=== PATIENT | female | born 1960 | race Caucasian/White ===

== ENCOUNTER → 2017-07-14 | Outpatient (CLI) | payer OTHER ==
[~2017-07-14] MED LIST: CALCTAB5 PO; CHOL1CAP85 PO; CIPR-255 PO; CITA20TA9 PO; LORA-741 PO
[2017-07-14 16:54] LABS: HEMATOCRIT 39.8 % (37-47); MEAN CELL VOLUME 89.8 fL (80-100); MEAN CORPUSCULAR HEMOGLOBIN 27.8 pg (25-34); MEAN CORPUSCULAR HGB CONC 30.9 g/dl (32-36); MEAN PLATELET VOLUME 10.1 fL (7.4-10.4); PLATELET COUNT 368 K/uL (130-400); RED BLOOD COUNT 4.43 M/uL (4.2-5.4); WHITE BLOOD COUNT 7.72 K/uL (4.8-10.8)
== END | disposition home or self-care (01) ==
LOC: C.LABBC 14:32
PROVIDERS: ATTEND Orthopaedic Surgery Sports Medicine
DX: R22.40 Localized swelling, mass and lump, unspecified lower limb (principal)

== ENCOUNTER → 2017-07-21 | Outpatient (CLI) | payer OTHER ==
[~2017-07-21] MED LIST changes: +GADAVIST IV PRN
--- NOTE | 2017-07-21 10:01 | DIAGNOSTIC IMAGING REPORT ---
RIGHT THIGH MRI WITH AND WITHOUT INTRAVENOUS CONTRAST HISTORY: Right thigh mass. TECHNIQUE: Multiplanar multisequence MRI of the right thigh was performed both before and after the intravenous administration of contrast. COMPARISON STUDY: None. FINDINGS: The patient is status post a right total hip arthroplasty. No fracture or dislocation within the visualized right femur. There are similar appearing multiseptated fluid collections within the anterior thigh and the groin. These demonstrate thickened and enhancing burleson. The groin fluid collection measures approximately 7.9 x 5.9 x 2.3 cm and appears to be located within the intermuscular adductor compartments. There is mild surrounding enhancement at this location. The second larger fluid collection is primarily within the deep subcutaneous location of the anterior thigh and corresponds to the patient's palpable abnormality. However, this fluid collection extends through the deep fascial plane best seen on axial T2 image 16 and extends superiorly between the quadriceps muscles. Both of these fluid collections may extend to the joint space. However, the most superior component of the fluid collections is partially obscured by the metallic artifact of the right hip prosthesis and the superior edge of the study. The larger anterior fluid collection measures approximately 27 x 10 x 3 cm. There is also mild surrounding enhancement and edema within the subcutaneous fat anteriorly. IMPRESSION: Similar-appearing large fluid collections within the anterior thigh and groin as described above demonstrating thickened and enhancing burleson. These fluid collections likely extend to the right hip. 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 Additionally, postoperative seromas, abscesses, or a synovial cell sarcomas could also have a similar appearance but are considered less likely. Electronically signed by: Carter Meza M.D. 07/21/2017 10:00 AM Dictated Date/Time: 07/21/2017 9:35 AM
== END | disposition home or self-care (01) ==
LOC: C.MRI 07:29
PROVIDERS: ATTEND Orthopaedic Surgery Sports Medicine
DX: R22.41 Localized swelling, mass and lump, right lower limb (principal)

== ENCOUNTER → 2017-07-28 | Outpatient (CLI) | payer OTHER ==
[~2017-07-28] MED LIST changes: -GADAVIST IV PRN
[2017-07-28 20:36] LABS: SYNOVIAL FLUID APPEARANCE CLOUDY; SYNOVIAL FLUID COLOR YELLOW; SYNOVIAL FLUID MONONUC RELAT 2.9 %; SYNOVIAL FLUID POLYNUC RELAT 97.1 %
== END | disposition home or self-care (01) ==
LOC: C.LAB 16:42
PROVIDERS: ATTEND Orthopaedic Surgery Sports Medicine
DX: M25.551 Pain in right hip (principal); Z47.1 Aftercare following joint replacement surgery; M79.651 Pain in right thigh; R60.0 Localized edema

== ENCOUNTER → 2017-09-02 | Outpatient (CLI) | payer OTHER ==
[~2017-09-02] MED LIST changes: +ASCA500 PO; +ASPI81TA28 PO; +DOXY100C2 PO; +FERR1TAB23 PO; +FLUO20CA36 PO; +LEVO-366 PO; +MISCCAP80 PO; +OXYC-609 PO; +SENNTAB23 PO
[2017-09-02 18:06] LABS: BASO % 0.2 %; BASO ABS # 0.01 K/uL (0-0.2); EOS % 2.7 %; EOS ABS # 0.16 K/uL (0-0.5); HEMATOCRIT 25.3 % (37-47); HEMOGLOBIN 8.1 g/dL (12.0-16.0); IG# 0.01 K/uL (0.00-0.02); LYMPH % 32.8 %; LYMPH ABS # 1.95 K/uL (1.2-3.4); MEAN CELL VOLUME 91.3 fL (80-100); MEAN CORPUSCULAR HEMOGLOBIN 29.2 pg (25-34); MEAN PLATELET VOLUME 9.8 fL (7.4-10.4); MONO % 7.9 %; MONO ABS # 0.47 K/uL (0.11-0.59); NEUT % 56.2 %; NEUT ABS # 3.34 K/uL (1.4-6.5); PLATELET COUNT 349 K/uL (130-400); RED CELL DISTRIBUTION WIDTH CV 15.8 % (11.5-14.5); RED CELL DISTRIBUTION WIDTH SD 50.5 fL (36.4-46.3); WHITE BLOOD COUNT 5.94 K/uL (4.8-10.8)
[2017-09-02 18:31] LABS: BLOOD UREA NITROGEN 12 mg/dl (7-18); CALCIUM 8.8 mg/dl (8.5-10.1); CARBON DIOXIDE 28 mmol/L (21-32); CREATININE 0.49 mg/dl (0.60-1.20); GLUCOSE 113 mg/dl (70-99); POTASSIUM 3.8 mmol/L (3.5-5.1); SODIUM 144 mmol/L (136-145)
--- NOTE | 2017-10-11 11:58 | CODING QUERY NO DIAGNOSIS ---
: 1960 Valid Physician Order Needed A valid physician order must be submitted in order to properly bill for the service(s) provided, including date of service(s), valid diagnosis, and physician signature. If these tests are done on a recurring basis the original physician order must be submitted in order to code and bill for the service(s) provided. Please fax us the original, signed physician order so that we may expedite billing to [phone] DOS 09/02/2017 * CBC with Diff * Partial Renal Profile * Vancomycin Trough Thank you Bibiana Goodrich [facility] Information Management
== END | disposition home or self-care (01) ==
LOC: C.LABSPEC 17:20
PROVIDERS: ATTEND Internal Medicine Infectious Disease
DX: M00.9 Pyogenic arthritis, unspecified (principal)

== ENCOUNTER → 2017-09-08 | Outpatient (CLI) | payer OTHER ==
[2017-09-08 12:31] LABS: BASO % 0.3 %; BASO ABS # 0.01 K/uL (0-0.2); EOS % 4.5 %; EOS ABS # 0.14 K/uL (0-0.5); HEMATOCRIT 29.8 % (37-47); HEMOGLOBIN 9.1 g/dL (12.0-16.0); IG# 0.01 K/uL (0.00-0.02); LYMPH % 33.1 %; LYMPH ABS # 1.02 K/uL (1.2-3.4); MEAN CELL VOLUME 95.8 fL (80-100); MEAN CORPUSCULAR HEMOGLOBIN 29.3 pg (25-34); MEAN CORPUSCULAR HGB CONC 30.5 g/dl (32-36); MEAN PLATELET VOLUME 9.8 fL (7.4-10.4); MONO % 12.3 %; MONO ABS # 0.38 K/uL (0.11-0.59); NEUT % 49.5 %; NEUT ABS # 1.52 K/uL (1.4-6.5); PLATELET COUNT 380 K/uL (130-400); RED CELL DISTRIBUTION WIDTH CV 17.3 % (11.5-14.5); RED CELL DISTRIBUTION WIDTH SD 59.5 fL (36.4-46.3); WHITE BLOOD COUNT 3.08 K/uL (4.8-10.8)
[2017-09-08 13:21] LABS: BLOOD UREA NITROGEN 13 mg/dl (7-18); CALCIUM 8.5 mg/dl (8.5-10.1); CARBON DIOXIDE 25 mmol/L (21-32); CREATININE 0.54 mg/dl (0.60-1.20); GLUCOSE 81 mg/dl (70-99); POTASSIUM 3.8 mmol/L (3.5-5.1); SODIUM 138 mmol/L (136-145)
--- NOTE | 2017-10-15 07:28 | CODING QUERY NO DIAGNOSIS ---
TREATMENT RENDERED WITHOUT A DIAGNOSIS To promote full compliance with coding requirements relating to patient care, physician participation is requested in all cases of certified professional coder uncertainty. Please assist us with providing a diagnosis/symptom for the test(s) below: A diagnosis/symptom was not documented on your Order. A valid diagnosis/symptom is required to bill all insurances. Please remember that we are unable to code a diagnosis of rule out, probable, possible, questionable, or suspected. Tests that require a diagnosis: DOS: 09/08/17 * CBC WITH AUTO DIFF DIAGNOSIS: * PARTIAL RENAL PROFILE DIAGNOSIS: * VANCOMYCIN TROUGH DIAGNOSIS: Provider Signature: Date: Thank you Trinidad Harvey [facility] Information Management Once completed, please kindly fax back to [phone] For questions please call [phone]
== END | disposition home or self-care (01) ==
LOC: C.LABSPEC 11:45
PROVIDERS: ATTEND Internal Medicine Infectious Disease
DX: M00.9 Pyogenic arthritis, unspecified (principal)

== ENCOUNTER → 2017-09-13 | Outpatient (CLI) | payer OTHER ==
[2017-09-13 12:47] LABS: BLOOD UREA NITROGEN 18 mg/dl (7-18); CALCIUM 8.6 mg/dl (8.5-10.1); CARBON DIOXIDE 24 mmol/L (21-32); CREATININE 0.56 mg/dl (0.60-1.20); GLUCOSE 83 mg/dl (70-99); POTASSIUM 3.7 mmol/L (3.5-5.1); SODIUM 136 mmol/L (136-145)
[2017-09-13 13:00] LABS: HEMATOCRIT 31.2 % (37-47); HEMOGLOBIN 9.7 g/dL (12.0-16.0); MEAN CELL VOLUME 94.3 fL (80-100); MEAN CORPUSCULAR HEMOGLOBIN 29.3 pg (25-34); MEAN CORPUSCULAR HGB CONC 31.1 g/dl (32-36); MEAN PLATELET VOLUME 10.7 fL (7.4-10.4); PLATELET COUNT 256 K/uL (130-400); RED CELL DISTRIBUTION WIDTH CV 16.8 % (11.5-14.5); RED CELL DISTRIBUTION WIDTH SD 57.5 fL (36.4-46.3); WHITE BLOOD COUNT 1.48 K/uL (4.8-10.8)
[2017-09-13 13:57] LABS: EOS % 4.7 %; EOS ABS # 0.07 K/uL (0-0.5); IG# 0.01 K/uL (0.00-0.02); LYMPH % 29.7 %; LYMPH ABS # 0.44 K/uL (1.2-3.4); MONO % 16.2 %; MONO ABS # 0.24 K/uL (0.11-0.59); NEUT % 48.7 %; NEUT ABS # 0.72 K/uL (1.4-6.5)
--- NOTE | 2017-10-22 14:55 | CODING QUERY NO DIAGNOSIS ---
: 1960 TREATMENT RENDERED WITHOUT A DIAGNOSIS To promote full compliance with coding requirements relating to patient care, physician participation is requested in all cases of management internship uncertainty. Please assist us with providing a diagnosis/symptom for the test(s) below: A diagnosis/symptom was not documented on your Order. A valid diagnosis/symptom is required to bill all insurances. Please remember that we are unable to code a diagnosis of rule out, probable, possible, questionable, or suspected. Tests that require a diagnosis: DOS: 09/02/17 AND FORWARD FOR WEEKLY LABS BELOW: * CBC WITH AUTO DIFF DIAGNOSIS: * PRP DIAGNOSIS: * VANCOMYCIN DIAGNOSIS: Provider Signature: Date: Thank you [facility] Information Management Once completed, please kindly fax back to [phone] For questions please call [phone]
== END | disposition home or self-care (01) ==
LOC: C.LABSPEC 07:55
DX: Z01.89 Encounter for other specified special examinations (principal)

== ENCOUNTER → 2017-09-14 | Outpatient (CLI) | payer OTHER ==
[~2017-09-14] MED LIST changes: -ASCA500 PO; -ASPI81TA28 PO; -DOXY100C2 PO; -FERR1TAB23 PO; -FLUO20CA36 PO; -LEVO-366 PO; -MISCCAP80 PO; -OXYC-609 PO; -SENNTAB23 PO
[2017-09-14 12:31] LABS: HEMATOCRIT 30.9 % (37-47); HEMOGLOBIN 9.5 g/dL (12.0-16.0); MEAN CELL VOLUME 93.6 fL (80-100); MEAN CORPUSCULAR HEMOGLOBIN 28.8 pg (25-34); MEAN CORPUSCULAR HGB CONC 30.7 g/dl (32-36); MEAN PLATELET VOLUME 10.9 fL (7.4-10.4); PLATELET COUNT 238 K/uL (130-400); RED CELL DISTRIBUTION WIDTH CV 16.5 % (11.5-14.5); RED CELL DISTRIBUTION WIDTH SD 56.2 fL (36.4-46.3); WHITE BLOOD COUNT 1.75 K/uL (4.8-10.8)
== END | disposition home or self-care (01) ==
LOC: C.LABSPEC 12:38
PROVIDERS: ATTEND Internal Medicine Infectious Disease
DX: M00.9 Pyogenic arthritis, unspecified (principal); A41.9 Sepsis, unspecified organism

== ENCOUNTER → 2017-09-16 | Outpatient (CLI) | payer OTHER ==
[2017-09-16 13:12] LABS: BASO % 0.3 %; BASO ABS # 0.01 K/uL (0-0.2); EOS % 7.3 %; EOS ABS # 0.27 K/uL (0-0.5); HEMATOCRIT 31.1 % (37-47); HEMOGLOBIN 9.5 g/dL (12.0-16.0); IG# 0.01 K/uL (0.00-0.02); LYMPH % 31.4 %; LYMPH ABS # 1.16 K/uL (1.2-3.4); MEAN CELL VOLUME 92.6 fL (80-100); MEAN CORPUSCULAR HEMOGLOBIN 28.3 pg (25-34); MEAN CORPUSCULAR HGB CONC 30.5 g/dl (32-36); MEAN PLATELET VOLUME 11.4 fL (7.4-10.4); MONO % 7.3 %; MONO ABS # 0.27 K/uL (0.11-0.59); NEUT % 53.4 %; NEUT ABS # 1.97 K/uL (1.4-6.5); PLATELET COUNT 235 K/uL (130-400); RED CELL DISTRIBUTION WIDTH CV 16.2 % (11.5-14.5); RED CELL DISTRIBUTION WIDTH SD 55.1 fL (36.4-46.3); WHITE BLOOD COUNT 3.69 K/uL (4.8-10.8)
== END | disposition home or self-care (01) ==
LOC: C.LABSPEC 12:24
PROVIDERS: ATTEND Internal Medicine Infectious Disease
DX: M00.9 Pyogenic arthritis, unspecified (principal); A41.9 Sepsis, unspecified organism

== ENCOUNTER → 2017-09-20 | Outpatient (CLI) | payer OTHER ==
[~2017-09-20] MED LIST changes: +ASCA500 PO; +ASPI81TA28 PO; +DOXY100C2 PO; +FERR1TAB23 PO; +FLUO20CA36 PO; +LEVO-366 PO; +MISCCAP80 PO; +OXYC-609 PO; +SENNTAB23 PO
[2017-09-20 12:43] LABS: BASO % 0.7 %; BASO ABS # 0.04 K/uL (0-0.2); EOS % 6.5 %; EOS ABS # 0.37 K/uL (0-0.5); HEMATOCRIT 31.5 % (37-47); HEMOGLOBIN 9.7 g/dL (12.0-16.0); IG# 0.01 K/uL (0.00-0.02); LYMPH % 33.7 %; LYMPH ABS # 1.92 K/uL (1.2-3.4); MEAN CELL VOLUME 93.8 fL (80-100); MEAN CORPUSCULAR HEMOGLOBIN 28.9 pg (25-34); MEAN CORPUSCULAR HGB CONC 30.8 g/dl (32-36); MEAN PLATELET VOLUME 10.7 fL (7.4-10.4); MONO % 17.6 %; NEUT % 41.3 %; NEUT ABS # 2.35 K/uL (1.4-6.5); PLATELET COUNT 308 K/uL (130-400); RED CELL DISTRIBUTION WIDTH CV 16.3 % (11.5-14.5); RED CELL DISTRIBUTION WIDTH SD 56.1 fL (36.4-46.3); WHITE BLOOD COUNT 5.69 K/uL (4.8-10.8)
[2017-09-20 13:04] LABS: BLOOD UREA NITROGEN 20 mg/dl (7-18); CALCIUM 9.2 mg/dl (8.5-10.1); CARBON DIOXIDE 25 mmol/L (21-32); CREATININE 0.42 mg/dl (0.60-1.20); GLUCOSE 76 mg/dl (70-99); POTASSIUM 3.6 mmol/L (3.5-5.1); SODIUM 141 mmol/L (136-145)
== END | disposition home or self-care (01) ==
LOC: C.LABSPEC 10:05
PROVIDERS: ATTEND Internal Medicine Infectious Disease
DX: Z01.89 Encounter for other specified special examinations (principal)

== ENCOUNTER 2017-10-07 08:28 | Emergency (ER) | payer OTHER ==
[~2017-10-07] VITALS: Ht 160 cm; Wt 66.0 kg
[~2017-10-07 08:28] MED LIST changes: -ASCA500 PO; -ASPI81TA28 PO; -DOXY100C2 PO; -FERR1TAB23 PO; -FLUO20CA36 PO; -LEVO-366 PO; -MISCCAP80 PO; -OXYC-609 PO; -SENNTAB23 PO
[2017-10-07 08:32] VITALS: TEMP 37.1; Ht 160 cm; Wt 66.0 kg
[2017-10-07 08:58] LABS: BASO % 0.2 %; BASO ABS # 0.02 K/uL (0-0.2); EOS % 2.6 %; EOS ABS # 0.24 K/uL (0-0.5); HEMATOCRIT 37.1 % (37-47); IG# 0.03 K/uL (0.00-0.02); LYMPH % 27.5 %; LYMPH ABS # 2.59 K/uL (1.2-3.4); MEAN CELL VOLUME 93.5 fL (80-100); MEAN CORPUSCULAR HEMOGLOBIN 30.2 pg (25-34); MEAN CORPUSCULAR HGB CONC 32.3 g/dl (32-36); MEAN PLATELET VOLUME 10.8 fL (7.4-10.4); MONO % 11.2 %; MONO ABS # 1.05 K/uL (0.11-0.59); NEUT % 58.2 %; NEUT ABS # 5.48 K/uL (1.4-6.5); PLATELET COUNT 298 K/uL (130-400); RED CELL DISTRIBUTION WIDTH CV 15.5 % (11.5-14.5); RED CELL DISTRIBUTION WIDTH SD 53.6 fL (36.4-46.3); WHITE BLOOD COUNT 9.41 K/uL (4.8-10.8)
[2017-10-07] MEDS ORDERED: OPTIRAY 320 IV PRN (09:15)
[2017-10-07 09:16] LABS: ALBUMIN 3.8 gm/dl (3.4-5.0); ALT/SGPT 56 U/L (12-78); BLOOD UREA NITROGEN 20 mg/dl (7-18); CALCIUM 9.8 mg/dl (8.5-10.1); CARBON DIOXIDE 24 mmol/L (21-32); GLUCOSE 94 mg/dl (70-99); LIPASE 111 U/L (73-393); POTASSIUM 3.4 mmol/L (3.5-5.1); SODIUM 138 mmol/L (136-145)
[2017-10-07 09:24] LABS: ALKALINE PHOSPHATASE 103 U/L (45-117); AST/SGOT 26 U/L (15-37); CKMB < 0.5 ng/ml (0.5-3.6); TOTAL PROTEIN 7.7 gm/dl (6.4-8.2)
[2017-10-07] MEDS ORDERED: MISCCAP80 PO (09:24)
[2017-10-07] MEDS ORDERED: FERR1TAB23 PO (09:24)
[2017-10-07] MEDS ORDERED: FLUO20CA36 PO (09:24)
[2017-10-07] MEDS ORDERED: DOXY100C2 PO (09:24)
[2017-10-07] MEDS ORDERED: SENNTAB23 PO (09:24)
[2017-10-07] MEDS ORDERED: OXYC-609 PO (09:24)
[2017-10-07] MEDS ORDERED: ASPI81TA28 PO (09:24)
[2017-10-07] MEDS ORDERED: ASCA500 PO (09:24)
[2017-10-07 09:29] LABS: PTT PATIENT 26.4 SECONDS (21.0-31.0)
--- NOTE | 2017-10-07 10:32 | DIAGNOSTIC IMAGING REPORT ---
CT SCAN OF THE ABDOMEN AND PELVIS WITH IV CONTRAST CLINICAL HISTORY: Right flank pain. COMPARISON STUDY: Abdominal CT dated 02/02/2015. MRI of the right hip dated 07/21/2017. TECHNIQUE: Following the IV administration of 119 cc of Optiray 320, CT scan of the abdomen and pelvis is performed from the lung bases to the proximal femora. Images are reviewed in the axial, sagittal, and coronal planes. IV contrast was administered without complication. A dose lowering technique was utilized adhering to the principles of ALARA. FINDINGS: Lung bases: The heart is enlarged and there is a small pericardial effusion. There is a trace right pleural effusion. Consolidative changes seen at the right lung base. The left lung bases clear noting dependent atelectasis end a calcified granuloma. Liver: The contrast-enhanced liver is normal in size, contour, and attenuation. There is no intrahepatic biliary ductal dilatation. The hepatic veins and portal veins are patent. 1.2 cm hypodensity is present in the right lobe of liver on image #83. This likely represents a tiny hemangioma but copy definitively characterized. This is not significantly changed from 2015. Gallbladder: Numerous gallstones are identified. There is no CT evidence of acute cholecystitis. Spleen: Normal in size and attenuation. Pancreas: Unremarkable. Adrenal glands: Unremarkable. Kidneys: The contrast enhanced kidneys are normal in size and without hydronephrosis. The kidneys enhance symmetrically. Abdominal vasculature: The abdominal aorta is normal in course and caliber. Bowel: There is moderate constipation. No bowel obstruction is seen. The appendix is normal as visualized. Peritoneum: There is no intraperitoneal free air or abdominal ascites. There is a fat-containing umbilical hernia. Lymphadenopathy: None. Pelvic viscera: Evaluation of the pelvis is degraded by a right hip arthroplasty. The bladder, uterus, and adnexa are normal as visualized. Skeletal structures: The skeletal structures are osteopenic. No lytic or blastic lesions are seen. A right hip arthroplasty is in place. There is age indeterminant fracture identified surrounding the skeletal the arthroplasty. This is likely at least subacute. Soft tissue infiltration is present overlying the right hip. A small fluid collection is suggested within the right hip musculature on image #377. This measures at least 2.4 cm as seen on image #377. There is mild lumbosacral spondylosis and scoliosis. IMPRESSION: 1. Cardiomegaly and small pericardial effusion. 2. There is a trace right pleural effusion. Consolidative change is seen at the right lung base. This could represent atelectasis versus pneumonia. Clinical correlation will be required. 3. Cholelithiasis without CT evidence of acute cholecystitis. 4. Moderate constipation. 5. A right hip arthroplasty is in place. There is subacute to chronic appearing fracture identified in the femoral shaft around the arthroplasty stem. Consider radiographic correlation. 6. Mild inflammatory change is seen overlying the right hip. There is a small serpiginous fluid collection seen within the overlying musculature, which was also likely present on the 07/21/2017 MRI. Clinical correlation will be essential. Electronically signed by: Bernardino Layton M.D. 10/07/2017 10:30 AM Dictated Date/Time: 10/07/2017 10:21 AM
--- NOTE | 2017-10-07 10:34 | DIAGNOSTIC IMAGING REPORT ---
(CHEST FOR PE) ANGIO WITH CLINICAL HISTORY: 56 years-old Female presenting with right-sided chest pain, shortness of breath since yesterday afternoon, no cough, constant pain. TECHNIQUE: Multidetector CT angiography of the chest was performed after administration of intravenous contrast. 3-D volumetric and/or maximum intensity projection (MIP) images were subsequently reconstructed for review. IV contrast: 119 mL of Optiray 320. A dose lowering technique was used consistent with the principles of ALARA (as low as reasonably achievable). COMPARISON: None. CT DOSE (mGy.cm): The estimated cumulative dose is 736.48 mGy.cm. FINDINGS: Placement Manager topogram: Right hip prosthesis. Pulmonary vasculature: The study is adequate for assessment of the pulmonary vascular tree. No filling defect within the pulmonary arteries to suggest embolus. Main pulmonary artery is not enlarged. No flattening of the interventricular septum. No intracardiac filling defect. No reflux of contrast into the hepatic veins. Remaining chest: On soft tissue windows, normal thyroid and thoracic inlet. No axillary, supraclavicular, hilar, or mediastinal lymphadenopathy. Normal aorta. Multichamber enlargement of the heart. Pulmonary vascular prominence. Mitral annular calcification. No pericardial or pleural effusion. Cholelithiasis. On lung windows, patchy peribronchovascular and dependent consolidation in the right lower lobe with volume loss. Mosaic attenuation noted throughout the lungs. Minimal peribronchial vascular consolidation along the medial basal left lower lobe and medial right middle lobe. Airways patent. On bone windows, benign hemangioma noted in T4. IMPRESSION: 1. No evidence of pulmonary embolus. 2. Cardiomegaly with pulmonary vessels are prominent suggestive of volume overload. No mariam pulmonary edema. 3. Patchy consolidation/atelectasis most prominently involving the right lower lobe. A component of aspiration in the right lower lobe is difficult to exclude. 4. Mosaic attenuation could suggest small airways disease. 5. Cholelithiasis. Electronically signed by: Carl Rosenthal M.D. 10/07/2017 10:33 AM Dictated Date/Time: 10/07/2017 10:25 AM
[2017-10-07] MEDS ORDERED: LEVOFLOXACIN 250 MG TAB PO STA (11:26)
[2017-10-07] MEDS ORDERED: KETOROLAC TROMETHAMINE 30 MG/ML VIAL IV STA (11:26)
[2017-10-07] MEDS ORDERED: LEVO-366 PO (11:27)
--- NOTE | 2017-10-07 12:41 | EMERGENCY ROOM VISIT NOTE ---
History Report prepared by Kendrick: Theresa Carpenter Under the Supervision of: Matthew SummersO. First contact with patient: 08:36 Chief Complaint: CARDIAC ASSESSMENT Stated Complaint: R SIDE PAIN, FROM HIP TO NECK Nursing Triage Summary: right sided chest pain with SOB since yesterday afternoon no cough or cold took oxycodone for pain pain is constant History of Present Illness The patient is a 56 year old female who presents to the Emergency Room with complaints of worsening right sided chest pain beginning yesterday. The patient states her pain started in her back and slowly started to radiate to her neck, right flank, and chest. The patient states her her pain worsens with taking a deep breath and moving. The patient states she took and oxycodone this morning with minimal relief. The patient denies any nausea, fever, or recent illness. The patient has a history of a hip replacement. Source of History: patient Onset: yesterday Position: chest (right) Quality: other (radiating) Timing: worsening Modifying Factors (Worsening): breathing, movement Modifying Factors (Relieving): other (oxycodone) Associated Symptoms: No fevers, No nausea Review of Systems See HPI for pertinent positives & negatives. A total of 10 systems reviewed and were otherwise negative. Past Medical & Surgical Medical Problems: (1) Aortic Valve Disorder Family History FH: heart disease Hypertension Social History Smoking Status: Former Smoker Drug Use: none Marital Status: in relationship Occupation Status: employed Current/Historical Medications Scheduled Ascorbic Acid (Vitamin C), 1 TAB PO DAILY Aspirin (Aspirin Ec), 81 MG PO BID Cholecalciferol (Vitamin D3), 20,000 UNITS PO DAILY Doxycycline Hyclate (Vibramycin), 100 MG PO BID Ferrous Sulfate (Iron), 325 MG PO BID Fluoxetine HCl (Fluoxetine HCl), 20 MG PO DAILY Levofloxacin (Levaquin), 500 MG PO DAILY Probiotic Product (Probiotic), 1 CAP PO DAILY Sennosides-Docusate Sodium (Stool Softener), 1 TAB PO Q2D Scheduled PRN Lorazepam (Ativan), 0.5 MG PO Q8 PRN for Anxiety Oxycodone HCl (Oxycodone HCl), 5 MG PO Q4H PRN for Pain Allergies Coded Allergies: No Known Drug Allergy (Verified Allergy, Unknown, ., 10/07/17) Physical Exam Vital Signs Date Time Temp Pulse Resp B/P (MAP) Pulse Ox O2 Delivery O2 Flow Rate FiO2 10/07/17 12:34 74 10/07/17 11:56 82 18 94/56 96 Room Air 10/07/17 10:18 80 18 111/64 97 Room Air 10/07/17 08:51 70 10/07/17 08:32 37.1 81 18 110/71 96 Room Air Physical Exam CONSTITUTIONAL/VITAL SIGNS: Reviewed / noted above. GENERAL: Non-toxic in appearance. INTEGUMENTARY: Warm, dry, and [place]. HEAD: Normocephalic. EYES: without scleral icterus or trauma. ENT/OROPHARYNX: clear and moist. LYMPHADENOPATHY/NECK: Is supple without lymphadenopathy or meningismus. RESPIRATORY: Lungs clear and equal. CARDIOVASCULAR: Regular rate and rhythm. GI/ABDOMEN: Soft and nontender. No organomegaly or pulsatile mass. No rebound or guarding. Normal bowel sounds. EXTREMITIES: Warm and well perfused. BACK: No CVA tenderness. NEUROLOGICAL: Intact without focal deficits. PSYCHIATRIC: normal affect. MUSCULOSKELETAL: Normally developed with good muscle tone. Medical Decision & Procedures ER Provider Diagnostic Interpretation: Radiology results as stated below per my review and radiologist interpretation: CT SCAN OF THE ABDOMEN AND PELVIS WITH IV CONTRAST FINDINGS: Lung bases: The heart is enlarged and there is a small pericardial effusion. There is a trace right pleural effusion. Consolidative changes seen at the right lung base. The left lung bases clear noting dependent atelectasis end a calcified granuloma. Liver: The contrast-enhanced liver is normal in size, contour, and attenuation. There is no intrahepatic biliary ductal dilatation. The hepatic veins and portal veins are patent. 1.2 cm hypodensity is present in the right lobe of liver on image #83. This likely represents a tiny hemangioma but copy definitively characterized. This is not significantly changed from 2015. Gallbladder: Numerous gallstones are identified. There is no CT evidence of acute cholecystitis. Spleen: Normal in size and attenuation. Pancreas: Unremarkable. Adrenal glands: Unremarkable. Kidneys: The contrast enhanced kidneys are normal in size and without hydronephrosis. The kidneys enhance symmetrically. Abdominal vasculature: The abdominal aorta is normal in course and caliber. Bowel: There is moderate constipation. No bowel obstruction is seen. The appendix is normal as visualized. Peritoneum: There is no intraperitoneal free air or abdominal ascites. There is a fat-containing umbilical hernia. Lymphadenopathy: None. Pelvic viscera: Evaluation of the pelvis is degraded by a right hip arthroplasty. The bladder, uterus, and adnexa are normal as visualized. Skeletal structures: The skeletal structures are osteopenic. No lytic or blastic lesions are seen. A right hip arthroplasty is in place. There is age indeterminant fracture identified surrounding the skeletal the arthroplasty. This is likely at least subacute. Soft tissue infiltration is present overlying the right hip. A small fluid collection is suggested within the right hip musculature on image #377. This measures at least 2.4 cm as seen on image #377. There is mild lumbosacral spondylosis and scoliosis. IMPRESSION: 1. Cardiomegaly and small pericardial effusion. 2. There is a trace right pleural effusion. Consolidative change is seen at the right lung base. This could represent atelectasis versus pneumonia. Clinical correlation will be required. 3. Cholelithiasis without CT evidence of acute cholecystitis. 4. Moderate constipation. 5. A right hip arthroplasty is in place. There is subacute to chronic appearing fracture identified in the femoral shaft around the arthroplasty stem. Consider radiographic correlation. 6. Mild inflammatory change is seen overlying the right hip. There is a small serpiginous fluid collection seen within the overlying musculature, which was also likely present on the 07/21/2017 MRI. Clinical correlation will be essential. Electronically signed by: Bernardino Layton M.D. (CHEST FOR PE) ANGIO WITH FINDINGS: Tombstone Setter topogram: Right hip prosthesis. Pulmonary vasculature: The study is adequate for assessment of the pulmonary vascular tree. No filling defect within the pulmonary arteries to suggest embolus. Main pulmonary artery is not enlarged. No flattening of the interventricular septum. No intracardiac filling defect. No reflux of contrast into the hepatic veins. Remaining chest: On soft tissue windows, normal thyroid and thoracic inlet. No axillary, supraclavicular, hilar, or mediastinal lymphadenopathy. Normal aorta. Multichamber enlargement of the heart. Pulmonary vascular prominence. Mitral annular calcification. No pericardial or pleural effusion. Cholelithiasis. On lung windows, patchy peribronchovascular and dependent consolidation in the right lower lobe with volume loss. Mosaic attenuation noted throughout the lungs. Minimal peribronchial vascular consolidation along the medial basal left lower lobe and medial right middle lobe. Airways patent. On bone windows, benign hemangioma noted in T4. IMPRESSION: 1. No evidence of pulmonary embolus. 2. Cardiomegaly with pulmonary vessels are prominent suggestive of volume overload. No mariam pulmonary edema. 3. Patchy consolidation/atelectasis most prominently involving the right lower lobe. A component of aspiration in the right lower lobe is difficult to exclude. 4. Mosaic attenuation could suggest small airways disease. 5. Cholelithiasis. Electronically signed by: Carl Rosenthal M.D. Laboratory Results 10/07/17 08:45 Red Blood Count 3.97, Mean Corpuscular Volume 93.5, Mean Corpuscular Hemoglobin 30.2, Mean Corpuscular Hemoglobin Concent 32.3, Mean Platelet Volume 10.8, Neutrophils (%) (Auto) 58.2, Lymphocytes (%) (Auto) 27.5, Monocytes (%) (Auto) 11.2, Eosinophils (%) (Auto) 2.6, Basophils (%) (Auto) 0.2, Neutrophils # (Auto ) 5.48, Lymphocytes # (Auto) 2.59, Monocytes # (Auto) 1.05, Eosinophils # (Auto ) 0.24, Basophils # (Auto) 0.02 10/07/17 08:45 Test 10/07/17 08:45 10/07/17 10:50 White Blood Count 9.41 K/uL (4.8-10.8) Red Blood Count 3.97 M/uL (4.2-5.4) Hemoglobin 12.0 g/dL (12.0-16.0) Hematocrit 37.1 % (37-47) Mean Corpuscular Volume 93.5 fL (80-100) Mean Corpuscular Hemoglobin 30.2 pg (25-34) Mean Corpuscular Hemoglobin Concent 32.3 g/dl (32-36) Platelet Count 298 K/uL (130-400) Mean Platelet Volume 10.8 fL (7.4-10.4) Neutrophils (%) (Auto) 58.2 % Lymphocytes (%) (Auto) 27.5 % Monocytes (%) (Auto) 11.2 % Eosinophils (%) (Auto) 2.6 % Basophils (%) (Auto) 0.2 % Neutrophils # (Auto) 5.48 K/uL (1.4-6.5) Lymphocytes # (Auto) 2.59 K/uL (1.2-3.4) Monocytes # (Auto) 1.05 K/uL (0.11-0.59) Eosinophils # (Auto) 0.24 K/uL (0-0.5) Basophils # (Auto) 0.02 K/uL (0-0.2) RDW Standard Deviation 53.6 fL (36.4-46.3) RDW Coefficient of Variation 15.5 % (11.5-14.5) Immature Granulocyte % (Auto) 0.3 % Immature Granulocyte # (Auto) 0.03 K/uL (0.00-0.02) Prothrombin Time 10.7 SECONDS (9.0-12.0) Prothromb Time International Ratio 1.0 (0.9-1.1) Activated Partial Thromboplast Time 26.4 SECONDS (21.0-31.0) Partial Thromboplastin Ratio 1.0 D-Dimer 4150 ug/L FEU (0-500) Anion Gap 10.0 mmol/L (3-11) Est Creatinine Clear Calc Drug Dose 81.9 ml/min Estimated GFR () 112.3 Estimated GFR (Non- 96.9 BUN/Creatinine Ratio 28.0 (10-20) Calcium Level 9.8 mg/dl (8.5-10.1) Total Bilirubin 0.9 mg/dl (0.2-1) Direct Bilirubin 0.2 mg/dl (0-0.2) Aspartate Amino Transf (AST/SGOT) 26 U/L (15-37) Alanine Aminotransferase (ALT/SGPT) 56 U/L (12-78) Alkaline Phosphatase 103 U/L (45-117) Total Creatine Kinase 38 U/L (26-192) Creatine Kinase MB < 0.5 ng/ml (0.5-3.6) Creatine Kinase MB Ratio (0-3.0) Troponin I < 0.015 ng/ml (0-0.045) Total Protein 7.7 gm/dl (6.4-8.2) Albumin 3.8 gm/dl (3.4-5.0) Lipase 111 U/L (73-393) Urine Color YELLOW Urine Appearance CLEAR (CLEAR) Urine pH 5.5 (4.5-7.5) Urine Specific [place] > 1.045 (1.000-1.030) Urine Protein NEG (NEG) Urine Glucose (UA) NEG (NEG) Urine Ketones 1+ (NEG) Urine Occult Blood NEG (NEG) Urine Nitrite NEG (NEG) Urine Bilirubin NEG (NEG) Urine Urobilinogen NEG (NEG) Urine Leukocyte Esterase NEG (NEG) Laboratory results as stated above per my review. Medications Administered Medications (Trade) Dose Ordered Sig/Raymond Route Start Time Stop Time Status Last Admin Dose Admin Ketorolac Tromethamine (Toradol Inj) 30 mg NOW STAT IV 10/07/17 11:26 10/07/17 11:27 DC 10/07/17 11:54 30 MG Levofloxacin (Levaquin Tab) 500 mg NOW STAT PO 10/07/17 11:26 10/07/17 11:27 DC 10/07/17 11:53 500 MG ECG Indication: chest pain Rate (beats per minute): 75 Findings: no ectopy, other (no acute injury) Change: EKG interpreted by me. ED Course 0837: Previous medical records were reviewed. The patient was evaluated in room A11B. A complete history and physical examination was performed. 1126: Ordered Levaquin Tab 500 mg Po, Toradol Inj 30 mg IV. 113: On reevaluation, the patient is resting comfortably. I discussed the results and findings with the patient. She verbalized agreement of the treatment plan. The patient was discharged home. Medical Decision the differential was considered includes acute myocardial infarction, acute coronary syndrome, myocarditis, pericarditis, pericardial effusions /tamponad, esophageal perforation, thoracic aortic dissection, pulmonary embolism, pneumonia, pneumothorax, pancreatitis, shingles, acute cholecystitis, perforated abdominal viscus. This is a 56-year-old female who presents to the ED with a chief complaint of right sided chest pain that radiates up towards her neck and into her right flank. The patient states that it started yesterday. She states that deep breathing made it worse. Denies any upper respiratory complaints. Her vital signs are normal. 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 Further details are listed above. The patient has normal vital signs. Her physical exam was relatively unremarkable. D-dimer was elevated. CBC and chem a panel was unremarkable. Troponin was negative. CT scan of the chest and abdomen and pelvis was done with IV contrast. Both show consolidation in the right lower lobe. There is cholelithiasis. There are some chronic changes in the right femur which, clinically, do not correlate to anything acute. The patient has no symptoms there. Patient was told results. She was started on Levaquin. She is felt to be stable for discharge and outpatient follow-up. Medication Reconcilliation Current Medication List: was personally reviewed by me Blood Pressure Screening Patient's blood pressure: Normal blood pressure Impression Primary Impression: Pneumonia Scribe Attestation The scribe's documentation has been prepared under my direction and personally reviewed by me in its entirety. I confirm that the note above accurately reflects all work, treatment, procedures, and medical decision making performed by me. Departure Information Dispostion Home / Self-Care Prescriptions Levofloxacin (Levaquin) 500 Mg Tab 500 MG PO DAILY for 9 Days, #9 TAB Prov: Jaciel Latham D.O. 10/07/17 Referrals Anamaria Abad D.O. (PCP) Forms IMPORTANT VISIT INFORMATION Patient Instructions My [facility], Pneumonia (Bacterial) - [facility] Additional Instructions Follow-up with your doctor for further care and evaluation in 1-2 days. Return to the emergency department for worsening or new symptoms or any concerns. You have been examined and treated today on an emergency basis only. This is not a substitute for, or an effort to provide, complete comprehensive medical care. It is impossible to recognize and treat all injuries or illnesses in a single emergency department visit. It is therefore important that you follow up closely with your doctor. Call as soon as possible for an appointment. Levaquin as prescribed
[2017-10-07 12:49] VITALS: BP 101/58; PULSE 77; O2SAT 97
== END 2017-10-07 12:50 | disposition home or self-care (01) ==
LOC: C.EDB 08:29 → C.EDA 12:50
DX: J18.9 Pneumonia, unspecified organism (principal); R07.9 Chest pain, unspecified; I51.7 Cardiomegaly; K80.20 Calculus of gallbladder without cholecystitis without obstruction; R06.02 Shortness of breath; Z96.641 Presence of right artificial hip joint; R10.9 Unspecified abdominal pain; Z87.891 Personal history of nicotine dependence

== ENCOUNTER 2022-08-02 16:17 | Inpatient (IN) ==
[2022-08-02] MEDS ORDERED: Heparin IV Adult Wt-Based Low-Dose WITH Bolus Protocol STA (16:41)
[2022-08-02 16:43] LABS: iSTAT Creatinine 0.6 mg/dl (0.6-1.3); iSTAT Hemoglobin 13.9 g/dl (12.0-16.0); iSTAT Ionized Calcium 1.05 mmol/l (1.12-1.32); iSTAT Potassium 3.1 mmol/L (3.3-5.0)
[2022-08-02] MEDS ORDERED: HEPARIN (PORCINE) 1000 UNIT/ML 10 ML (CATH LAB USE ONLY) ONE (16:47)
[2022-08-02] MEDS ORDERED: HEPARIN SOD (PORCINE) 1000 UNIT/ML ONE (16:48)
[2022-08-02] MEDS ORDERED: niCARdipine HCL INJ 2.5 MG/ML 10 ML AMP ONE (16:48)
[2022-08-02] MEDS ORDERED: MIDAZOLAM HCL 1 MG/ML 2ML VIAL ONE (16:48)
[2022-08-02] MEDS ORDERED: HEPARIN 25000 UNIT/500 ML D5W IV ONE (16:48)
[2022-08-02] MEDS ORDERED: fentaNYL citrate 100 MCG/2 ML VIAL ONE ×2 (16:48→16:54)
[2022-08-02] MEDS ORDERED: NITROGLYCERIN/D5W 100MCG/ML 20ML SYR ONE (16:48)
--- NOTE | 2022-08-02 16:48 | XRay Report ---
XR chest 1V portable HISTORY: 61 years-old Female Chest pain acute chest pain COMPARISON: None TECHNIQUE: Supine AP view of the chest FINDINGS: Cardiac silhouette is moderately enlarged. No pneumothorax, pleural effusion, airspace consolidation or overt pulmonary edema. Bones appear grossly intact. IMPRESSION: Cardiomegaly without acute process. ACT 112: Negative or not required by law. The above report was generated using voice recognition software. It may contain grammatical, syntax o r spelling errors. Electronically signed by: Leopoldo Fang M.D. 08/02/2022 4:47 PM
[2022-08-02 16:52] LABS: Basophils # (auto) 0.04 K/uL (0-0.2); Basophils % (auto) 0.3 %; Eosinophils # (auto) 0.05 K/uL (0-0.50); Eosinophils % (auto) 0.4 %; Hematocrit (blood only) 38.1 % (34.1-44.9); Hemoglobin 12.9 g/dl (12.0-16.0); Immature Granulocytes # (auto) 0.05 K/uL (0.00-0.02); Immature Granulocytes % (auto) 0.4 %; Lymphocytes # (auto) 1.93 K/uL (1.2-3.4); Lymphocytes % (auto) 16.3 %; Mean Corpuscular Hemoglobin 31.8 pg (25.0-34.0); Mean Corpuscular Hgb Conc 33.9 g/dL (32.0-36.0); Mean Corpuscular Volume 93.8 fL (80.0-100.0); Mean Platelet Volume 11.1 fL (9.4-12.3); Monocytes # (auto) 0.58 K/uL (0.24-0.82); Monocytes % (auto) 4.9 %; Neutrophils # (auto) 9.21 K/uL (1.4-6.5); Neutrophils % (auto) 77.7 %; Platelet Count 253 K/uL (130-400); RDW Coefficient of Variation 12.2 % (11.5-14.5); RDW Standard Deviation 42.3 fL (36.4-46.3); Red Blood Count 4.06 M/uL (3.93-5.22); White Blood Count 11.86 K/ul (4.8-10.8)
[2022-08-02] MEDS ORDERED: HEPARIN SOD (PORCINE) 1000 UNIT/ML IV ONE (17:00)
--- NOTE | 2022-08-02 17:01 | Pre Anesthesia Assessment ---
Date of Service August 02, 2022 Pre Sedation Assessment Vital Signs Temp Pulse Pulse Resp BP BP Pulse Ox 08/02/22 16:58 08/02/22 16:45 71 18 96 08/02/22 16:45 129/70 08/02/22 16:13 98.6 F 74 24 102/64 96 08/02/22 16:40 08/02/22 16:38 08/02/22 16:37 100 08/02/22 16:37 72 30 H 120/60 100 O2 Del Method O2 Flow Rate 08/02/22 16:58 Nasal Cannula 08/02/22 16:45 Nasal Cannula 2 08/02/22 16:45 08/02/22 16:13 Room Air 08/02/22 16:40 Nasal Cannula 08/02/22 16:38 Nasal Cannula 08/02/22 16:37 Nasal Cannula 2 08/02/22 16:37 Nasal Cannula 2 Cardiovascular RRR, no murmur, no edema Respiratory normal respiratory effort, lungs clear to auscultation Pre-Sedation Airway Assessment Smoking Status: Never smoker Hx Sleep Apnea: No Hx Difficult Intubation: No Thyromental Distance: < 3.5 Finger Breadths Oral Cavity: + WNL Mallampati Class: III ASA: ASA4 Procedure Planning Contraindications for Sedation: none Current Medications Reviewed: Yes Notes The planned sedation has been discussed with the patient. Informed Consent was obtained. I have identified the patient, determined the appropriateness of sedation and have assessed the patient immediately prior to the procedure. All medicine(s) and interventions are by my order.
--- NOTE | 2022-08-02 17:01 | Emergency Department Note ---
Impression & Plan ST elevation (STEMI) myocardial infarction, Chest pain ED Provider Note HISTORY OF PRESENT ILLNESS: Patient is a 61-year-old female presenting with chest pain. Patient reportedly was feeling constipated this morning and took a Dulcolax when she developed substernal chest pain. Patient reports this started around 1230. Her called 911. On EMS arrival, the patient was given 4 mg of Zofran for nausea and was given 324 mg of oral aspirin in route. EKG prehospital showed ST depressions in V4, V5, V6. On arrival to the ER, patient still complaining of chest pain. Heart alert was activated given EKG showing persistent depressions. Patient denies any history of coronary artery disease or diabetes. Denies any history of stents in her heart. Denies any DVT or PE history. She is not on any anticoagulation. Denies any history of bleeding disorders ROS: Constitutional: No fever, chills, or weakness Skin: No rash or diaphoresis HENT: No headaches or congestion Eyes: No vision changes Cardio: No palpitations or leg swelling +chest pain Respiratory: No cough, wheezing or shortness of breath GI: No nausea, vomiting, diarrhea, constipation : No dysuria, polyuria MSK: No joint or back pain Neuro: No loss of sensation, confusion, focal deficits, numbness, tingling Psychiatric: No mood changes PHYSICAL EXAM: Constitutional: Patient appears in no acute distress. HENT: Head: Normocephalic and atraumatic. Eyes: EOMI, PERRL Mouth/Throat: Mucous membranes moist. Neck: Trachea midline. Neck supple. Cardiovascular: RRR, No murmurs, rubs or gallops. Intact distal pulses. Pulmonary/Chest: No respiratory distress. Breath sounds clear and equal bilaterally. No wheezes or rales. Abdominal: BS +. Abdomen soft, no tenderness, rebound or guarding. Back: No midline spinal tenderness, no paraspinal tenderness, no CVA tenderness. Musculoskeletal: No edema, tenderness or deformity noted. Skin: Warm and dry. No rash, erythema, pallor or cyanosis Psychiatric: Appropriate mood and affect for situation. Neurological: Alert and keenly responsive. CN II-XII grossly intact, moving all extremities equally and fully. MDM: - Vitals signs stable. - EKG shows ST depressions in V4, V5 and V6. Heart alert activated. Interventionalist, Dr. Baldwin, consulted. Requested heparin bolus (ordered). - Patient given 25 mcg IV fentanyl for pain control on arrival. - Laboratory workup ordered and sent to lab. - Patient taken to cleaning laborer and to be admitted to hospitalist service post procedure. ASSESSMENT AND PLAN: Diagnosis: STEMI; chest pain Plan: to cleaning laborer Past Med/Surg History Social History Smoking Status: Never smoker Feels Safe at Home: Yes Allergies Allergies Allergy/AdvReac Type Severity Reaction Status Date / Time vancomycin AdvReac Rash Verified 08/02/22 16:35 Home Meds Home Medications Medication Instructions Recorded Confirmed cholecalciferol (vitamin D3) 25 25 mcg PO DAILY 08/02/22 08/02/22 mcg (1,000 unit) tablet (Vitamin D3) lorazepam 0.5 mg tablet 0.5 mg PO DAILY PRN Anxiety 08/02/22 08/02/22 magnesium 250 mg tablet 0 mg PO 3XWK 08/02/22 08/02/22 Results & Data (ED) Vital Signs Vital Signs - 24 hr 08/02/22 16:37 08/02/22 16:37 08/02/22 16:38 Temperature Temperature Source Pulse Rate Pulse Rate [Apical] 72 Pulse Rate from SpO2 Sensor Respiratory Rate 30 H Respiratory Effort / Characteristics Respiratory Depth Respiratory Pattern Blood Pressure Blood Pressure [Left Arm] 120/60 Blood Pressure Mean Blood Pressure Mean [Left Arm] 80 Blood Pressure Position Pulse Oximetry 100 100 Oxygen Delivery Method Nasal Cannula Nasal Cannula Nasal Cannula Oxygen Flow Rate 2 2 Sepsis Recent Fever Within 48 Hours Sepsis New/Unexplained Change in Mental Status Sepsis Action Taken by Nursing 08/02/22 16:40 08/02/22 16:13 08/02/22 16:45 Temperature 37.0 C Temperature Source Oral Pulse Rate 74 Pulse Rate [Apical] Pulse Rate from SpO2 Sensor Respiratory Rate 24 Respiratory Effort / Characteristics Non-Labored Spontaneous Respiratory Depth Normal Respiratory Pattern Regular Blood Pressure 102/64 129/70 Blood Pressure [Left Arm] Blood Pressure Mean 76 89 Blood Pressure Mean [Left Arm] Blood Pressure Position Lying Pulse Oximetry 96 Oxygen Delivery Method Nasal Cannula Room Air Oxygen Flow Rate Sepsis Recent Fever Within 48 Hours No Sepsis New/Unexplained Change in Mental Status No Sepsis Action Taken by Nursing No Action Required 08/02/22 16:45 08/02/22 16:58 Temperature Temperature Source Pulse Rate 71 Pulse Rate [Apical] Pulse Rate from SpO2 Sensor 70 Respiratory Rate 18 Respiratory Effort / Characteristics Respiratory Depth Respiratory Pattern Blood Pressure Blood Pressure [Left Arm] Blood Pressure Mean Blood Pressure Mean [Left Arm] Blood Pressure Position Pulse Oximetry 96 Oxygen Delivery Method Nasal Cannula Nasal Cannula Oxygen Flow Rate 2 Sepsis Recent Fever Within 48 Hours Sepsis New/Unexplained Change in Mental Status Sepsis Action Taken by Nursing Laboratory Data Result diagrams: 08/02/22 16:25 08/02/22 16:25 Lab Results 08/02/22 08/02/22 Range/Units 16:25 16:31 WBC 11.86 H (4.8-10.8) K/ul RBC 4.06 (3.93-5.22) M/uL Hgb 12.9 (12.0-16.0) g/dl POC Hgb 13.9 (12.0-16.0) g/dl Hct 38.1 (34.1-44.9) % POC Hct 41 (37-47) % MCV 93.8 (80.0-100.0) fL MCH 31.8 (25.0-34.0) pg MCHC 33.9 (32.0-36.0) g/dL RDW Std Deviation 42.3 (36.4-46.3) fL RDW Coeff of Angela 12.2 (11.5-14.5) % Plt Count 253 (130-400) K/uL MPV 11.1 (9.4-12.3) fL Immature Gran % (Auto) 0.4 % Neut % (Auto) 77.7 % Lymph % (Auto) 16.3 % Lamb % (Auto) 4.9 % Eos % (Auto) 0.4 % Baso % (Auto) 0.3 % Neut # (Auto) 9.21 H (1.4-6.5) K/uL Lymph # (Auto) 1.93 (1.2-3.4) K/uL Lamb # (Auto) 0.58 (0.24-0.82) K/uL Eos # (Auto) 0.05 (0-0.50) K/uL Baso # (Auto) 0.04 (0-0.2) K/uL Immature Gran # (Auto) 0.05 H (0.00-0.02) K/uL POC Sodium 140 (135-144) mmol/L POC Potassium 3.1 L (3.3-5.0) mmol/L POC Chloride 109 (101-112) mmol/L POC Total CO2 17 L (24-31) mmol/L POC Anion Gap 18.0 (16-25) mmol/L POC BUN 18 (7-18) mg/dl POC Creatinine 0.6 (0.6-1.3) mg/dl POC Glucose (other) 191 H (70-99) mg/dl POC Ioniz Calcium Lakesha 1.05 L (1.12-1.32) mmol/l Administered Medications Discontinued Medications Fentanyl Citrate (Fentanyl Citrate 100 Mcg/2 Ml Vial) Confirm Administered Dose 100 mcg .ROUTE .STK-MED ONE Stop: 08/02/22 16:55 Last Increment: 08/02/22 16:55 Dose: 25 mcg Documented By: MARTINEZ Heparin Sodium (Porcine) (Heparin Sod (Porcine) 1000 Unit/Ml) 4,000 units IV NOW ONE Stop: 08/02/22 17:01 Last Admin: 08/02/22 16:53 Dose: 4,000 units Documented By: MARTINEZ Co-signed By: JONATHON Imaging Data Radiologist's Impression: Chest X-Ray 08/02/22 16:32 XR chest 1V portable HISTORY: 61 years-old Female Chest pain acute chest pain COMPARISON: None TECHNIQUE: Supine AP view of the chest FINDINGS: Cardiac silhouette is moderately enlarged. No pneumothorax, pleural effusion, airspace consolidation or overt pulmonary edema. Bones appear grossly intact. IMPRESSION: Cardiomegaly without acute process. ACT 112: Negative or not required by law. The above report was generated using voice recognition software. It may contain grammatical, syntax or spelling errors. Electronically signed by: Leopoldo Fang M.D. 08/02/2022 4:47 PM Discharge Plan Visit Data Chief Complaint: Cardiac Assessment Stated Complaint: SOB, CHEST PAIN ED Provider: Diann Carrion Discharge Instructions Interventions: ED Discharge Assessment Last Done: 08/02/22 16:58 Prescriptions Prescriptions: No Action lorazepam 0.5 mg Tablet 0.5 mg PO DAILY PRN (Reason: Anxiety) magnesium 250 mg Tablet 0 mg PO 3XWK Rx Instructions: unknown strength cholecalciferol (vitamin D3) [Vitamin D3] 25 mcg (1,000 unit) Tablet 25 mcg PO DAILY
[2022-08-02 17:20] LABS: Thyroid Stimulating Hormone 5.024 uIu/ml (0.300-4.500)
[2022-08-02 17:27] LABS: Albumin Globulin Ratio 1.8 (0.9-2); Albumin Level 4.4 gm/dl (3.4-5.0); BUN Creatinine Ratio 27.9 (10-20); Bilirubin,Total 1.4 mg/dl (0.2-1.0); Calcium 10.4 mg/dl (8.5-10.1); Est GFR (African American) 109.4 ml/min; Est GFR (Non-African American) 94.4 ml/min; Globulin 2.5 gm/dl (2.5-4.0); Magnesium 1.8 mg/dl (1.7-2.4); Potassium 3.3 mmol/L (3.5-5.1); Total Protein 6.9 gm/dl (6.0-8.3)
[2022-08-02 17:53] LABS: T4 Free Thyroxine 1.33 ng/dl (0.61-1.60)
--- NOTE | 2022-08-02 18:12 | Post Anesthesia Assessment ---
Date of Service August 02, 2022 Post Sedation Assessment Vital Signs Temp Pulse Pulse Resp BP BP Pulse Ox 08/02/22 16:58 08/02/22 16:45 71 18 96 08/02/22 16:45 129/70 08/02/22 16:13 98.6 F 74 24 102/64 96 08/02/22 16:40 08/02/22 16:38 08/02/22 16:37 100 08/02/22 16:37 72 30 H 120/60 100 O2 Del Method O2 Flow Rate 08/02/22 16:58 Nasal Cannula 08/02/22 16:45 Nasal Cannula 2 08/02/22 16:45 08/02/22 16:13 Room Air 08/02/22 16:40 Nasal Cannula 08/02/22 16:38 Nasal Cannula 08/02/22 16:37 Nasal Cannula 2 08/02/22 16:37 Nasal Cannula 2 Recovery Score Activity: Moves 4 extremities Respiration: Deep Breath/Cough Circulation: +/-20% PreAnes Value Consciousness: Fully Awake Oxygen Saturation: O2 needed for >90% Discharge Sedation Level of Care: Fast Track Phase II Post Sedation Plan On clinical assessment, the patient appears to have tolerated the sedation without complications. Patient is recovering as anticipated. Patient will continue to be monitored by nursing and may be discharged when sedation discharge criteria are met per below protocol. Upon Completions of procedure up to 15 minutes continue every 5 minute vital signs and the P.A.R. score; then discharge to a Phase I or Fast Track to Phase II per the following guidelines: * Discharge Patient to appropriate Phase II area if PAR is 8 or greater or return to pre- procedure baseline. The post - procedure orders will be as directed. * If PAR score is less than 8 or not return to pre-procedure baseline then patient will follow Phase I monitoring till PAR is reached for Phase II. The Phase I may be done in procedure room or may call to secure a Phase I area. * If naloxone or flumazenil are used for reversal, hold in Phase I for continued monitoring from when last reversal dose was given for a minimum of 60 minutes or longer pending the nurse and/or physician discretion of patient condition before discharge to Phase II. Please call the Sedation Physician to re-evaluate and complete post-note for discharge to Phase II area. Do NOT discharge from procedure sedation or Phase 1 until post- sedation evaluation note is complete by procedure /sedation MD Sedation Discharge Instructions to be given to the patient at discharge to home.
--- NOTE | 2022-08-02 18:14 | Cardiac Catheterization ---
[facility] Data: Process Development Technician Cardiac Status Clinical evaluation leading to the procedure CAD Presenation: Unstable angina Anginal Classification: CCS IV Diagnostic Physicians Name: Primitivo Baldwin MD Closure Device Recommendations: Medical Therapy and/or Counseling Cardiac Cath Procedure Full Procedure Date August 02, 2022 Pre-Procedure Diagnosis Pre-Procedure Diagnosis: Acute Coronary Syndrome AUC Score AUC Score: 8 Post-Procedure Diagnosis Post-Procedure Diagnosis: Normal Coronary Arteries and Elevated Intracardiac Pressures Procedure(s) Performed Procedure(s) Performed: Coronary Angiography, Left Heart Cath and Ultrasound Guided Vascular Access Foreign Exchange Student Coordinator Primitivo Baldwin MD Dimpling Machine Operator(s) Joe Estimated Blood Loss Estimated Blood Loss: 5 Medication(s) Medication(s): Fentanyl, Heparin, Lidocaine 1%, Nicardipine, Nitroglycerin and Versed Summary of Findings Indication: Suspected ACS. Chest pain with abnormal ECG, lateral ST depressions Access: 6 Fr right radial artery under ultrasound guidance Catheters: [place], JR4, pigtail Findings: LM -normal caliber, angiographically normal LAD -medium caliber, tapers to apex, angiographically normal. Medium D1, D2 without significant disease. Circumflex -small caliber, no significant disease RCA -dominant, large caliber, angiographically normal. RPDA and large RPLB without significant disease. LVEDP -21 LV 50 to 55%, no clear motion abnormalities, 1+ MR, normal caliber aortic root/ascending aorta Arterial Closure: TR band Summary: 1. Angiographically normal coronary arteries 2. Elevated intracardiac filling pressure (LVEDP 21) 3. Preserved LV function Recommendations: Further evaluation for noncardiac causes of patient's chest and diffuse pain. Trend troponin until peak, repeat echocardiogram in a.m. Hemodynamics Rest Ao:: 113/58/83 Final Ao: 120/61/81 LV: 111/21 Recommendations Recommendations: Medical Therapy and/or Counseling Specimens Specimens: None Radiation Exposure (mGy) 221 Contrast (mls) 50 Anesthesia Moderate 1712- 1742 Procedural Complication(s) None Disposition PCU I attest to the content of the Intraoperative Record and any orders documented therein. Any exceptions are noted below. [facility] Card Cath Procedure Codes Cardiac Catheterization Procedure 1: Cardiovascular Cath Procedures: 05525 Coronaries and LHC (+/-LV) Therapeutic Services & Ancillary Procedure 1: Cardiovascular Tx and Anc Procedures: 69759 Ultrasonic Guidance Vascular Access Moderate Sedation Procedure 1: Sedation/Anesthesia: 96908 Mod Sedation by the same physician;Init15 Min Child Age 5 & Up Procedure 2: Sedation/Anesthesia: 98241 Mod Sedation by the same physician; Ea [id number] Minutes PG Care Time/CCT Total # of Minutes Spent Total Time Spent with Patient: Total time spent is greater than 50% in coordination of care (as documented) at patient's floor/unit and/or counseling patient:
[2022-08-02] MEDS ORDERED: LACTATED RINGER'S 1,000 ML IV ONE (18:38)
[2022-08-02] MEDS ORDERED: DAPTOmycin 325 MG in SYRINGE 0 ML IV ONE (19:30)
[2022-08-02 19:33] LABS: Appearance Urine Clear (Clear); Bacteria Urine Automated Negative (Negative); Bilirubin Urine Negative (Negative); Blood Urine 1+ (Negative); Color Urine Yellow; Epithelial Cell Urine Auto >30 /lpf (0-5); Glucose Urine UA Trace (Negative); Ketones Urine 4+ (Negative); Leukocyte Esterase Urine 1+ (Negative); Nitrite Urine Negative (Negative); Protein Urine Negative (Negative); Specific Gravity Urine > 1.045 (1.000-1.030); Urobilinogen Urine Negative (Negative)
[2022-08-02 19:36] LABS: INR 1.1 (0.9-1.1); Partial Thromboplastin Ratio 1.5; Partial Thromboplastin Time 41.8 Seconds (21.0-31.0); Prothrombin Time 12.1 Seconds (9.0-12.0)
[2022-08-02] MEDS: PANTOprazole 40 MG in SYRINGE 0 ML IV SCH (19:44)
[2022-08-02] MEDS ORDERED: FAMOTIDINE 20 MG in SYRINGE 3 ML IV ONE (19:45)
[2022-08-02] MEDS ORDERED: HYDROmorphone INJ 0.5 MG/0.5 ML SYR IV STA (19:45)
[2022-08-02] MEDS ORDERED: ONDANSETRON INJ 2 MG/ML 2 ML VIAL IV PRN (19:51)
[2022-08-02] MEDS ORDERED: NITROGLYCERIN SL 0.4 MG/TAB TAB SL PRN (19:51)
[2022-08-02] MEDS ORDERED: PIPERACILLIN/TAZOBACTAM 3.375 GM in DEXTROSE 5% 100 ML IV ONE (20:00)
[2022-08-02] MEDS: SODIUM CHLORIDE 0.9% 1000ML 1,000 ML IV SCH ×2 (20:00→23:08)
[2022-08-02 20:21] LABS: Calcium 9.7 mg/dl (8.5-10.1); Creatinine Clr Calc Pharmacy 78.8 ml/min; Est GFR (African American) 112.8 ml/min; Est GFR (Non-African American) 97.3 ml/min; Potassium 3.1 mmol/L (3.5-5.1)
[2022-08-02 20:25] LABS: Magnesium 1.7 mg/dl (1.7-2.4)
--- NOTE | 2022-08-02 20:25 | Cardiology Consultation ---
Date of Consultation August 02, 2022 Assessment & Plan (1) Chest pain: Patient has endorsed ongoing chest pain for at least the last 4 hours and has new dynamic ST changes on ECG. Concern symptoms may be secondary to high risk ACS and will plan to proceed with cardiac catheterization to rule out high risk obstructive CAD. Discussed risks, benefits, alternatives of procedure with patient and and they are willing to proceed. Given IV heparin in ED. Further recommendations pending findings of coronary angiography. History of Present Illness Attending Physician: Armond Javed MD History of Present Illness 61-year-old woman here with reports of chest pain and ECG with dynamic ST changes concerning for possible high risk ACS. Patient is followed by Dr. Suarez for her cardiac care. Prior documentation under her maiden name Janet Bravo. 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 Also with a history of paroxysmal SVT. No other active medical issues. Previously hospitalized in March 2021 for intractable nausea/vomiting/diarrhea. Patient was seen in the emergency department after heart alert activated follow ing initial ECG. Patient unable to give much history other than stating that she had diffuse pain everywhere and felt awful. She is communicated to the ED on admission that she was having chest pain since 1230 today, approximately 4 hours prior to arrival. She denies similar symptoms in the past. Hemodynamically stable on arrival. ECG showed sinus rhythm with LVH, septal infarct and deep ST depressions in V4 through V6. ST changes new from prior ECG in 2018. Allergies Allergy/AdvReac Type Severity Reaction Status Date / Time vancomycin AdvReac Rash Verified 08/02/22 16:35 Home Medications Medication Instructions Recorded Confirmed Type cholecalciferol (vitamin D3) 25 25 mcg PO DAILY 08/02/22 08/02/22 History mcg (1,000 unit) tablet (Vitamin D3) lorazepam 0.5 mg tablet 0.5 mg PO DAILY PRN Anxiety 08/02/22 08/02/22 History magnesium 250 mg tablet 0 mg PO 3XWK 08/02/22 08/02/22 History Patient History Social History Smoking Status: Former smoker Second Hand Exposure: No; Do You Dip or Chew Tobacco: No; Tobacco Cessation Education Requested by Patient: No Hx Alcohol Use: Yes Alcohol type: wine Hx Substance Use: No Preferred Language: Serbian Communication Ability: Effective Assistant Toddler Teacher Required: No Beliefs That Will Affect Care: None Current Living Situation: Spouse Other Information That Helps Us Care for You: No Feels Safe at Home: Yes Safety Concerns: Feels Safe At This Time Assistive Devices: Cane and Glasses Review of Systems Review of Systems: Unable to obtain due to emergent situation Physical Exam Physical Exam: General: Uncomfortable, unable to answer most questions HEENT: Sclerae anicteric Lungs: Clear anteriorly Cardiac: Regular rate and rhythm, 3 out of 6 holosystolic murmur at the apex Vascular: Diminished radial pulses bilaterally. Abdomen: Soft, tender diffusely most notably left lower quadrant Extremities: Well perfused, no peripheral edema Neuro: Nonfocal Psych: Alert, limited by pain Results & Data ([facility]) Vital Signs (Past 12 Hours) Vital Signs Temp Pulse Pulse Resp BP BP Pulse Ox 08/02/22 19:58 97.7 F 73 20 102/74 99 08/02/22 19:24 97.5 F L 73 20 132/69 99 08/02/22 19:16 97.9 F 70 20 133/84 97 08/02/22 18:26 97.5 F L 79 22 135/59 L 100 08/02/22 18:31 97.7 F 73 20 135/59 L 99 08/02/22 18:16 98.6 F 78 20 135/59 L 98 08/02/22 16:58 08/02/22 16:45 71 18 96 08/02/22 16:45 129/70 08/02/22 16:13 98.6 F 74 24 102/64 96 08/02/22 16:40 08/02/22 16:38 08/02/22 16:37 100 08/02/22 16:37 72 30 H 120/60 100 O2 Del Method O2 Flow Rate 08/02/22 19:58 Room Air 08/02/22 19:24 Room Air 08/02/22 19:16 Room Air 08/02/22 18:26 Room Air 08/02/22 18:31 Room Air 08/02/22 18:16 Room Air 08/02/22 16:58 Nasal Cannula 08/02/22 16:45 Nasal Cannula 2 08/02/22 16:45 08/02/22 16:13 Room Air 08/02/22 16:40 Nasal Cannula 08/02/22 16:38 Nasal Cannula 08/02/22 16:37 Nasal Cannula 2 08/02/22 16:37 Nasal Cannula 2 PG Care Time/CCT Total # of Minutes Spent Total Time Spent with Patient: Total time spent is greater than 50% in coordination of care (as documented) at patient's floor/unit and/or counseling patient: Coding Level of Care Code 17412 Inpt Consult Level 4 Diagnoses Chest pain R07.9
[2022-08-02] MEDS ORDERED: POTASSIUM PHOS 3 MMOL/1 ML INFUSION IV STA (20:29)
[2022-08-02] MEDS ORDERED: MAGNESIUM SULFATE / D5W 1 GM/100 ML BAG IV ONE (20:30)
[2022-08-02 20:44] LABS: Troponin I High Sensitivity 4.3 pg/ml (0-14)
[2022-08-02] MEDS ORDERED: OPTIRAY 320 500ml IV ONE (20:52)
[2022-08-02] MEDS ORDERED: POTASSIUM PHOSPHATE 30 MMOL in SODIUM CHLORIDE 0.9% 500 ML IV ONE (21:00)
--- NOTE | 2022-08-02 22:32 | History and Physical Report ---
DATE OF ADMISSION: 08/02/2022. CHIEF COMPLAINT: Severe abdominal pain and some chest discomfort. 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 She was in the [employer] when the symptoms started. She was having constipation. She took Dulcolax and had diarrhea today and as per , she was not feeling well for the last 2 days, but no fever but having chills. On arrival to the ER, she was given Zofran for nausea and given aspirin and EKG showed ST depressions in V4, V5, V6 and she was heart alert and status post cardiac catheterization, which showed clean coronaries and she was transferred to the tele floor. Her labs come back with white count of 11. Initial lactic acid came as 4.5, repeat is 4.1, phosphorus 1, total bilirubin 1.4, CO2 of 18, potassium 3.1. She is afebrile, but she has a lot of chills. Complains of significant abdominal pain in the epigastric and left upper quadrant region, sometimes going to back, associated with nausea. She vomited a few times and she also had diarrhea a few times today. She states she feels some chest discomfort, has some headache, neck pain, chronic back pain. Denies any pain in the legs. She ambulates with a cane. Denies any blurred visions, no runny nose, no sore throat. No cough. Denies any hematuria, no burning micturition, blood pressure is okay. Saturating okay on room air. ALLERGIES: VANCOMYCIN. PAST MEDICAL HISTORY: As mentioned above. PAST SURGICAL HISTORY: Wound debridement in 2018, colonoscopy, incision and drainage of right thigh, injection of lumbosacral spine, ligation of oviducts, removal of right hip prosthesis, cataract surgeries, revision of right total hip joint. MEDICATIONS: The patient is on vitamin D, lorazepam as needed, Prozac 20 mg daily. FAMILY HISTORY: Significant for aunt has breast cancer; mother has heart disorder, hypertension; maternal grandmother has breast cancer. SOCIAL HISTORY: . Quit smoking in 1984, smoked quarter pack a day for 10 years. Alcohol, rarely. No drug use. REVIEW OF SYSTEMS: As per HPI. Rest of the review of systems is negative. PHYSICAL EXAMINATION: GENERAL: The patient is of moderate build, seems to be in pain and shaking. VITAL SIGNS: Temperature 36.5, pulse 73, respiratory rate 20, blood pressure 102/74, oxygen 99% on room air. HEENT: Head is atraumatic. Extraocular muscles intact. Oral mucosa moist. NECK: No neck masses seen. CARDIOVASCULAR: S1 and S2 heard. Regular rate and rhythm. No murmur, no gallop. RESPIRATORY SYSTEM: Normal AP diameter. No accessory muscle use. No wheezing, no crackles. ABDOMEN: Epigastric tenderness and right upper quadrant tenderness present. No rebound tenderness, mild guarding, no distention. CENTRAL NERVOUS SYSTEM: Cranial nerves II through XII grossly intact, nonfocal. EXTREMITIES: No obvious edema or erythema seen. LABORATORY DATA: WBC 11.8, hemoglobin 12.9, hematocrit 38.1, platelets 253. PT 12.1, INR 1.1, APTT 41.8. Sodium 142, potassium 3.1, chloride 107, bicarbonate 18, BUN 18, creatinine 0.6, serum glucose 190. Lactate 4.1, calcium 9.7, phosphorus 1, magnesium 1.7, total bilirubin 1.4, AST 19, ALT 12, alkaline phosphatase 60. Total creatine kinase 94. Troponin I high sensitivity 4.3. BNP 286. Lipase 12. TSH 5.024, free T4 of 1.33. Urinalysis; +4 ketones, +1 blood, +1 leukocyte esterase, urine bacteria negative. Chest x-ray: Cardiomegaly without acute process. CT of the chest and CT of abdomen and pelvis pending. Cardiac cath: Normal coronaries. EKG: Sinus tachycardia with first-degree AV block at a rate of 126, some ST depression in V4, V5, V6. ASSESSMENT AND PLAN: This 61-year-old female presents with chest pain and abdominal pain. 1. Chest pain, ST depression in V4, V5, V6 leads. Troponin was 3 on presentation, repeat is 4.3, heart alert and status post cardiac catheterization and normal coronaries. 2. Abdominal pain in the epigastrium and left upper quadrant region. Also, the patient is having chills and elevated lactic acid. Preliminary results CTA of the chest and CTA abdomen and pelvis unremarkable except for mild colitis. Will follow final reports.. Empirically started on daptomycin and Zosyn as THE PATIENT IS ALLERGIC TO VANCOMYCIN. Follow the cultures. IV fluids. Repeat lactic acid. Closely monitor in the telemetry floor. Pain control. . IV Protonix. 3. Hyperglycemia, glucose 190. Could be from ongoing illness. We will follow the HbA1c levels. 4. Depression, on Prozac. 5. Deep venous thrombosis prophylaxis. Currently place on sequential compression devices in case she needs any procedures. 6. We will be giving IV Pepcid and Protonix. 7. Electrolyte abnormalities, we will replace and follow repeat laboratories. DISPOSITION: Closely monitor in the tele floor. Level 1, full code. Job ID: [id number] [facility]
[2022-08-02] MEDS: POTASSIUM CHLORIDE / WTR 10 MEQ/100 ML PLCT IV SCH (23:00)
[2022-08-03] MEDS: POTASSIUM CHLORIDE / WTR 10 MEQ/100 ML PLCT IV SCH
[2022-08-03] MEDS: PIPERACILLIN/TAZOBACTAM 3.375 GM in DEXTROSE 5% 100 ML IV SCH ×3 (02:43→17:26)
[2022-08-03] MEDS: ACETAMINOPHEN 325 MG TAB PO PRN ×3 (04:14→19:50)
[2022-08-03] MEDS: SODIUM CHLORIDE 0.9% 1000ML 1,000 ML IV SCH (06:20)
[2022-08-03 06:53] LABS: Basophils # (auto) 0.01 K/uL (0-0.2); Basophils % (auto) 0.1 %; Hematocrit (blood only) 35.3 % (34.1-44.9); Hemoglobin 11.8 g/dl (12.0-16.0); Immature Granulocytes # (auto) 0.08 K/uL (0.00-0.02); Immature Granulocytes % (auto) 0.7 %; Lymphocytes % (auto) 9.3 %; Mean Corpuscular Hemoglobin 31.9 pg (25.0-34.0); Mean Corpuscular Hgb Conc 33.4 g/dL (32.0-36.0); Mean Corpuscular Volume 95.4 fL (80.0-100.0); Mean Platelet Volume 10.8 fL (9.4-12.3); Monocytes # (auto) 0.66 K/uL (0.24-0.82); Monocytes % (auto) 5.6 %; Neutrophils # (auto) 10.01 K/uL (1.4-6.5); Neutrophils % (auto) 84.3 %; Platelet Count 203 K/uL (130-400); RDW Coefficient of Variation 12.6 % (11.5-14.5); RDW Standard Deviation 44.4 fL (36.4-46.3); White Blood Count 11.86 K/ul (4.8-10.8)
[2022-08-03 07:07] LABS: Estimated Average Glucose 103 mg/dl; Hemoglobin A1C 5.2 % (4.5-5.6)
[2022-08-03 07:19] LABS: Albumin Level 3.8 gm/dl (3.4-5.0); BUN Creatinine Ratio 25.9 (10-20); Bilirubin Direct 0.4 mg/dl (0-0.2); Bilirubin,Total 1.4 mg/dl (0.2-1.0); Calcium 8.6 mg/dl (8.5-10.1); Creatinine Clr Calc Pharmacy 84.3 ml/min; Est GFR (African American) 115.3 ml/min; Est GFR (Non-African American) 99.5 ml/min; Magnesium 1.9 mg/dl (1.7-2.4); Phosphorus 3.8 mg/dl (2.5-4.9); Potassium 3.9 mmol/L (3.5-5.1)
[2022-08-03] MEDS: HYDROmorphone INJ 0.5 MG/0.5 ML SYR IV PRN ×3 (08:20→19:50)
--- NOTE | 2022-08-03 08:53 | Gastrointestinal Consultation ---
Date of Consultation August 03, 2022 Assessment & Plan (1) Epigastric pain: Differentials considered include gastritis, ulcers, duodenitis, pancreatitis as CTAP is still pending. (though unlikely as lipase is normal and Total and direct bili are both minimally elevated). Pt needs COVID test, then if (-), will go forward with EGD. Unsure of exact timing of EGD as awaiting COVID results. It will likely be tomorrow morning - so could have a clear liquid diet today and NPO after midnight. Pt's pain is resolved at this time, so EGD could be provided as an OP. Supervising Physician Co-Signing Physician Notes Janet Borges is a 61 y/o F with history of migraines, depression, panic attacks, R total hip replacement with revision for infection 4 years ago who presented yesterday with complaints of chest pain. patient reports she has had intermittent chest pain for the past year that is also present in the epigastric region and LUQ. Reports pain comes and goes a few times per week and can last up to a couple hours. She describes the pain as a pulling sensation. She has not had prior work up for this pain before. Denies NSAID use. Has not tried antacids and pain is not worsened or associated with eating. She states that 2 days ago pain worsened with associated nausea and vomiting. No sick contacts. She reports that dilaudid has been helping the pain. No history of EGD. She has lost 30 lbs in the past year per her report. Upon arrival yesterday, EKG showed ST depressions in V4, V5, and V6 for which she underwent cardiac cath which was negative with clean coronaries. A CTA of the chest and abdomen/pelvis was completed that was unremarkable other than noted cardiomegaly with pulmonary edema and a mildly distended gallbladder without evidence of acute cholecystitis. Lactate was elevated to 4.5 on admi ssion but sicne normalized. LFTs all normal other than a mildly elevated indirect hyperbilirubinemia (1.4). Physical Exam: Constitutional: AAOx3, laying in bed in no acute distress Eyes: sclera anicteric Respiratory: clear to auscultation, no respiratory distress Cardiac: RRR, no murmurs Abdomen: soft, tenderness to palpation in the epigastric and LUQ, no rebound or guarding, no hepatosplenomegaly Extremities: no edema Psych: appears anxious, appropriate affect Neuro: AAOx3 Impression: 61 y/o F with hx of 61 y/o F with history of migraines, depression, panic attacks, R total hip replacement with revision for infection 4 years ago who presented yesterday with complaints of chest pain with negative cardiac work up. On exam reporting epigastric and LUQ abdominal pain. CTA of the abdomen/pelvis without abnormalities to explain her pain. Lipase is normal without pancreatitis on imaging. Her pain does sound MSK in etiology as she reports the pain is improved with dilaudid and denies any change/worsening with food intake however we will perform an EGD tomorrow to assess for any ulcers, gastritis, etc. that could explain her pain. Plan: EGD tomorrow for evaluation of chest/abdominal pain Please make NPO at midnight Trial of PPI to see if this helps her pain If pain persists consider a HIDA scan given distended gallbladder seen on imaging however her pain description and location is not consistent with biliary colic Outpatient colonoscopy for colon cancer screening given age and weight loss Trin[facility] Odom, Gastroenterology and Hepatology History of Present Illness Reason for Consultation: Severe abd pain/Non cardiac CP Requesting Physician: Dr. Stock Attending Physician: Armond Javed MD History of Present Illness Ms. Janet Borges is a 61 yr old female pt of Dr. Anamaria Abad w a hx ofMVP, cystocele, migraines, history of acute blood loss anemia, depression, panic attacks who presented to the ED yesterday for chest/abd pain with nausea, vomiting, diarrhea and sweating. She underwent a card cath which was (-). N/V and diarrhea have resolved and she has relief from the pain with analgesics. She reports intermittent episodes of epigastric pain for the past year, lasting 1-2 days at a time. Describes the pain as a pressure/cramp. Pain is sometimes also felt in her mid back. She doesn't believe that the pain is effected by eating. She denies any black or bloody BMs, no hematemesis. On arrival, Hb, BUN normal. Cardiac cath negative. CTAP was completed but results are pending. INR is normal and she denies any frequent NSAID use. Blood cultures w staph x 1, other negative thus far. C-diff and GI path are ordered but not yet collected as pt hasn't passed a BM. Allergies Allergy/AdvReac Type Severity Reaction Status Date / Time vancomycin Allergy rash Verified 08/03/22 11:18 Home Medications Medication Instructions Recorded Confirmed Type fluoxetine [Prozac] PO DAILY PRN 07/04/19 03/21/21 History lorazepam 1 mg tablet (Ativan) 1 mg PO TID PRN 07/04/19 03/21/21 History hefisoq-mmkqqkolcxidu-vuckvvsy 1 tab PO PRN 09/20/19 03/21/21 History [Excedrin Migraine] buspirone 5 mg tablet 5 mg PO BID 09/18/20 03/21/21 History cholecalciferol (vitamin D3) 25 25 mcg PO DAILY 08/02/22 08/02/22 History mcg (1,000 unit) tablet (Vitamin D3) lorazepam 0.5 mg tablet 0.5 mg PO DAILY PRN Anxiety 08/02/22 08/02/22 History magnesium 250 mg tablet 0 mg PO 3XWK 08/02/22 08/02/22 History Patient History Social History (System 08/03/22 @ 11:18 by Nereida Adame) Smoking Status: Former smoker Second Hand Exposure: No; Do You Dip or Chew Tobacco: No; Tobacco Cessation Education Requested by Patient: No Hx Alcohol Use: Yes Alcohol type: wine Hx Substance Use: No Preferred Language: Guatemalan Communication Ability: Effective Parts Coordinator Required: No Beliefs That Will Affect Care: None Current Living Situation: Spouse Other Information That Helps Us Care for You: No Feels Safe at Home: Yes Safety Concerns: Feels Safe At This Time Assistive Devices: Cane and Glasses Review of Systems Review of Systems: ROS: Gen: + weakness/improved, Sweaty but no measured fevers,No weight loss Eyes:No yellow, No eye redness, or pain, no recent vision changes Resp: No SOB, no cough Cardio: No palpitations/irregular beats, no chest pain GI: As per HPI otherwise negative : Denies pain on urination Skin: No jaundice, itching or new rashes Physical Exam Constitutional: WD/WN, vitals as above Eyes: PERRL, conjunctivae normal, anicteric sclerae ENMT: external ear and nose normal, oropharynx normal Neck: trachea midline, no thyromegaly Respiratory: normal respiratory effort, lungs clear to auscultation Cardiovascular: RRR, no murmur, no edema Gastrointestinal (Abdomen): normal bowel sounds, soft, nontender, no hepatosplenomegaly Skin: no rashes, warm and dry Neurologic: patellar DTR's 2+ bilat, sensation intact Psychiatric: A+Ox3, euthymic affect Genitourinary: no vaginal lesions, no adnexal mass Lymphatic: no cervical or axillary lymphadenopathy Results & Data ([facility]) Vital Signs (Past 12 Hours) Vital Signs Temp Pulse Pulse Resp BP Pulse Ox O2 Del Method 08/03/22 07:52 36.7 C 73 16 126/73 94 Nasal Cannula 08/03/22 06:30 36.6 C 68 18 123/83 92 Room Air 08/03/22 04:30 36.5 C 78 22 132/80 96 Room Air 08/03/22 03:14 36.7 C 73 18 108/65 98 Room Air 08/02/22 23:22 36.7 C 75 18 93/60 L 97 Room Air 08/02/22 23:15 77 Laboratory Results WBC 11.8, Hct 35.3, glucose 203, PT 12, INR 1.1, Na 139, K3.9, Cl 109, CO2 20, BUN 15, Cr0.5, glucose 124. T Bili 1.4, direct 0.4.
[2022-08-03] MEDS: PANTOprazole 40 MG in SYRINGE 0 ML IV SCH ×2 (09:56→20:14)
--- NOTE | 2022-08-03 09:58 | CT Scan Report ---
CT ANGIOGRAM OF THE CHEST COMBO CLINICAL HISTORY: Atypical chest pain. COMPARISON STUDY: Chest x-ray dated 08/02/2022. TECHNIQUE: Before and following the IV administration of 112 cc of Optiray 320, CT angiogram of the c hest was performed from the thoracic inlet to the upper abdomen utilizing the dissection protocol. Im ages are reviewed in the axial, sagittal, and coronal planes. 3-D MIPS images are created and assesse d. IV contrast was administered without complication. A dose lowering technique was utilized adherin g to the principles of ALARA. CT DOSE: 623.80 mGy.cm FINDINGS: Thyroid: Imaged portions of the thyroid gland are normal in size and attenuation. Thoracic aorta: No intramural hematoma seen on the unenhanced series. The thoracic aorta is normal in caliber and demonstrates standard 3-vessel arch anatomy. No dissection is seen. The arch vessels are widely patent. Pulmonary vasculature: The pulmonary trunk is normal in caliber. There are no central filling defects identified in the pulmonary vessels to suggest pulmonary embolus. Note that this examination was not specifically protocoled to assess for pulmonary emboli. Heart: The heart is enlarged noting a small pericardial effusion. There is calcification of the mehran l annulus. Lungs and pleural spaces: Diffuse interlobular septal thickening indicates fluid overload/congestive failure. There is no airspace consolidation typical for pneumonia. Atelectasis is seen in the lung ba ses. A fat-containing Bochdalek hernia is noted on the right. The trachea and central airways are neymar ar. Numerous small pulmonary nodules are suggested throughout both lungs. The largest measures 5 mm i n the right lower lobe on image #[id number]. Mediastinum: There is no mediastinal lymphadenopathy. Kimberly: Clear. Axillae: There is no axillary lymphadenopathy. Upper abdomen: Bilateral nephrolithiasis is partially imaged. Partially visualized upper abdominal vi scera is within normal limits. Skeletal structures: The skeletal structures are osteopenic. Mild degenerative change is noted in the thoracic spine. No lytic or blastic bony lesions are seen. IMPRESSION: 1. Unremarkable CT angiogram of the thoracic aorta. 2. Cardiomegaly with evidence of congestive failure. 3. There is no airspace consolidation typical for pneumonia or pleural effusion. 4. Bilateral pulmonary nodules are suggested measuring up to 5 mm. These are not well assessed due to congestive change. A follow-up chest CT in 3-4 months time is recommended for reevaluation. 5. Bilateral nephrolithiasis. 6. Additional findings as above. ACT 112: Negative or not required by law. Electronically signed by: Bernardino Layton M.D. 08/03/2022 9:56 AM
--- NOTE | 2022-08-03 10:03 | CT Scan Report ---
CT ANGIOGRAPHY OF THE ABDOMEN AND PELVIS CLINICAL HISTORY: Abdominal pain. COMPARISON STUDY: No previous studies for comparison. TECHNIQUE: Helical axial images of the abdomen and pelvis were obtained during arterial phase followi ng intravenous injection of 112 cc Optiray 320 IV. Sagittal and coronal reconstructions were viewed a s well as maximal intensity projections on an independent 3-D workstation. Automated exposure control was utilized for the study. A dose lowering technique was utilized adhering to the principles of AL TIMA. FINDINGS: Please note that the chest CT will be reported separately. Cardiomegaly and evidence for in terstitial pulmonary edema are better depicted on that exam. No pneumatosis, free air or portal venou s gas is present. The gallbladder is mildly distended. There is minimal layering hyperdense material within the gallbladder. There is no adjacent infiltration. No definite evidence for acute cholecystit is. Arterial phase images of the liver, spleen, adrenal glands, kidneys and pancreas are unremarkable . Sensitivity for detection of calculi is diminished given excreted contrast. The caliber and wall th ickness of small and large bowel are normal. Images of the pelvis are degraded by streak artifact fro m right hip arthroplasty. The appendix is normal. Caliber of the abdominal aorta is normal. The major branch vessels are patent. There is no dissection or aneurysm within the abdomen or the pelvis. Ther e is an accessory left renal artery. No stenosis is identified within the major vessels of the abdome n or pelvis. IMPRESSION: 1. Unremarkable CTA of the abdomen and pelvis. Normal caliber abdominal aorta. No dissection or aneur ysm. No stenosis. 2. Cardiomegaly with evidence for interstitial pulmonary edema. 3. Mildly distended gallbladder with minimal layering hyperdense material. However, no adjacent infil tration. No convincing evidence for acute cholecystitis. If right upper quadrant pain, an ultrasound could be obtained. ACT 112: Negative or not required by law. Electronically signed by: Femi Juarez M.D. 08/03/2022 10:02 AM
--- NOTE | 2022-08-03 16:22 | XCELERA ---
[id number] \\[id number]
--- NOTE | 2022-08-03 18:49 | Hospitalist Progress Note ---
Date of Service August 03, 2022 Assessment & Plan (1) Chest pain: (2) Epigastric pain: (3) MVP (mitral valve prolapse): Plan: This 61-year-old female presents with chest pain and abdominal pain. 1. Chest pain, ST depression in V4, V5, V6 leads. Troponin was 3 on presentation, 4.3, heart alert and status post cardiac catheterization and normal coronaries. Troponin now rising (likely d/t procedure) as pt denies any chest pain. Will obtain echocardiogram (as was recommended by Dr. Baldwin s/p cardiac cath) 2. Abdominal pain in the epigastrium and left upper quadrant region. Also, the patient is having chills and elevated lactic acid. Preliminary results CTA of the chest and CTA abdomen and pelvis unremarkable except for mild colitis. Will follow final reports.. Empirically started on daptomycin and Zosyn as THE PATIENT IS ALLERGIC TO VANCOMYCIN. Follow the cultures. IV fluids. Repeat lactic acid normalized. Closely monitor in the telemetry floor. Pain control. . IV Protonix. IV pepcid GI consulted - plan for EGD CT chest 1. Unremarkable CT angiogram of the thoracic aorta. 2. Cardiomegaly with evidence of congestive failure. 3. There is no airspace consolidation typical for pneumonia or pleural effusion. 4. Bilateral pulmonary nodules are suggested measuring up to 5 mm. These are not well assessed due to congestive change. A follow-up chest CT in 3-4 months time is recommended for reevaluation. 5. Bilateral nephrolithiasis. CT abdomen 1. Unremarkable CTA of the abdomen and pelvis. Normal caliber abdominal aorta. No dissection or aneurysm. No stenosis. 2. Cardiomegaly with evidence for interstitial pulmonary edema. 3. Mildly distended gallbladder with minimal layering hyperdense material. However, no adjacent infiltration. No convincing evidence for acute cholecystitis. If right upper quadrant pain, an ultrasound could be obtained. US liver - pending 3. Hyperglycemia, glucose 190. Could be from ongoing illness. Current HbA1c 5.2% 4. Electrolyte abnormalities, we will replace and follow repeat laboratories. 5. Depression, on Prozac. DVT prophylaxis. SCDs in case she needs any procedures. DISPOSITION:tele floor Code: full code. Admission and Anticipated Discharge Date Admission Date: August 02, 2022 Subjective Patient presented as a heart alert yesterday, and went directly to [facility] from ED. Coronaries clear on cardiac cath Patient continues to complain of left-sided chest pain/abdominal pain, CT obtained and showed possible colitis EGD planned for this morning, however COVID test results not available, plan for EGD tomorrow morning Currently she is lying in bed, in no acute distress, continues to use pain meds She is alert oriented and answering questions appropriately Continues to describe epigastric and left upper abdominal pain that radiates to her back and to lower abdomen Reports very poor appetite Also notably patient had 20 to 30 pound weight loss over past year, unintentional Review of Systems Review of Systems: All systems reviewed & are unremarkable except as noted in Subjective Physical Exam Physical Exam: GENERAL: thin F in NAD HEENT: NC/AT, EOMI, Extraocular muscles intact. Oral mucosa moist. NECK: No neck masses seen. CARDIOVASCULAR: S1 and S2 heard. Regular rate and rhythm. No murmur, no gal lop. RESPIRATORY: Normal AP diameter. No accessory muscle use. No wheezing, no crackles. ABDOMEN: Epigastric tenderness and right upper quadrant tenderness present. No rebound tenderness, mild guarding, no distention. NEURO/PSYCH: Alert oriented answering questions appropriately. Speech fluent, no facial asymmetry, moves extremities EXTREMITIES: No obvious edema or erythema seen. Results & Data Results & Data ([facility]) Vital Signs (Past 12 Hours) Vital Signs Temp Pulse Pulse Resp BP Pulse Ox O2 Del Method 08/03/22 14:31 36.7 C 70 16 102/55 L 97 Room Air 08/03/22 15:20 69 08/03/22 11:29 36.6 C 86 16 112/72 92 Room Air 08/03/22 09:53 73 08/03/22 07:52 36.7 C 73 16 126/73 94 Nasal Cannula Laboratory Results 08/03/22 08/03/22 08/03/22 Range/Units Unknown 12:54 06:36 WBC (4.8-10.8) K/ul RBC (3.93-5.22) M/uL Hgb (12.0-16.0) g/dl Hct (34.1-44.9) % MCV (80.0-100.0) fL MCH (25.0-34.0) pg MCHC (32.0-36.0) g/dL RDW Std Deviation (36.4-46.3) fL RDW Coeff of Angela (11.5-14.5) % Plt Count (130-400) K/uL MPV (9.4-12.3) fL Immature Gran % (Auto) % Neut % (Auto) % Lymph % (Auto) % [place] % (Auto) % Eos % (Auto) % Baso % (Auto) % Neut # (Auto) (1.4-6.5) K/uL Lymph # (Auto) (1.2-3.4) K/uL [place] # (Auto) (0.24-0.82) K/uL Eos # (Auto) (0-0.50) K/uL Baso # (Auto) (0-0.2) K/uL Immature Gran # (Auto) (0.00-0.02) K/uL PT (9.0-12.0) Seconds INR (0.9-1.1) APTT (21.0-31.0) Seconds PTT Ratio Sodium (136-145) mmol/L Potassium (3.5-5.1) mmol/L Chloride (98-107) mmol/L Carbon Dioxide (21-32) mmol/L Anion Gap (3-11) BUN (6-23) mg/dl Creatinine (0.6-1.2) mg/dl Est Cr Clr Drug Dosing ml/min Est GFR ( Amer) ml/min Est GFR (Non-Af Amer) ml/min BUN/Creatinine Ratio (10-20) Glucose (70-99(Fasting)) mg/dl POC Glucose (70-99) mg/dl Estimat Average Glucose mg/dl Hemoglobin A1c (4.5-5.6) % Lactate 1.6 (0.4-2.0) mmol/L Calcium (8.5-10.1) mg/dl Phosphorus (2.5-4.9) mg/dl Magnesium (1.7-2.4) mg/dl Total Bilirubin (0.2-1.0) mg/dl Direct Bilirubin (0-0.2) mg/dl AST (13-39) U/L ALT (7-52) U/L Alkaline Phosphatase (34-104) U/L Troponin I High Sens 50.2 H* D Total Protein (6.0-8.3) gm/dl Albumin (3.4-5.0) gm/dl Urine Color Urine Appearance (Clear) Urine pH (4.5-7.5) Ur Specific [place] (1.000-1.030) Urine Protein (Negative) Urine Glucose (UA) (Negative) Urine Ketones (Negative) Urine Blood (Negative) Urine Nitrite (Negative) Urine Bilirubin (Negative) Urine Urobilinogen (Negative) Ur Leukocyte Esterase (Negative) Urine WBC (Auto) (0-5) /hpf Urine RBC (Auto) (0-4) /hpf U Hyaline Cast (Auto) (0-5) /lpf U Epithel Cells (Auto) (0-5) /lpf Urine Bacteria (Auto) (Negative) Ur Renal Epithelial Cell Hepatitis C Ab (EIA) Hep C Ab Signal/Cutoff SARS-CoV-2, RNA, NAAT NEGATIVE (NEGATIVE) 08/03/22 08/03/22 08/03/22 Range/Units 06:36 06:36 06:36 WBC 11.86 H (4.8-10.8) K/ul RBC 3.70 L (3.93-5.22) M/uL Hgb 11.8 L (12.0-16.0) g/dl Hct 35.3 (34.1-44.9) % MCV 95.4 (80.0-100.0) fL MCH 31.9 (25.0-34.0) pg MCHC 33.4 (32.0-36.0) g/dL RDW Std Deviation 44.4 (36.4-46.3) fL RDW Coeff of Angela 12.6 (11.5-14.5) % Plt Count 203 (130-400) K/uL MPV 10.8 (9.4-12.3) fL Immature Gran % (Auto) 0.7 % Neut % (Auto) 84.3 % Lymph % (Auto) 9.3 % [place] % (Auto) 5.6 % Eos % (Auto) 0.0 % Baso % (Auto) 0.1 % Neut # (Auto) 10.01 H (1.4-6.5) K/uL Lymph # (Auto) 1.10 L (1.2-3.4) K/uL [place] # (Auto) 0.66 (0.24-0.82) K/uL Eos # (Auto) 0.00 (0-0.50) K/uL Baso # (Auto) 0.01 (0-0.2) K/uL Immature Gran # (Auto) 0.08 H (0.00-0.02) K/uL PT (9.0-12.0) Seconds INR (0.9-1.1) APTT (21.0-31.0) Seconds PTT Ratio Sodium 139 (136-145) mmol/L Potassium 3.9 D (3.5-5.1) mmol/L Chloride 109 H (98-107) mmol/L Carbon Dioxide 20 L (21-32) mmol/L Anion Gap 10 (3-11) BUN 15 (6-23) mg/dl Creatinine 0.58 L (0.6-1.2) mg/dl Est Cr Clr Drug Dosing 84.3 ml/min Est GFR ( Amer) 115.3 ml/min Est GFR (Non-Af Amer) 99.5 ml/min BUN/Creatinine Ratio 25.9 H (10-20) Glucose 174 H (70-99(Fasting)) mg/dl POC Glucose (70-99) mg/dl Estimat Average Glucose 103 mg/dl Hemoglobin A1c 5.2 (4.5-5.6) % Lactate (0.4-2.0) mmol/L Calcium 8.6 (8.5-10.1) mg/dl Phosphorus 3.8 D (2.5-4.9) mg/dl Magnesium 1.9 (1.7-2.4) mg/dl Total Bilirubin 1.4 H (0.2-1.0) mg/dl Direct Bilirubin 0.4 H (0-0.2) mg/dl AST 20 (13-39) U/L ALT 15 (7-52) U/L Alkaline Phosphatase 50 (34-104) U/L Troponin I High Sens Total Protein 6.0 (6.0-8.3) gm/dl Albumin 3.8 (3.4-5.0) gm/dl Urine Color Urine Appearance (Clear) Urine pH (4.5-7.5) Ur Specific [place] (1.000-1.030) Urine Protein (Negative) Urine Glucose (UA) (Negative) Urine Ketones (Negative) Urine Blood (Negative) Urine Nitrite (Negative) Urine Bilirubin (Negative) Urine Urobilinogen (Negative) Ur Leukocyte Esterase (Negative) Urine WBC (Auto) (0-5) /hpf Urine RBC (Auto) (0-4) /hpf U Hyaline Cast (Auto) (0-5) /lpf U Epithel Cells (Auto) (0-5) /lpf Urine Bacteria (Auto) (Negative) Ur Renal Epithelial Cell Hepatitis C Ab (EIA) Hep C Ab Signal/Cutoff SARS-CoV-2, RNA, NAAT (NEGATIVE) 08/03/22 08/03/22 08/02/22 Range/Units 06:36 00:27 21:08 WBC (4.8-10.8) K/ul RBC (3.93-5.22) M/uL Hgb (12.0-16.0) g/dl Hct (34.1-44.9) % MCV (80.0-100.0) fL MCH (25.0-34.0) pg MCHC (32.0-36.0) g/dL RDW Std Deviation (36.4-46.3) fL RDW Coeff of Angela (11.5-14.5) % Plt Count (130-400) K/uL MPV (9.4-12.3) fL Immature Gran % (Auto) % Neut % (Auto) % Lymph % (Auto) % [place] % (Auto) % Eos % (Auto) % Baso % (Auto) % Neut # (Auto) (1.4-6.5) K/uL Lymph # (Auto) (1.2-3.4) K/uL [place] # (Auto) (0.24-0.82) K/uL Eos # (Auto) (0-0.50) K/uL Baso # (Auto) (0-0.2) K/uL Immature Gran # (Auto) (0.00-0.02) K/uL PT (9.0-12.0) Seconds INR (0.9-1.1) APTT (21.0-31.0) Seconds PTT Ratio Sodium (136-145) mmol/L Potassium (3.5-5.1) mmol/L Chloride (98-107) mmol/L Carbon Dioxide (21-32) mmol/L Anion Gap (3-11) BUN (6-23) mg/dl Creatinine (0.6-1.2) mg/dl Est Cr Clr Drug Dosing ml/min Est GFR ( Amer) ml/min Est GFR (Non-Af Amer) ml/min BUN/Creatinine Ratio (10-20) Glucose (70-99(Fasting)) mg/dl POC Glucose (70-99) mg/dl Estimat Average Glucose mg/dl Hemoglobin A1c (4.5-5.6) % Lactate 3.6 H* (0.4-2.0) mmol/L Calcium (8.5-10.1) mg/dl Phosphorus (2.5-4.9) mg/dl Magnesium (1.7-2.4) mg/dl Total Bilirubin (0.2-1.0) mg/dl Direct Bilirubin (0-0.2) mg/dl AST (13-39) U/L ALT (7-52) U/L Alkaline Phosphatase (34-104) U/L Troponin I High Sens 19.3 H D 10.3 D Total Protein (6.0-8.3) gm/dl Albumin (3.4-5.0) gm/dl Urine Color Urine Appearance (Clear) Urine pH (4.5-7.5) Ur Specific [place] (1.000-1.030) Urine Protein (Negative) Urine Glucose (UA) (Negative) Urine Ketones (Negative) Urine Blood (Negative) Urine Nitrite (Negative) Urine Bilirubin (Negative) Urine Urobilinogen (Negative) Ur Leukocyte Esterase (Negative) Urine WBC (Auto) (0-5) /hpf Urine RBC (Auto) (0-4) /hpf U Hyaline Cast (Auto) (0-5) /lpf U Epithel Cells (Auto) (0-5) /lpf Urine Bacteria (Auto) (Negative) Ur Renal Epithelial Cell Hepatitis C Ab (EIA) Hep C Ab Signal/Cutoff SARS-CoV-2, RNA, NAAT (NEGATIVE) 08/02/22 08/02/22 08/02/22 Range/Units 19:07 19:07 19:07 WBC (4.8-10.8) K/ul RBC (3.93-5.22) M/uL Hgb (12.0-16.0) g/dl Hct (34.1-44.9) % MCV (80.0-100.0) fL MCH (25.0-34.0) pg MCHC (32.0-36.0) g/dL RDW Std Deviation (36.4-46.3) fL RDW Coeff of Angela (11.5-14.5) % Plt Count (130-400) K/uL MPV (9.4-12.3) fL Immature Gran % (Auto) % Neut % (Auto) % Lymph % (Auto) % [place] % (Auto) % Eos % (Auto) % Baso % (Auto) % Neut # (Auto) (1.4-6.5) K/uL Lymph # (Auto) (1.2-3.4) K/uL [place] # (Auto) (0.24-0.82) K/uL Eos # (Auto) (0-0.50) K/uL Baso # (Auto) (0-0.2) K/uL Immature Gran # (Auto) (0.00-0.02) K/uL PT 12.1 H (9.0-12.0) Seconds INR 1.1 (0.9-1.1) APTT 41.8 H (21.0-31.0) Seconds PTT Ratio 1.5 Sodium 142 (136-145) mmol/L Potassium 3.1 L (3.5-5.1) mmol/L Chloride 107 (98-107) mmol/L Carbon Dioxide 18 L (21-32) mmol/L Anion Gap 17 H (3-11) BUN 18 (6-23) mg/dl Creatinine 0.62 (0.6-1.2) mg/dl Est Cr Clr Drug Dosing 78.8 ml/min Est GFR ( Amer) 112.8 ml/min Est GFR (Non-Af Amer) 97.3 ml/min BUN/Creatinine Ratio 29.0 H (10-20) Glucose 190 H (70-99(Fasting)) mg/dl POC Glucose (70-99) mg/dl Estimat Average Glucose mg/dl Hemoglobin A1c (4.5-5.6) % Lactate 4.1 H* (0.4-2.0) mmol/L Calcium 9.7 (8.5-10.1) mg/dl Phosphorus 1.0 L* (2.5-4.9) mg/dl Magnesium 1.7 (1.7-2.4) mg/dl Total Bilirubin (0.2-1.0) mg/dl Direct Bilirubin (0-0.2) mg/dl AST (13-39) U/L ALT (7-52) U/L Alkaline Phosphatase (34-104) U/L Troponin I High Sens 4.3 Total Protein (6.0-8.3) gm/dl Albumin (3.4-5.0) gm/dl Urine Color Urine Appearance (Clear) Urine pH (4.5-7.5) Ur Specific [place] (1.000-1.030) Urine Protein (Negative) Urine Glucose (UA) (Negative) Urine Ketones (Negative) Urine Blood (Negative) Urine Nitrite (Negative) Urine Bilirubin (Negative) Urine Urobilinogen (Negative) Ur Leukocyte Esterase (Negative) Urine WBC (Auto) (0-5) /hpf Urine RBC (Auto) (0-4) /hpf U Hyaline Cast (Auto) (0-5) /lpf U Epithel Cells (Auto) (0-5) /lpf Urine Bacteria (Auto) (Negative) Ur Renal Epithelial Cell Hepatitis C Ab (EIA) Hep C Ab Signal/Cutoff SARS-CoV-2, RNA, NAAT (NEGATIVE) 08/02/22 08/02/22 08/02/22 Range/Units 19:07 19:00 18:56 WBC (4.8-10.8) K/ul RBC (3.93-5.22) M/uL Hgb (12.0-16.0) g/dl Hct (34.1-44.9) % MCV (80.0-100.0) fL MCH (25.0-34.0) pg MCHC (32.0-36.0) g/dL RDW Std Deviation (36.4-46.3) fL RDW Coeff of Angela (11.5-14.5) % Plt Count (130-400) K/uL MPV (9.4-12.3) fL Immature Gran % (Auto) % Neut % (Auto) % Lymph % (Auto) % [place] % (Auto) % Eos % (Auto) % Baso % (Auto) % Neut # (Auto) (1.4-6.5) K/uL Lymph # (Auto) (1.2-3.4) K/uL [place] # (Auto) (0.24-0.82) K/uL Eos # (Auto) (0-0.50) K/uL Baso # (Auto) (0-0.2) K/uL Immature Gran # (Auto) (0.00-0.02) K/uL PT (9.0-12.0) Seconds INR (0.9-1.1) APTT (21.0-31.0) Seconds PTT Ratio Sodium (136-145) mmol/L Potassium (3.5-5.1) mmol/L Chloride (98-107) mmol/L Carbon Dioxide (21-32) mmol/L Anion Gap (3-11) BUN (6-23) mg/dl Creatinine (0.6-1.2) mg/dl Est Cr Clr Drug Dosing ml/min Est GFR ( Amer) ml/min Est GFR (Non-Af Amer) ml/min BUN/Creatinine Ratio (10-20) Glucose (70-99(Fasting)) mg/dl POC Glucose 205 H (70-99) mg/dl Estimat Average Glucose mg/dl Hemoglobin A1c (4.5-5.6) % Lactate (0.4-2.0) mmol/L Calcium (8.5-10.1) mg/dl Phosphorus (2.5-4.9) mg/dl Magnesium (1.7-2.4) mg/dl Total Bilirubin (0.2-1.0) mg/dl Direct Bilirubin (0-0.2) mg/dl AST (13-39) U/L ALT (7-52) U/L Alkaline Phosphatase (34-104) U/L Troponin I High Sens Cancelled Total Protein (6.0-8.3) gm/dl Albumin (3.4-5.0) gm/dl Urine Color Yellow Urine Appearance Clear (Clear) Urine pH 6.0 (4.5-7.5) Ur Specific [place] > 1.045 H (1.000-1.030) Urine Protein Negative (Negative) Urine Glucose (UA) Trace H (Negative) Urine Ketones 4+ H (Negative) Urine Blood 1+ H (Negative) Urine Nitrite Negative (Negative) Urine Bilirubin Negative (Negative) Urine Urobilinogen Negative (Negative) Ur Leukocyte Esterase 1+ H (Negative) Urine WBC (Auto) 5-10 H (0-5) /hpf Urine RBC (Auto) 10-30 H (0-4) /hpf U Hyaline Cast (Auto) 1-5 (0-5) /lpf U Epithel Cells (Auto) >30 H (0-5) /lpf Urine Bacteria (Auto) Negative (Negative) Ur Renal Epithelial Cell Not Reportable Hepatitis C Ab (EIA) Hep C Ab Signal/Cutoff SARS-CoV-2, RNA, NAAT (NEGATIVE) 08/02/22 Range/Units 16:25 WBC (4.8-10.8) K/ul RBC (3.93-5.22) M/uL Hgb (12.0-16.0) g/dl Hct (34.1-44.9) % MCV (80.0-100.0) fL MCH (25.0-34.0) pg MCHC (32.0-36.0) g/dL RDW Std Deviation (36.4-46.3) fL RDW Coeff of Angela (11.5-14.5) % Plt Count (130-400) K/uL MPV (9.4-12.3) fL Immature Gran % (Auto) % Neut % (Auto) % Lymph % (Auto) % [place] % (Auto) % Eos % (Auto) % Baso % (Auto) % Neut # (Auto) (1.4-6.5) K/uL Lymph # (Auto) (1.2-3.4) K/uL [place] # (Auto) (0.24-0.82) K/uL Eos # (Auto) (0-0.50) K/uL Baso # (Auto) (0-0.2) K/uL Immature Gran # (Auto) (0.00-0.02) K/uL PT (9.0-12.0) Seconds INR (0.9-1.1) APTT (21.0-31.0) Seconds PTT Ratio Sodium (136-145) mmol/L Potassium (3.5-5.1) mmol/L Chloride (98-107) mmol/L Carbon Dioxide (21-32) mmol/L Anion Gap (3-11) BUN (6-23) mg/dl Creatinine (0.6-1.2) mg/dl Est Cr Clr Drug Dosing ml/min Est GFR ( Amer) ml/min Est GFR (Non-Af Amer) ml/min BUN/Creatinine Ratio (10-20) Glucose (70-99(Fasting)) mg/dl POC Glucose (70-99) mg/dl Estimat Average Glucose mg/dl Hemoglobin A1c (4.5-5.6) % Lactate (0.4-2.0) mmol/L Calcium (8.5-10.1) mg/dl Phosphorus (2.5-4.9) mg/dl Magnesium (1.7-2.4) mg/dl Total Bilirubin (0.2-1.0) mg/dl Direct Bilirubin (0-0.2) mg/dl AST (13-39) U/L ALT (7-52) U/L Alkaline Phosphatase (34-104) U/L Troponin I High Sens Total Protein (6.0-8.3) gm/dl Albumin (3.4-5.0) gm/dl Urine Color Urine Appearance (Clear) Urine pH (4.5-7.5) Ur Specific [place] (1.000-1.030) Urine Protein (Negative) Urine Glucose (UA) (Negative) Urine Ketones (Negative) Urine Blood (Negative) Urine Nitrite (Negative) Urine Bilirubin (Negative) Urine Urobilinogen (Negative) Ur Leukocyte Esterase (Negative) Urine WBC (Auto) (0-5) /hpf Urine RBC (Auto) (0-4) /hpf U Hyaline Cast (Auto) (0-5) /lpf U Epithel Cells (Auto) (0-5) /lpf Urine Bacteria (Auto) (Negative) Ur Renal Epithelial Cell Hepatitis C Ab (EIA) Pending Hep C Ab Signal/Cutoff Pending SARS-CoV-2, RNA, NAAT (NEGATIVE) Medications Administered Current Inpatient Medications Acetaminophen (Acetaminophen 325 Mg Tab) 650 mg PO Q4H PRN PRN Reason: Pain or Fever Stop: 09/01/22 19:50 Last Admin: 08/03/22 15:12 Dose: 650 mg Hydromorphone HCl (Hydromorphone Inj 0.5 Mg/0.5 Ml Syr) 0.5 mg IV Q3H PRN PRN Reason: Pain Stop: 08/16/22 19:53 Last Admin: 08/03/22 11:53 Dose: 0.5 mg Piperacillin Sod/Tazobactam (Sod 3.375 gm/ Dextrose) 115 mls @ 28.75 mls/hr IV Q8H [facility]; Protocol Stop: 08/05/22 01:59 Last Admin: 08/03/22 17:26 Dose: 28.8 mls/hr Pantoprazole Sodium 40 mg/ (Syringe) 10 mls @ 5 mls/min IV BID OSMIN Stop: 09/01/22 19:29 Last Admin: 08/03/22 09:56 Dose: 5 mls/min Nitroglycerin (Nitroglycerin Sl 0.4 Mg/Tab Tab) 0.4 mg SL UD PRN PRN Reason: Chest Pain Stop: 09/01/22 19:50 Ondansetron HCl (Ondansetron Inj 2 Mg/Ml 2 Ml Vial) 4 mg IV Q6H PRN PRN Reason: Nausea Stop: 09/01/22 19:50 Last Admin: 08/03/22 04:33 Dose: 4 mg
[2022-08-03] MEDS: LORazepam 0.5 MG TAB PO PRN (20:13)
--- NOTE | 2022-08-03 20:58 | Ultrasound Report ---
ABDOMINAL ULTRASOUND, RIGHT UPPER QUADRANT HISTORY: Generalized abdominal pain.. COMPARISON: Abdomen and pelvis CT 08/02/2022. FINDINGS: Pancreas: The pancreas demonstrates a normal echotexture. Liver: Unremarkable. Gallbladder: There are small mobile gallstones and a small amount of gallbladder sludge. There is tra ce pericholecystic fluid with a thickened and edematous gallbladder wall along the hepatic surface. T his is likely due to the patient's diffuse edematous state or an underlying hepatic pathology. Acute cholecystitis is considered less likely but not entirely excluded. The technologist reported a negati ve sonographic Wilder sign. CBD: 5 mm. Right kidney: No hydronephrosis. IMPRESSION: There are small mobile gallstones and a small amount of gallbladder sludge. There is trace pericholec ystic fluid with a thickened and edematous gallbladder wall along the hepatic surface. This is likely due to the patient's diffuse edematous state or an underlying hepatic pathology. Acute cholecystitis is considered less likely but not entirely excluded. ACT 112: Negative or not required by law. Electronically signed by: Carter Meza M.D. 08/03/2022 8:57 PM
[2022-08-04] MEDS: PIPERACILLIN/TAZOBACTAM 3.375 GM in DEXTROSE 5% 100 ML IV SCH ×3 (02:00→17:05)
[2022-08-04] MEDS: ACETAMINOPHEN 325 MG TAB PO PRN ×2 (02:13→17:26)
[2022-08-04] MEDS: HYDROmorphone INJ 0.5 MG/0.5 ML SYR IV PRN ×3 (03:03→11:06)
[2022-08-04] MEDS: PANTOprazole 40 MG in SYRINGE 0 ML IV SCH ×2 (07:36→20:50)
--- NOTE | 2022-08-04 08:26 | History & Physical Report ---
Date of Service August 04, 2022 Assessment & Plan (1) Chest pain: (2) Epigastric pain: Plan Plan for EGD today. 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 Plan to undergo EGD today for further evaluation. Allergies Allergy/AdvReac Type Severity Reaction Status Date / Time vancomycin Allergy rash Verified 08/03/22 11:18 Home Medications Medication Instructions Recorded Confirmed Type fluoxetine [Prozac] PO DAILY PRN 07/04/19 03/21/21 History lorazepam 1 mg tablet (Ativan) 1 mg PO TID PRN 07/04/19 03/21/21 History cunshak-[id number]-[id number] 1 tab PO PRN 09/20/19 03/21/21 History [Excedrin Migraine] buspirone 5 mg tablet 5 mg PO BID 09/18/20 03/21/21 History cholecalciferol (vitamin D3) 25 25 mcg PO DAILY 08/02/22 08/02/22 History mcg (1,000 unit) tablet (Vitamin D3) lorazepam 0.5 mg tablet 0.5 mg PO DAILY PRN Anxiety 08/02/22 08/02/22 History magnesium 250 mg tablet 0 mg PO [id number] 08/02/22 08/02/22 History Past Med/Surg History Social History Smoking Status: Former smoker Second Hand Exposure: No; Do You Dip or Chew Tobacco: No; Tobacco Cessation Education Requested by Patient: No Hx Alcohol Use: Yes Alcohol type: wine Hx Substance Use: No Preferred Language: Lithuanian Communication Ability: Effective [employer]munition Comp[employer] Inspector Required: No Beliefs That Will Affect Care: None marital status: Current Living Situation: Spouse Other Information That Helps Us Care for You: No Feels Safe at Home: Yes Safety Concerns: Feels Safe At This Time Assistive Devices: Cane Review of Systems All systems reviewed & are unremarkable except as noted in HPI & below Physical Exam Constitutional: WD/WN, vitals as above Eyes: PERRL, conjunctivae normal, anicteric sclerae Respiratory: normal respiratory effort, lungs clear to auscultation Cardiovascular: RRR, no murmur, no edema Gastrointestinal (Abdomen): normal bowel sounds, soft, nontender, no hepatosplenomegaly Skin: no rashes, warm and dry Psychiatric: A+Ox3, euthymic affect ASA Classification ASA ASA3 Results & Data ([facility]) Vital Signs (Past 12 Hours) Vital Signs Temp Pulse Pulse Resp BP Pulse Ox O2 Del Method 08/04/22 03:57 36.5 C 70 16 108/51 L 92 Nasal Cannula 08/03/22 23:22 70 08/03/22 23:02 36.8 C 82 16 94/60 L 97 Room Air O2 Flow Rate 08/04/22 03:57 3 08/03/22 23:22 08/03/22 23:02 Code Status & VTE Plan VTE Prophylaxis Plan VTE Prophylaxis will be ordered: Yes
[2022-08-04 08:42] LABS: Hematocrit (blood only) 32.6 % (34.1-44.9); Hemoglobin 10.9 g/dl (12.0-16.0); Mean Corpuscular Hemoglobin 31.4 pg (25.0-34.0); Mean Corpuscular Hgb Conc 33.4 g/dL (32.0-36.0); Mean Corpuscular Volume 93.9 fL (80.0-100.0); Mean Platelet Volume 10.4 fL (9.4-12.3); Platelet Count 188 K/uL (130-400); RDW Coefficient of Variation 12.8 % (11.5-14.5); RDW Standard Deviation 44.1 fL (36.4-46.3); Red Blood Count 3.47 M/uL (3.93-5.22); White Blood Count 10.88 K/ul (4.8-10.8)
[2022-08-04 09:06] LABS: BUN Creatinine Ratio 24.1 (10-20); Calcium 8.7 mg/dl (8.5-10.1); Creatinine Clr Calc Pharmacy 90.5 ml/min; Est GFR (Non-African American) 101.8 ml/min; Potassium 3.7 mmol/L (3.5-5.1)
--- NOTE | 2022-08-04 09:08 | Hospitalist Progress Note ---
Date of Service August 04, 2022 Assessment & Plan (1) Chest pain: (2) Epigastric pain: (3) MVP (mitral valve prolapse): Plan: 61-year-old female presents with chest pain and abdominal pain. 1. Chest pain, ST depression in V4, V5, V6 leads. Troponin was 3 on presentation, 4.3, heart alert and status post cardiac catheterization and normal coronaries. Troponin now rising (likely d/t procedure) as pt denies any chest pain. 08/04 current trop up 127 Echo LV systolic function is normal. LA is severely dilated. RA is moderately dilated. There is moderate mitral annular calcification. There is mild to moderate mitral regurg. RV systolic pressure is elevated at 30 to 40 mmHg. Cardiology consulted 2. Abdominal pain in the epigastrium and left upper quadrant region. Also, the patient is having chills and elevated lactic acid on admission. Preliminary results CTA of the chest and CTA abdomen and pelvis unremarkable except for mild colitis. Empirically started on daptomycin and Zosyn as THE PATIENT IS ALLERGIC TO VANCOMYCIN. Follow the cultures. Blood cultx - negat. in 48 hrs IV fluids given. Repeat lactic acid normalized. Closely monitor in the telemetry floor. Pain control. . IV Protonix GI consulted - plan for EGD later today US liver FINDINGS: Pancreas: The pancreas demonstrates a normal echotexture. Liver: Unremarkable. Gallbladder: There are small mobile gallstones and a small amount of gallbladder sludge. There is trace pericholecystic fluid with a thickened and edematous gallbladder wall along the hepatic surface. This is likely due to the patient's diffuse edematous state or an underlying hepatic pathology. Acute cholecystitis is considered less likely but not entirely excluded. The technologist reported a negative sonographic Wilder sign. CBD: 5 mm. Right kidney: No hydronephrosis. IMPRESSION: There are small mobile gallstones and a small amount of gallbladder sludge. Ther e is trace pericholecystic fluid with a thickened and edematous gallbladder wall along the hepatic surface. This is likely due to the patient's diffuse edematous state or an underlying hepatic pathology. Acute cholecystitis is considered less likely but not entirely excluded. CT chest 1. Unremarkable CT angiogram of the thoracic aorta. 2. Cardiomegaly with evidence of congestive failure. 3. There is no airspace consolidation typical for pneumonia or pleural effusion. 4. Bilateral pulmonary nodules are suggested measuring up to 5 mm. These are not well assessed due to congestive change. A follow-up chest CT in 3-4 months time is recommended for reevaluation. 5. Bilateral nephrolithiasis. CT abdomen 1. Unremarkable CTA of the abdomen and pelvis. Normal caliber abdominal aorta. No dissection or aneurysm. No stenosis. 2. Cardiomegaly with evidence for interstitial pulmonary edema. 3. Mildly distended gallbladder with minimal layering hyperdense material. However, no adjacent infiltration. No convincing evidence for acute cholecystitis. If right upper quadrant pain, an ultrasound could be obtained. General surgery also consulted given cholelithiasis, gallbladder sludge and abd. pain 3. Hyperglycemia, glucose 190 on admission. Could be from ongoing illness. Current HbA1c 5.2% 4. Electrolyte abnormalities, we will replace and follow repeat laboratories. 5. Depression, on Prozac. DVT prophylaxis. SCDs in case she needs any procedures. DISPOSITION:tele floor Code: full code. Admission and Anticipated Discharge Date Admission Date: August 02, 2022 Subjective Patient presented as a heart alert and went directly to [facility] from ED. Coronaries clear on cardiac cath Patient continues to complain of left-sided chest pain/abdominal pain, CT o btained and showed possible colitis EGD planned for this morning Currently she is lying in bed, in no acute distress, continues to use pain meds She is alert oriented and answering questions appropriately Continues to describe epigastric and left upper abdominal pain that radiates to her back and to lower abdomen Reports very poor appetite Also notably patient had 20 to 30 pound weight loss over past year, unintentional US liver obtained overnight Review of Systems Review of Systems: All systems reviewed & are unremarkable except as noted in Subjective Physical Exam Physical Exam: GENERAL: thin F in NAD HEENT: NC/AT, EOMI, Extraocular muscles intact. Oral mucosa moist. NECK: No neck masses seen. CARDIOVASCULAR: S1 and S2 heard. Regular rate and rhythm. No murmur, no gallop. RESPIRATORY: Normal AP diameter. No accessory muscle use. No wheezing, no crackles. ABDOMEN: Epigastric tenderness and right upper quadrant tenderness present. No rebound tenderness, mild guarding, no distention. NEURO/PSYCH: Alert oriented answering questions appropriately. Speech fluent, no facial asymmetry, moves extremities EXTREMITIES: No obvious edema or erythema seen. Results & Data Results & Data ([facility]) Vital Signs (Past 12 Hours) Vital Signs Temp Pulse Pulse Resp BP Pulse Ox O2 Del Method 08/04/22 08:00 36.7 C 78 18 113/71 99 Room Air 08/04/22 03:57 36.5 C 70 16 108/51 L 92 Nasal Cannula 08/03/22 23:22 70 08/03/22 23:02 36.8 C 82 16 94/60 L 97 Room Air O2 Flow Rate 08/04/22 08:00 08/04/22 03:57 3 08/03/22 23:22 08/03/22 23:02 Laboratory Results 08/04/22 08/04/22 08/03/22 Range/Units 08:33 08:33 Unknown WBC 10.88 H (4.8-10.8) K/ul RBC 3.47 L (3.93-5.22) M/uL Hgb 10.9 L (12.0-16.0) g/dl Hct 32.6 L (34.1-44.9) % MCV 93.9 (80.0-100.0) fL MCH 31.4 (25.0-34.0) pg MCHC 33.4 (32.0-36.0) g/dL RDW Std Deviation 44.1 (36.4-46.3) fL RDW Coeff of Angela 12.8 (11.5-14.5) % Plt Count 188 (130-400) K/uL MPV 10.4 (9.4-12.3) fL Sodium 139 (136-145) mmol/L Potassium 3.7 (3.5-5.1) mmol/L Chloride 108 H (98-107) mmol/L Carbon Dioxide 28 (21-32) mmol/L Anion Gap 3 (3-11) BUN 13 (6-23) mg/dl Creatinine 0.54 L (0.6-1.2) mg/dl Est Cr Clr Drug Dosing 90.5 ml/min Est GFR ( Amer) 118.0 ml/min Est GFR (Non-Af Amer) 101.8 ml/min BUN/Creatinine Ratio 24.1 H (10-20) Glucose 112 H (70-99(Fasting)) mg/dl Calcium 8.7 (8.5-10.1) mg/dl Phosphorus Pending Magnesium Pending Total Bilirubin Pending AST Pending ALT Pending Alkaline Phosphatase Pending Troponin I High Sens Pending (0-14) pg/ml Total Protein Pending Albumin Pending Globulin Pending Albumin/Globulin Ratio Pending Lipase Pending SARS-CoV-2, RNA, NAAT NEGATIVE (NEGATIVE) 08/03/22 08/03/22 Range/Units 19:15 12:54 WBC (4.8-10.8) K/ul RBC (3.93-5.22) M/uL Hgb (12.0-16.0) g/dl Hct (34.1-44.9) % MCV (80.0-100.0) fL MCH (25.0-34.0) pg MCHC (32.0-36.0) g/dL RDW Std Deviation (36.4-46.3) fL RDW Coeff of Angela (11.5-14.5) % Plt Count (130-400) K/uL MPV (9.4-12.3) fL Sodium (136-145) mmol/L Potassium (3.5-5.1) mmol/L Chloride (98-107) mmol/L Carbon Dioxide (21-32) mmol/L Anion Gap (3-11) BUN (6-23) mg/dl Creatinine (0.6-1.2) mg/dl Est Cr Clr Drug Dosing ml/min Est GFR ( Amer) ml/min Est GFR (Non-Af Amer) ml/min BUN/Creatinine Ratio (10-20) Glucose (70-99(Fasting)) mg/dl Calcium (8.5-10.1) mg/dl Phosphorus Magnesium Total Bilirubin AST ALT Alkaline Phosphatase Troponin I High Sens 76.9 H* D 50.2 H* D (0-14) pg/ml Total Protein Albumin Globulin Albumin/Globulin Ratio Lipase SARS-CoV-2, RNA, NAAT (NEGATIVE) Medications Administered Current Inpatient Medications Acetaminophen (Acetaminophen 325 Mg Tab) 650 mg PO Q4H PRN PRN Reason: Pain or Fever Stop: 09/01/22 19:50 Last Admin: 08/04/22 02:13 Dose: 650 mg Hydromorphone HCl (Hydromorphone Inj 0.5 Mg/0.5 Ml Syr) 0.5 mg IV Q3H PRN PRN Reason: Pain Stop: 08/16/22 19:53 Last Admin: 08/04/22 07:37 Dose: 0.5 mg Piperacillin Sod/Tazobactam (Sod 3.375 gm/ Dextrose) 115 mls @ 28.75 mls/hr IV Q8H OSMIN; Protocol Stop: 08/05/22 01:59 Last Infusion: 08/04/22 06:02 Dose: Infused Pantoprazole Sodium 40 mg/ (Syringe) 10 mls @ 5 mls/min IV BID OSMIN Stop: 09/01/22 19:29 Last Admin: 08/04/22 07:36 Dose: 5 mls/min Lorazepam (Lorazepam 0.5 Mg Tab) 0.5 mg PO HS PRN PRN Reason: Anxiety/Insomnia Stop: 09/02/22 19:55 Last Admin: 08/03/22 20:13 Dose: 0.5 mg Nitroglycerin (Nitroglycerin Sl 0.4 Mg/Tab Tab) 0.4 mg SL UD PRN PRN Reason: Chest Pain Stop: 09/01/22 19:50 Ondansetron HCl (Ondansetron Inj 2 Mg/Ml 2 Ml Vial) 4 mg IV Q6H PRN PRN Reason: Nausea Stop: 09/01/22 19:50 Last Admin: 08/03/22 04:33 Dose: 4 mg
[2022-08-04 09:15] LABS: Albumin Globulin Ratio 1.7 (0.9-2); Albumin Level 3.6 gm/dl (3.4-5.0); Bilirubin,Total 1.3 mg/dl (0.2-1.0); Globulin 2.1 gm/dl (2.5-4.0); Magnesium 1.9 mg/dl (1.7-2.4); Phosphorus 1.5 mg/dl (2.5-4.9); Total Protein 5.7 gm/dl (6.0-8.3); Troponin I High Sensitivity 127.1 pg/ml (0-14)
--- NOTE | 2022-08-04 09:17 | Anesthesiology Consultation ---
Date of Service August 04, 2022 Assessment & Plan (1) Encounter for pre-operative examination: Chart Review Chart Review: Acceptable Risk for Surgery, Patient NOT seen in Pre Admission Testing and order entry clerk initiated Consults Requested none Additional Notes Troponin levels were elevated last evening. I discussed with Dr. Baldwin. He felt it was okay to proceed with EGD given normal coronary arteries on cat heterization. History Surgery Operation Date: 08/02/22 16:45 Proposed Procedures p Cardiac Heart Alert - Simoen Baldwin MD Operation Date: 08/04/22 16:30 Proposed Procedures p Esophagogastroduodenoscopy Ilene - Trinidad Odom, Height/Weight Height: 5 ft 3 in Weight: 59.1 kg Allergies Allergy/AdvReac Type Severity Reaction Status Date / Time vancomycin Allergy rash Verified 08/04/22 09:10 Medications Home Medications Medication Instructions Recorded Confirmed Last Taken fluoxetine [Prozac] PO DAILY PRN 07/04/19 03/21/21 Unknown lorazepam 1 mg tablet (Ativan) 1 mg PO TID PRN 07/04/19 03/21/21 Unknown [id number] 1 tab PO PRN 09/20/19 03/21/21 Unknown [Excedrin Migraine] buspirone 5 mg tablet 5 mg PO BID 09/18/20 03/21/21 Unknown cholecalciferol (vitamin D3) 25 25 mcg PO DAILY 08/02/22 08/02/22 Unknown mcg (1,000 unit) tablet (Vitamin D3) lorazepam 0.5 mg tablet 0.5 mg PO DAILY PRN Anxiety 08/02/22 08/02/22 Unknown magnesium 250 mg tablet 0 mg PO [id number] 08/02/22 08/02/22 Unknown Active Medications Generic Name Dose Route Start Last Admin Trade Name Freq PRN Reason Stop Dose Admin Acetaminophen 650 mg 08/02/22 19:51 08/04/22 02:13 Acetaminophen 325 Mg Tab PO 09/01/22 19:50 650 mg Q4H PRN Administration Pain or Fever Hydromorphone HCl 0.5 mg 08/02/22 19:54 08/04/22 07:37 Hydromorphone Inj 0.5 Mg/0.5 Ml Syr IV 08/16/22 19:53 0.5 mg Q3H PRN Administration Pain Piperacillin Sod/Tazobactam 115 mls @ 28.75 mls/hr 08/03/22 02:00 08/04/22 06:02 Sod 3.375 gm/ Dextrose IV 08/05/22 01:59 Infused Q8H OSMIN Infusion Protocol Pantoprazole Sodium 40 mg/ 10 mls @ 5 mls/min 08/02/22 19:30 08/04/22 07:36 Syringe IV 09/01/22 19:29 5 mls/min BID OSMIN Administration Lorazepam 0.5 mg 08/03/22 19:56 08/03/22 20:13 Lorazepam 0.5 Mg Tab PO 09/02/22 19:55 0.5 mg HS PRN Administration Anxiety/Insomnia Ondansetron HCl 4 mg 08/02/22 19:51 08/03/22 04:33 Ondansetron Inj 2 Mg/Ml 2 Ml Vial IV 09/01/22 19:50 4 mg Q6H PRN Administration Nausea NPO Date Last Intake of Fluids: 08/03/22 Time Last Intake of Fluids: 23:30 Date Last Intake of Solids: 08/02/22 Time Last Intake of Solids: 12:00 Past Medical History Medical History Encounter for pre-operative examination Social History Smoking Status: Former smoker Do You Dip or Chew Tobacco: No Hx Alcohol Use: Yes Alcohol type: wine alcohol intake frequency: a few times a week Hx Substance Use: No substance use type: marijuana Substance Use Type Other:: MEDICAL MARIJUANA Last Used Substance: Days (ago) Physical Exam Vital Signs Last Vital Signs Temp 36.5 C 08/04/22 09:11 Pulse 81 08/04/22 09:11 Resp 18 08/04/22 09:11 BP 131/67 08/04/22 09:11 Pulse Ox 98 08/04/22 09:11 O2 Del Method 08/04/22 09:11 O2 Flow Rate 2 08/04/22 09:11 Testing Laboratory Results 08/04/22 08:33 08/04/22 08:33 PT 12.1 Seconds (9.0-12.0) H 08/02/22 19:07 INR 1.1 (0.9-1.1) 08/02/22 19:07 APTT 41.8 Seconds (21.0-31.0) H 08/02/22 19:07 Hemoglobin A1c 5.2 % (4.5-5.6) 08/03/22 06:36 Urine Color Yellow 08/02/22 19:00 Urine Appearance Clear (Clear) 08/02/22 19:00 Urine pH 6.0 (4.5-7.5) 08/02/22 19:00 Ur Specific [place] > 1.045 (1.000-1.030) H 08/02/22 19:00 Urine Protein Negative (Negative) 08/02/22 19:00 Urine Glucose (UA) Trace (Negative) H 08/02/22 19:00 Urine Ketones 4+ (Negative) H 08/02/22 19:00 Urine Nitrite Negative (Negative) 08/02/22 19:00 Ur Leukocyte Esterase 1+ (Negative) H 08/02/22 19:00 Urine WBC (Auto) 5-10 /hpf (0-5) H 08/02/22 19:00 Urine RBC (Auto) 10-30 /hpf (0-4) H 08/02/22 19:00 U Hyaline Cast (Auto) 1-5 /lpf (0-5) 08/02/22 19:00 U Epithel Cells (Auto) >30 /lpf (0-5) H 08/02/22 19:00 Urine Bacteria (Auto) Negative (Negative) 08/02/22 19:00 08/02/22 19:07 Aerobic Blood Culture - Preliminary Blood No growth in Aerobic bottle after 24 hours. Anaerobic Blood Culture - Preliminary No growth in Anaerobic bottle after 24 hours. 08/02/22 19:11 Aerobic Blood Culture - Preliminary Blood No growth in Aerobic bottle after 24 hours. Anaerobic Blood Culture - Preliminary No growth in Anaerobic bottle after 24 hours. Electrocardiogram Date: 08/02/2202-Aug-2022 16:26:42 [facility]-EDSTAT ROUTINE RETRIEVAL Poor data quality, interpretation may be adversely affected Undetermined rhythm Low voltage QRS Possible Anterolateral infarct (cited on or before 02-AUG-2022) Marked ST abnormality, possible inferior subendocardial injury Abnormal ECG When compared with ECG of 02-AUG-2022 16:22, (unconfirmed) Current undetermined rhythm precludes rhythm comparison, needs review Serial changes of evolving Anterior infarct Present Serial changes of evolving Anterolateral infarct Present Chest X-Ray Date: 08/02/22 HISTORY: 61 years-old Female Chest pain acute chest pain COMPARISON: None TECHNIQUE: Supine AP view of the chest FINDINGS: Cardiac silhouette is moderately enlarged. No pneumothorax, pleural effusion, airspace consolidation or overt pulmonary edema. Bones appear grossly intact. IMPRESSION: Cardiomegaly without acute process. Echocardiogram Date: 08/03/22 EF: 60-65% LV Function: normal RWMA: + none Other Findings: + atrial enlargement (severe on left; moderate on right) Right ventricular systolic pressure elevated. Cardiac Catheterization Date: 08/02/22 Findings: + normal
[2022-08-04] MEDS ORDERED: POTASSIUM PHOS 3 MMOL/1 ML INFUSION IV STA (09:28)
--- NOTE | 2022-08-04 09:58 | GI REPORT ---
Patient Name: Janet Borges Procedure Date: 08/04/2022 9:26 AM Date of : 1960 Admit Type: Inpatient Age: 61 Gender: Female Attending MD: Trinidad Odom DO, Procedure: Upper GI endoscopy Providers: Trinidad Odom DO Referring MD: Armond Javed Md Indications: Epigastric abdominal pain, Chest pain (non cardiac) Patient Profile: This is a 61 year old female. Refer to note in patient chart for documentation of history and physical. Medicines: Monitored Anesthesia Care Complications: No immediate complications. Estimated Blood Loss: Estimated blood loss was minimal. Procedure: Pre-Anesthesia Assessment: - Prior to the procedure, a History and Physical was performed, and patient medications and allergies were reviewed. The risks and benefits of the procedure and the sedation options and risks were discussed with the patient. All questions were answered and informed consent was obtained. Patient identification and proposed procedure were verified by the physician, the nurse and the director of recruiting in the procedure room. Mental Status Examination: alert and oriented. Airway Examination: Mallampati Class II (the uvula but not tonsillar pillars visualized). Respiratory Examination: clear to auscultation. CV Examination: RRR, no murmurs, no S3 or S4. Prophylactic Antibiotics: The patient does not require prophylactic antibiotics. Prior Anticoagulants: The patient has taken no anticoagulant or antiplatelet agents. ASA Grade Assessment: III - A patient with severe systemic disease. After reviewing the risks and benefits, the patient was deemed in satisfactory condition to undergo the procedure. The anesthesia plan was to use monitored anesthesia care (MAC). Immediately prior to administration of medications, the patient was re-assessed for adequacy to receive sedatives. The physical status of the patient was re-assessed after the procedure. After obtaining informed consent, the endoscope was passed under direct vision. Throughout the procedure, the patient's blood pressure, pulse, and oxygen saturations were monitored continuously. The Endoscope was introduced through the mouth, and advanced to the second part of duodenum. The upper GI endoscopy was accomplished without difficulty. The patient tolerated the procedure well. Findings: The examined esophagus was normal. The Z-line was regular and was found 39 cm from the incisors. Mild inflammation was found in the entire examined stomach. Biopsies were taken with a cold forceps for Helicobacter pylori testing. The exam of the stomach was otherwise normal. The duodenal bulb and second portion of the duodenum were normal. Biopsies for histology were taken with a cold forceps for evaluation of celiac disease. Impression: - Normal esophagus. - Z-line regular, 39 cm from the incisors. - Bile gastritis. Biopsied. - Normal duodenal bulb and second portion of the duodenum. Biopsied. Recommendation: - Return patient to hospital [facility] for ongoing care. - Resume previous diet. - Continue present medications. - Await pathology results. - Pain possibly related to bile gastritis. Trial of PPI 40 mg BID and can use carafate 1 g QID for 2-4 weeks. - Follow up outpatient in GI clinic if pain persists Trinidad Odom, 08/04/2022 9:58:24 AM Note Initiated On: 08/04/2022 9:26 AM Number of Addenda: 0 I attest to the content of the Intraoperative Record and orders documented therein, exceptions below {[id number]}
[2022-08-04] MEDS ORDERED: POTASSIUM PHOSPHATE 9 MMOL in SODIUM CHLORIDE 0.9% 250 ML IV ONE (10:00)
[2022-08-04] MEDS ORDERED: LIDOCAINE 2% MPF LOCAL 5 ML VIAL INFIL ONE (10:02)
[2022-08-04] MEDS ORDERED: PROPOFOL IV EMULSION 10 MG/ML 20 ML VIAL IV ONE (10:02)
--- NOTE | 2022-08-04 10:47 | Anesthesiology Progress Note ---
Date of Service August 04, 2022 Anesthesia Post Procedure Vital Signs Vital Signs: Temp Pulse Pulse Resp BP BP Pulse Ox 08/04/22 10:29 67 16 115/69 100 08/04/22 10:14 76 16 121/73 100 08/04/22 09:59 82 16 106/61 91 08/04/22 09:11 36.5 C 81 18 131/67 98 08/04/22 08:00 36.7 C 78 18 113/71 99 08/04/22 03:57 36.5 C 70 16 108/51 L 92 08/03/22 23:22 70 08/03/22 23:02 36.8 C 82 16 94/60 L 97 08/03/22 14:31 36.7 C 70 16 102/55 L 97 08/03/22 15:20 69 08/03/22 11:29 36.6 C 86 16 112/72 92 O2 Del Method O2 Flow Rate 08/04/22 10:29 Nasal Cannula 2 08/04/22 10:14 Nasal Cannula 2 08/04/22 09:59 Nasal Cannula 2 08/04/22 09:11 Nasal Cannula 2 08/04/22 08:00 Room Air 08/04/22 03:57 Nasal Cannula 3 08/03/22 23:22 08/03/22 23:02 Room Air 08/03/22 14:31 Room Air 08/03/22 15:20 08/03/22 11:29 Room Air Pain Intensity Chest: Pain Intensity: 8 Abdomen: Pain Intensity: 3 Transfer of Care Handoff Completed per policy Notes Mental Status: alert / awake / arousable and participated in evaluation Patient Amnestic to Procedure: Yes Nausea / Vomiting: adequately controlled Pain: adequately controlled Airway Patency, RR, SpO2: stable & adequate BP & HR: stable & adequate Hydration State: stable & adequate Anesthetic Complications: no major complications apparent and Pt Satisfied with anesthetic care
--- NOTE | 2022-08-04 14:13 | Electrocardiogram Report ---
Test Reason : Blood Pressure : / mmHG Vent. Rate : 071 BPM Atrial Rate : 071 BPM P-R Int : 174 ms QRS Dur : 102 ms QT Int : 424 ms P-R-T Axes : 058 054 000 degrees QTc Int : 460 ms Sinus rhythm with occasional Premature ventricular complexes and Premature atrial complexes Low voltage QRS Poor R wave progression, consider anterior WI vs. lead placement vs. LVH Abnormal ECG When compared with ECG of 07-OCT-2017 08:44, Premature ventricular complexes are now Present Premature atrial complexes are now Present Nonspecific T wave abnormality no longer evident in Lateral leads Confirmed by Primitivo Swanson ([id number]) on 08/04/2022 2:12:52 PM Referred By: REFERRED SELF Confirmed By:Jeremias Swanson
--- NOTE | 2022-08-04 14:33 | Surgery Consultation ---
Date of Consultation August 04, 2022 Assessment & Plan (1) Cholelithiasis: No evidence of cholecystitis. Doubt that gallstones are the cause of her current symptoms. She is being newly treated with PPI. Agree to advance her diet. If she does not tolerate diet advancement could consider HIDA scan. Otherwise can follow-up as an outpatient for the possibility of symptomatic cholelithiasis although that does not appear to be the case at this time. Supervising Physician Co-Signing Physician Notes I personally saw and evaluated the patient with Ashok Kenney PA-C and agree with the assessment and plan 61-year-old female with cholelithiasis, bile gastritis Ultrasound and CT images and results personally viewed by me, no convincing evidence for cholecystitis Her EGD images and results were also reviewed and she does have some gastritis present which could account for her upper abdominal pain If there is clinical concern for acute cholecystitis, HIDA scan could be obtained Will follow History of Present Illness Attending Physician: Armond Javed MD History of Present Illness 61-year-old female presented 2 days ago with epigastric/chest pain and left upper quadrant pain with nausea, vomiting and diarrhea. She was taken immediately to the [facility] and cardiac cause ruled out. She had EGD today which shows bile gastritis. No previous abdominal pain, nausea, vomiting or food intolerance. She continues taking Dilaudid for pain. She has been advanced to regular diet but prefers Ma[place] ice and broth. We were asked to see for cholelithiasis. No family history of biliary disease. Her daughter had cholecystectomy but did not improve her symptoms. Allergies Allergy/AdvReac Type Severity Reaction Status Date / Time vancomycin Allergy rash Verified 08/04/22 09:10 Home Medications Medication Instructions Recorded Confirmed Type fluoxetine [Prozac] PO DAILY PRN 07/04/19 03/21/21 History lorazepam 1 mg tablet (Ativan) 1 mg PO TID PRN 07/04/19 03/21/21 History [id number]-yivencphfuhha-ifyqxmiz 1 tab PO PRN 09/20/19 03/21/21 History [Excedrin Migraine] buspirone 5 mg tablet 5 mg PO BID 09/18/20 03/21/21 History cholecalciferol (vitamin D3) 25 25 mcg PO DAILY 08/02/22 08/02/22 History mcg (1,000 unit) tablet (Vitamin D3) lorazepam 0.5 mg tablet 0.5 mg PO DAILY PRN Anxiety 08/02/22 08/02/22 History magnesium 250 mg tablet 0 mg PO [id number] 08/02/22 08/02/22 History Patient History Medical History Encounter for pre-operative examination Social History Smoking Status: Former smoker Second Hand Exposure: No; Do You Dip or Chew Tobacco: No; Tobacco Cessation Education Requested by Patient: No Hx Alcohol Use: Yes Alcohol type: wine Hx Substance Use: No Preferred Language: Lithuanian Communication Ability: Effective Ambulance Mechanic Required: No Beliefs That Will Affect Care: None marital status: Current Living Situation: Spouse Other Information That Helps Us Care for You: No Feels Safe at Home: Yes Safety Concerns: Feels Safe At This Time Assistive Devices: Cane Review of Systems Constitutional: + anorexia; no fever and no chills Gastrointestinal: + abdominal pain, + bloating, + nausea and + vomiting Physical Exam Constitutional: WD/WN, vitals as above Respiratory: normal respiratory effort, lungs clear to auscultation Cardiovascular: RRR, no murmur, no edema Gastrointestinal (Abdomen): Inspection/Auscultation: abdomen not distended Percussion/Palpation: abdomen soft; abdomen nontender Skin: no rashes, warm and dry Results & Data ([facility]) Vital Signs (Past 12 Hours) Vital Signs Temp Pulse Resp BP Pulse Ox O2 Del Method O2 Flow Rate 08/04/22 10:49 36.8 C 73 18 123/72 95 Room Air 08/04/22 10:29 67 16 115/69 100 Nasal Cannula 2 08/04/22 10:14 76 16 121/73 100 Nasal Cannula 2 08/04/22 09:59 82 16 106/61 91 Nasal Cannula 2 08/04/22 09:11 36.5 C 81 18 131/67 98 Nasal Cannula 2 08/04/22 08:00 36.7 C 78 18 113/71 99 Room Air 08/04/22 03:57 36.5 C 70 16 108/51 L 92 Nasal Cannula 3 PG Care Time/CCT Total # of Minutes Spent Total Time Spent with Patient: Total time spent is greater than 50% in coordination of care (as documented) at patient's floor/unit and/or counseling patient: Coding Level of Care Code 96868 Inpt Consult Level 3 Diagnoses Cholelithiasis K80.20
[2022-08-04] MEDS: SUCRALFATE 1 GM/10 ML UDC PO SCH ×2 (17:05→20:50)
[2022-08-04] MEDS ORDERED: FAMOTIDINE 20 MG in SYRINGE 3 ML IV ONE (19:30)
[2022-08-04] MEDS: POT PHOSPHATE MONOBASIC W/ SOD TAB PO SCH (21:49)
[2022-08-04] MEDS: FLUoxetine HCL 20 MG CAP PO SCH (21:49)
[2022-08-04] MEDS: LORazepam 0.5 MG TAB PO PRN (23:29)
[2022-08-05 06:24] LABS: Hematocrit (blood only) 32.7 % (34.1-44.9); Mean Corpuscular Hemoglobin 31.7 pg (25.0-34.0); Mean Corpuscular Hgb Conc 33.6 g/dL (32.0-36.0); Mean Corpuscular Volume 94.2 fL (80.0-100.0); Mean Platelet Volume 11.1 fL (9.4-12.3); Platelet Count 180 K/uL (130-400); RDW Coefficient of Variation 12.3 % (11.5-14.5); RDW Standard Deviation 42.3 fL (36.4-46.3); Red Blood Count 3.47 M/uL (3.93-5.22); White Blood Count 9.26 K/ul (4.8-10.8)
[2022-08-05 07:22] LABS: Albumin Globulin Ratio 1.6 (0.9-2); Albumin Level 3.5 gm/dl (3.4-5.0); BUN Creatinine Ratio 18.2 (10-20); Bilirubin,Total 1.4 mg/dl (0.2-1.0); Calcium 8.6 mg/dl (8.5-10.1); Creatinine Clr Calc Pharmacy 111.1 ml/min; Est GFR (African American) 126.3 ml/min; Est GFR (Non-African American) 108.9 ml/min; Globulin 2.2 gm/dl (2.5-4.0); Magnesium 1.8 mg/dl (1.7-2.4); Phosphorus 1.8 mg/dl (2.5-4.9); Potassium 3.1 mmol/L (3.5-5.1); Total Protein 5.7 gm/dl (6.0-8.3)
[2022-08-05] MEDS: PANTOprazole 40 MG in SYRINGE 0 ML IV SCH ×2 (07:45→20:25)
[2022-08-05] MEDS ORDERED: POTASSIUM CHLORIDE CRTAB 20 MEQ TABCR PO STA ×2 (07:52→16:41)
[2022-08-05] MEDS ORDERED: POTASSIUM PHOS 3 MMOL/1 ML INFUSION IV STA (07:56)
[2022-08-05] MEDS ORDERED: POTASSIUM PHOSPHATE 15 MMOL in SODIUM CHLORIDE 0.9% 250 ML IV ONE (08:15)
--- NOTE | 2022-08-05 08:16 | Surgery Progress Note ---
Date of Service August 05, 2022 Assessment & Plan (1) Cholelithiasis: Plan: seen with Dr. Meneses will follow-up on HIDA Admission and Anticipated Discharge Date Admission Date: August 02, 2022 Supervising Physician Co-Signing Physician Notes I personally saw and evaluated the patient with Ashok Kenney PA-C and agree with the assessment and plan 61-year-old female with cholelithiasis, bile gastritis Medicine is ordered a HIDA scan, we will follow-up the results of this Subjective similar symptoms overnight, going for HIDA this AM Review of Systems Constitutional: no fever and no chills Physical Exam Gastrointestinal (Abdomen): Inspection/Auscultation: abdomen not distended Percussion/Palpation: abdomen soft; abdomen nontender (RUQ) Results & Data ([facility]) Vital Signs (Past 12 Hours) Vital Signs Temp Pulse Pulse Resp BP Pulse Ox O2 Del Method 08/05/22 08:00 36.5 C 89 16 121/71 96 Room Air 08/05/22 03:26 36.4 C L 91 H 18 110/82 98 Room Air 08/05/22 00:46 70 08/04/22 23:24 36.8 C 69 18 136/88 96 Room Air PG Care Time/CCT Total # of Minutes Spent Total Time Spent with Patient: Total time spent is greater than 50% in coordination of care (as documented) at patient's floor/unit and/or counseling patient: Coding Level of Care Code 46066 Subseq Hosp Care Lvl 1 Diagnoses Cholelithiasis K80.20
[2022-08-05] MEDS ORDERED: SINCALIDE 1.2 MCG in 0.9 % SODIUM CHLORIDE 100 ML IV SCH (09:00)
--- NOTE | 2022-08-05 09:36 | Hospitalist Progress Note ---
Date of Service August 05, 2022 Assessment & Plan (1) Chest pain: (2) Epigastric pain: (3) MVP (mitral valve prolapse): Plan: 61-year-old female presents with chest pain and abdominal pain. 1. Chest pain, ST depression in V4, V5, V6 leads. Troponin was 3 on presentation, 4.3, heart alert and status post cardiac catheterization and normal coronaries. Troponin now rising (likely d/t procedure) as pt denies any chest pain. 08/04 current trop up 127 Echo LV systolic function is normal. LA is severely dilated. RA is moderately dilated. There is moderate mitral annular calcification. There is mild to moderate mitral regurg. RV systolic pressure is elevated at 30 to 40 mmHg. Cardiology consulted 2. Abdominal pain in the epigastrium and left upper quadrant region. Also, the patient is having chills and elevated lactic acid on admission. Preliminary results CTA of the chest and CTA abdomen and pelvis unremarkable except for mild colitis. Empirically started on daptomycin and Zosyn as THE PATIENT IS ALLERGIC TO VANCOMYCIN. Follow the cultures. Blood cultx - negat. in 48 hrs IV fluids given. Repeat lactic acid normalized. Closely monitor in the telemetry floor. Pain control. . IV Protonix GI consulted - EGD done (08/04) Findings: The examined esophagus was normal. The Z-line was regular and was found 39 cm from the incisors. Mild inflammation was found in the entire examined stomach. Biopsies were taken with a cold forceps for Helicobacter pylori testing. The exam of the stomach was otherwise normal. The duodenal bulb and second portion of the duodenum were normal. Biopsies for histology were taken with a cold forceps for evaluation of celiac disease. Impression: - Normal esophagus. - Z-line regular, 39 cm from the incisors. - Bile gastritis. Biopsied. - Normal duodenal bulb and second portion of the duodenum. Biopsied. Recommendation: - Return patient to [facility] for [facility] care. - Resume previous diet. - Continue present medications. - Await pathology results. - Pain possibly related to bile gastritis. Trial of PPI 40 mg BID and can use carafate 1 g QID for 2-4 weeks. - Follow up outpatient in GI clinic if pain persists US liver FINDINGS: Pancreas: The pancreas demonstrates a normal echotexture. Liver: Unremarkable. Gallbladder: There are small mobile gallstones and a small amount of gallbladder sludge. There is trace pericholecystic fluid with a thickened and edematous gallbladder wall along the hepatic surface. This is likely due to the patient's diffuse edematous state or an underlying hepatic pathology. Acute cholecystitis is considered less likely but not entirely excluded. The technologist reported a negative sonographic Wilder sign. CBD: 5 mm. Right kidney: No hydronephrosis. IMPRESSION: There are small mobile gallstones and a small amount of gallbladder sludge. There is trace pericholecystic fluid with a thickened and edematous gallbladder wall along the hepatic surface. This is likely due to the patient's diffuse edematous state or an underlying hepatic pathology. Acute cholecystitis is considered less likely but not entirely excluded. CT chest 1. Unremarkable CT angiogram of the thoracic aorta. 2. Cardiomegaly with evidence of congestive failure. 3. There is no airspace consolidation typical for pneumonia or pleural effusion. 4. Bilateral pulmonary nodules are suggested measuring up to 5 mm. These are not well assessed due to congestive change. A follow-up chest CT in 3-4 months time is recommended for reevaluation. 5. Bilateral nephrolithiasis. CT abdomen 1. Unremarkable CTA of the abdomen and pelvis. Normal caliber abdominal aorta. No dissection or aneurysm. No stenosis. 2. Cardiomegaly with evidence for interstitial pulmonary edema. 3. Mildly distended gallbladder with minimal layering hyperdense material. However, no adjacent infiltration. No convincing evidence for acute cholecystitis. If right upper quadrant pain, an ultrasound could be obtained. General surgery also consulted given cholelithiasis, gallbladder sludge and abd. pain - per their eval., not likely cholecystitis HIDA scan obtained Stool studies obtained - pending 3. Hyperglycemia, glucose 190 on admission. Could be from ongoing illness. Current HbA1c 5.2% 4. Electrolyte abnormalities, we will replace and follow repeat laboratories. 5. Depression, on Prozac. DVT prophylaxis. SCDs in case she needs any procedures. DISPOSITION:tele floor Code: full code. Admission and Anticipated Discharge Date Admission Date: August 02, 2022 Subjective Patient presented as a heart alert and went directly to [facility] from ED. Coronaries clear on cardiac cath Patient continues to complain of left-sided chest pain/abdominal pain, CT obtained and showed possible colitis EGD done - shows gastritis Pt has been on PPI Pt also had diarrhea on day of admission - stool studies ordered but not obtained until today Continues to have diarrhea Currently she is lying in bed, in no acute distress, continues to use pain meds She is alert oriented and answering questions appropriately Continues to describe epigastric and left upper abdominal pain that radiates to her back and to lower abdomen Reports very poor appetite, on of off nausea Also notably patient had 20 to 30 pound weight loss over past year, unintentional US liver obtained overnight, surgery consulted, HIDA ordered Review of Systems Review of Systems: All systems reviewed & are unremarkable except as noted in Subjective Physical Exam Physical Exam: GENERAL: thin F in NAD HEENT: NC/AT, EOMI, Extraocular muscles intact. Oral mucosa moist. NECK: No neck masses seen. CARDIOVASCULAR: S1 and S2 heard. Regular rate and rhythm. No murmur, no gallop. RESPIRATORY: Normal AP diameter. No accessory muscle use. No wheezing, no crackles. ABDOMEN: Epigastric tenderness and right upper quadrant tenderness present. No rebound tenderness, mild guarding, no distention. NEURO/PSYCH: Alert oriented answering questions appropriately. Speech fluent, no facial asymmetry, moves extremities EXTREMITIES: No obvious edema or erythema seen. Results & Data Results & Data ([facility]) Vital Signs (Past 12 Hours) Vital Signs Temp Pulse Pulse Resp BP Pulse Ox O2 Del Method 08/05/22 08:00 36.5 C 89 16 121/71 96 Room Air 08/05/22 03:26 36.4 C L 91 H 18 110/82 98 Room Air 08/05/22 00:46 70 08/04/22 23:24 36.8 C 69 18 136/88 96 Room Air Laboratory Results 08/05/22 08/05/22 08/02/22 Range/Units 06:12 06:12 16:25 WBC 9.26 (4.8-10.8) K/ul RBC 3.47 L (3.93-5.22) M/uL Hgb 11.0 L (12.0-16.0) g/dl Hct 32.7 L (34.1-44.9) % MCV 94.2 (80.0-100.0) fL MCH 31.7 (25.0-34.0) pg MCHC 33.6 (32.0-36.0) g/dL RDW Std Deviation 42.3 (36.4-46.3) fL RDW Coeff of Angela 12.3 (11.5-14.5) % Plt Count 180 (130-400) K/uL MPV 11.1 (9.4-12.3) fL Sodium 138 (136-145) mmol/L Potassium 3.1 L (3.5-5.1) mmol/L Chloride 104 (98-107) mmol/L Carbon Dioxide 27 (21-32) mmol/L Anion Gap 7 (3-11) BUN 8 (6-23) mg/dl Creatinine 0.44 L (0.6-1.2) mg/dl Est Cr Clr Drug Dosing 111.1 ml/min Est GFR ( Amer) 126.3 ml/min Est GFR (Non-Af Amer) 108.9 ml/min BUN/Creatinine Ratio 18.2 (10-20) Glucose 107 H (70-99(Fasting)) mg/dl Calcium 8.6 (8.5-10.1) mg/dl Phosphorus 1.8 L (2.5-4.9) mg/dl Magnesium 1.8 (1.7-2.4) mg/dl Total Bilirubin 1.4 H (0.2-1.0) mg/dl AST 54 H (13-39) U/L ALT 62 H (7-52) U/L Alkaline Phosphatase 52 (34-104) U/L Total Protein 5.7 L (6.0-8.3) gm/dl Albumin 3.5 (3.4-5.0) gm/dl Globulin 2.2 L (2.5-4.0) gm/dl Albumin/Globulin Ratio 1.6 (0.9-2) Hepatitis C Ab (EIA) NON-REACTIVE (NON-REACTIVE) Hep C Ab Signal/Cutoff 0.02 (<1.00) Medications Administered Current Inpatient Medications Acetaminophen (Acetaminophen 325 Mg Tab) 650 mg PO Q4H PRN PRN Reason: Pain or Fever Stop: 09/01/22 19:50 Last Admin: 08/04/22 17:26 Dose: 650 mg Fluoxetine HCl (Fluoxetine Hcl 20 Mg Cap) 20 mg PO QAM [facility] Stop: 09/03/22 20:49 Last Admin: 08/04/22 21:49 Dose: 20 mg Hydromorphone HCl (Hydromorphone Inj 0.5 Mg/0.5 Ml Syr) 0.5 mg IV Q3H PRN PRN Reason: Pain Stop: 08/16/22 19:53 Last Admin: 08/04/22 11:06 Dose: 0.5 mg Pantoprazole Sodium 40 mg/ (Syringe) 10 mls @ 5 mls/min IV BID OSMIN Stop: 09/01/22 19:29 Last Admin: 08/05/22 07:45 Dose: 5 mls/min Potassium Phosphate 15 mmol/ (Sodium Chloride) 255 mls @ 88 mls/hr IV ONE ONE Stop: 08/05/22 11:08 Lorazepam (Lorazepam 0.5 Mg Tab) 0.5 mg PO HS PRN PRN Reason: Anxiety/Insomnia Stop: 09/02/22 19:55 Last Admin: 08/04/22 23:29 Dose: 0.5 mg Nitroglycerin (Nitroglycerin Sl 0.4 Mg/Tab Tab) 0.4 mg SL UD PRN PRN Reason: Chest Pain Stop: 09/01/22 19:50 Ondansetron HCl (Ondansetron Inj 2 Mg/Ml 2 Ml Vial) 4 mg IV Q6H PRN PRN Reason: Nausea Stop: 09/01/22 19:50 Last Admin: 08/03/22 04:33 Dose: 4 mg Potassium Phosphate (Pot Phosphate Monobasic W/ Sod Tab) 2 tab PO QID [facility] Stop: 09/03/22 20:59 Last Admin: 08/04/22 21:49 Dose: 2 tab Sucralfate (Sucralfate 1 Gm/10 Ml Udc) 1 gm PO QID OSMIN Stop: 09/03/22 16:59 Last Admin: 08/04/22 20:50 Dose: 1 gm
[2022-08-05] MEDS: FLUoxetine HCL 20 MG CAP PO SCH (10:20)
[2022-08-05] MEDS: POT PHOSPHATE MONOBASIC W/ SOD TAB PO SCH ×4 (10:20→20:24)
[2022-08-05] MEDS: SUCRALFATE 1 GM/10 ML UDC PO SCH ×4 (10:21→20:24)
--- NOTE | 2022-08-05 10:24 | Nuclear Medicine Report ---
NUCLEAR MEDICINE HEPATOBILIARY SCAN WITH EJECTION FRACTION HISTORY: Generalized abdominal pain. Cholelithiasis. COMPARISON: Abdominal ultrasound 08/03/2022. TECHNIQUE: Immediately following the intravenous administration of 6.0 mCi Tc-99m Choletec, dynamic a nterior abdominal imaging pre/post 1.2 mcg of Kinevac was performed. FINDINGS: Uniform hepatic tracer accumulation is shown. Prompt intrahepatic biliary excretion is seen. The gall bladder, common bile duct, and small bowel are all visualized by 15 minutes. This appearance represen ts the normal sequence of biliary excretion. The gall bladder ejection fraction following administration of Kinevac was 98% (normal >35%). IMPRESSION: 1. No evidence for cystic duct obstruction. 2. Gallbladder ejection fraction calculated to be 98 %. ACT 112: Negative or not required by law. Electronically signed by: Carter Meza M.D. 08/05/2022 10:23 AM
[2022-08-05 13:01] LABS: Cdiff Toxin B Gene (2yr or >) Negative Cdiff Gene (Neg)
[2022-08-05] MEDS: HYDROmorphone INJ 0.5 MG/0.5 ML SYR IV PRN (13:21)
[2022-08-05 13:32] LABS: Adenovirus F 40/41 PCR Not Detected (NotDetected); Astrovirus PCR Not Detected (NotDetected); Campylobacter PCR Not Detected (NotDetected); Cryptosporidium PCR Not Detected (NotDetected); Cyclospora cayetanensis PCR Not Detected (NotDetected); Entamoeba histolytica PCR Not Detected (NotDetected); Enteroaggregative E.coli(EAEC) Not Detected (NotDetected); Enteropathogenic E.coli (EPEC) Not Detected (NotDetected); Enterotoxigenic E.coli (ETEC) Not Detected (NotDetected); Giardia lamblia PCR Not Detected (NotDetected); Norovirus GI/GII PCR Not Detected (NotDetected); Plesiomonas shigelloides PCR Not Detected (NotDetected); Rotavirus A PCR Not Detected (NotDetected); Salmonella PCR Not Detected (NotDetected); Sapovirus PCR Not Detected (NotDetected); Shiga-like Toxin E.coli (STEC) Not Detected (NotDetected); Shigella/Enteroinvasive E.coli Not Detected (NotDetected); Vibrio cholerae PCR Not Detected (NotDetected); Vibrio species PCR Not Detected (NotDetected); Yersinia enterocolitica PCR Not Detected (NotDetected)
--- NOTE | 2022-08-05 13:32 | Gastroenterology Progress Note ---
Date of Service August 05, 2022 Assessment & Plan (1) Epigastric pain: Plan: Will check gastric, duodenal bx when available. (2) Cholelithiasis: Plan: Seen by surgery who did not feel acute cholecystitis or biliary colic. Mild bump in LFTs ? from prior Zosyn doses. No evidence of this being from gallbladder dx as bile ducts are clear on multiple images (CT, US, HIDA). Will follow. (3) Diarrhea: Plan: C-diff, GI path were (-). Plan Pain not typical of GI origin (not changed by eating, not a burning pain). Consider pain management consult ? trigger point injections. Admission and Anticipated Discharge Date Admission Date: August 02, 2022 Supervising Physician Co-Signing Physician Notes GI asked to re-evaluate today for ongoing chest and abdominal pain. Physical Exam: Constitutional: AAOx3, laying in bed in no acute distress Eyes: sclera anicteric Respiratory: clear to auscultation, no respiratory distress Cardiac: RRR, no murmurs Abdomen: soft, tenderness to palpation in the epigastric and LUQ, no rebound or guarding, no hepatosplenomegaly Extremities: no edema Psych: appears anxious, appropriate affect Neuro: AAOx3 Patient has had negative work up thus far including CTA abd/pelvis, cardiac cath, HIDA scan, RUQ ultrasound. EGD with bile gastritis. I do not think this is causing her pain, however it is a possibility and she should continue PPI BID and carafate 1g QID. She describes her pain as a squeezing/pulling sensation in her chest and in her abdomen and LUQ. She denies any association with food and reports at times her pain is worse with sitting up or moving (+ carnett's sign) which could be a MSK etiology. Consider pain management consult for further evaluation of pain. She should have an outpatient colonoscopy for colon cancer screening given age and weight loss. Trinidad Odom, Gastroenterology and Hepatology I personally reviewed and evaluated the patient. I agree with the above and plan and recommendations as above by PORFIRIO Cook. Subjective GI was asked by Dr. Armond Javed to re-evaluate Ms. Borges because her chest/epigastric pain continues. Admitted with chest/epigastric pain. Cardiac Cath (-) for cause. Pt describes pain as a pressure, located in the left chest, epigastric area, radiating around to the back. Doesn't believe the pain is related to eating. Vomited bilious fluid yesterday. Slight bump in LFts since admission: T Bili 1.4, AST 54, ALT 62, Alk PHos normal. Has had an extensive w/u including: EGD w gastritis but pain likely typical of gastritis and not resolved with PPI. Will add sucralfate. US w stones/sludge wall thickening. HIDA (-) Seen by surgery who did not suspect acute cholecystitis or need for urgent cholecystectomy. Bile ducts normal on imaging. CTA Abd/pelvis w/o vascular compromise. On exam today, increase in pain with sitting up in bed w/o using her arms (increased pain on using the abdominal muscles). Review of Systems Review of Systems: ROS: Gen: Awake, alert, pain a little improved today compared to prior. No further sweats or weakness. Eyes:No yellow, No eye redness, or pain, no recent vision changes Resp: No SOB, no cough Cardio: No palpitations/irregular beats, See HPI regarding CP GI: As per HPI otherwise negative : Denies pain on urination Skin: No jaundice, itching or new rashes Physical Exam Constitutional: WD/WN, vitals as above Eyes: PERRL, conjunctivae normal, anicteric sclerae ENMT: external ear and nose normal, oropharynx normal Neck: trachea midline, no thyromegaly Respiratory: normal respiratory effort, lungs clear to auscultation Cardiovascular: RRR, no murmur, no edema Gastrointestinal (Abdomen): Inspection/Auscultation: abdomen normal to inspection and normal bowel sounds; abdomen not distended Percussion/Palpation: + abdomen tender (mild epigastric tenderness) and abdomen soft Skin: no rashes, warm and dry Neurologic: patellar DTR's 2+ bilat, sensation intact Psychiatric: A+Ox3, euthymic affect Genitourinary: no vaginal lesions, no adnexal mass Lymphatic: no cervical or axillary lymphadenopathy Results & Data ([facility]) Vital Signs (Past 12 Hours) Vital Signs Temp Pulse Pulse Resp BP Pulse Ox O2 Del Method 08/05/22 06:02 96 H 08/05/22 12:00 36.8 C 92 H 20 118/64 98 Room Air 08/05/22 08:00 36.5 C 89 16 121/71 96 Room Air 08/05/22 03:26 36.4 C L 91 H 18 110/82 98 Room Air Laboratory Results WBC 9.2, Hb 11, Hct 32.7, Plts 180, Na 138, K 3.1, Cl 104, CO2 27, BUN 8, Cr 0.44 LFTs Diagnostic Findings HIDA: 08/05: 1. No evidence for cystic duct obstruction. 2. Gallbladder ejection fraction calculated to be 98 %. Liver US 08/03/22: There are small mobile gallstones and a small amount of gallbladder sludge. There is trace pericholecystic fluid with a thickened and edematous gallbladder wall along the hepatic surface. This is likely due to the patient's diffuse edematous state or an underlying hepatic pathology. Acute cholecystitis is considered less likely but not entirely excluded. CTA Chest 08/[address] angiogram of the thoracic aorta. 2. Cardiomegaly with evidence of congestive failure. 3. There is no airspace consolidation typical for pneumonia or pleural effusion. 4. Bilateral pulmonary nodules are suggested measuring up to 5 mm. These are not well assessed due to congestive change. A follow-up chest CT in 3-4 months time is recommended for reevaluation. 5. Bilateral nephrolithiasis. CTA Abdomen/pelvis 08/02: 1. Unremarkable CTA of the abdomen and pelvis. Normal caliber abdominal aorta. No dissection or aneurysm. No stenosis. 2. Cardiomegaly with evidence for interstitial pulmonary edema. 3. Mildly distended gallbladder with minimal layering hyperdense material. However, no adjacent infiltration. No convincing evidence for acute cholecystitis. If right upper quadrant pain, an ultrasound could be obtained.
[2022-08-05] MEDS ORDERED: PIPERACILLIN/TAZOBACTAM 3.375 GM in DEXTROSE 5% 100 ML IV ONE (15:00)
[2022-08-05] MEDS ORDERED: MAGNESIUM SULFATE / D5W 1 GM/100 ML BAG IV ONE (16:42)
[2022-08-05] MEDS: LACTATED RINGER'S 1,000 ML IV SCH (17:43)
[2022-08-05] MEDS: LOPERAMIDE HCL 2 MG CAP PO PRN ×2 (18:10→22:26)
[2022-08-05] MEDS: PIPERACILLIN/TAZOBACTAM 3.375 GM in DEXTROSE 5% 100 ML IV SCH (20:24)
[2022-08-05] MEDS: LORazepam 0.5 MG TAB PO PRN (22:26)
[2022-08-06] MEDS: LOPERAMIDE HCL 2 MG CAP PO PRN ×2 (04:47→09:26)
[2022-08-06] MEDS: PIPERACILLIN/TAZOBACTAM 3.375 GM in DEXTROSE 5% 100 ML IV SCH ×3 (04:47→19:49)
[2022-08-06 07:50] LABS: Hematocrit (blood only) 33.3 % (34.1-44.9); Hemoglobin 11.5 g/dl (12.0-16.0); Mean Corpuscular Hemoglobin 31.6 pg (25.0-34.0); Mean Corpuscular Hgb Conc 34.5 g/dL (32.0-36.0); Mean Corpuscular Volume 91.5 fL (80.0-100.0); Mean Platelet Volume 11.1 fL (9.4-12.3); Platelet Count 197 K/uL (130-400); RDW Coefficient of Variation 12.4 % (11.5-14.5); RDW Standard Deviation 41.3 fL (36.4-46.3); Red Blood Count 3.64 M/uL (3.93-5.22); White Blood Count 8.34 K/ul (4.8-10.8)
[2022-08-06 08:39] LABS: Albumin Globulin Ratio 1.7 (0.9-2); Albumin Level 3.7 gm/dl (3.4-5.0); BUN Creatinine Ratio 13.2 (10-20); Bilirubin,Total 1.2 mg/dl (0.2-1.0); Calcium 8.8 mg/dl (8.5-10.1); Creatinine Clr Calc Pharmacy 92.2 ml/min; Est GFR (African American) 118.8 ml/min; Est GFR (Non-African American) 102.5 ml/min; Globulin 2.2 gm/dl (2.5-4.0); Phosphorus 2.6 mg/dl (2.5-4.9); Potassium 2.9 mmol/L (3.5-5.1); Total Protein 5.9 gm/dl (6.0-8.3)
[2022-08-06] MEDS: LACTATED RINGER'S 1,000 ML IV SCH ×2 (09:23→19:58)
[2022-08-06] MEDS: POT PHOSPHATE MONOBASIC W/ SOD TAB PO SCH ×4 (09:26→19:50)
[2022-08-06] MEDS: PANTOprazole 40 MG in SYRINGE 0 ML IV SCH ×2 (09:26→19:49)
[2022-08-06] MEDS: SUCRALFATE 1 GM/10 ML UDC PO SCH ×4 (09:26→19:50)
[2022-08-06] MEDS: FLUoxetine HCL 20 MG CAP PO SCH (09:27)
--- NOTE | 2022-08-06 10:05 | Cardiology Progress Note ---
Date of Service August 06, 2022 Assessment & Plan (1) Chest pain: Plan: -normal coronary arteries at time of catheterization on day of presentation. -no cardiac etiology for her complaints of chest discomfort. -suspect her discomfort may be musculoskeletal. (2) Paroxysmal SVT (supraventricular tachycardia): Plan: -diagnosed in September 2019. -brief paroxysms noted on telemetry. -no evidence of atrial fibrillation. (3) MVP (mitral valve prolapse): Plan: -stable on current echocardiogram. Admission and Anticipated Discharge Date Admission Date: August 02, 2022 Subjective The patient is resting comfortably in bed without complaints angina pectoris or dyspnea. She does note some minor discomfort under the left breast. Physical Exam Physical Exam: In general this is a well-developed well-nourished white female in no acute distress. HEENT exam is negative. Neck reveals normal carotid upstrokes without bruits. No jugular venous distension. There is no thyromegaly. Cardiovascular exam reveals a regular rhythm with a prominent mid systolic click and subsequent 2/6 systolic murmur heard across the entire precordium. No S3. Lungs are clear without rales, rhonchi, or wheezes. Abdomen is soft without bruits. Extremities reveal intact radial artery and posterior tibial pulses bilaterally. There is no peripheral edema. Results & Data ([facility]) Vital Signs (Past 12 Hours) Vital Signs Temp Pulse Pulse Resp BP BP Pulse Ox 08/06/22 07:49 36.5 C 83 16 130/78 98 08/06/22 03:15 36.6 C 88 19 91/65 L 96 08/05/22 23:00 81 08/05/22 23:20 36.5 C 94 H 20 130/77 96 O2 Del Method 08/06/22 07:49 Room Air 08/06/22 03:15 Room Air 08/05/22 23:00 08/05/22 23:20 Room Air Diagnostic Findings night monitor notes sinus rhythm with frequent PACs. There are brief runs of an atrial tachycardia. No atrial fibrillation. PG Care Time/CCT Total # of Minutes Spent Total Time Spent with Patient: Total time spent is greater than 50% in coordination of care (as documented) at patient's floor/unit and/or counseling patient: Coding Level of Care Code 51798 Subseq Hosp Care Lvl 3 Diagnoses Chest pain R07.9 Paroxysmal SVT (supraventricular tachycardia) I47.1 MVP (mitral valve prolapse) I34.1
[2022-08-06] MEDS ORDERED: POTASSIUM CHLORIDE CRTAB 20 MEQ TABCR PO STA ×2 (16:59→20:58)
[2022-08-06] MEDS: LORazepam 0.5 MG TAB PO PRN (19:49)
--- NOTE | 2022-08-06 21:04 | Hospitalist Progress Note ---
Date of Service August 06, 2022 Assessment & Plan (1) Chest pain: (2) Epigastric pain: (3) MVP (mitral valve prolapse): Plan: 61-year-old female presents with chest pain and abdominal pain. 1. Chest pain, ST depression in V4, V5, V6 leads. Troponin was 3 on presentation, 4.3, heart alert and status post cardiac catheterization and normal coronaries. Troponin now rising (likely d/t procedure) as pt denies any chest pain. 08/04 current trop up 127 Echo LV systolic function is normal. LA is severely dilated. RA is moderately dilated. There is moderate mitral annular calcification. There is mild to moderate mitral regurg. RV systolic pressure is elevated at 30 to 40 mmHg. Cardiology consulted, appreciate their input 2. Abdominal pain in the epigastrium and left upper quadrant region. Gastritis Pt is having chills and elevated lactic acid on admission. Preliminary results CTA of the chest and CTA abdomen and pelvis unremarkable except for mild colitis. Empirically started on daptomycin and Zosyn as THE PATIENT IS ALLERGIC TO VANCOMYCIN. Follow the cultures. Blood cultx - negat. in 48 hrs IV fluids given. Repeat lactic acid normalized. Closely monitor in the telemetry floor. Pain control. . IV Protonix Antibiotics now stopped as infectious work-up negative. GI consulted - Pt is s/p EGD (08/04) Findings: The examined esophagus was normal. The Z-line was regular and was found 39 cm from the incisors. Mild inflammation was found in the entire examined stomach. Biopsies were taken with a cold forceps for Helicobacter pylori testing. The exam of the stomach was otherwise normal. The duodenal bulb and second portion of the duodenum were normal. Biopsies for histology were taken with a cold forceps for evaluation of celiac disease. Impression: - Normal esophagus. - Z-line regular, 39 cm from the incisors. - Bile gastritis. Biopsied. - Normal duodenal bulb and second portion of the duodenum. Biopsied. Recommendation: - Return patient to [facility] for ongoing care. - Resume previous diet. - Continue present medications. - Await pathology results. - Pain possibly related to bile gastritis. Trial of PPI 40 mg BID and can use carafate 1 g QID for 2-4 weeks. - Follow up outpatient in GI clinic if pain persists US liver FINDINGS: Pancreas: The pancreas demonstrates a normal echotexture. Liver: Unremarkable. Gallbladder: There are small mobile gallstones and a small amount of gallbladder sludge. There is trace pericholecystic fluid with a thickened and edematous gallbladder wall along the hepatic surface. This is likely due to the patient's diffuse edematous state or an underlying hepatic pathology. Acute cholecystitis is considered less likely but not entirely excluded. The technologist reported a negative sonographic Wilder sign. CBD: 5 mm. Right kidney: No hydronephrosis. IMPRESSION: There are small mobile gallstones and a small amount of gallbladder sludge. There is trace pericholecystic fluid with a thickened and edematous gallbladder wall along the hepatic surface. This is likely due to the patient's diffuse edematous state or an underlying hepatic pathology. Acute cholecystitis is considered less likely but not entirely excluded. CT chest 1. Unremarkable CT angiogram of the thoracic aorta. 2. Cardiomegaly with evidence of congestive failure. 3. There is no airspace consolidation typical for pneumonia or pleural effusion. 4. Bilateral pulmonary nodules are suggested measuring up to 5 mm. These are not well assessed due to congestive change. A follow-up chest CT in 3-4 months time is recommended for reevaluation. 5. Bilateral nephrolithiasis. CT abdomen 1. Unremarkable CTA of the abdomen and pelvis. Normal caliber abdominal aorta. No dissection or aneurysm. No stenosis. 2. Cardiomegaly with evidence for interstitial pulmonary edema. 3. Mildly distended gallbladder with minimal layering hyperdense material. However, no adjacent infiltration. No convincing evidence for acute cholecystitis. If right upper quadrant pain, an ultrasound could be obtained. General surgery also consulted given cholelithiasis, gallbladder sludge and abd. pain - per their eval., not likely cholecystitis HIDA scan obtained - FINDINGS: Uniform hepatic tracer accumulation is shown. Prompt intrahepatic biliary excretion is seen. The gallbladder, common bile duct, and small bowel are all visualized by 15 minutes. This appearance represents the normal sequence of biliary excretion. The gall bladder ejection fraction following administration of Kinevac was 98% (normal >35%). IMPRESSION: 1. No evidence for cystic duct obstruction. 2. Gallbladder ejection fraction calculated to be 98 %. Stool studies obtained - negative (however pt has been on antibiotics) 3. Hyperglycemia, glucose 190 on admission. Could be from ongoing illness. Current HbA1c 5.2% 4. Electrolyte abnormalities, Hypokalemia (likely 2/2 diarrhea) - replete and monitor 5. Depression, on Prozac. DVT prophylaxis. SCDs in case she needs any procedures. DISPOSITION:tele floor Code: full code. Admission and Anticipated Discharge Date Admission Date: August 02, 2022 Subjective Patient presented as a heart alert and went directly to [facility] from ED. Coronaries clear on cardiac cath Patient continued to complain of left-sided chest pain/abdominal pain, CT obtained and showed possible colitis EGD done - shows gastritis Pt has been on PPI Pt also had diarrhea on day of admission - stool studies ordered but not obta ined until yesterday stool studies negative, however pt has been on zosyn Continues to have diarrhea Currently she is sitting up in bed, in no acute distress. She did not use any dilaudid today, which is quite an improvement She is alert oriented and answering questions appropriately Review of Systems Review of Systems: All systems reviewed & are unremarkable except as noted in Subjective Physical Exam Physical Exam: GENERAL: thin F in NAD HEENT: NC/AT, EOMI, Extraocular muscles intact. Oral mucosa moist. NECK: No neck masses seen. CARDIOVASCULAR: S1 and S2 heard. Regular rate and rhythm. No murmur, no gallop. RESPIRATORY: Normal AP diameter. No accessory muscle use. No wheezing, no crackles. ABDOMEN: minimal Epigastric tenderness and right upper quadrant tenderness present (much improved). No rebound tenderness, no distention. NEURO/PSYCH: Alert oriented answering questions appropriately. Speech fluent, no facial asymmetry, moves extremities EXTREMITIES: No obvious edema or erythema seen. Results & Data Results & Data ([facility]) Vital Signs (Past 12 Hours) Vital Signs Temp Pulse Pulse Resp BP Pulse Ox O2 Del Method 08/06/22 19:58 132/73 08/06/22 19:17 36.7 C 116 H 22 150/88 H 96 Room Air 08/06/22 16:11 36.4 C L 89 18 138/81 96 Room Air 08/06/22 14:00 75 08/06/22 11:41 36.5 C 72 18 124/96 97 Room Air Laboratory Results 08/06/22 08/06/22 Range/Units 07:25 07:25 WBC 8.34 (4.8-10.8) K/ul RBC 3.64 L (3.93-5.22) M/uL Hgb 11.5 L (12.0-16.0) g/dl Hct 33.3 L (34.1-44.9) % MCV 91.5 (80.0-100.0) fL MCH 31.6 (25.0-34.0) pg MCHC 34.5 (32.0-36.0) g/dL RDW Std Deviation 41.3 (36.4-46.3) fL RDW Coeff of Angela 12.4 (11.5-14.5) % Plt Count 197 (130-400) K/uL MPV 11.1 (9.4-12.3) fL Sodium 140 (136-145) mmol/L Potassium 2.9 L (3.5-5.1) mmol/L Chloride 105 (98-107) mmol/L Carbon Dioxide 28 (21-32) mmol/L Anion Gap 7 (3-11) BUN 7 (6-23) mg/dl Creatinine 0.53 L (0.6-1.2) mg/dl Est Cr Clr Drug Dosing 92.2 ml/min Est GFR ( Amer) 118.8 ml/min Est GFR (Non-Af Amer) 102.5 ml/min BUN/Creatinine Ratio 13.2 (10-20) Glucose 101 H (70-99(Fasting)) mg/dl Calcium 8.8 (8.5-10.1) mg/dl Phosphorus 2.6 (2.5-4.9) mg/dl Magnesium 2.0 (1.7-2.4) mg/dl Total Bilirubin 1.2 H (0.2-1.0) mg/dl AST 54 H (13-39) U/L ALT 79 H (7-52) U/L Alkaline Phosphatase 49 (34-104) U/L Troponin I High Sens 53.0 H* D (0-14) pg/ml Total Protein 5.9 L (6.0-8.3) gm/dl Albumin 3.7 (3.4-5.0) gm/dl Globulin 2.2 L (2.5-4.0) gm/dl Albumin/Globulin Ratio 1.7 (0.9-2) Medications Administered Current Inpatient Medications Acetaminophen (Acetaminophen 325 Mg Tab) 650 mg PO Q4H PRN PRN Reason: Pain or Fever Stop: 09/01/22 19:50 Last Admin: 08/04/22 17:26 Dose: 650 mg Fluoxetine HCl (Fluoxetine Hcl 20 Mg Cap) 20 mg PO QAM OSMIN Stop: 09/03/22 20:49 Last Admin: 08/06/22 09:27 Dose: 20 mg Hydromorphone HCl (Hydromorphone Inj 0.5 Mg/0.5 Ml Syr) 0.5 mg IV Q3H PRN PRN Reason: Pain Stop: 08/16/22 19:53 Last Admin: 08/05/22 13:21 Dose: 0.5 mg Pantoprazole Sodium 40 mg/ (Syringe) 10 mls @ 5 mls/min IV BID OSMIN Stop: 09/01/22 19:29 Last Admin: 08/06/22 19:49 Dose: 5 mls/min Piperacillin Sod/Tazobactam (Sod 3.375 gm/ Dextrose) 115 mls @ 28.75 mls/hr IV Q8H [facility]; Protocol Stop: 08/09/22 14:14 Last Admin: 08/06/22 19:49 Dose: 28.8 mls/hr Lactated Ringer's (Lr) 1,000 mls @ 80 mls/hr IV .[id number] OSMIN Stop: 09/04/22 16:44 Last Admin: 08/06/22 19:58 Dose: 80 mls/hr Loperamide HCl (Loperamide Hcl 2 Mg Cap) 2 mg PO Q4H PRN PRN Reason: Diarrhea Stop: 09/04/22 17:53 Last Admin: 08/06/22 09:26 Dose: 2 mg Lorazepam (Lorazepam 0.5 Mg Tab) 0.5 mg PO HS PRN PRN Reason: Anxiety/Insomnia Stop: 09/02/22 19:55 Last Admin: 08/06/22 19:49 Dose: 0.5 mg Nitroglycerin (Nitroglycerin Sl 0.4 Mg/Tab Tab) 0.4 mg SL UD PRN PRN Reason: Chest Pain Stop: 09/01/22 19:50 Ondansetron HCl (Ondansetron Inj 2 Mg/Ml 2 Ml Vial) 4 mg IV Q6H PRN PRN Reason: Nausea Stop: 09/01/22 19:50 Last Admin: 08/03/22 04:33 Dose: 4 mg Potassium Phosphate (Pot Phosphate Monobasic W/ Sod Tab) 2 tab PO QID OSMIN Stop: 09/03/22 20:59 Last Admin: 08/06/22 19:50 Dose: 2 tab Sucralfate (Sucralfate 1 Gm/10 Ml Udc) 1 gm PO QID [facility] Stop: 09/03/22 16:59 Last Admin: 08/06/22 19:50 Dose: 1 gm
[2022-08-07] MEDS: FLUoxetine HCL 20 MG CAP PO SCH (07:39)
[2022-08-07] MEDS: POT PHOSPHATE MONOBASIC W/ SOD TAB PO SCH (07:39)
[2022-08-07] MEDS: SUCRALFATE 1 GM/10 ML UDC PO SCH ×2 (07:39→13:28)
[2022-08-07] MEDS: PANTOprazole 40 MG in SYRINGE 0 ML IV SCH (07:39)
[2022-08-07] MEDS: LACTATED RINGER'S 1,000 ML IV SCH (07:44)
[2022-08-07] MEDS: ACETAMINOPHEN 325 MG TAB PO PRN (07:51)
[2022-08-07 08:23] LABS: Hemoglobin 11.4 g/dl (12.0-16.0); Mean Corpuscular Hemoglobin 31.7 pg (25.0-34.0); Mean Corpuscular Hgb Conc 33.5 g/dL (32.0-36.0); Mean Corpuscular Volume 94.4 fL (80.0-100.0); Mean Platelet Volume 10.9 fL (9.4-12.3); Platelet Count 201 K/uL (130-400); RDW Coefficient of Variation 12.4 % (11.5-14.5); RDW Standard Deviation 42.6 fL (36.4-46.3); White Blood Count 6.19 K/ul (4.8-10.8)
[2022-08-07 08:48] LABS: Albumin Globulin Ratio 1.6 (0.9-2); Albumin Level 3.5 gm/dl (3.4-5.0); BUN Creatinine Ratio 11.8 (10-20); Bilirubin,Total 1.1 mg/dl (0.2-1.0); Calcium 8.7 mg/dl (8.5-10.1); Creatinine Clr Calc Pharmacy 95.8 ml/min; Est GFR (African American) 120.3 ml/min; Est GFR (Non-African American) 103.8 ml/min; Globulin 2.2 gm/dl (2.5-4.0); Magnesium 1.7 mg/dl (1.7-2.4); Phosphorus 3.3 mg/dl (2.5-4.9); Potassium 3.2 mmol/L (3.5-5.1); Total Protein 5.7 gm/dl (6.0-8.3)
[2022-08-07] MEDS ORDERED: POTASSIUM CHLORIDE CRTAB 20 MEQ TABCR PO ONE (09:26)
[2022-08-07] MEDS ORDERED: POT PHOSPHATE MONOBASIC W/ SOD TAB PO SCH (13:00)
--- NOTE | 2022-08-07 13:27 | Hospitalist Progress Note ---
Date of Service August 07, 2022 Assessment & Plan (1) Epigastric pain: Plan: Patient is a 61 yr female who presents with chest pain and abdominal pain. Gastritis Cholelithiasis --S/P EGD: Normal esophagus. Z-line regular, 39 cm from the incisors. Gastritis, biopsied. Normal duodenal bulb and second portion of the duodenum, biopsied. --ABD CTA:Unremarkable CTA of the abdomen and pelvis. Normal caliber abdominal aorta. No dissection or aneurysm. No stenosis. Cardiomegaly with evidence for interstitial pulmonary edema. Mildly distended gallbladder with minimal layering hyperdense material. However, no adjacent infiltration. No convincing evidence for acute cholecystitis. If right upper quadrant pain, an ultrasound could be obtained. --Liver USD:There are small mobile gallstones and a small amount of gallbladder sludge. There is trace pericholecystic fluid with a thickened and edematous gallbladder wall along the hepatic surface. This is likely due to the patient's diffuse edematous state or an underlying hepatic pathology. Acute cholecystitis is considered less likely but not entirely excluded. --HIDA:No evidence for cystic duct obstruction. Gallbladder ejection fraction calculated to be 98 %. -- Pathology pending --- Appreciate GI, surgery input Continue Protonix 40 mg twice daily, Carafate 1 g 4 times daily Needs follow-up with GI upon discharge If patient develops symptomatic cholelithiasis, will eventually need cholecyste ctomy Colitis Hypokalemia Hypophosphatemia CT ABD as above Stool studies negative Blood culture negative to date Diarrhea improving Received IV fluids Replace electrolytes as needed Chest pain Paroxysmal SVT MVP Likely secondary to above, musculoskeletal -ECHO: Left ventricle systolic function is normal. Left atrium is severely dilated. Right atrium is moderately dilated. Moderate mitral annular calcification. Mild to moderate mitral regurgitation. Right ventricular systolic pressure is elevated at 30 to 40 mmHg. --Chest CTA:Unremarkable CT angiogram of the thoracic aorta. Cardiomegaly with evidence of congestive failure. There is no airspace consolidation typical for pneumonia or pleural effusion. Bilateral pulmonary nodules are suggested measuring up to 5 mm. These are not well assessed due to congestive change. A follow-up chest CT in 3-4 months time is recommended for reevaluation. Bilateral nephrolithiasis. Follows with [facility] cardiology as outpatient Pulmonary nodules Incidental finding on CT Advised to follow-up with pulmonology and get repeat CT in 3 to 4 months Hyperglycemia HbA1c 5.2% Follow-up as outpatient Depression on Prozac DVT Px: SCDs . Code Status Full Code DISPOSITION: Home Admission and Anticipated Discharge Date Admission Date: August 02, 2022 Subjective Patient is seen and examined at bedside States feeling much better today Eager to get discharged Diarrhea much improved Denies any chest pain, shortness of breath, dizziness, nausea, abdominal pain No other complaints Review of Systems Review of Systems: All systems reviewed & are unremarkable except as noted in Subjective Physical Exam Physical Exam: Physical Exam: Vitals signs as noted above General Appearance:Thin, no apparent distress Head: normocephalic, Atraumatic Eyes: normal inspection, EOMI Neck: supple, Trachea midline Respiratory/Chest: Normal breath sounds, CTA, No accessory muscle use Cardiovascular: S1, S2, + murmur Abdomen/GI:Soft, Non tender, Bowel sounds present Extremities/Musculoskeletal:normal inspection, no edema Neurologic/Psych:AAOX3, grossly no focal neurological deficits Skin: normal color, warm Results & Data Results & Data ([facility]) Vital Signs (Past 12 Hours) Vital Signs Temp Pulse Pulse Resp BP Pulse Ox O2 Del Method 08/07/22 11:39 36.4 C L 82 18 122/81 98 Room Air 08/07/22 08:00 69 08/07/22 06:38 36.6 C 89 17 112/75 95 Room Air 08/07/22 03:19 36.8 C 80 18 116/78 97 Room Air Laboratory Results Short CBC 08/07/22 Range/Units 07:39 WBC 6.19 (4.8-10.8) K/ul Hgb 11.4 L (12.0-16.0) g/dl Hct 34.0 L (34.1-44.9) % Plt Count 201 (130-400) K/uL BMP 08/07/22 07:39 Sodium 141 Potassium 3.2 L Chloride 106 Carbon Dioxide 26 BUN 6 Creatinine 0.51 L Glucose 87 Calcium 8.7 Liver Function 08/07/22 Range/Units 07:39 Total Bilirubin 1.1 H (0.2-1.0) mg/dl AST 28 (13-39) U/L ALT 63 H (7-52) U/L Alkaline Phosphatase 44 (34-104) U/L Albumin 3.5 (3.4-5.0) gm/dl
[2022-08-07] MEDS: LOPERAMIDE HCL 2 MG CAP PO PRN (13:31)
--- NOTE | 2022-08-07 13:59 | Discharge Summary ---
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 Plan to undergo EGD today for further evaluation. Admission Exam Per Admitting Provider PHYSICAL EXAMINATION: GENERAL: The patient is of moderate build, seems to be in pain and shaking. VITAL SIGNS: Temperature 36.5, pulse 73, respiratory rate 20, blood pressure 102/74, oxygen 99% on room air. HEENT: Head is atraumatic. Extraocular muscles intact. Oral mucosa moist. NECK: No neck masses seen. CARDIOVASCULAR: S1 and S2 heard. Regular rate and rhythm. No murmur, no gallop. RESPIRATORY SYSTEM: Normal AP diameter. No accessory muscle use. No wheezing, no crackles. ABDOMEN: Epigastric tenderness and right upper quadrant tenderness present. No rebound tenderness, mild guarding, no distention. CENTRAL NERVOUS SYSTEM: Cranial nerves II through XII grossly intact, nonfocal. EXTREMITIES: No obvious edema or erythema seen. Principal Diagnosis Gastritis Cholelithiasis Suspected Colitis Hypokalemia Hypophosphatemia Pulmonary nodules Discharge Data Allergies Allergy/AdvReac Type Severity Reaction Status Date / Time vancomycin Allergy rash Verified 08/04/22 09:10 Consultations 08/03/22 08:00 Consult Gastroenterology Routine 08/04/22 07:39 Consult Cardiology Routine 08/04/22 13:02 Consult General Surgery Routine Procedures Performed Operation Date: 08/02/22 16:45 Actual Procedures p Cineradiography w/Routine Exam - Simeon Baldwin MD p Cath, Left with Cors and Vent - Simeon Baldwin MD s Ultrasound Vascular Access - Simeon Baldwin MD Operation Date: 08/04/22 16:30 Actual Procedures p EGD Biopsy Cytology - Trinidad Odom, Ordered Studies 08/02/22 16:44 CL Cath Imgs for PACS use only Stat 08/02/22 19:02 CT angio abdomen pelvis w con Urgent 08/02/22 19:03 CT angio chest wo/w con Urgent 08/03/22 10:09 US liver Urgent Laboratory Results WBC 6.19 K/ul (4.8-10.8) 08/07/22 07:39 RBC 3.60 M/uL (3.93-5.22) L 08/07/22 07:39 Hgb 11.4 g/dl (12.0-16.0) L 08/07/22 07:39 POC Hgb 13.9 g/dl (12.0-16.0) 08/02/22 16:31 Hct 34.0 % (34.1-44.9) L 08/07/22 07:39 POC Hct 41 % (37-47) 08/02/22 16:31 MCV 94.4 fL (80.0-100.0) 08/07/22 07:39 MCH 31.7 pg (25.0-34.0) 08/07/22 07:39 MCHC 33.5 g/dL (32.0-36.0) 08/07/22 07:39 RDW Std Deviation 42.6 fL (36.4-46.3) 08/07/22 07:39 RDW Coeff of Angela 12.4 % (11.5-14.5) 08/07/22 07:39 Plt Count 201 K/uL (130-400) 08/07/22 07:39 MPV 10.9 fL (9.4-12.3) 08/07/22 07:39 Immature Gran % (Auto) 0.7 % 08/03/22 06:36 Neut % (Auto) 84.3 % 08/03/22 06:36 Lymph % (Auto) 9.3 % 08/03/22 06:36 [place] % (Auto) 5.6 % 08/03/22 06:36 Eos % (Auto) 0.0 % 08/03/22 06:36 Baso % (Auto) 0.1 % 08/03/22 06:36 Neut # (Auto) 10.01 K/uL (1.4-6.5) H 08/03/22 06:36 Lymph # (Auto) 1.10 K/uL (1.2-3.4) L 08/03/22 06:36 [place] # (Auto) 0.66 K/uL (0.24-0.82) 08/03/22 06:36 Eos # (Auto) 0.00 K/uL (0-0.50) 08/03/22 06:36 Baso # (Auto) 0.01 K/uL (0-0.2) 08/03/22 06:36 Immature Gran # (Auto) 0.08 K/uL (0.00-0.02) H 08/03/22 06:36 PT 12.1 Seconds (9.0-12.0) H 08/02/22 19:07 INR 1.1 (0.9-1.1) 08/02/22 19:07 APTT 41.8 Seconds (21.0-31.0) H 08/02/22 19:07 PTT Ratio 1.5 08/02/22 19:07 POC Sodium 140 mmol/L (135-144) 08/02/22 16:31 Sodium 141 mmol/L (136-145) 08/07/22 07:39 POC Potassium 3.1 mmol/L (3.3-5.0) L 08/02/22 16:31 Potassium 3.2 mmol/L (3.5-5.1) L 08/07/22 07:39 POC Chloride 109 mmol/L (101-112) 08/02/22 16:31 Chloride 106 mmol/L (98-107) 08/07/22 07:39 Carbon Dioxide 26 mmol/L (21-32) 08/07/22 07:39 POC Total CO2 17 mmol/L (24-31) L 08/02/22 16:31 Anion Gap 9 (3-11) 08/07/22 07:39 POC Anion Gap 18.0 mmol/L (16-25) 08/02/22 16:31 POC BUN 18 mg/dl (7-18) 08/02/22 16:31 BUN 6 mg/dl (6-23) 08/07/22 07:39 Creatinine 0.51 mg/dl (0.6-1.2) L 08/07/22 07:39 POC Creatinine 0.6 mg/dl (0.6-1.3) 08/02/22 16:31 Est Cr Clr Drug Dosing 95.8 ml/min 08/07/22 07:39 Est GFR ( Amer) 120.3 ml/min 08/07/22 07:39 Est GFR (Non-Af Amer) 103.8 ml/min 08/07/22 07:39 BUN/Creatinine Ratio 11.8 (10-20) 08/07/22 07:39 Glucose 87 mg/dl (70-99(Fasting)) 08/07/22 07:39 POC Glucose 205 mg/dl (70-99) H 08/02/22 18:56 POC Glucose (other) 191 mg/dl (70-99) H 08/02/22 16:31 Estimat Average Glucose 103 mg/dl 08/03/22 06:36 Hemoglobin A1c 5.2 % (4.5-5.6) 08/03/22 06:36 Lactate 1.6 mmol/L (0.4-2.0) 08/03/22 06:36 Calcium 8.7 mg/dl (8.5-10.1) 08/07/22 07:39 POC Ioniz Calcium [place] 1.05 mmol/l (1.12-1.32) L 08/02/22 16:31 Phosphorus 3.3 mg/dl (2.5-4.9) 08/07/22 07:39 Magnesium 1.7 mg/dl (1.7-2.4) 08/07/22 07:39 Total Bilirubin 1.1 mg/dl (0.2-1.0) H 08/07/22 07:39 Direct Bilirubin 0.4 mg/dl (0-0.2) H 08/03/22 06:36 AST 28 U/L (13-39) 08/07/22 07:39 ALT 63 U/L (7-52) H 08/07/22 07:39 Alkaline Phosphatase 44 U/L (34-104) 08/07/22 07:39 Total Creatine Kinase 94 U/L (26-192) 08/02/22 16:25 Troponin I High Sens 53.0 pg/ml (0-14) H* D 08/06/22 07:25 B-Natriuretic Peptide 286 pg/ml (0-100) H 08/02/22 16:25 Total Protein 5.7 gm/dl (6.0-8.3) L 08/07/22 07:39 Albumin 3.5 gm/dl (3.4-5.0) 08/07/22 07:39 Globulin 2.2 gm/dl (2.5-4.0) L 08/07/22 07:39 Albumin/Globulin Ratio 1.6 (0.9-2) 08/07/22 07:39 Lipase 24 U/L (11-82) 08/04/22 08:33 TSH 5.024 uIu/ml (0.300-4.500) H 08/02/22 16:25 Free T4 1.33 ng/dl (0.61-1.60) 08/02/22 16:25 Urine Color Yellow 08/02/22 19:00 Urine Appearance Clear (Clear) 08/02/22 19:00 Urine pH 6.0 (4.5-7.5) 08/02/22 19:00 Ur Specific [place] > 1.045 (1.000-1.030) H 08/02/22 19:00 Urine Protein Negative (Negative) 08/02/22 19:00 Urine Glucose (UA) Trace (Negative) H 08/02/22 19:00 Urine Ketones 4+ (Negative) H 08/02/22 19:00 Urine Blood 1+ (Negative) H 08/02/22 19:00 Urine Nitrite Negative (Negative) 08/02/22 19:00 Urine Bilirubin Negative (Negative) 08/02/22 19:00 Urine Urobilinogen Negative (Negative) 08/02/22 19:00 Ur Leukocyte Esterase 1+ (Negative) H 08/02/22 19:00 Urine WBC (Auto) 5-10 /hpf (0-5) H 08/02/22 19:00 Urine RBC (Auto) 10-30 /hpf (0-4) H 08/02/22 19:00 U Hyaline Cast (Auto) 1-5 /lpf (0-5) 08/02/22 19:00 U Epithel Cells (Auto) >30 /lpf (0-5) H 08/02/22 19:00 Urine Bacteria (Auto) Negative (Negative) 08/02/22 19:00 Ur Renal Epithelial Cell Not Reportable 08/02/22 19:00 Stl C. cayetanensis PCR Not Detected (NotDetected) 08/05/22 11:55 Stool Rotavirus A PCR Not Detected (NotDetected) 08/05/22 11:55 Stl Adenov F 40/41 PCR Not Detected (NotDetected) 08/05/22 11:55 Stool Astrovirus (PCR) Not Detected (NotDetected) 08/05/22 11:55 Stool Campylobacter PCR Not Detected (NotDetected) 08/05/22 11:55 Stl C. diff Tox B Gene Negative Cdiff Gene (Neg) 08/05/22 11:55 Stool Cryptosporidium PCR Not Detected (NotDetected) 08/05/22 11:55 Stl E.coli Shiga Tox PCR Not Detected (NotDetected) 08/05/22 11:55 Stl Enterotoxigenic E PCR Not Detected (NotDetected) 08/05/22 11:55 Stool EPEC (PCR) Not Detected (NotDetected) 08/05/22 11:55 Stool EAEC (PCR) Not Detected (NotDetected) 08/05/22 11:55 Stl E. histolytica PCR Not Detected (NotDetected) 08/05/22 11:55 Stool Giardia Lamblia PCR Not Detected (NotDetected) 08/05/22 11:55 Stool Salmonella PCR Not Detected (NotDetected) 08/05/22 11:55 Stool Sapovirus (PCR) Not Detected (NotDetected) 08/05/22 11:55 Stl P. shigelloides PCR Not Detected (NotDetected) 08/05/22 11:55 Stl Shigella/EIEC PCR Not Detected (NotDetected) 08/05/22 11:55 St Y.enterocolitica PCR Not Detected (NotDetected) 08/05/22 11:55 Stool Vibrio (PCR) Not Detected (NotDetected) 08/05/22 11:55 Stl Vibrio cholerae PCR Not Detected (NotDetected) 08/05/22 11:55 Stl Norovirus GI/GII PCR Not Detected (NotDetected) 08/05/22 11:55 Hepatitis C Ab (EIA) NON-REACTIVE (NON-REACTIVE) 08/02/22 16:25 Hep C Ab Signal/Cutoff 0.02 (<1.00) 08/02/22 16:25 SARS-CoV-2, RNA, NAAT NEGATIVE (NEGATIVE) 08/03/22 Unknown Impressions Chest X-Ray 08/02/22 16:32 XR chest 1V portable HISTORY: 61 years-old Female Chest pain acute chest pain COMPARISON: None TECHNIQUE: Supine AP view of the chest FINDINGS: Cardiac silhouette is moderately enlarged. No pneumothorax, pleural effusion, airspace consolidation or overt pulmonary edema. Bones appear grossly intact. IMPRESSION: Cardiomegaly without acute process. ACT 112: Negative or not required by law. The above report was generated using voice recognition software. It may contain grammatical, syntax or spelling errors. Electronically signed by: Leopoldo Fang M.D. 08/02/2022 4:47 PM Abdomen/Pelvis CTA 08/02/22 19:02 CT ANGIOGRAPHY OF THE ABDOMEN AND PELVIS CLINICAL HISTORY: Abdominal pain. COMPARISON STUDY: No previous studies for comparison. TECHNIQUE: Helical axial images of the abdomen and pelvis were obtained during arterial phase following intravenous injection of 112 cc Optiray 320 IV. Sagittal and coronal reconstructions were viewed as well as maximal intensity projections on an independent 3-D workstation. Automated exposure control was utilized for the study. A dose lowering technique was utilized adhering to the principles of ALARA. FINDINGS: Please note that the chest CT will be reported separately. Cardiomegaly and evidence for interstitial pulmonary edema are better depicted on that exam. No pneumatosis, free air or portal venous gas is present. The gallbladder is mildly distended. There is minimal layering hyperdense material within the gallbladder. There is no adjacent infiltration. No definite evidence for acute cholecystitis. Arterial phase images of the liver, spleen, adrenal glands, kidneys and pancreas are unremarkable. Sensitivity for detection of calculi is diminished given excreted contrast. The caliber and wall thickness of small and large bowel are normal. Images of the pelvis are degraded by streak artifact from right hip arthroplasty. The appendix is normal. Caliber of the abdominal aorta is normal. The major branch vessels are patent. There is no dissection or aneurysm within the abdomen or the pelvis. There is an accessory left renal artery. No stenosis is identified within the major vessels of the abdomen or pelvis. IMPRESSION: 1. Unremarkable CTA of the abdomen and pelvis. Normal caliber abdominal aorta. No dissection or aneurysm. No stenosis. 2. Cardiomegaly with evidence for interstitial pulmonary edema. 3. Mildly distended gallbladder with minimal layering hyperdense material. However, no adjacent infiltration. No convincing evidence for acute cholecy stitis. If right upper quadrant pain, an ultrasound could be obtained. ACT 112: Negative or not required by law. Electronically signed by: Femi Juarez M.D. 08/03/2022 10:02 AM Chest CTA 08/02/22 19:03 CT ANGIOGRAM OF THE CHEST COMBO CLINICAL HISTORY: Atypical chest pain. COMPARISON STUDY: Chest x-ray dated 08/02/2022. TECHNIQUE: Before and following the IV administration of 112 cc of Optiray 320, CT angiogram of the chest was performed from the thoracic inlet to the upper abdomen utilizing the dissection protocol. Images are reviewed in the axial, sagittal, and coronal planes. 3-D MIPS images are created and assessed. IV contrast was administered without complication. A dose lowering technique was utilized adhering to the principles of ALARA. CT DOSE: 623.80 mGy.cm FINDINGS: Thyroid: Imaged portions of the thyroid gland are normal in size and attenuation. Thoracic aorta: No intramural hematoma seen on the unenhanced series. The thoracic aorta is normal in caliber and demonstrates standard 3-vessel arch anatomy. No dissection is seen. The arch vessels are widely patent. Pulmonary vasculature: The pulmonary trunk is normal in caliber. There are no central filling defects identified in the pulmonary vessels to suggest pulmonary embolus. Note that this examination was not specifically protocoled to assess for pulmonary emboli. Heart: The heart is enlarged noting a small pericardial effusion. There is calcification of the mitral annulus. Lungs and pleural spaces: Diffuse interlobular septal thickening indicates fluid overload/congestive failure. There is no airspace consolidation typical for pneumonia. Atelectasis is seen in the lung bases. A fat-containing Bochdalek hernia is noted on the right. The trachea and central airways are clear. Numerous small pulmonary nodules are suggested throughout both lungs. The largest measures 5 mm in the right lower lobe on image #[id number]. Mediastinum: There is no mediastinal lymphadenopathy. Kimberly: Clear. Axillae: There is no axillary lymphadenopathy. Upper abdomen: Bilateral nephrolithiasis is partially imaged. Partially visualized upper abdominal viscera is within normal limits. Skeletal structures: The skeletal structures are osteopenic. Mild degenerative change is noted in the thoracic spine. No lytic or blastic bony lesions are seen. IMPRESSION: 1. Unremarkable CT angiogram of the thoracic aorta. 2. Cardiomegaly with evidence of congestive failure. 3. There is no airspace consolidation typical for pneumonia or pleural effusion. 4. Bilateral pulmonary nodules are suggested measuring up to 5 mm. These are not well assessed due to congestive change. A follow-up chest CT in 3-4 months time is recommended for reevaluation. 5. Bilateral nephrolithiasis. 6. Additional findings as above. ACT 112: Negative or not required by law. Electronically signed by: Bernardino Layton M.D. 08/03/2022 9:56 AM Liver Ultrasound 08/03/22 10:09 ABDOMINAL ULTRASOUND, RIGHT UPPER QUADRANT HISTORY: Generalized abdominal pain.. COMPARISON: Abdomen and pelvis CT 08/02/2022. FINDINGS: Pancreas: The pancreas demonstrates a normal echotexture. Liver: Unremarkable. Gallbladder: There are small mobile gallstones and a small amount of gallbladder sludge. There is trace pericholecystic fluid with a thickened and edematous gallbladder wall along the hepatic surface. This is likely due to the patient's diffuse edematous state or an underlying hepatic pathology. Acute cholecystitis is considered less likely but not entirely excluded. The technologist reported a negative sonographic Wilder sign. CBD: 5 mm. Right kidney: No hydronephrosis. IMPRESSION: There are small mobile gallstones and a small amount of gallbladder sludge. There is trace pericholecystic fluid with a thickened and edematous gallbladder wall along the hepatic surface. This is likely due to the patient's diffuse ed ematous state or an underlying hepatic pathology. Acute cholecystitis is considered less likely but not entirely excluded. ACT 112: Negative or not required by law. Electronically signed by: Carter Meza M.D. 08/03/2022 8:57 PM Hepatobiliary Scan Nuclear Medicine 08/05/22 20:59 NUCLEAR MEDICINE HEPATOBILIARY SCAN WITH EJECTION FRACTION HISTORY: Generalized abdominal pain. Cholelithiasis. COMPARISON: Abdominal ultrasound 08/03/2022. TECHNIQUE: Immediately following the intravenous administration of 6.0 mCi Tc- 99m Choletec, dynamic anterior abdominal imaging pre/post 1.2 mcg of Kinevac was performed. FINDINGS: Uniform hepatic tracer accumulation is shown. Prompt intrahepatic biliary excretion is seen. The gallbladder, common bile duct, and small bowel are all visualized by 15 minutes. This appearance represents the normal sequence of biliary excretion. The gall bladder ejection fraction following administration of Kinevac was 98% (normal >35%). IMPRESSION: 1. No evidence for cystic duct obstruction. 2. Gallbladder ejection fraction calculated to be 98 %. ACT 112: Negative or not required by law. Electronically signed by: Carter Meza M.D. 08/05/2022 10:23 AM Hospital Course (1) Epigastric pain: Patient is a 61 yr female who presents with chest pain and abdominal pain. Gastritis Cholelithiasis --S/P EGD: Normal esophagus. Z-line regular, 39 cm from the incisors. Gastritis, biopsied. Normal duodenal bulb and second portion of the duodenum, biopsied. --ABD CTA:Unremarkable CTA of the abdomen and pelvis. Normal caliber abdominal aorta. No dissection or aneurysm. No stenosis. Cardiomegaly with evidence for interstitial pulmonary edema. Mildly distended gallbladder with minimal layering hyperdense material. However, no adjacent infiltration. No convincing evidence for acute cholecystitis. If right upper quadrant pain, an ultrasound could be obtained. --Liver USD:There are small mobile gallstones and a small amount of gallbladder sludge. There is trace pericholecystic fluid with a thickened and edematous gallbladder wall along the hepatic surface. This is likely due to the patient's diffuse edematous state or an underlying hepatic pathology. Acute cholecystitis is considered less likely but not entirely excluded. --HIDA:No evidence for cystic duct obstruction. Gallbladder ejection fraction calculated to be 98 %. -- Pathology pending --- Appreciate GI, surgery input Continue Protonix 40 mg twice daily, Carafate 1 g 4 times daily Needs follow-up with GI upon discharge If patient develops symptomatic cholelithiasis, will eventually need cholecystectomy Colitis Hypokalemia Hypophosphatemia CT ABD as above Stool studies negative Blood culture negative to date Diarrhea improving Received IV fluids Replace electrolytes as needed Chest pain Paroxysmal SVT MVP Likely secondary to above, musculoskeletal -ECHO: Left ventricle systolic function is normal. Left atrium is severely dilated. Right atrium is moderately dilated. Moderate mitral annular calcification. Mild to moderate mitral regurgitation. Right ventricular systolic pressure is elevated at 30 to 40 mmHg. --Chest CTA:Unremarkable CT angiogram of the thoracic aorta. Cardiomegaly with evidence of congestive failure. There is no airspace consolidation typical for pneumonia or pleural effusion. Bilateral pulmonary nodules are suggested measuring up to 5 mm. These are not well assessed due to congestive change. A follow-up chest CT in 3-4 months time is recommended for reevaluation. Bilateral nephrolithiasis. Follows with [facility] cardiology as outpatient Pulmonary nodules Incidental finding on CT Advised to follow-up with pulmonology and get repeat CT in 3 to 4 months Hyperglycemia HbA1c 5.2% Follow-up as outpatient Depression on Prozac DVT Px: SCDs . Code Status Full Code DISPOSITION: Home Total Time Total Time Spent Total Time Spent (In Minutes): 52 minutes Discharge Plan Discharge Items Patient Disposition: Home - Self-Care Reason For Visit: CHEST PAIN Discharge Diagnosis: Gastritis Cholelithiasis Suspected Colitis Hypokalemia Hypophosphatemia Pulmonary nodules Activity: Per Instructions section Exercise/Sports: Gradually increase as tolerated Non-emergency contact: Primary Care Provider, Conditioner Tumbler Operator and Wood Die Maker Call non-emergency contact if: you have any medication questions, your symptoms worsen, your pain is concerning for you and you have a fever Follow-up/Referrals: Anamaria Abad, [Primary Care Provider] - (Date & Time 08/12/2022 10:00 AM Provider Rolly Mckinnon MD [facility] ) Diet: Heart Healthy Diet Texture: Easy to Chew Addtl Attending Provider Instructions: Follow-up with your primary care physician Dr. Anamaria Abad on 08/12/2022 10:00 AM Follow-up with your bulk pallet builder Dr. Trinidad Odom in 4 to 6 weeks Follow-up with your belt dresser for further evaluation of pulmonary nodules with repeat CT chest in 3 to 4 months as advised -- If final blood cultures are pending at the time of discharge. Follow-up with your physician for results. Seek immediate medical attention if your symptoms reoccur or worsen Please take all medications as instructed on discharge list below. Please call if you have any questions or problems. You can reach a [facility] hospitalist on duty at [facility] 24 hours a day by calling [phone] Pending Studies at Discharge: Yes Studies:: Blood Cultures Stand-Alone Forms: [facility], Smoking Cessation Medications and DC Order Prescriptions: New loperamide 2 mg Capsule 2 mg PO Q4H PRN (Reason: loose stool) Qty: 30 0RF Phospha 250 Neutral 250 mg Tablet 1 tab PO QID Qty: 20 0RF sucralfate 100 mg/mL Suspension 1 g PO QID 28 Days Qty: 1120 0RF pantoprazole 40 mg Tablet,Delayed Release (Dr/Ec) 40 mg PO BID Qty: 60 1RF potassium chloride 20 mEq tablet extended release 20 meq PO DAILY Qty: 7 0RF Continued lorazepam [Ativan] 1 mg tablet 1 mg PO TID PRN fluoxetine PO DAILY PRN neaslhj-pdviccliudkzu-gyywwzjl 1 tab PO PRN buspirone 5 mg tablet 5 mg PO BID lorazepam 0.5 mg Tablet 0.5 mg PO DAILY PRN (Reason: Anxiety) magnesium 250 mg Tablet 0 mg PO 3XWK Rx Instructions: unknown strength cholecalciferol (vitamin D3) [Vitamin D3] 25 mcg (1,000 unit) Tablet 25 mcg PO DAILY Discharge Orders: Discharge Order (Routine); Ordered 08/07/22 Ordered By: Lyndon Rocha Admission Data Admit Date/Time: 08/02/22 19:51 Attending Provider: Lyndon Rocha Admit Provider: Simeon Baldwin Primary Care Provider: Anamaria Abad Other Providers: Eriberto Preciado ; Jero Barrientos ; Elena Ludwig ; Stormy Lemus ; Ramona Conrad ; Charlotte Crane ; Sebastian Navarrete ; Edwina Gurrola ; Abdoulaye Gilman ; Itz Avalos ; Ian Heath ; Schuyler Hdez ; Agustina Kovacs ; Roya Myrick ; Ashia Hogan ; Susanna Tobar ; Luz Muñoz ; Aki Alanis ; Rogerio Joyce ; Trinidad Odom ; Manjit Ugarte Jr ; Dieudonne Burden ; Jj Meneses
--- NOTE | 2022-08-07 20:16 | Electrocardiogram Report ---
Test Reason : Blood Pressure : / mmHG Vent. Rate : 126 BPM Atrial Rate : 126 BPM P-R Int : 224 ms QRS Dur : 098 ms QT Int : 278 ms P-R-T Axes : 000 084 268 degrees QTc Int : 402 ms Supraventricular tachycardia Septal infarct , age undetermined Marked ST abnormality, possible anterolateral subendocardial injury Abnormal ECG No previous ECGs available Confirmed by Primitivo Swanson ([id number]) on 08/07/2022 8:16:24 PM Referred By: REFERRED SELF Confirmed By:Jeremias Swanson
--- NOTE | 2022-08-07 20:17 | Electrocardiogram Report ---
Test Reason : Blood Pressure : / mmHG Vent. Rate : 109 BPM Atrial Rate : 119 BPM P-R Int : 224 ms QRS Dur : 080 ms QT Int : 316 ms P-R-T Axes : 095 085 265 degrees QTc Int : 425 ms Poor data quality, interpretation may be adversely affected Supraventricular tachycardia transitioning to sinus rhythm Premature ventricular complexes Low voltage QRS Possible Anterolateral infarct (cited on or before 02-AUG-2022) Marked ST abnormality, possible inferior subendocardial injury Abnormal ECG When compared with ECG of 02-AUG-2022 16:22, (unconfirmed) Serial changes of evolving Anterior infarct Present Serial changes of evolving Anterolateral infarct Present Confirmed by Primitivo Swanson ([id number]) on 08/07/2022 8:17:08 PM Referred By: REFERRED SELF Confirmed By:Jeremias Swanson
[2022-08-07] MEDS ORDERED: PANTOprazole 40 MG TAB PO SCH (21:00)
== END 2022-08-07 15:39 | disposition home or self-care (01) | DRG 392 ==
LOC: ED 16:17 → CC 17:04 → 2E 17:04 → SUATTDRO 19:51 → MERGE 19:51

== ENCOUNTER 2023-10-17 08:27 | Inpatient (IN) ==
--- OUTSIDE RECORDS SUMMARY | 2023-10-17 08:31 | External Medical Summary | Summary of Care ---
Author Name Unknown Organization [facility] Address [address] [place] [address] Phone [phone] Care Team Providers Care Special Agent Name Role Phone Doretha Quiñones DO Primary Care Provider Reason for Visit * Reason Comments eRx-Medication Refill Encounter Details Date Type Department Care Team (Late st Contact Info) Description 10/06/2023 Refill [facility] [address] [place] [address] Doretha Quiñones DO [address] [place] [address] Atrial fibrillation, unspecified type (HCC) Allergies Active Allergy Reactions Criticality Noted Date Comments Vancomycin Hcl In Nacl Rash 10/13/2017 Red painful rash itching documented as of this encounter (statuses as of 10/07/2023) Medications Medication Sig Dispensed Refills Start Date End Date Status Aspirin-Acetaminop hen-Caffeine 250-250-65 MG Oral Tablet Take 1 Tablet by mouth in the morning. 0 Active Cholecalciferol (VITAMIN D) 1000 units Tablet Take 1 Tablet by mouth in the morning. 0 Active Amoxicillin 500 MG Oral Capsule (AMOXIL) TAKE FOUR CAPSULES BY MOUTH ONE HOUR BEFORE APPOINTMENT 0 0 Active Fluorouracil 5 % External Cream (Efudex)Indication s:AK (actinic keratosis) apply to rough patches on the forehead and cheeks nightly x 2 weeks. 40 g 0 0 Active Loperamide HCl 2 MG Oral Capsule (Imodium) Take 1 Capsule by mouth every 4 hours as needed. 0 Active Potassium Chloride ER 20 MEQ Oral Tablet Extended Release Take 1 Tablet by mouth in the morning. 0 Active Triamcinolone Acetonide 0.1 % External Cream (Aristocort)Indica tions:Rash and nonspecific skin eruption Apply topically to affected area 2 times a day. To affected area. 60 g 5 3 Active Zoster Vac Recomb Adjuvanted 50 MCG/0.5ML Intramuscular Suspension Reconstituted (Shingrix)Indicati ons:Need for shingles vaccine Inject 0.5 mL into a large muscle now and repeat dose in 60 to 180 days 1 Each 1 3 Active Phospha 250 Neutral 155-852-130 MG Oral TabletIndications: Acute gastritis without hemorrhage, unspecified gastritis type Take 1 tablet by mouth 4 times daily 120 Tablet 0 3 Active Pantoprazole Sodium 40 MG Oral Tablet Delayed Release (Protonix)Indicati ons:Acute gastritis without hemorrhage, unspecified gastritis type Take 1 Tablet by mouth in the morning and 1 Tablet before bedtime. 180 Tablet 1 3 Active Mometasone Furoate 0.1 % External Ointment 2 times a day. 0 3 Active LORazepam 0.5 MG Oral Tablet (Ativan)Indication s:Anxiety TAKE 1 TABLET BY MOUTH at night for insomnia 30 Tablet 0 3 Active Eliquis 5 MG Oral Tablet (Apixaban)Indicati ons:Atrial fibrillation, unspecified type (HCC) Take 1 tablet by mouth twice daily 60 Tablet 5 4 Active Apixaban 5 MG Oral Tablet (Eliquis)Indicatio ns:Atrial fibrillation, unspecified type (HCC) Take 1 Tablet by mouth in the morning and 1 Tablet before bedtime. 60 Tablet 3 3 10/07/19 24 Discontinued documented as of this encounter (statuses as of 10/07/2023) Active Problems Problem Noted Date Diagnosed Date Current mild episode of valeriy r depressive disorder without prior episode 08/12/2022 Advanced directives, counseling/discussion 11/22 Overview: No, Advance Directive brochure offered, patient declined. Cystocele, lateral 09/27/2020 Major depressive disorder, recurrent, unspecifie d 08/21/2019 Thrush 09/18/2017 Acute blood loss anemia 08/26/2017 Screen for colon cancer 06/01/2016 Basal cell carcinoma of skin of upper limb, including shoulder 04/16/2014 Overview: left posterior shoulder 04/16/14 History of nonmelanoma skin cancer 04/09/2014 Depression 10/27/2013 Fatigue 10/27/2013 Insomnia 10/27/2013 Lumbago 10/27/2013 Vaginal atrophy 02/16/2013 Incomplete uterovaginal prolapse 02/16/2013 Overview: Mild. 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 Menorrhagia 12/26/2012 Multiple nevi 12/26/2012 CLASSICAL MIGRAINE WITH INTRACTABLE MIGRAINE, SO STATED 11/20/2002 CARDIAC MURMURS NEC Panic attacks documented as of this encounter (statuses as of 10/07/2023) Resolved Problems Problem Noted Date Diagnosed Date Resolved Date 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 Sepsis 08/26/2017 08/21/2019 Septic hip 08/23/2017 08/21/2019 Mitral valve prolapse 05/01/20132013 Overview: Sees [facility] Cards Routine general medical exam ination at a health care facility 12/26/2012 08/21/2019 Overview: NEED CPE, prioritize prob Urinary frequency 03/31/2006 12/26/2012 Sebaceous cyst 12/10/2003 12/26/2012 documented as of this encounter (statuses as of 10/07/2023) Immunizations Name Administration Dates Next Due Seasonal Influenza, PF, 6 M & above, IM , (FluLaval or Fluzone) 09/10/2022,06/26/2020,08/21/2019 TDAP (age 11 and older)(Adacel) 06/05/2009 Zoster Vaccine Recombinant (Shingrix) 09/02/2020 03/03/2021 documented as of this encounter Social History Tobacco Use Types Packs/Day Years Used Date Smoking Tobacco: Former Cigarettes 0.5 10 1 977 - 1986 Passive Smoke Exposure: Past Smokeless Tobacco: Never Comments:quit early 80's Alcohol Use Standard Drinks/Week Comments Yes 0 (1 standard drink = 0.6 oz pur e alcohol) rarely PHQ-2 Answer Date Recorded PHQ-2 Score 0 08/21/2019 Hunger Vital Sign Answer Date Recorded Worried About Running Out of Food in the Last Ye ar Never true 08/21/2019 Ran Out of Food in the Last Year Never true 08/21/2019 Sex and Gender Information Value Date Recorded Sex Assigned at Not on file Gender Identity Not on file Sexual Orientation Straight 08/21/2019 8: 15 AM EST Job Start Date Occupation Industry Not on file Not on file Not on file documented as of this encounter Functional Status Functional Status Response Date of Assess ment Are you deaf or do you have serious difficulty h earing? No 11/11/2017 Are you blind or do you have serious difficulty seeing, even when wearing glasses? No 11/11/2017 Do you have serious difficul ty walking or climbing stairs? (5 years old or older) No 11/11/2017 Do you have difficulty dress ing or bathing? (5 years old or older) No 11/11/2017 Because of a physical, menta l, or emotional condition, do you have difficulty doing errands alone such as visiting a doctor s office or shopping? (15 years old or older) No 11/12/19 18 Cognitive Status Response Date of Assessm ent Because of a physical, menta l, or emotional condition, do you have serious difficulty concentrating, remembering, or making decisions? (5 years old or older) No 11/11/2017 documented as of this encounter Miscellaneous Notes * Telephone Encounter - Doretha Quiñones, - 10/07/2023 9:59 AM ESTSigned Prescriptions: Disp Refills Eliquis 5 MG Oral Tablet (Apixaban) 60 Tab*5 Sig: Take 1 tablet by mouth twice daily Authorizing Provider: DORETHA QUIÑONES * Telephone Encounter - Diann Zuluaga, [facility] - 10/07/2023 9:19 AM ESTPending Prescriptions: Disp Refills Eliquis 5 MG Oral Tablet (Apixaban) 60 Tab*5 Sig: Take 1 tablet by mouth twice daily * Telephone Encounter - Diann Zuluaga [facility] - 10/07/2023 9:18 AM EST Please approve if patient is to continue/still managing medication for patient. Per notes, appears also follows with cardiology. Did you pend patient's preferred pharmacy and medication before forwarding?yes Pharmacy: [facility] [id number] Pending Prescriptions: Disp Refills Eliquis 5 MG Oral Tablet (Apixaban) [Phar*60 Tab*5 Sig: Take 1 tablet by mouth twice daily Last Visit: 06/25/2023 (in office), 07/10/2021 (telemedicine) Next Visit: Visit date not found If no future appointments scheduled, and last appointment is greater than a year ago, please schedule patient for a follow-up appointment Last date the medication was ordered: 06/25/23 Is this request for a controlled substance?No Urine Drug Screen:No results found for this or any previous visit. Patient Phone Numbers Labs: Lab Results Component Value Date/Time CREAT 0.8 06/25/2023 10:32 AM CREAT 0.8 08/26/2018 05:31 PM POTASSIUM 4.5 06/25/2023 10:32 AM POTASSIUM 4.6 08/26/2018 05:31 PM TSH 0.95 06/25/2023 10:32 AM TSH 1.60 10/08/2014 04:36 PM LDLCALC 98 09/21/2022 01:08 PM LDLCALC 72 11/23/2015 09:30 AM LDLDIRECT NOT APPLICABLE 11/23/2015 09:30 AM ALT 21 06/25/2023 10:32 AM ALT 21 08/26/2018 05:31 PM HGBA1C 4.8 10/13/2017 04:04 PM documented in this encounter Plan of Treatment Scheduled Procedures Name Priority Associated Diagnoses Date/Ti me COLONOSCOPY FLEXIBLE PROXIMA L DIAGNOSTIC Recall Screening for malignant neoplasm of colon Health Maintenance Due Date Last Done Comments HIV Screening 1975 Hepatitis C Screening 1978 HPV/Co-Test 1990 Cologuard 2005 Fecal Occult Blood Test 2005 10/19/2000 Sigmoidoscopy 2005 DTaP,Tdap,and Td Vaccines (2 - Td or Tdap) 06/05/2019 06/05/2009 Depression Screening 08/21/2020 08/21/2019 Zoster Vaccines (2 of 2) 10/28/2020 09/02/2020 Mammogram 09/02/2021 09/02/2020, 09/06, 08/29/2019, Additional history exists Cervical Cancer Screening 06/12/2022 Pap Smear 06/12/2022 06/12/2019, 12/06, 12/29/2013, Additional history exists COVID-19 Vaccine (3 - 2022- season) 2023 11/29/2020, 11/08/2020 Influenza Vaccine (FLU shot) (#1) 2023 09/10/2022, 06/26/2020, 08/21/2019 Lipid Panel 09/21/2027 09/21/2022, 11/04, 03/31/2006 Colonoscopy 12/23/2028 12/23/2018, 12/23/2018 Colorectal Cancer Screening 12/23/2028 GARDASIL-HPV IMMUNIZATION SERIES Aged Out No longer eligible based on patient's age to complete this topic Hepatitis B Aged Out No longer eligi ble based on patient's age to complete this topic MENINGOCOCCAL (MENACTRA/MENVEO) Aged Out No longer eligible based on patient's age to complete this topic Pneumococcal Vaccine: Pediatrics (0 to 5 Years) and At-Risk Patients (6 to 64 Years) Aged Out No longer eligible based on patient's age to complete this topic documented as of this encounter Medical Devices Implanted Type Area Mechanic Marine Engine Device Identifier Shelf Expiration Date Model / Serial / Lot [id number] Implanted:Qty: 1 on 11/23/2016 by Cory Cyr MD at OR [facility] Right: Eye 10/09/2020 [id number] / [id number] / Tecnis Toric Aspheric Intraocular Lens Implanted:Qty: 1 on 11/30/2016 by Cory Cyr MD at OR [facility] Left: Eye [employer] : [employer] 08/05/2020 [id number] / [id number] / [id number] Screw Periarticular 6.5mm X 50 - [id number] Implanted:Qty: 1 on 08/26/2017 by Jorge Sanabria MD [place] [facility] [employer] [id number] 5-50 / / Hip Hd Nk Alumina Mod D 36/+5 - [id number] Implanted:Qty: 1 on 11/11/2017 by Jorge Sanabria MD [place] [facility] [place] Hip [employer] 02/26/2022 [id number] / / [id number] documented as of this encounter Visit Diagnoses Diagnosis Atrial fibrillation, unspecified type (HCC) documented in this encounter Advance Directives Latest Code Status on File Code Status Date Activated Date Inactivated Comments Full Code 11/11/2017 3:17 PM 11/13/2017 9:47 PM . Question Answer Comments Discussion of Advance Direct dom occurred with: Not Discussed Code Status History Code Status Date Activated Date Inactivated Comments Full Code 08/26/2017 5:53 PM 08/31/2017 8:23 PM . Question Answer Comments Discussion of Advance Directives occurred with: Not Discussed Full Code 11/30/2016 11:59 AM 11/30/2016 5:58 PM This order reflects the patients wishes and were consensually agreed upon. Full Code 11/23/2016 10:15 AM 11/23/2016 4:55 PM This order reflects the patients wishes and were consensually agreed upon. Care Teams Special Agent Relationship Specialty Start Date End Date Doretha Quiñones DO [address] [place] [id number] PCP - General Family Medicine 09/17/16 documented as of this encounter
--- OUTSIDE RECORDS SUMMARY | 2023-10-17 08:31 | External Medical Summary | Summary of Care ---
Author Name Unknown Organization [facility] Address [address] [place] [address] Phone [phone] Care Team Providers Care Tool Storage Attendant Name Role Phone Doretha Quiñones DO Primary Care Provider Reason for Visit * Reason Comments eRx-Medication Refill Encounter Details Date Type Department Care Team (Late st Contact Info) Description 10/13/2023 Refill [facility] [address] [place] [address] JanuaryRolly MD [address], [place] [id number] Acute gastritis without hemorrhage, unspecified gastritis type Allergies Active Allergy Reactions Criticality Noted Date Comments Vancomycin Hcl In Nacl Rash 10/13/2017 Red painful rash itching documented as of this encounter (statuses as of 10/14/2023) Medications Medication Sig Dispensed Refills Start Date [...] 180 days 1 Each 1 3 Active Pantoprazole Sodium 40 MG Oral [...] twice daily 60 Tablet 5 4 Active Raza-Phos 250 Neutral 155-852-130 MG Oral TabletIndications: Acute gastritis without hemorrhage, unspecified gastritis type Take 1 tablet by mouth 4 times daily 120 Tablet 0 4 Active Phospha 250 Neutral 155-852-130 MG Oral TabletIndications: Acute gastritis without hemorrhage, unspecified gastritis type Take 1 tablet by mouth 4 times daily 120 Tablet 0 3 10/14/19 24 Discontinued documented as of this encounter (statuses as of 10/14/2023) Active Problems Problem Noted Date Diagnosed Date [...] as of this encounter (statuses as of 10/14/2023) Resolved Problems Problem Noted Date Diagnosed Date Resolved Date 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 Sepsis 08/26/2017 08/21/2019 Septic hip 08/23/2017 08/21/2019 Mitral valve prolapse 05/01/20132013 Overview: Sees [facility] Cards Routine general medical exam ination at a health care facility 12/26/2012 08/21/2019 Overview: NEED CPE, prioritize prob Urinary frequency 03/31/2006 12/26/2012 Sebaceous cyst 12/10/2003 12/26/2012 documented as of this encounter (statuses as of 10/14/2023) Immunizations Name Administration Dates Next Due Seasonal [...] Miscellaneous Notes * Telephone Encounter - Doretha Quiñones DO - 10/14/2023 8:15 AM ESTSigned Prescriptions: Disp Refills Raza-Phos 250 Neutral 155-852-130 MG Oral T*120 Ta*0 Sig: Take 1 tablet by mouth 4 times daily Authorizing Provider: DORETHA QUIÑONES * Telephone Encounter - Kylee Chapa LPN - 10/14/2023 8:04 AM ESTPending Prescriptions: Disp Refills Raza-Phos 250 Neutral 155-852-130 MG Oral T*120 Ta*0 Sig: Take 1 tablet by mouth 4 times daily * Telephone Encounter - Odalis Falk - 10/13/2023 1:49 PM ESTPending Prescriptions: Disp Refills Raza-Phos 250 Neutral 155-852-130 MG Oral T*120 Ta*0 Sig: Take 1tablet by mouth 4 times daily documented in this encounter Plan of Treatment [...] 12/06, 12/29/2013, Additional history exists COVID-19 Vaccine ( season) 2023 11/29/2020, 11/08/2020 Influenza Vaccine (FLU [...] this encounter Medical Devices Implanted Type Area Oracle Etl Developer Device Identifier Shelf Expiration Date Model / Serial / Lot [id number] Implanted:Qty: 1 on 11/23/2016 by Cory Cyr MD at [place] [facility] Right: Eye 10/09/2020 [id number] / [id number] / Tecnis Toric Aspheric Intraocular Lens Implanted:Qty: 1 on 11/30/2016 by Cory Cyr MD at OR [facility] Left: Eye [employer] : [employer] 08/05/2020 [id number] / [id number] / [id number] Screw Periarticular 6.5mm X 50 - [id number] Implanted:Qty: 1 on 08/26/2017 by Jorge Sanbaria MD at [place] [facility] [place] [employer] [id number] 5-50 / / Hip Hd Nk Alumina Mod D 36/+5 - [id number] Implanted:Qty: 1 on 11/11/2017 by Jorge Sanabria MD at [facility] Right: Hip [employer] 02/26/2022 [id number] / / [id number] documented as of this encounter Visit Diagnoses Diagnosis Acute gastritis without hemorrhage, unspecified gastritis type documented in this encounter Advance Directives Latest [...] and were consensually agreed upon. Care Teams Tool Storage Attendant Relationship Specialty Start Date End Date Doretha Quiñones DO [address] [facility] [place] [address] PCP - General Family Medicine 09/17/16 documented as of this encounter
[2023-10-17] MEDS: dilTIAZem HCl 5 MG/ML 5 ML VIAL IV STA ×3 (08:49→14:31)
[2023-10-17] MEDS: ONDANSETRON INJ 2 MG/ML 2 ML VIAL IV STA (08:51)
--- NOTE | 2023-10-17 09:03 | Emergency Department Note ---
Impression & Plan Atrial flutter with rapid ventricular response, Chest pain ED Provider Note NAME: ALEJANDRO JEFFERY AGE: 63 SEX: Female INFORMANT: Patient and ED PROVIDER(S): Rodolfo Armendariz MD CHIEF COMPLAINT: Chest pain PLAN: Disposition: Admitted Outpatient prescription management: none Referral: None MEDICAL DECISION MAKING: Patient presented complaining of chest pain. She also noted palpitations. She has a history of A-fib and is anticoagulated. Patient had an IV established. ECG was performed and she was found to have atrial flutter with variable block and rapid ventricular response. Patient was treated with IV Cardizem 10 mg x 2. On reassessment she was no longer having any pain. Cardiac troponin is mildly elevated although was previously as well. Repeat cardiac troponin does not show any significant delta. Patient's rate was better controlled down close to 100 to 110 bpm. Further management in the hospital will be necessary. Discussed the case with Dr. Rodriguez of the [facility]. He has for the patient to receive her morning Cardizem and this was ordered. Patient was evaluated in the ER and admitted for further management Care/management discussed with: clinical case manager Level of care consideration(s): After review of the information above and other included data, I feel the patient requires escalation of care to admission Triage Nursing notes: reviewed and agree them. Vital Signs: reviewed and remarkable for tachycardia Additional History obtained from: Patient's regarding her prior chest pain complaints and her level of illness on this episode. Chronic Medical/Social Conditions affecting care: Anticoagulation, A-fib Prior/ Outside/ External records reviewed: none Differential Diagnosis: Premature contractions, electrolyte abnormality, cardiac dysrhythmia, thyroid dysfunction, ACS, pulmonary embolism, infection, gastrointestinal, as well as other pathologies. Diagnostics, independently interpreted by me: ECG: Twelve-lead ECG #1 reveals atrial flutter with variable block and rapid ventricular response at 127 bpm. Lateral T wave inversion noted. No ST elevation. When compared to July 2022 T wave inversions are new. Repeat ECG #2 reveals atrial flutter with variable block and rapid ventricular response at 116 bpm. Anterior Q waves present. Lateral T wave inversions are present with slight ST depression in V5 Cardiac Monitoring: Cardiac monitoring ordered by me: The patient was placed on continuous cardiac monitoring and observed. It revealed atrial flutter with rapid ventricular response at 151 bpm. Medical decision rules: none Imaging studies: Chest x-ray reveals cardiomegaly without pneumothorax or infiltrate. HPI: 63 year old Female arrives for evaluation of chest pain. This started 2 days and is worsening today. The patient also notes the following associated symptoms, feeling short of breath. She also noted palpitations and fast heart rate. Patient notes a history of frequent daily chest pains but states this feels somewhat different. She also has a history of A-fib and does take Eliquis.. The patient has found no relieving factors. Current pain is rated as 7/10. Pt denies LOC, headache, fevers, chills, diaphoresis, visual changes, neck pain, nausea, vomiting, abdominal pain, back pain, melena, hematochezia, urinary symptoms, numbness, weakness, lymphadenopathy, rash, or other complaints. . PAST MEDICAL HISTORY: See Below, A-fib PAST SURGICAL HISTORY: See Below, SOCIAL HISTORY: See Below, HOME MEDICATIONS: See Below ALLERGIES: See Below VITALS: See Below PHYSICAL EXAMINATION: GENERAL: Awake, alert, uncomfortable-appearing, in no distress HENT: Normocephalic, atraumatic. Oropharynx unremarkable. EYES: Normal conjunctiva. Sclera non-icteric. NECK: Inspection normal. Non-tender. Supple. No nuchal rigidity. FROM. No masses. RESPIRATORY: Clear to auscultation. No wheezes. No rales. Normal respiratory effort. CARDIAC: Tachycardic rate. irregular rhythm. No murmurs. No rubs. Extremities warm and well perfused. Pulses equal. No JVD. GI: Soft, non-distended. No tenderness to palpation. No rebound or guarding. No masses. RECTAL: Deferred. MUSCULOSKELETAL: Atraumatic. Chest examination reveals no tenderness. The back is symmetrical on inspection without obvious abnormality. There is no CVA tenderness to palpation. No joint edema. LOWER EXTREMITIES: Calves are equal size bilaterally and non-tender. No edema. No discoloration. NEURO: Normal sensorium. No sensory or motor deficits noted. SKIN: No rash or jaundice noted. PROCEDURES: none CRITICAL CARE: I have personally spent 30 minutes of critical care time in the direct management of this patient. This includes bedside care, interpretation of diagnostic studies, and testing, discussion with consultants, patient, and family members, and other required patient management activities. These minutes are in excess of all separately billable procedures. OBSERVATION NOTE: none Past Med/Surg History Medical History Encounter for pre-operative examination Social History Smoking Status: Never smoker Second Hand Exposure: No; Do You Dip or Chew Tobacco: No; Hx Alcohol Use: Yes Alcohol type: wine Hx Substance Use: No Preferred Language: Jordanian Communication Ability: Effective Chief Librarian Branch Required: No Beliefs That Will Affect Care: None marital status: Current Living Situation: Spouse Feels Safe at Home: Yes Assistive Devices: Cane Allergies Allergies Allergy/AdvReac Type Severity Reaction Status Date / Time vancomycin Allergy rash Verified 10/17/23 10:48 Home Meds Home Medications Medication Instructions Recorded Confirmed cholecalciferol (vitamin D3) 25 25 mcg PO DAILY 08/02/22 10/17/23 mcg (1,000 unit) tablet (Vitamin D3) lorazepam 0.5 mg tablet 0.5 mg PO HS SLEEP 08/02/22 10/17/23 magnesium 250 mg tablet 250 mg PO 3XWK 08/02/22 10/17/23 acetaminophen-caffeine 500 mg-65 1 tab PO Q12H PRN Headache 07/19/23 10/17/23 mg tablet (Excedrin Tension Headache) metoprolol tartrate 25 mg tablet 25 mg PO BID 10/17/23 10/17/23 Previous Rx's Medication Instructions Recorded pantoprazole 40 mg tablet,delayed 40 mg PO BID #60 tabs 08/07/22 release sodium di- and 1 tab PO QID #20 tabs 08/07/22 monophosphate-potassium phos monobasic 250 mg tablet (Phospha Neutral) apixaban 5 mg tablet (Eliquis) 5 mg PO BID #60 tabs 07/05/23 diltiazem HCl 120 mg capsule,24 120 mg PO DAILY #30 caps 07/19/23 hr,extended release Results & Data (ED) Vital Signs Vital Signs - 24 hr 10/17/23 08:27 10/17/23 08:27 10/17/23 08:38 Temperature 36.6 C Temperature Source Temporal Artery Scan Pulse Rate 81 Pulse Rate [Apical] 145 H Pulse Rate from SpO2 Sensor Respiratory Rate 18 20 Respiratory Effort / Characteristics Non-Labored Spontaneous Respiratory Depth Normal Respiratory Pattern Regular Blood Pressure 114/68 Blood Pressure [Right Arm] 112/68 Blood Pressure Mean 83 Blood Pressure Mean [Right Arm] 82 Pulse Oximetry 91 96 Oxygen Delivery Method Room Air Room Air Sepsis Recent Fever Within 48 Hours No Sepsis New/Unexplained Change in Mental Status N/A Sepsis Action Taken by Nursing No Action Required 10/17/23 08:38 10/17/23 08:44 10/17/23 08:47 Temperature Temperature Source Pulse Rate 151 H 157 H 137 H Pulse Rate [Apical] Pulse Rate from SpO2 Sensor 113 H Respiratory Rate 20 22 Respiratory Effort / Characteristics Respiratory Depth Respiratory Pattern Blood Pressure 112/68 Blood Pressure [Right Arm] Blood Pressure Mean 82 Blood Pressure Mean [Right Arm] Pulse Oximetry 96 98 Oxygen Delivery Method Room Air Sepsis Recent Fever Within 48 Hours Sepsis New/Unexplained Change in Mental Status Sepsis Action Taken by Nursing 10/17/23 09:30 10/17/23 10:30 10/17/23 11:00 Temperature Temperature Source Pulse Rate 104 H 125 H 126 H Pulse Rate [Apical] Pulse Rate from SpO2 Sensor 107 H 109 H 126 H Respiratory Rate 22 24 19 Respiratory Effort / Characteristics Respiratory Depth Respiratory Pattern Blood Pressure 109/87 114/81 107/67 Blood Pressure [Right Arm] Blood Pressure Mean 94 92 80 Blood Pressure Mean [Right Arm] Pulse Oximetry 98 95 96 Oxygen Delivery Method Sepsis Recent Fever Within 48 Hours Sepsis New/Unexplained Change in Mental Status Sepsis Action Taken by Nursing 10/17/23 12:30 10/17/23 12:38 Temperature Temperature Source Pulse Rate 110 H 127 H Pulse Rate [Apical] Pulse Rate from SpO2 Sensor 113 H Respiratory Rate 19 Respiratory Effort / Characteristics Respiratory Depth Respiratory Pattern Blood Pressure 113/70 Blood Pressure [Right Arm] Blood Pressure Mean 84 Blood Pressure Mean [Right Arm] Pulse Oximetry 96 Oxygen Delivery Method Sepsis Recent Fever Within 48 Hours Sepsis New/Unexplained Change in Mental Status Sepsis Action Taken by Nursing Laboratory Data 10/17/23 08:43 10/17/23 08:43 Lab Results 10/17/23 10/17/23 Range/Units 08:43 10:34 WBC 15.02 H (4.8-10.8) K/ul RBC 4.56 (4.20-5.40) M/uL Hgb 13.8 (12.0-16.0) g/dl Hct 41.9 (37.0-47.0) % MCV 91.9 (80.0-100.0) fL MCH 30.3 (25.0-34.0) pg MCHC 32.9 (32.0-36.0) g/dL RDW Std Deviation 45.1 (36.4-46.3) fL RDW Coeff of Angela 13.3 (11.5-14.5) % Plt Count 250 (130-400) K/uL MPV 11.3 (9.4-12.4) fL Immature Gran % (Auto) 0.6 % Neut % (Auto) 70.2 % Lymph % (Auto) 18.5 % Pope % (Auto) 10.5 % Eos % (Auto) 0.0 % Baso % (Auto) 0.2 % Neut # (Auto) 10.54 H (1.40-6.50) K/uL Lymph # (Auto) 2.78 (1.20-3.40) K/uL Pope # (Auto) 1.58 H (0.11-0.59) K/uL Eos # (Auto) 0.00 (0.00-0.50) K/uL Baso # (Auto) 0.03 (0.00-0.20) K/uL Immature Gran # (Auto) 0.09 (0.01-0.20) K/uL Sodium 135 L (136-145) mmol/L Potassium 3.1 L (3.5-5.1) mmol/L Chloride 98 (98-107) mmol/L Carbon Dioxide 22 (21-32) mmol/L Anion Gap 15 H (3-11) BUN 21 (6-23) mg/dl Creatinine 0.81 (0.6-1.2) mg/dl Est Cr Clr Drug Dosing 58.8 ml/min Est GFR ( Amer) 89.6 ml/min Est GFR (Non-Af Amer) 77.3 ml/min BUN/Creatinine Ratio 25.9 H (10-20) Glucose 133 H (70-99(Fasting)) mg/dl Calcium 10.2 (8.6-10.3) mg/dl Magnesium 1.8 (1.7-2.4) mg/dl Total Bilirubin 3.0 H (0.2-1.0) mg/dl AST 29 (13-39) U/L ALT 24 (7-52) U/L Alkaline Phosphatase 61 (34-104) U/L Troponin I High Sens 32.4 H 32.9 H (0-14) pg/ml B-Natriuretic Peptide 2113 H (0-100) pg/ml Total Protein 7.1 (6.0-8.3) gm/dl Albumin 4.5 (3.4-5.0) gm/dl Globulin 2.6 (2.5-4.0) gm/dl Albumin/Globulin Ratio 1.7 (0.9-2) Lipase 10 L (11-82) U/L SARS-CoV-2 (PCR) NEGATIVE (Negative) Influenza Type A (PCR) Negative (Neg) Influenza Type B (PCR) Negative (Neg) RSV (RT-PCR) Negative (Neg) Administered Medications Diclofenac Sodium (Diclofenac Sod 1% Gel 100 Gm Tube) 2 gm EXT QID OSMIN; Protocol Stop: 11/16/23 12:59 Last Admin: 10/17/23 13:30 Dose: 2 gm Documented By: GAURAV Morphine Sulfate (Morphine Sulfate 2 Mg/Ml Carp) 2 mg IV Q4H PRN PRN Reason: Pain Stop: 10/31/23 14:07 Last Admin: 10/17/23 14:30 Dose: 2 mg Documented By: GAURAV Nitroglycerin (Nitroglycerin 2% Ointment 30gm Tube) 0.5 inch EXT Q6H [facility] Stop: 11/16/23 10:14 Last Admin: 10/17/23 10:13 Dose: 0.5 inch Documented By: PRAVIN Discontinued Medications Diltiazem HCl (Diltiazem Hcl 5 Mg/Ml 5 Ml Vial) 10 mg IV NOW STA Stop: 10/17/23 08:44 Last Admin: 10/17/23 08:49 Dose: 10 mg Documented By: GAURAV Co-signed By: PRAVIN Diltiazem HCl (Diltiazem Hcl 5 Mg/Ml 5 Ml Vial) 10 mg IV NOW STA Stop: 10/17/23 09:38 Last Admin: 10/17/23 10:26 Dose: 10 mg Documented By: GAURAV Co-signed By: PRAVIN Diltiazem HCl (Diltiazem Hcl 120 Mg Capcr) 120 mg PO NOW STA Stop: 10/17/23 10:04 Last Admin: 10/17/23 11:37 Dose: 120 mg Documented By: GAURAV Diltiazem HCl (Diltiazem Hcl 5 Mg/Ml 5 Ml Vial) 10 mg IV NOW STA Stop: 10/17/23 13:44 Last Admin: 10/17/23 14:31 Dose: 10 mg Documented By: GAURAV Co-signed By: TANO Potassium Chloride (K Hermann / Wtr) 10 meq in 100 mls @ 100 mls/hr IV ONE ONE Stop: 10/17/23 10:37 Last Infusion: 10/17/23 14:33 Dose: Infused Documented By: Admin: 10/17/23 10:13 Dose: 100 mls/hr Documented By: PRAVIN Ondansetron HCl (Ondansetron Inj 2 Mg/Ml 2 Ml Vial) 4 mg IV NOW STA Stop: 10/17/23 08:47 Last Admin: 10/17/23 08:51 Dose: 4 mg Documented By: GAURAV Imaging Data Radiologist's Impression: Chest X-Ray 10/17/23 08:37 XR chest 1V portable CLINICAL HISTORY: Chest pain, nonspecific COMPARISON STUDY: Chest radiograph and chest CT July 02, 2022. FINDINGS: Moderate cardiomegaly is unchanged. There is no evidence for pulmonary edema. There is no pneumothorax or pleural effusion. There is no consolidation to suggest pneumonia. IMPRESSION: No acute cardiopulmonary findings. Stable cardiomegaly. ACT 112: Negative or not required by law. Electronically signed by: Femi Juarez M.D. 10/17/2023 9:16 AM Ribs X-Ray 10/17/23 10:23 XR ribs LT min 2V CLINICAL HISTORY: Left-sided chest pain. Evaluate for fracture. COMPARISON: Chest CT August 02, 2022. Chest radiograph performed earlier today. FINDINGS: No left sided rib fractures are identified. There is no left pneumothorax. Cardiomegaly is noted. Chest radiograph performed earlier today. IMPRESSION: No left-sided rib fractures. No left pneumothorax. ACT 112: Negative or not required by law. Electronically signed by: Femi Juarez M.D. 10/17/2023 11:40 AM Discharge Plan Visit Data Chief Complaint: Chest Pain Stated Complaint: CHEST PAIN, FATIGUE ED Provider: Rodolfo Armendariz Discharge Problem: Atrial flutter with rapid ventricular response, Chest pain Discharge Instructions Interventions: ED Discharge Assessment Last Done: 10/17/23 15:44
--- NOTE | 2023-10-17 09:17 | XRay Report ---
XR chest 1V portable CLINICAL HISTORY: Chest pain, nonspecific COMPARISON STUDY: Chest radiograph and chest CT July 02, 2022. FINDINGS: Moderate cardiomegaly is unchanged. There is no evidence for pulmonary edema. There is no p neumothorax or pleural effusion. There is no consolidation to suggest pneumonia. IMPRESSION: No acute cardiopulmonary findings. Stable cardiomegaly. ACT 112: Negative or not required by law. Electronically signed by: Femi Juarez M.D. 10/17/2023 9:16 AM
[2023-10-17 09:23] LABS: Basophils # (auto) 0.03 K/uL (0.00-0.20); Basophils % (auto) 0.2 %; Hematocrit (blood only) 41.9 % (37.0-47.0); Hemoglobin 13.8 g/dl (12.0-16.0); Immature Granulocytes # (auto) 0.09 K/uL (0.01-0.20); Immature Granulocytes % (auto) 0.6 %; Lymphocytes # (auto) 2.78 K/uL (1.20-3.40); Lymphocytes % (auto) 18.5 %; Mean Corpuscular Hemoglobin 30.3 pg (25.0-34.0); Mean Corpuscular Hgb Conc 32.9 g/dL (32.0-36.0); Mean Corpuscular Volume 91.9 fL (80.0-100.0); Mean Platelet Volume 11.3 fL (9.4-12.4); Monocytes # (auto) 1.58 K/uL (0.11-0.59); Monocytes % (auto) 10.5 %; Neutrophils # (auto) 10.54 K/uL (1.40-6.50); Neutrophils % (auto) 70.2 %; Platelet Count 250 K/uL (130-400); RDW Coefficient of Variation 13.3 % (11.5-14.5); RDW Standard Deviation 45.1 fL (36.4-46.3); Red Blood Count 4.56 M/uL (4.20-5.40); White Blood Count 15.02 K/ul (4.8-10.8)
[2023-10-17 09:27] LABS: Albumin Globulin Ratio 1.7 (0.9-2); Albumin Level 4.5 gm/dl (3.4-5.0); BUN Creatinine Ratio 25.9 (10-20); Calcium 10.2 mg/dl (8.6-10.3); Creatinine Clr Calc Pharmacy 58.8 ml/min; Est GFR (African American) 89.6 ml/min; Est GFR (Non-African American) 77.3 ml/min; Globulin 2.6 gm/dl (2.5-4.0); Potassium 3.1 mmol/L (3.5-5.1); Total Protein 7.1 gm/dl (6.0-8.3)
[2023-10-17 09:32] LABS: Troponin I High Sensitivity 32.4 pg/ml (0-14)
[2023-10-17 09:47] LABS: Influenza A virus by PCR Negative (Neg); Influenza B virus by PCR Negative (Neg); RSV by PCR Negative (Neg); SARS CoV2 RNA(COVID-19) Ceph NEGATIVE (Negative)
[2023-10-17] MEDS: POTASSIUM CHLORIDE / WTR 10 MEQ/100 ML PLCT IV ONE (10:13)
[2023-10-17] MEDS: NITROGLYCERIN 2% OINTMENT 30GM TUBE EXT SCH (10:13)
--- NOTE | 2023-10-17 11:04 | History & Physical Report ---
Date of Service October 17, 2023 Assessment & Plan (1) Chest pain: Plan: Has been complaining of chest pain for the last few days Precordial/lower left anterior chest wall pain With minimal palpitation and occasional shortness of breath EKG showing atrial flutter rate of [address]-T wave changes Troponin is minimally elevated at 30 and will get serial cardiac enzymes Nitropaste has been applied Doubt any ACS Monitoring telemetry unit Will get a cardiology evaluation while in the hospital Possible costochondritis Will get x-ray of the ribs to rule out any fracture Local diclofenac cream has been given Leukocytosis Likely secondary to a stress (2) Atrial flutter with rapid ventricular response: Plan: Noted to have rapid ventricular response in the emergency room Heart rate went more than 140 Received 2 doses of intravenous Cardizem She missed oral Cardizem for the last 2 days which will be given from today Will monitor in the telemetry unit (3) Palpitations: Plan: Secondary to a flutter (4) Mitral regurgitation: (5) Panic attacks: Plan: History of panic attack and depression Will continue current medications (6) Depression: Plan DVT prophylaxis Has been on Eliquis and has not missed a dose CODE STATUS Full History of Present Illness Chief Complaint: Left lower anterior chest wall pain for the last 3 or 4 days Primary Care Provider: Anamaria Abad DO She is a 63-year-old female significant past medical history of cardiac murmurs, atrial flutter, migraines, depression/panic attacks, apparently has been complaining of left lower anterior chest wall pain/precordial pain for the last 3 to 4 days. Pain is off and on and sometimes associated with shortness of breath. Apparently she has had profuse diarrhea 2 to 3 days back with similar pain but diarrhea is stopped now. She also complains to her palpitation for the last 2 days and apparently has not been taking her Cardizem. Denies any swelling of the legs, any increasing shortness of breath or weight gain, no nausea no vomiting or any abdominal pain. Does not have any cough or any phlegm and denies any fever and or chills. In the ER noted to have a flutter with rapid ventricular rate more than 140. She received intravenous doses of Cardizem and her usual oral Cardizem was given as well. Initial cardiac enzymes is minimally elevated at 30 but doubt any ACS. She will be admitted to telemetry unit for continuation of care. Allergies Allergy/AdvReac Type Severity Reaction Status Date / Time vancomycin Allergy rash Verified 10/17/23 10:48 Home Medications Medication Instructions Recorded Confirmed Type cholecalciferol (vitamin D3) 25 25 mcg PO DAILY 08/02/22 10/17/23 History mcg (1,000 unit) tablet (Vitamin D3) lorazepam 0.5 mg tablet 0.5 mg PO HS SLEEP 08/02/22 10/17/23 History magnesium 250 mg tablet 250 mg PO 3XWK 08/02/22 10/17/23 History pantoprazole 40 mg tablet,delayed 40 mg PO BID #60 tabs 08/07/22 10/17/23 Rx release sodium di- and 1 tab PO QID #20 tabs 08/07/22 10/17/23 Rx monophosphate-potassium phos monobasic 250 mg tablet (Phospha Neutral) apixaban 5 mg tablet (Eliquis) 5 mg PO BID #60 tabs 07/05/23 10/17/23 Rx acetaminophen-caffeine 500 mg-65 1 tab PO Q12H PRN Headache 07/19/23 10/17/23 History mg tablet (Excedrin Tension Headache) diltiazem HCl 120 mg capsule,24 120 mg PO DAILY #30 caps 07/19/23 10/17/23 Rx hr,extended release metoprolol tartrate 25 mg tablet 25 mg PO BID 10/17/23 10/17/23 History Past Med/Surg History Medical History Encounter for pre-operative examination Social History Smoking Status: Never smoker Second Hand Exposure: No; Do You Dip or Chew Tobacco: No; Hx Alcohol Use: Yes Alcohol type: wine Hx Substance Use: No Preferred Language: Thai Communication Ability: Effective Nursing Staffing Coordinator Required: No Beliefs That Will Affect Care: None marital status: Current Living Situation: Spouse Feels Safe at Home: Yes Assistive Devices: Cane Review of Systems Review of Systems: All systems reviewed and are unremarkable except as noted below Physical Exam Physical Exam: Lying in bed very anxious and is with pain without any shortness of breath Constitutional: + ill appearing and average body habitus Eyes: PERRL, conjunctivae normal, anicteric sclerae ENMT: external ear and nose normal, oropharynx normal Respiratory: no respiratory distress Auscultation: lungs clear to auscultation bilaterally Cardiovascular: Rate/Rhythm: + tachycardic and + irregularly irregular Heart Sounds: normal S1, normal S2 and + murmur (2/6 to 3/6 ESM over precordium) Extremities: + edema (Trace edema bilateral) Gastrointestinal (Abdomen): Inspection/Auscultation: normal bowel sounds; a bdomen not distended Percussion/Palpation: + abdomen tender (Questionable tenderness in the left upper quadrant and epigastric) and abdomen soft Musculoskeletal: No acute arthritis involving any of the joint Neurologic: normal touch/pain/proprioception and moves all extremities; no foc al motor deficits Psychiatric: Mood: + anxious mood Lymphatic: no cervical or axillary lymphadenopathy Results & Data Results & Data Vital Signs (Past 12 Hours) Vital Signs Temp Pulse Pulse Resp BP BP Pulse Ox 10/17/23 08:47 137 H 10/17/23 08:44 157 H 22 112/68 98 10/17/23 08:38 151 H 20 96 10/17/23 08:38 145 H 20 112/68 96 10/17/23 08:27 10/17/23 08:27 36.6 C 81 18 114/68 91 O2 Del Method 10/17/23 08:47 10/17/23 08:44 10/17/23 08:38 Room Air 10/17/23 08:38 Room Air 10/17/23 08:27 Room Air 10/17/23 08:27 Laboratory Results Short CBC 10/17/23 Range/Units 08:43 WBC 15.02 H (4.8-10.8) K/ul Hgb 13.8 (12.0-16.0) g/dl Hct 41.9 (37.0-47.0) % Plt Count 250 (130-400) K/uL BMP 10/17/23 08:43 Sodium 135 L Potassium 3.1 L Chloride 98 Carbon Dioxide 22 BUN 21 Creatinine 0.81 Glucose 133 H Calcium 10.2 Liver Function 10/17/23 Range/Units 08:43 Total Bilirubin 3.0 H (0.2-1.0) mg/dl AST 29 (13-39) U/L ALT 24 (7-52) U/L Alkaline Phosphatase 61 (34-104) U/L Albumin 4.5 (3.4-5.0) gm/dl Medications Administered Current Inpatient Medications Diclofenac Sodium (Diclofenac Sod 1% Gel 100 Gm Tube) 2 gm EXT QID OSMIN; Protocol Stop: 11/16/23 12:59 Nitroglycerin (Nitroglycerin 2% Ointment 30gm Tube) 0.5 inch EXT Q6H OSMIN Stop: 11/16/23 10:14 Last Admin: 10/17/23 10:13 Dose: 0.5 inch
[2023-10-17] MEDS: dilTIAZem HCL 120 MG CAPCR PO STA (11:37)
--- NOTE | 2023-10-17 11:41 | XRay Report ---
XR ribs LT min 2V CLINICAL HISTORY: Left-sided chest pain. Evaluate for fracture. COMPARISON: Chest CT August 02, 2022. Chest radiograph performed earlier today. FINDINGS: No left sided rib fractures are identified. There is no left pneumothorax. Cardiomegaly is noted. Chest radiograph performed earlier today. IMPRESSION: No left-sided rib fractures. No left pneumothorax. ACT 112: Negative or not required by law. Electronically signed by: Femi Juarez M.D. 10/17/2023 11:40 AM
[2023-10-17] MEDS: DICLOFENAC SOD 1% GEL 100 GM TUBE EXT SCH (13:30)
[2023-10-17] MEDS: MoRPHine SULFATE 2 MG/ML CARP IV PRN (14:30)
[2023-10-17] MEDS ORDERED: LORazepam 0.5 MG TAB PO PRN (15:44)
[2023-10-17] MEDS ORDERED: LORazepam 1 MG TAB PO PRN (15:44)
[2023-10-17] MEDS: dilTIAZem HCL 120 MG CAPCR PO SCH (16:40)
--- NOTE | 2023-10-17 16:49 | Electrocardiogram Report ---
Test Reason : Blood Pressure : / mmHG Vent. Rate : 116 BPM Atrial Rate : 388 BPM P-R Int : 000 ms QRS Dur : 098 ms QT Int : 366 ms P-R-T Axes : 000 064 270 degrees QTc Int : 508 ms Atrial fibrillation with premature ventricular or aberrantly conducted complexes Anterior infarct (cited on or before 05-JUL-2023) Abnormal ECG When compared with ECG of 17-OCT-2023 08:38, (unconfirmed) No significant change was found Confirmed by Primitivo Swanson ([id number]) on 10/17/2023 4:49:25 PM Referred By: REFERRED SELF Confirmed By:Jeremias Swanson
--- NOTE | 2023-10-17 16:49 | Electrocardiogram Report ---
Test Reason : Blood Pressure : / mmHG Vent. Rate : 127 BPM Atrial Rate : 381 BPM P-R Int : 000 ms QRS Dur : 092 ms QT Int : 360 ms P-R-T Axes : 000 100 -78 degrees QTc Int : 523 ms Atrial fibrillation with premature ventricular or aberrantly conducted complexes Rightward axis Anterior infarct (cited on or before 05-JUL-2023) Abnormal ECG Confirmed by Primitivo Swanson ([id number]) on 10/17/2023 4:48:57 PM Referred By: Confirmed By:Jeremias Swanson
[2023-10-17] MEDS: POT PHOSPHATE MONOBASIC W/ SOD TAB PO SCH (17:17)
[2023-10-17] MEDS: ACETAMINOPHEN 500 MG TAB PO PRN (17:17)
[2023-10-17] MEDS: ACETAMINOPHEN 500 MG TAB ONE (17:18)
[2023-10-17] MEDS: busPIRone 5 MG TAB PO SCH (21:35)
[2023-10-17] MEDS: PANTOprazole 40 MG TAB PO SCH (21:36)
[2023-10-17] MEDS: APIXABAN 5 MG TABLET PO SCH (21:36)
[2023-10-18 07:12] LABS: Basophils # (auto) 0.01 K/uL (0.00-0.20); Basophils % (auto) 0.1 %; Eosinophils # (auto) 0.02 K/uL (0.00-0.50); Eosinophils % (auto) 0.2 %; Hematocrit (blood only) 35.4 % (37.0-47.0); Hemoglobin 11.3 g/dl (12.0-16.0); Immature Granulocytes # (auto) 0.04 K/uL (0.01-0.20); Immature Granulocytes % (auto) 0.5 %; Lymphocytes # (auto) 2.38 K/uL (1.20-3.40); Lymphocytes % (auto) 28.7 %; Mean Corpuscular Hgb Conc 31.9 g/dL (32.0-36.0); Mean Corpuscular Volume 93.9 fL (80.0-100.0); Mean Platelet Volume 11.2 fL (9.4-12.4); Monocytes # (auto) 0.71 K/uL (0.11-0.59); Monocytes % (auto) 8.6 %; Neutrophils # (auto) 5.12 K/uL (1.40-6.50); Neutrophils % (auto) 61.9 %; Platelet Count 194 K/uL (130-400); RDW Coefficient of Variation 13.6 % (11.5-14.5); RDW Standard Deviation 46.1 fL (36.4-46.3); Red Blood Count 3.77 M/uL (4.20-5.40); White Blood Count 8.28 K/ul (4.8-10.8)
[2023-10-18 07:41] LABS: BUN Creatinine Ratio 33.3 (10-20); Calcium 9.3 mg/dl (8.6-10.3); Creatinine Clr Calc Pharmacy 72.2 ml/min; Potassium 3.6 mmol/L (3.5-5.1)
[2023-10-18] MEDS: MAGNESIUM OXIDE 400 MG TAB PO SCH (08:06)
[2023-10-18] MEDS: CHOLECALCIFEROL 25 MCG (1000 UNITS) TAB PO SCH (08:07)
[2023-10-18] MEDS: METOPROLOL TARTRATE 25 MG TAB PO SCH (10:46)
--- NOTE | 2023-10-18 14:47 | Cardiology Consultation ---
Date of Consultation October 18, 2023 Assessment & Plan (1) Chest pain: -suspect musculoskeletal chest discomfort. -normal coronary arteries at time of catheterization in July 2022. -no need for further cardiac evaluation. -would discontinue topical nitrates. -stable for hospital discharge. (2) Atrial fibrillation, permanent: -continue rate control and long-term anticoagulation. (3) MVP (mitral valve prolapse): -mild anterior mitral leaflet prolapse on echocardiogram August 2023. History of Present Illness Attending Physician: Brenton Ramirez MD History of Present Illness Mrs. Borges is a 63-year-old female admitted yesterday with a chest pain syndrome. This consultation was ordered to assist in her cardiac management. Of note, the patient is well known to me from the outpatient setting. The patient was in her usual state of health until Wednesday of last week. She began to note severe left-sided chest discomfort without associated symptoms such as shortness of breath, nausea, vomiting, or diaphoresis. The patient explains that her left chest was tender to palpation. It has been persistent since starting on Wednesday. The patient did undergo a cardiac catheterization in July 2022 which revealed angiographically normal coronary arteries. She underwent an echocardiogram in August 2023 which noted normal left ventricular systolic function with ejection fraction of 60-65%. There was mild LVH along with anterior mitral leaflet prolapse. Currently, patient is resting comfortably in bed without complaints. Of note, her chest discomfort has resolved. Past medical and surgical history 1. Normal coronary arteries-July 2022 2. Permanent atrial fibrillation 3. Paroxysmal SVT 4. Anterior mitral leaflet prolapse 5. Cbsu-mj-astcdhqz mitral regurgitation 6. Migraine headaches 7. Anxiety/depression 8. Panic attacks Social history and lives with her No tobacco Social alcohol Family history No early coronary artery disease Allergies Allergy/AdvReac Type Severity Reaction Status Date / Time vancomycin Allergy rash Verified 10/17/23 10:48 Home Medications Medication Instructions Recorded Confirmed Type cholecalciferol (vitamin D3) 25 25 mcg PO DAILY 08/02/22 10/17/23 History mcg (1,000 unit) tablet (Vitamin D3) lorazepam 0.5 mg tablet 0.5 mg PO HS SLEEP 08/02/22 10/17/23 History magnesium 250 mg tablet 250 mg PO 3XWK 08/02/22 10/17/23 History pantoprazole 40 mg tablet,delayed 40 mg PO BID #60 tabs 08/07/22 10/17/23 Rx release sodium di- and 1 tab PO QID #20 tabs 08/07/22 10/17/23 Rx monophosphate-potassium phos monobasic 250 mg tablet (Phospha Neutral) apixaban 5 mg tablet (Eliquis) 5 mg PO BID #60 tabs 07/05/23 10/17/23 Rx acetaminophen-caffeine 500 mg-65 1 tab PO Q12H PRN Headache 07/19/23 10/17/23 History mg tablet (Excedrin Tension Headache) diltiazem HCl 120 mg capsule,24 120 mg PO DAILY #30 caps 07/19/23 10/17/23 Rx hr,extended release metoprolol tartrate 25 mg tablet 25 mg PO BID 10/17/23 10/17/23 History Patient History Medical History Encounter for pre-operative examination Social History Smoking Status: Former smoker Second Hand Exposure: No; Do You Dip or Chew Tobacco: No; Hx Alcohol Use: Yes Alcohol type: wine Hx Substance Use: Yes Last Used Substance: Unknown Substance Use Type Other:: medical marijuana Preferred Language: Yakut Communication Ability: Effective Radiologist Physician Required: No Beliefs That Will Affect Care: None marital status: Current Living Situation: Spouse Other Information That Helps Us Care for You: No Feels Safe at Home: Yes Safety Concerns: Feels Safe At This Time Assistive Devices: Cane and Glasses Physical Exam Physical Exam: In general this is a well-developed well-nourished white female in no acute distress. HEENT exam is negative. Neck reveals normal carotid upstrokes without bruits. No JVD. There is no thyromegaly. Cardiovascular exam reveals a regular rhythm with a prominent mid systolic click and subsequent 2/6 systolic murmur heard across the entire precordium. No S3. Left chest is tender to palpation reproducing her presenting symptoms. Lungs are clear without rales, rhonchi, or wheezes. Abdomen is soft without bruits. Extremities reveal intact radial artery and posterior tibial pulses bilaterally. There is no peripheral edema. Results & Data Vital Signs (Past 12 Hours) Vital Signs Pulse Pulse Resp BP BP Pulse Ox O2 Del Method 10/18/23 11:34 100 H 16 121/77 95 Room Air 10/18/23 10:01 100 H 15 99 10/18/23 10:01 121/76 10/18/23 10:00 110 H 21 97 10/18/23 09:21 102 H 15 101/69 97 Room Air 10/18/23 08:00 101/69 10/18/23 08:00 88 25 H 97 10/18/23 07:46 93 H 10/18/23 07:37 97/66 L 10/18/23 07:37 108 H 23 10/18/23 06:00 91 H 20 98/76 L 95 Nasal Cannula 10/18/23 04:50 92 H 18 95 Nasal Cannula 10/18/23 04:48 18 89 L Nasal Cannula 10/18/23 04:01 87 17 100/66 92 Nasal Cannula 10/18/23 03:24 115 H 17 100/67 92 Nasal Cannula O2 Flow Rate 10/18/23 11:34 10/18/23 10:01 10/18/23 10:01 10/18/23 10:00 10/18/23 09:21 10/18/23 08:00 10/18/23 08:00 10/18/23 07:46 10/18/23 07:37 10/18/23 07:37 10/18/23 06:00 2 10/18/23 04:50 2 10/18/23 04:48 1 10/18/23 04:01 1 10/18/23 03:24 1 Laboratory Results CBC notes hemoglobin 11.3, hematocrit 35.4, white count 8.3, platelet count [id number]. Electrolytes note a sodium of 137, potassium 3.6, chloride 102, bicarb 29, BUN 22, creatinine 0.6, and glucose of 95. High sensitivity troponin on presentation was 32.4 with follow-up values of 32.9, 33.2, and 27.8. Diagnostic Findings ECG notes atrial fibrillation with poor R-wave progression across the anterior precordium and ST and T-wave abnormality in the inferolateral leads. Chest x- ray shows no acute disease. PG Care Time/CCT Total # of Minutes Spent Total Time Spent with Patient: Total time spent is greater than 50% in coordination of care (as documented) at patient's floor/unit and/or counseling patient: Coding Level of Care Code 46443 IN/OBS CONSULT LVL 4,60M Diagnoses Chest pain R07.9 Atrial fibrillation, permanent I48.21 MVP (mitral valve prolapse) I34.1
--- NOTE | 2023-10-18 14:59 | Discharge Summary ---
Date of Service October 18, 2023 Admission HPI Per Admitting Provider She is a 63-year-old female significant past medical history of cardiac murmurs, atrial flutter, migraines, depression/panic attacks, apparently has been complaining of left lower anterior chest wall pain/precordial pain for the last 3 to 4 days. Pain is off and on and sometimes associated with shortness of breath. Apparently she has had profuse diarrhea 2 to 3 days back with similar pain but diarrhea is stopped now. She also complains to her palpitation for the last 2 days and apparently has not been taking her Cardizem. Denies any swelling of the legs, any increasing shortness of breath or weight gain, no nausea no vomiting or any abdominal pain. Does not have any cough or any phlegm and denies any fever and or chills. In the ER noted to have a flutter with rapid ventricular rate more than 140. S he received intravenous doses of Cardizem and her usual oral Cardizem was given as well. Initial cardiac enzymes is minimally elevated at 30 but doubt any ACS. She will be admitted to telemetry unit for continuation of care. Admission Exam Per Admitting Provider Physical Exam: Lying in bed very anxious and is with pain without any shortness of breath Constitutional: + ill appearing and average body habitus Eyes: PERRL, conjunctivae normal, anicteric sclerae ENMT: external ear and nose normal, oropharynx normal Respiratory: no respiratory distress Auscultation: lungs clear to auscultation bilaterally Cardiovascular: Rate/Rhythm: + tachycardic and + irregularly irregular Heart Sounds: normal S1, normal S2 and + murmur (2/6 to 3/6 ESM over precordium) Extremities: + edema (Trace edema bilateral) Gastrointestinal (Abdomen): Inspection/Auscultation: normal bowel sounds; abdomen not distended Percussion/Palpation: + abdomen tender (Questionable tenderness in the left upper quadrant and epigastric) and abdomen soft Musculoskeletal: No acute arthritis involving any of the joint Neurologic: normal touch/pain/proprioception and moves all extremities; no focal motor deficits Psychiatric: Mood: + anxious mood Lymphatic: no cervical or axillary lymphadenopathy Principal Diagnosis Chest pain, possible costochondritis Leukocytosis, secondary to stress Atrial flutter with RVR Discharge Exam GENERAL: Alert and oriented x3. NAD, on RA. HEENT: No pallor, no icterus. Pupils equal, round and reactive to light. Oral mucosa moist. NECK: No JVD, no neck masses. HEART: S1 and S2 heard. irregular rate and rhythm. + murmur, no gallop. RESPIRATORY SYSTEM: Normal AP diameter. No accessory muscle use. No wheezing, no crackles. ABDOMEN: Soft, bowel sounds present, nontender, no distention. CENTRAL NERVOUS SYSTEM: No facial droop. Speech is clear. Obeys simple co mmands. Moves extremities. EXTREMITIES: No edema, no erythema seen. Discharge Data Allergies Allergy/AdvReac Type Severity Reaction Status Date / Time vancomycin Allergy rash Verified 10/17/23 10:48 Consultations 10/17/23 10:03 ED Decision to Admit Stat 10/17/23 10:21 Consult Cardiology Routine Hospital Course (1) Chest pain: Prior attending with addendum: Has been complaining of chest pain for the last few days Precordial/lower left anterior chest wall pain With minimal palpitation and occasional shortness of breath EKG showing atrial flutter rate of [address]-T wave changes Troponin is minimally elevated at 30 and will get serial cardiac enzymes Nitropaste has been applied Doubt any ACS Monitoring telemetry unit Will get a cardiology evaluation while in the hospital Possible costochondritis Will get x-ray of the ribs to rule out any fracture Local diclofenac cream has been given Leukocytosis Likely secondary to a stress (2) Atrial flutter with rapid ventricular response: Noted to have rapid ventricular response in the emergency room Heart rate went more than 140 Received 2 doses of intravenous Cardizem She missed oral Cardizem for the last 2 days which will be given from today Will monitor in the telemetry unit (3) Palpitations: Secondary to a flutter (4) Mitral regurgitation: (5) Panic attacks: History of panic attack and depression Will continue current medications (6) Depression: Addendum: Patient was seen and examined at bedside as a follow-up of chest pain, possible costochondritis and leukocytosis likely secondary to stress and atrial flutter with RVR. Troponin elevated in 30s, flat trended, EKG with atrial flutter with RVR. Patient reports having chest pain reproducible with palpation, now better with morphine. Patient advised to use diclofenac gel every 4-6 hours for the next 5 to 7 days. Can use Tylenol [id number]-bsrahuh for mild pain, oxycodone will be prescribed for severe pain. Rate better controlled with regard to atrial flutter, discussed with cardiology, no new recommendation, okay to discharge from cardiac standpoint. Patient is being discharged with following instruction at the point of discharge: Follow-up with your primary care physician within a week time and likely you will need labs CBC/CMP/magnesium/phosphorus. Follow-up with your cardiology in 2 to 4 weeks time upon discharge. For your chest pain, which is likely costochondritis, apply diclofenac gel 1 to 2 g every 4-6 hours for 5 to 7 days. You can also use [id number]-kfkllok 4% lidocaine patch. You can also use cfae-afo-qaofygc Tylenol 500 mg tablets up to 4 times a day. Can also use gentle heat compression. You will be prescribed few days worth of oxycodone for severe pain. Continue follow-up with your PCP for long-term assessment/management. Maintain compliance with your cardiac medications. Take your medications as prescribed. Please make sure that you are able to get your medications today by calling your pharmacy before you leave the hospital so that your treatment continuity is not broken. Plan DVT prophylaxis Has been on Eliquis and has not missed a dose CODE STATUS Full Home Health Attestation I certify that this patient is under my care and that I, or a physicians executive chef assistant working with me, had a face to-face encounter that meets the home health hner-hl-czyi encounter requirements with this patient. The encounter with the patient was in whole, or in part, for the following medical condition, which is the primary reason for home health care (list medical condition): I certify that, based on my findings, the following services are medically necessary home health services: My clinical findings support the need for the above services because: Further, I certify that my clinical findings support that this patient is homebound (i.e. absences from home require considerable and taxing effort and are for medical reasons or [facility] services or infrequently or of short duration when for other reasons) because: Certification for Home Health Services: Based on the above findings, I certify that this patient is confined to the home and needs intermittent senior living care, physical therapy and/or speech therapy or continues to need occupational therapy. The patient is under my care, and I have initiated the establishment of the plan of care. This patient will be followed by a physician who will periodically review the plan of care. Total Time Total Time Spent Total Time Spent (In Minutes): 45 Discharge Plan Discharge Items Patient Disposition: Home - Self-Care Reason For Visit: A FLUTTER, CHEST PAIN Discharge Diagnosis: Chest pain, possible costochondritis Leukocytosis, secondary to stress Atrial flutter with RVR Activity: Resume your previous activity Non-emergency contact: Primary Care Provider Call non-emergency contact if: you have any medication questions, your symptoms worsen and your temperature is above 101 Follow-up/Referrals: Anamaria Abad, [Primary Care Provider] - Diet: Heart Healthy Addtl Attending Provider Instructions: Follow-up with your primary care physician within a week time and likely you will need labs CBC/CMP/magnesium/phosphorus. Follow-up with your cardiology in 2 to 4 weeks time upon discharge. For your chest pain, which is likely costochondritis, apply diclofenac gel 1 to 2 g every 4-6 hours for 5 to 7 days. You can also use ilbz-usp-gjwrocn 4% lidocaine patch. You can also use uden-ylc-zwanugo Tylenol 500 mg tablets up to 4 times a day. Can also use gentle heat compression. You will be prescribed few days worth of oxycodone for severe pain. Continue follow-up with your PCP for long-term assessment/management. Maintain compliance with your cardiac medications. Take your medications as prescribed. Please make sure that you are able to get your medications today by calling your pharmacy before you leave the hospital so that your treatment continuity is not broken. Pending Studies at Discharge: No Stand-Alone Forms: [facility], Smoking Cessation Medications and DC Order Prescriptions: New buspirone 5 mg Tablet 5 mg PO BID Qty: 60 0RF lorazepam 1 mg Tablet 1 mg PO TID PRN (Reason: anxiety) Qty: 7 0RF diclofenac sodium [Voltaren Arthritis Pain] 1 % Gel 2 g EXT QID 7 Days Qty: 100 0RF oxycodone 5 mg tablet 5 mg PO TID PRN (Reason: pain (scale score 7-10)) 3 Days Qty: 9 0RF Continued Eliquis 5 mg tablet 5 mg PO BID Qty: 60 2RF Excedrin Tension Headache 500-65 mg tablet 1 tab PO Q12H PRN (Reason: Headache) diltiazem HCl 120 mg capsule,extended release 24 hr 120 mg PO DAILY Qty: 30 5RF lorazepam 0.5 mg Tablet 0.5 mg PO HS magnesium 250 mg Tablet 250 mg PO 3XWK Rx Instructions: unknown strength cholecalciferol (vitamin D3) [Vitamin D3] 25 mcg (1,000 unit) Tablet 25 mcg PO DAILY Phospha 250 Neutral 250 mg Tablet 1 tab PO QID Qty: 20 0RF pantoprazole 40 mg Tablet,Delayed Release (Dr/Ec) 40 mg PO BID Qty: 60 1RF metoprolol tartrate 25 mg tablet 25 mg PO BID Discharge Orders: Discharge Order (Routine); Ordered 10/18/23 Ordered By: Brenton Ramirez Admission Data Admit Date/Time: 10/17/23 13:12 Attending Provider: Brenton Ramirez Admit Provider: Murphy Rodriguez Primary Care Provider: Anamaria Abad Other Providers: Murphy Rodriguez; Eliu Harman; Dieudonne Burden; Cheikh Suarez; Otis Franz; Hema Morales; Jake Xiong Jr; Larry Todd; Carmen Johnson; Kindra Munroe; Primitivo Baldwin; Primitivo Swanson; Murray Negro; Silvia Cabral; Eryn Luther; Michele Lechuga; Mike Leal; Tayo Robison
[2023-10-18] MEDS: POTASSIUM CHLORIDE CRTAB 20 MEQ TABCR PO STA (15:43)
== END 2023-10-18 15:49 | disposition home or self-care (01) | DRG 206 ==
LOC: ED 08:27 → EDINP 13:12 → SUATTDRO 13:12 → EDINP 10-18 15:44

== ENCOUNTER 2024-03-19 15:55 | Inpatient (IN) ==
--- OUTSIDE RECORDS SUMMARY | 2024-03-19 16:03 | External Medical Summary | Summary of Care ---
Author Name Unknown Organization [facility] Address [address] [facility] [place] [address] Phone [phone] Care Team Providers Care Maintenance Supervisor Electrical Name Role Phone Anamaria Abad DO Primary Care Provider Reason for Visit * Reason Comments Outpatient Testing Encounter Details Date Type Department Care Team (Late st Contact Info) Description 03/03/2024 3:50 PM EDT Laboratory Laboratory, [place] [address] [place] [address] [place], [facility] [address], [place] [id number] Valvular heart disease; S/P MVR (mitral valve replacement); Anticoagulation management encounter; half-way current use of anticoagulant therapy Allergies Active Allergy Reactions Criticality Noted Date Comments Vancomycin Hcl In Nacl Rash 10/13/2017 Red painful rash itching documented as of this encounter (statuses as of 03/03/2024) Medications Medication Sig Dispensed Refills Start Date End Date Status Cholecalciferol (VITAMIN D) 1000 units Tablet Take 1 Tablet by mouth in the morning. Active Amoxicillin 500 MG Oral Capsule (AMOXIL) TAKE FOUR CAPSULES BY MOUTH ONE HOUR BEFORE APPOINTMENT 04/11/2020 Active Fluorouracil 5 % External Cream (Efudex)Indicatio ns:AK (actinic keratosis) apply to rough patches on the forehead and cheeks nightly x 2 weeks. 40 g 05/27/2020 Active Potassium Chloride ER 20 MEQ Oral Tablet Extended Release Take 1 Tablet by mouth in the morning. Active Triamcinolone Acetonide 0.1 % External Cream (Aristocort)Indic ations:Rash and nonspecific skin eruption Apply topically to affected area 2 times a day. To affected area. 60 g 5 09/10/2022 Active Raza-Phos 250 Neutral 155-852-130 MG Oral TabletIndications :Acute gastritis without hemorrhage, unspecified gastritis type Take 1 tablet by mouth 4 times daily 120 Tablet 10/14/2023 Active Additional Information Patient not taking.Reported on 01/10/2024 Diclofenac Sodium 1 % External Gel (Voltaren) Apply 2 g topically to affected area in the morning and 2 g at noon and 2 g in the evening and 2 g before bedtime. For 7 days. Active Magnesium 250 MG Oral Tablet Take 1 Tablet by mouth once a day on Wednesday, Wednesday, and Wednesday only. Takes 3 times per week Active oxyCODONE HCl 5 MG Oral Tablet (Oxy IR) Take 1 Tablet by mouth every 8 hours as needed for Pain, Severe. 10/18/2023 Active Resveratrol Diet Oral Capsule Take 1 Capsule by mouth in the morning. Active Pantoprazole Sodium 40 MG Oral Tablet Delayed Release (Protonix)Indicat ions:Acute gastritis without hemorrhage, unspecified gastritis type Take 1 tablet by mouth twice daily 180 Tablet 1 11/13/2023 Active Metoprolol Tartrate 25 MG Oral Tablet (Lopressor) Take 0.5 (one-half) tablet by mouth two times per day (morning & before bedtime). 30 Tablet 5 12/17/2023 Active Aspirin 81 MG Oral Tablet Chewable Chew & swallow 1 Tablet by mouth every morning. 30 Tablet 11 12/18/2023 Active Furosemide 40 MG Oral Tablet (Lasix) Take 1 Tablet by mouth every morning. 30 Tablet 12/18/2023 Active Additional Information Patient not taking.Reported on 01/26/2024 Warfarin Sodium 2.5 MG Oral Tablet (Coumadin) Take tablet by mouth daily as directed by discharge instructions and the anticoagulation clinic. 60 Tablet 3 12/17/2023 Active DULoxetine HCl 30 MG Oral Capsule Delayed Release Particles (Cymbalta)Indicat ions:Chronic pain syndrome Take 1 Capsule by mouth in the morning. Do not cut, crush or chew. 30 Capsule 5 12/31/2023 Active LORazepam 0.5 MG Oral Tablet (Ativan)Indicatio ns:Anxiety TAKE 1 TABLET BY MOUTH ONCE DAILY NEEDED FOR ANXIETY 30 Tablet 02/21/2024 Active documented as of this encounter (statuses as of 03/03/2024) Active Problems Problem Noted Date Diagnosed Date Anticoagulation management encounter 01/03/2024 Atrial fibrillation, unspecified type 01/03/2024 Heart failure 12/31/2023 Medical marijuana use 12/13/2023 Valvular heart disease 12/13/2023 S/P MVR (mitral valve replacement) 12/13/2023 Nonrheumatic mitral valve regurgitation 11/17/19 Atrial fibrillation 10/22/2023 Current mild episode of valeriy r depressive [...] as of this encounter (statuses as of 03/03/2024) Resolved Problems Problem Noted Date Diagnosed Date Resolved Date 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 Sepsis 08/26/2017 08/21/2019 Septic hip 08/23/2017 08/21/2019 Mitral valve prolapse 05/01/20132013 Overview: Sees [facility] Cards Routine general medical exam ination at a health care facility 12/26/2012 08/21/2019 Overview: NEED CPE, prioritize prob Urinary frequency 03/31/2006 12/26/2012 Sebaceous cyst 12/10/2003 12/26/2012 documented as of this encounter (statuses as of 03/03/2024) Immunizations Name Administration Dates Next Due Seasonal Influenza, PF, 6 M & above, IM , (FluLaval or Fluzone) 09/10/2022,06/26/2020,08/21/2019 TDAP, Age 7 and older, IM (Adacel) 06/05/2009 Zoster Vaccine Recombinant (Shingrix) 09/02/2020 03/03/2021 documented as of this encounter Social History Tobacco Use Types Packs/Day Years Used Date Smoking Tobacco: Former Cigarettes 0.5 10 1 977 - 1986 Passive Smoke Exposure: Past Smokeless Tobacco: Never Comments:quit early 80's Alcohol Use Standard Drinks/Week Comments Yes 0 (1 standard drink = 0.6 oz pur e alcohol) Rarely PHQ-2 Answer Date Recorded PHQ-2 Score 0 08/21/2019 Hunger Vital Sign Answer Date Recorded Worried About Running Out of Food in the Last Ye ar Never true 08/21/2019 Ran Out of Food in the Last Year Never true 08/21/2019 Utilities Answer Date Recorded Do you have trouble paying y our heating, water, or electric bill? (Adult - for ages 18 years and over) Not on file 02/22/2024 Is your family able to pay t he heat, water, or electric bill? (Household - for ages 0-17 years) Not on file 02/22/2024 Does your family have access to good internet? (Household - for ages 0-17 years) Not on file 02/22/2024 Social Connections Answer Date Recorded How often do you feel lonely or isolated from those around you? (Adult - for ages 18 years and over) Not on file 02/22/2024 Sex and Gender Information Value Date Recorded [...] you have serious difficulty h earing? No 12/13/2023 Are you blind or do you have serious difficulty seeing, even when wearing glasses? No 12/13/2023 Do you have serious difficul ty walking or climbing stairs? (5 years old or older) Yes 12/13/2023 Do you have difficulty dress ing or bathing? (5 years old or older) No 12/13/2023 Because of a physical, menta l, or emotional condition, do you have difficulty doing errands alone such as visiting a doctor s office or shopping? (15 years old or older) No 12/13/19 Cognitive Status Response Date of Assessm ent Because of a physical, menta l, or emotional condition, do you have serious difficulty concentrating, remembering, or making decisions? (5 years old or older) No 12/13/2023 documented as of this encounter Plan of Treatment Upcoming Encounters Date Type Department Care Team (Late st Contact Info) Description 03/08/2024 6:10 PM EDT Anticoagulation Pharmacy, [place] [address] [place] [facility] [place] [address] [place] [facility] [address] [place] [facility] [place] [address] 04/27/2024 9:50 AM EDT Office Visit [place] [address] [facility] [place] [phone] Anamaria Abad, [facility] [address] [facility] [address] 07/10/2024 9:50 AM EST Office Visit [place] [address] [facility] [place] [phone] [facility] Abad, [facility] [address] [facility] [address] Pending Results Name Type Priority Associated Diagnoses Date /Time PT INR Lab Routine Valvular heart disease S/P MVR (mitral valve replacement) Anticoagulation management encounter bed 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 current use of anticoagulant therapy 03/03/2024 3:53 PM EDT Scheduled Procedures Name Priority Associated Diagnoses Date/Ti me COLONOSCOPY FLEXIBLE PROXIMA L DIAGNOSTIC Recall Screening for malignant neoplasm of colon Health Maintenance Due Date Last Done Comments HIV Screening 1975 Hepatitis C Screening 1978 HPV/Co-Test 1990 Cologuard 2005 Fecal Occult Blood Test 2005 10/19/2000 Sigmoidoscopy 2005 DTaP,Tdap,and Td Vaccines (2 - Td or Tdap) 06/05/2019 06/05/2009 Depression Monitoring 08/21/2020 08/21/2019 Cervical Cancer Screening 06/12/2022 Pap Smear 06/12/2022 06/12/2019, 12/06, 12/29/2013, Additional history exists Influenza Vaccine (FLU shot) (Season Ended) 2024 09/10/2022, 06/26/2020, 08/21/2019 Mammogram 02/06/2025 02/07/2024, 08/07, 09/22/2019, Additional history exists Lipid Panel 09/21/2027 09/21/2022, 11/04, 03/31/2006 Colonoscopy 12/23/2028 12/23/2018, 12/23/2018 Colorectal Cancer Screening 12/23/2028 Zoster Vaccines Completed 04/11/2023, 12/07, 09/02/2020 COVID-19 Vaccine Completed 06/19/2023, , 11/08/2020 GARDASIL-HPV IMMUNIZATION SERIES Aged Out No longer [...] this encounter Medical Devices Implanted Type Area Vascular Neurologist Device Identifier Shelf Expiration Date Model / Serial / Lot [id number] Implanted:Qty: 1 on 11/23/2016 by Cory Cyr MD at OR [facility] Right: Eye 10/09/2020 [id number] / [id number] / Tecnis Toric Aspheric Intraocular Lens Implanted:Qty: 1 on 11/30/2016 by Cory Cyr MD at OR [facility] Left: Eye [employer] : MEDICAL OPTICS 08/05/2020 [id number] Cement Antibiotic Bone - [id number] Implanted:Qty: 2 on 08/26/2017 by Jorge Sanabria MD at OR [facility] [place] Right: Hip [employer] : ORTHOPAEDICS 03/05/2019 6197-9-0 10 / / [id number] Stem Mold Reinf Hip 9x200 - [id number] Implanted:Qty: 1 on 08/26/2017 by Jorge Sanabria MD at OR [facility] [place] Right: Hip [employer] 05/05/2021 [id number] / / [id number] Screw Periarticular 6.5mm X 50 - [id number] Implanted:Qty: 1 on 08/26/2017 by Jorge Sanabria MD at OR [facility] [place] B[employer]ANNE [employer] 00-2347- 025-50 / / Screw Bone 6.5x35 - [id number] Implanted:Qty: 1 on 11/11/2017 by Jorge Sanabria MD at OR [facility] [place] Right: Hip [employer] 09/05/2027-6250- 065-35 / / Screw Bone 6.5x20 - [id number] Implanted:Qty: 1 on 11/11/2017 by Jorge Sanabria MD at OR [facility] [place] Right: Hip [employer] 07/06/2026-6250- 065-20 / / [id number] Hip Hd Nk Alumina Mod D 36/ 5 - [id number] Implanted:Qty: 1 on 11/11/2017 by Jorge Sanabria MD at OR [facility] [place] Right: Hip [employer] : ORTHOPAEDICS 06/08/2022 6570-0-0 36 / / [id number] Hip Hd Nk Alumina Mod D 36/+5 - [id number] Implanted:Qty: 1 on 11/11/2017 by Jorge Sanabria MD at OR [facility] [place] Right: Hip [employer] : ORTHOPAEDICS 02/26/2022 6570-0-2 36 / / [id number] Hip S Mod Conical Dis 87p519 - [id number] Implanted:Qty: 1 on 11/11/2017 by Jorge Sanabria MD at OR [facility] [place] Right: Hip [employer] : ORTHOPAEDICS 03/15/2021 6276-7-0 15 / / [id number] Shell Multihole Contin 62nn - [id number] Implanted:Qty: 1 on 11/11/2017 by Jorge Sanabria MD at OR [facility] [place] Right: Hip [employer] 10/06/2027 00-8757- 062-02 / / [id number] Continuum Trilogy It Allofit It Acetabular Systems Longevity Highly Crosslinked Polyethylene Oblique Liner 36mm Id Implanted:Qty: 1 on 11/11/2017 by Jorge Sanabria MD at OR [facility] [place] Right: Hip [employer] 04/05/2022 00-8755- 015-36 / / [id number] Screw Bone 6.5x40 - [id number] Implanted:Qty: 1 on 11/11/2017 by Jorge Sanabria MD at OR [facility] [place] Right: Hip [employer] 10/06/2027 00-6250- 065-40 / / Suture Steel 6 B&S19 M654g - [id number] Implanted:Qty: 4 on 12/13/2023 by Saji Mendiola MD at OR [facility] [place] N/A: Sternum JNJ : [employer] 07/06/2028 M654G / / [id number] Suture Steel 6 B&S19 M654g - [id number] Implanted:Qty: 4 on 12/13/2023 by Saji Mendiola MD at OR [facility] [place] N/A: Sternum JNJ : [employer] 08/05/2028 M654G / / [id number] Clip Occl Atri Flex V 50mm - [id number] Implanted:Qty: 1 on 12/13/2023 by Saji Mendiola MD at OR [facility] [place] Left: Heart ATRICURE [id number] 08/06/2026 ACHV50 / / [id number] Valve Heart Mitral Epic 33mm - [id number] - [id number] Implanted:Qty: 1 on 12/13/2023 by Saji Mendiola MD at OR [facility] [place] Left: Heart [employer] : CARDIOVASCULAR [id number] 11/10/2025 Q366-17U -00 / [id number] / [id number] documented as of this encounter Visit Diagnoses Diagnosis Valvular heart disease Endocarditis, valve unspecified, unspecified cause S/P MVR (mitral valve replacement) Heart valve replaced by other means Anticoagulation management encounter Encounter for therapeutic drug monitoring half-way current use of anticoagulant therapy documented in this encounter Advance Directives * Full Code (Latest Code Status on File) Date Activated Date Inactivated Comments 12/13/2023 12:27 PM 12/17/2023 6:16 PM This order r eflects the patients wishes and were consensually agreed upon. Question Answer Comments Discussion of Advance Directives occurred with: Patient * Full Code Date Activated Date Inactivated Comments 11/11/2017 3:17 PM 11/13/2017 9:47 PM . Question Answer Comments Discussion of Advance Directives occurred with: Not Discussed * Full Code Date Activated Date Inactivated Comments 08/26/2017 5:53 PM 08/31/2017 8:23 PM . Question Answer Comments Discussion of Advance Directives occurred with: Not Discussed * Full Code Date Activated Date Inactivated Comments 11/30/2016 11:59 AM 11/30/2016 5:58 PM This order reflects the patients wishes and were consensually agreed upon. * Full Code Date Activated Date Inactivated Comments 11/23/2016 10:15 AM 11/23/2016 4:55 PM This order reflects the patients wishes and were consensually agreed upon. Care Teams Maintenance Supervisor Electrical Relationship Specialty Start Date End Date Anamaria Abad DO [address] [facility] [place] [address] PCP - General Family Medicine 09/17/16 documented as of this encounter
--- OUTSIDE RECORDS SUMMARY | 2024-03-19 16:03 | External Medical Summary | Summary of Care ---
Author Name Unknown Organization [facility] Address [address] [facility] [place] [address] Phone [phone] Care Team Providers Care Printed Circuit Boards Laminator Name Role Phone Anamaria Abad DO Primary Care Provider Reason for Visit * Reason Comments Dosage Adjustment Via Phone (anticoag Cl inic) Encounter Details Date Type Department Care Team (Latest Contact Info) Description 03/06/2024 6:00 AM EDT Anticoagulation Pharmacy, [place] [address] [place] [address] [facility] [address] [place] [address] Anticoagulation management encounter*; Valvular heart disease; S/P MVR (mitral valve replacement); Atrial fibrillation, unspecified type (HCC); Nonrheumatic mitral valve regurgitation Allergies Active Allergy Reactions Criticality Noted Date Comments Vancomycin Hcl In Nacl Rash 10/13/2017 Red painful rash itching documented as of this encounter (statuses as of 03/06/2024) Medications Medication Sig Dispensed Refills Start Date [...] as of this encounter (statuses as of 03/06/2024) Active Problems Problem Noted Date Diagnosed Date Anticoagulation management encounter 01/03/2024 Atrial fibrillation, unspecified type 01/03/2024 Heart failure 12/31/2023 Medical marijuana use 12/13/2023 Valvular heart disease 12/13/2023 S/P MVR (mitral valve replacement) 12/13/2023 Nonrheumatic mitral valve regurgitation 11/17/19 24 Atrial fibrillation 10/22/2023 Current mild episode of [...] as of this encounter (statuses as of 03/06/2024) Resolved Problems Problem Noted Date Diagnosed Date Resolved Date 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 Sepsis 08/26/2017 08/21/2019 Septic hip 08/23/2017 08/21/2019 Mitral valve prolapse 05/01/20132013 Overview: Sees [facility] Cards Routine general medical exam ination at a health care facility 12/26/2012 08/21/2019 Overview: NEED CPE, prioritize prob Urinary frequency 03/31/2006 12/26/2012 Sebaceous cyst 12/10/2003 12/26/2012 documented as of this encounter (statuses as of 03/06/2024) Immunizations Name Administration Dates Next Due Seasonal [...] (15 years old or older) No 12/13/19 24 Cognitive Status Response Date of Assessm ent Because of a physical, menta l, or emotional condition, do you have serious difficulty concentrating, remembering, or making decisions? (5 years old or older) No 12/13/2023 documented as of this encounter Progress Notes * Liz Yusuf, [facility] - 03/06/2024 12:58 PM EDT Images from the original note were not included. Medication Therapy Disease Management - Anticoagulation Patient: Janet Borges | : 1960 Subjective Contacts Type Contact Phone/Fax 03/06/2024 12:59 PM EDT Phone (Outgoing) Janet Borges (Self) [phone] (M) Spoke to Patient Patient-Reported Symptoms: Patient Findings Positives: Change in diet/appetite (eating more overall) Negatives: Signs/symptoms of thrombosis, Signs/symptoms of bleeding, Change in health, Change in alcohol use, Change in activity, Upcoming invasive procedure, Missed doses, Extra doses, Change in medications, Bruising Objective Current Warfarin Dose As of 03/06/2024 Warfarin maintenance plan: 2.5 mg (2.5 mg x 1) every Kirsten; 1.25 mg (2.5 mg x 0.5) all other days INR Result As of 03/06/2024 INR goal: 2.0-3.0 INR used for dosin.3 (03/03/2024) Assessment & Plan Warfarin Plan As of 03/06/2024 Full warfarin instructions: 03/06: 3.75 mg; 03/07: 2.5 mg; Otherwise 2.5 mg every Kirsten; 1.25 mg all other days Next INR check: 03/20/2024 Repeat PT/INR in 2 week(s) Weekly dose: not changed- plan to get back on eliquis Additional Dosing Information: Description Patient on Eliquis ROD PILER - knows she should use warfarin for the next 3 months because of her new mitral valve, then she may switch back. Liz Yusuf [facility] Clinical Pharmacist 03/06/2024, 1:05 PM documented in this encounter Plan of Treatment Upcoming Encounters Date Type Department Care Team (Late st Contact Info) Description 03/20/2024 9:40 AM EDT [facility] [address] [place] [address] [facility] [address] [place] [address] 04/27/2024 9:50 AM EDT Office Visit [address] [place] [phone] Anamaria Abad, DO [address] [place] [address] 07/10/2024 9:50 AM EST Office Visit [place] [address] [place] [phone] Anamaria Abad, DO [address] [place] [address] Scheduled Procedures Name Priority Associated Diagnoses Date/Ti [...] Additional history exists Influenza Vaccine (FLU shot) (#1) 2024 09/10/2022, 06/26/2020, 08/21/2019 Mammogram 02/06/2025 02/07/2024, [...] this encounter Medical Devices Implanted Type Area Employment Security Officer Device Identifier Shelf Expiration Date Model / Serial / Lot [id number] 17.5 Implanted:Qty: 1 on 11/23/2016 by Cory Cyr MD at OR [facility] Right: Eye 10/09/2020 [id number] / [id number] / Tecnis Toric Aspheric Intraocular Lens Implanted:Qty: 1 on 11/30/2016 by Cory Cyr MD at OR [facility] Left: Eye [employer] : MEDICAL OPTICS 08/05/2020 [id number] Cement Antibiotic Bone - [id number] Implanted:Qty: 2 on 08/26/2017 by Jorge Sanabria MD at OR [facility] [place] Right: Hip [employer] : ORTHOPAEDICS 03/05/2019 6197-9-0 10 / / [id number] Stem Mold Reinf Hip 9x200 - [id number] Implanted:Qty: 1 on 08/26/2017 by Jorge Sanabria MD at OR [facility] [place] Right: Hip [employer] 05/05/2021 [id number] / / [id number] Screw Periarticular 6.5mm X 50 - [id number] Implanted:Qty: 1 on 08/26/2017 by Jorge Sanabria MD at OR [facility] [place] [employer] 00-2347- 025-50 / / Screw Bone 6.5x35 - [id number] Implanted:Qty: 1 on 11/11/2017 by Jorge Sanabria MD at OR [facility] [place] Right: Hip [employer] 09/05/2027 00-6250- 065-35 / / Screw Bone 6.5x20 - [id number] Implanted:Qty: 1 on 11/11/2017 by Jorge Sanabria MD at OR [facility] [place] Right: Hip [employer] 07/06/2026 00-6250- 065-20 / / [id number] Hip Hd Nk Alumina Mod D 36/ 5 - [id number] Implanted:Qty: 1 on 11/11/2017 by Jorge Sanabria MD at OR [facility] [place] Right: Hip [employer] : ORTHOPAEDICS 06/08/2022 6570-0-0 36 / / [id number] Hip Hd Nk Alumina Mod D 36/+5 - [id number] Implanted:Qty: 1 on 11/11/2017 by Jorge Sanabria MD at OR [facility] [place] Right: Hip [employer] : ORTHOPAEDICS 02/26/2022 6570-0-2 36 / / [id number] Hip S Mod Conical Dis 04o055 - [id number] Implanted:Qty: 1 on 11/11/2017 by Jorge Sanabria MD at OR [facility] [place] Right: Hip [employer] : ORTHOPAEDICS 03/15/2021 6276-7-0 15 / / [id number] Shell Multihole Contin 62nn - [id number] Implanted:Qty: 1 on 11/11/2017 by Jorge Sanabria MD at OR [facility] [place] Right: Hip [employer] 10/06/2027 00-8757- 062-02 / / [id number] Continuum Trilogy It Allofit It Acetabular Systems Longevity Highly Crosslinked Polyethylene Oblique Liner 36mm Id Implanted:Qty: 1 on 11/11/2017 by Jorge Sanabria MD at OR [facility] [place] Right: Hip [employer] 04/05/2022-8755- 015-36 / / [id number] Screw Bone 6.5x40 - [id number] Implanted:Qty: 1 on 11/11/2017 by Jorge Sanabria MD at OR [facility] [place] Right: Hip [employer] 10/06/2027-6250- 065-40 / / Suture Steel 6 B&S19 M654g - [id number] Implanted:Qty: 4 on 12/13/2023 by Saji Mendiola MD at OR [facility] [place] N/A: Sternum JNJ : [employer] 07/06/2028 M654G / / TMMESU Suture Steel 6 B&S19 M654g - [id number] Implanted:Qty: 4 on 12/13/2023 by Saji Mendiola MD at OR [facility] [place] N/A: Sternum JNJ : [employer] 08/05/2028 M654G / / [id number] Clip Occl Atri Flex V 50mm - [id number] Implanted:Qty: 1 on 12/13/2023 by Saji Mendiola MD at OR [facility] [place] Left: Heart ATRICURE [id number] 08/06/2026 ACHV50 / / [id number] Valve Heart Mitral Epic 33mm - [id number] - [id number] Implanted:Qty: 1 on 12/13/2023 by Saji Mendiola MD at [facility] Left: Heart [facility] : CARDIOVASCULAR [id number] 11/10/2025 B212-06P -00 / [id number] documented as of this encounter Visit Diagnoses Diagnosis Anticoagulation management encounter- Primary Encounter for therapeutic drug monitoring Valvular heart disease Endocarditis, valve unspecified, unspecified cause S/P MVR (mitral valve replacement) Heart valve replaced by other means Atrial fibrillation, unspecified type (HCC) Nonrheumatic mitral valve regurgitation documented in this encounter Advance Directives * [...] and were consensually agreed upon. Care Teams Printed Circuit Boards Laminator Relationship Specialty Start Date End Date Anamaria Abad DO [address] [facility] [place] [address] PCP - General Family Medicine 09/17/16 documented as of this encounter"
--- OUTSIDE RECORDS SUMMARY | 2024-03-19 16:03 | External Medical Summary ---
Author Name Unknown Address Unknown Organization K01:[facility] [place] [facility] [place] [address] Laboratory Report Ordering Provider Test Date Status MARINO FRAGOSOKiarra 03/03/2024 15:53:57 Final PT/INR- please obtain 12/05 01/27 (as long as patient is discharged)
Dx:(Z95.2) S/P MVR (mitral valve replacement) (primary encounter diagnosis)
(I38) Valvular heart disease
(Z51.81, Z79.01) Anticoagulation management encounter
(Z79.01) snf current use of anticoagulant therapy
[facility] \[id number]

Please call results into or fax to [phone]

Warfarin Therapy
INR: 2.0-3.0 conventional anticoagulation
INR: 2.5-3.5 high intensity anticoagulation Observation Date Value Abnormality Reference (Units ) Status PT 03/03/2024 15:53:57 16.3 Above high normal 11 .6-15.2 (seconds) Final INR 03/03/2024 15:53:57 1.3 Above high normal 0. 8-1.2 Final Performing Location [facility] [place] [address] [place] [address]
--- OUTSIDE RECORDS SUMMARY | 2024-03-19 16:03 | External Medical Summary ---
Author Name Unknown Address Unknown Organization : Laboratory Report Ordering Provider Test Date Status LUCIA FRAGOSO 02/04/2024 14:51:56 Final Therapeutic ranges for non-o perative patients:
Prophylaxsis/treatment of DVT: (Range:2.0-3.0)
Treatment of pulmonary embolism:(Range:2.0-3.0)
Prevention of systemic embolism from:
-tissue heart valves
-acute myocardial infarction
-valvular heart disease
-atrial fibrillation
(Range: 2.0-3.0)
Mechanical prosthetic valves: (Range: 2.5-3.5) Observation Date Value Abnormality Reference (Units ) Status INR in Capillary blood by Coagulation assay 02/04/2024 14:51:56 2.3 (INR) Final Performing Location
--- OUTSIDE RECORDS SUMMARY | 2024-03-19 16:03 | External Medical Summary | Summary of Care ---
Author Name Unknown Organization [facility] Address [address] [place] [address] Phone [phone] Care Team Providers Care Analyst Geochemical Prospecting Name Role Phone Anamaria Abad DO Primary Care Provider Reason for Visit * Reason Onset Date Comments Other 02/24/2024 Needs letter for dentist Encounter Details Date Type Department Care Team (Late st Contact Info) Description 02/24/2024 Telephone Cardiothoracic Surg [facility] [address], [place] [phone] Sergio Marquez MD [address], [place] [id number] Other (Needs letter for dentist ) Allergies Active Allergy Reactions Criticality Noted Date Comments Vancomycin Hcl In Nacl Rash 10/13/2017 Red painful rash itching documented as of this encounter (statuses as of 03/14/2024) Medications Medication Sig Dispensed Refills Start Date [...] as of this encounter (statuses as of 03/14/2024) Active Problems Problem Noted Date Diagnosed Date [...] as of this encounter (statuses as of 03/14/2024) Resolved Problems Problem Noted Date Diagnosed Date Resolved Date 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 Sepsis 08/26/2017 08/21/2019 Septic hip 08/23/2017 08/21/2019 Mitral valve prolapse 05/01/20132013 Overview: Sees [facility] Cards Routine general medical exam ination at a health care facility 12/26/2012 08/21/2019 Overview: NEED CPE, prioritize prob Urinary frequency 03/31/2006 12/26/2012 Sebaceous cyst 12/10/2003 12/26/2012 documented as of this encounter (statuses as of 03/14/2024) Immunizations Name Administration Dates Next Due Seasonal Influenza, PF, 6 M & above, IM , (FluLaval or Fluzone) 09/10/2022,06/26/2020,08/21/2019 TDAP, Age 7 and older, IM (Adacel) 06/05/2009 Zoster Vaccine Recombinant (Shingrix) 09/02/2020 03/03/2021 documented as of this encounter Social History Tobacco Use Types Packs/Day Years Used Date Smoking Tobacco: Former Cigarettes 0.5 10 1 617 - 1986 Passive Smoke Exposure: Past Smokeless Tobacco: Never Comments:quit early 80s Alcohol Use Standard Drinks/Week Comments Yes 0 [...] No 12/13/2023 documented as of this encounter Miscellaneous Notes * Telephone Encounter - Sidney Damian OSA - 03/14/2024 11:08 AM EDT Letter faxed, signed & scanned on 02.24. Sidney Damian 03/14/2024,11:08 AM * Telephone Encounter - Sidney Damian OSA - 02/25/2024 10:32 AM EDT Letter typed and awaiting signature. Sidney Damian 02/25/2024,10:32 AM * Telephone Encounter - Stephanie Collier CRNP - 02/25/2024 9:38 AM EDT We usually recommend waiting 3 months after valve replacement surgery for any non- urgent dental work, but just a cleaning should be k as she is very close to the 3 months. She will need dental prophylaxis, 2G single dose amoxicillin, 30- 60 mins prior to the procedure. Script usually given by dentist or tool room lathe operator Fax may say: "Janet Borges is cleared to have dental cleaning. We would recommend 2G single dose amoxicillin, 30-60 mins prior to the procedure, for all dental work where gum manipulation is present". * Telephone Encounter - Sidney Damian OSA - 02/24/2024 2:56 PM EDT [facility] [place] or [place], Has this been addressed? Sidney Damian 02/24/2024,2:56 PM * Telephone Encounter - Milly Szymanski OSA - 02/24/2024 1:55 PM EDT Person calling: Janet Relationship to patient: self Number to return call: [phone] Reason for call (please describe): other Genna Colby, Danae & Sidney, The patient called this PM. She has an appointment to see Dr. Garrison on 03/01/24 for a cleaning. The doctor would like a letter faxed to him that the patient is OK to have a cleaning done. Dr. Garrison She would appreciate to have the letter done and faxed OBINNA. Thank you, MANNY Gonzalez 02/24/2024, 1:57 PM documented in this encounter Plan of Treatment Upcoming Encounters Date Type Department Care Team (Late st Contact Info) Description 03/20/2024 9:40 AM EDT [address] [address] [place] [facility] [place] [facility] [place] [address] 04/27/2024 9:50 AM EDT Office [address], [place] [phone] Anamaria Abad DO [address] [place] [facility] [address] 07/10/2024 9:50 AM EST Office Visit [facility] [place] [address] [facility] [phone] Anamaria Abad DO [address] [place] [facility] [place] [facility] [address] Scheduled Procedures Name Priority Associated Diagnoses Date/Ti [...] 09/02/2020 COVID-19 Vaccine Completed 06/19/2023, , 11/08/2020 HPV (Gardasil) Vaccine Aged Out No lo nger eligible based on patient's age to complete this topic Hepatitis B Vaccine Aged Out No longe r eligible based on patient's age to complete this topic MENINGOCOCCAL (MENACTRA/MENVEO) Aged Out No longer eligible based on patient's age to complete this topic Pneumococcal Vaccine: Pediatrics (0 to 5 Years) and At-Risk Patients (6 to 64 Years) Aged Out No longer eligible based on patient's age to complete this topic documented as of this encounter Medical Devices Implanted Type Area Research And Development Specialist Device Identifier Shelf Expiration Date Model / Serial / Lot [id number] Implanted:Qty: 1 on 11/23/2016 by Cory Cyr MD at OR [facility] Right: Eye 10/09/2020 [id number] / [id number] / Tecnis Toric Aspheric Intraocular Lens Implanted:Qty: 1 on 11/30/2016 by Cory Cyr MD at OR [facility] Left: Eye [employer] : MEDICAL OPTICS 08/05/2020 [id number] Cement Antibiotic Bone - [id number] Implanted:Qty: 2 on 08/26/2017 by Jorge Sanabria MD at [place] [facility] Right: Hip [employer] : ORTHOPAEDICS 03/05/2019 6197-9-0 10 / / [id number] Stem Mold Reinf Hip 9x200 - [id number] Implanted:Qty: 1 on 08/26/2017 by Jorge Sanabria MD at [place] [facility] Right: Hip [employer] 05/05/2021 [id number] / / [id number] Screw Periarticular 6.5mm X 50 - [id number] Implanted:Qty: 1 on 08/26/2017 by Jorge Sanabria MD at [place] [facility] [employer] 00-2347- 025-50 / / Screw Bone 6.5x35 - [id number] Implanted:Qty: 1 on 11/11/2017 by Jorge Sanabria MD at [place] [facility] Right: Hip [employer] 09/05/2027 00-6250- 065-35 / / Screw Bone 6.5x20 - [id number] Implanted:Qty: 1 on 11/11/2017 by Jorge Sanabria MD at OR [facility] Right: Hip [employer] 07/06/2026-6250- 065-20 / / [id number] Hip Hd Nk Alumina Mod D 36/ 5 - [id number] Implanted:Qty: 1 on 11/11/2017 by Jorge Sanabria MD at [place] [facility] Right: Hip [employer] : ORTHOPAEDICS 06/08/2022 6570-0-0 36 / / [id number] Hip Hd Nk Alumina Mod D 36/+5 - [id number] Implanted:Qty: 1 on 11/11/2017 by Jorge Sanabria MD at [place] [facility] Right: Hip [employer] : ORTHOPAEDICS 02/26/2022 6570-0-2 36 / / [id number] Hip S Mod Conical Dis 74v029 - [id number] Implanted:Qty: 1 on 11/11/2017 by Jorge Sanabria MD at [place] [facility] Right: Hip [employer] : ORTHOPAEDICS 03/15/2021 6276-7-0 15 / / [id number] Shell Multihole Contin 62nn - [id number] Implanted:Qty: 1 on 11/11/2017 by Jorge Sanabria MD at [place] [facility] Right: Hip [employer] 10/06/2027-8757- 062-02 / / [id number] Continuum Trilogy It Allofit It Acetabular Systems Longevity Highly Crosslinked Polyethylene Oblique Liner 36mm Id Implanted:Qty: 1 on 11/11/2017 by Jorge Sanabria MD at OR [facility] Right: Hip [employer] 04/05/2022-8755- 015-36 / / [id number] Screw Bone 6.5x40 - [id number] Implanted:Qty: 1 on 11/11/2017 by Jorge Sanabria MD at [place] [facility] Right: Hip [employer] 10/06/2027-6250- 065-40 / / Suture Steel 6 B&S19 M654g - [id number] Implanted:Qty: 4 on 12/13/2023 by Saji Mendiola MD at OR [facility] N/A: Sternum JNJ : [employer] 07/06/2028 M654G / / TMMESU Suture Steel 6 B&S19 M654g - [id number] Implanted:Qty: 4 on 12/13/2023 by Saji Mendiola MD at OR [facility] N/A: Sternum JNJ : [employer] 08/05/2028 M654G / / [id number] Clip Occl Atri Flex V 50mm - [id number] Implanted:Qty: 1 on 12/13/2023 by Saji Mendiola MD at OR [facility] Left: Heart ATRICURE [id number] 08/06/2026 ACHV50 / / [id number] Valve Heart Mitral Epic 33mm - [id number] - [id number] Implanted:Qty: 1 on 12/13/2023 by Saji Mendiola MD at OR [facility] Left: Heart [employer] : CARDIOVASCULAR [id number] 11/10/2025 G795-61G -00 / [id number] / [id number] documented as of this encounter Advance Directives * Full Code [...] and were consensually agreed upon. Care Teams Analyst Geochemical Prospecting Relationship Specialty Start Date End Date Anamaria Abad DO [address] [place] [address] PCP - General Family Medicine 09/17/16 documented as of this encounter
--- OUTSIDE RECORDS SUMMARY | 2024-03-19 16:03 | External Medical Summary | Summary of Care ---
Author Name Unknown Organization [facility] Address [address] [place] [place] [place] [address] Phone [phone] Care Team Providers Care Cruise Consultant Name Role Phone Anamaria Abad DO Primary Care Provider Reason for Visit * Reason Onset Date Comments Test Results 02/16/2024 MyG Encounter Details Date Type Department Care Team (Late st Contact Info) Description 02/16/[address] [facility] [address] [place] [address] Anamaria Abad [address] [place], [place] [phone] Test Results (MyG) Allergies Active Allergy Reactions Criticality Noted Date Comments Vancomycin Hcl In Nacl Rash 10/13/2017 Red painful rash itching documented as of this encounter (statuses as of 02/16/2024) Medications Medication Sig Dispensed Refills Start Date [...] ONCE DAILY NEEDED FOR ANXIETY 30 Tablet 01/19/2024 Active documented as of this encounter (statuses as of 02/16/2024) Active Problems Problem Noted Date Diagnosed Date [...] as of this encounter (statuses as of 02/16/2024) Resolved Problems Problem Noted Date Diagnosed Date Resolved Date 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 Sepsis 08/26/2017 08/21/2019 Septic hip 08/23/2017 08/21/2019 Mitral valve prolapse 05/01/20132013 Overview: Sees [facility] Cards Routine general medical exam ination at a health care facility 12/26/2012 08/21/2019 Overview: NEED CPE, prioritize prob Urinary frequency 03/31/2006 12/26/2012 Sebaceous cyst 12/10/2003 12/26/2012 documented as of this encounter (statuses as of 02/16/2024) Immunizations Name Administration Dates Next Due Seasonal Influenza, PF, 6 M & above, IM , (FluLaval or Fluzone) 09/10/2022,06/26/2020,08/21/2019 TDAP, Age 7 and older, IM (Adacel) 06/05/2009 Zoster Vaccine Recombinant (Shingrix) 09/02/2020 03/03/2021 documented as of this encounter Social History Tobacco Use Types Packs/Day Years Used Date Smoking Tobacco: Former Cigarettes 0.5 10 1 237 - 1986 Passive Smoke Exposure: Past Smokeless [...] encounter Miscellaneous Notes * Telephone Encounter - Corrie Fox LPN - 02/16/2024 8:53 AM EDT Sent [employer] message to patient regarding message from provider. * Telephone Encounter - Corrie Fox LPN - 02/16/2024 8:53 AM EDT ----- Message from Anamaria Abad DO sent at 02/14/2024 2:40 PM EDT ----- Normal mammogram, repeat in 1 year. documented in this encounter Plan of Treatment Upcoming Encounters Date Type Department Care Team (Late st Contact Info) Description 03/03/2024 7:50 AM EDT [facility] [address] [address] [facility] [address] [address] 04/27/2024 9:50 AM EDT [facility] [place] [address] [phone] Anamaria Abad DO [address] [facility] [address] 07/10/2024 9:50 AM EST Office [facility] [address] [phone] Anamaria Abad DO [address] [facility] [address] Scheduled Procedures Name Priority Associated Diagnoses Date/Ti [...] this encounter Medical Devices Implanted Type Area Assignment Agent Device Identifier Shelf Expiration Date Model / Serial / Lot [id number] 17.5 Implanted:Qty: 1 on 11/23/2016 by Cory Cyr MD at OR [facility] Right: Eye 10/09/2020 [id number] / [id number] / Tecnis Toric Aspheric Intraocular Lens Implanted:Qty: 1 on 11/30/2016 by Cory Cyr MD at OR [facility] Left: Eye [employer] : MEDICAL OPTICS 08/05/2020 [id number] / [id number] Cement Antibiotic Bone - [id number] Implanted:Qty: 2 on 08/26/2017 by Jorge Sanabria MD at [place] [facility] Right: Hip [employer] : ORTHOPAEDICS 03/05/2019 6197-9-0 10 / / [id number] Stem Mold Reinf Hip 9x200 - [id number] Implanted:Qty: 1 on 08/26/2017 by Jorge Sanabria MD at [place] [facility] Right: Hip [employer] 05/05/2021 [id number] / / [id number] Screw Periarticular 6.5mm X 50 - [id number] Implanted:Qty: 1 on 08/26/2017 by Jorge Sanabria MD at [place] [facility] [employer] 00-2347- 025-50 / / Screw Bone 6.5x35 - [id number] Implanted:Qty: 1 on 11/11/2017 by Jorge Sanabria MD at [place] [facility] Right: Hip [employer] 09/05/2027-6250- 065-35 / / Screw Bone 6.5x20 - [id number] Implanted:Qty: 1 on 11/11/2017 by Jorge Sanabria MD at [place] [facility] Right: Hip [employer] 07/06/2026-6250- 065-20 / / [id number] Hip Hd Nk Alumina Mod D 36/ 5 - [id number] Implanted:Qty: 1 on 11/11/2017 by Jorge Sanabria MD at [place] [facility] Right: Hip [employer] : ORTHOPAEDICS 06/08/2022 6570-0-0 36 / / [id number] Hip Hd Nk Alumina Mod D 36/+5 - [id number] Implanted:Qty: 1 on 11/11/2017 by Jorge Sanabria MD at [place] [facility] Right: Hip [employer] : ORTHOPAEDICS 02/26/2022 6570-0-2 36 / / [id number] Hip S Mod Conical Dis 29n749 - [id number] Implanted:Qty: 1 on 11/11/2017 by Jorge Sanabria MD at [place] [facility] Right: Hip [employer] : ORTHOPAEDICS 03/15/2021 6276-7-0 15 / / [id number] Shell Multihole Contin 62nn - [id number] Implanted:Qty: 1 on 11/11/2017 by Jorge Sanabria MD at [place] [facility] Right: Hip [employer] 10/06/2027 00-8757- 062-02 / / [id number] Continuum Trilogy It Allofit It Acetabular Systems Longevity Highly Crosslinked Polyethylene Oblique Liner 36mm Id Implanted:Qty: 1 on 11/11/2017 by Jorge Sanabria MD at [place] [facility] Right: Hip [employer] 04/05/2022 00-8755- 015-36 / / [id number] Screw Bone 6.5x40 - [id number] Implanted:Qty: 1 on 11/11/2017 by Jorge Sanabria MD at [place] [facility] Right: Hip [employer] 10/06/2027 00-6250- 065-40 / / Suture Steel 6 B&S19 M654g - [id number] Implanted:Qty: 4 on 12/13/2023 by Saji Mendiola MD at [place] [facility] N/A: Sternum JNJ : [employer] 07/06/2028 M654G / / TMMESU Suture Steel 6 B&S19 M654g - [id number] Implanted:Qty: 4 on 12/13/2023 by Saji Mendiola MD at [place] [facility] N/A: Sternum JNJ : [employer] 08/05/2028 M654G / / TPMHKL Clip Occl Atri Flex V 50mm - [id number] Implanted:Qty: 1 on 12/13/2023 by Saji Mendiola MD at [place] [facility] Left: Heart ATRICURE [id number] 08/06/2026 ACHV50 / / [id number] Valve Heart Mitral Epic 33mm - [id number] - [id number] Implanted:Qty: 1 on 12/13/2023 by Saji Mendiola MD at [place] [facility] Left: Heart [employer] : CARDIOVASCULAR [id number] 11/10/2025 X510-28J -00 / [id number] / [id number] documented as of this encounter Advance [...] and were consensually agreed upon. Care Teams Cruise Consultant Relationship Specialty Start Date End Date Anamaria Abad DO [address] [facility] [place] [address] PCP - General Family Medicine 09/17/16 documented as of this encounter
--- OUTSIDE RECORDS SUMMARY | 2024-03-19 16:03 | External Medical Summary | Summary of Care ---
Author Name Unknown Organization [facility] Address [address] [facility] [place] [address] Phone [phone] Care Team Providers Care Director Of Counseling Name Role Phone Anamaria Abad DO Primary Care Provider Reason for Visit * Reason Comments Dosage Adjustment In Person (Anticoag Cl inic) Encounter Details Date Type Department Care Team (Latest Contact Info) Description 02/04/2024 2:50 PM EDT Anticoagulation Pharmacy, [place] [address] [place] [address] [facility] [address] [place] [address] Anticoagulation management encounter*; Valvular heart disease; S/P MVR (mitral valve replacement); Atrial fibrillation, unspecified type (HCC); Nonrheumatic mitral valve regurgitation Allergies Active Allergy Reactions Criticality Noted Date Comments Vancomycin Hcl In Nacl Rash 10/13/2017 Red painful rash itching documented as of this encounter (statuses as of 02/04/2024) Medications Medication Sig Dispensed Refills Start Date [...] as of this encounter (statuses as of 02/04/2024) Active Problems Problem Noted Date Diagnosed Date [...] as of this encounter (statuses as of 02/04/2024) Resolved Problems Problem Noted Date Diagnosed Date Resolved Date 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 Sepsis 08/26/2017 08/21/2019 Septic hip 08/23/2017 08/21/2019 Mitral valve prolapse 05/01/20132013 Overview: Sees [facility] Cards Routine general medical exam ination at a health care facility 12/26/2012 08/21/2019 Overview: NEED CPE, prioritize prob Urinary frequency 03/31/2006 12/26/2012 Sebaceous cyst 12/10/2003 12/26/2012 documented as of this encounter (statuses as of 02/04/2024) Immunizations Name Administration Dates Next Due Seasonal [...] of this encounter Progress Notes * Liz Yusuf RPh - 02/04/2024 2:49 PM EDT Medication Therapy Disease Management - Anticoagulation Patient: Janet Borges | : 1960 Subjective Patient-Reported Symptoms: Patient Findings Negatives: Signs/symptoms of thrombosis, Signs/symptoms of bleeding, Change in health, Change in alcohol use, Change in activity, Upcoming invasive procedure, Missed doses, Extra doses, Change in medications, Change in diet/appetite, Bruising Objective Current Warfarin Dose As of 02/04/2024 Warfarin maintenance plan: 2.5 mg (2.5 mg x 1) every Kirsten; 1.25 mg (2.5 mg x 0.5) all other days INR Result As of 02/04/2024 INR goal: 2.0-3.0 INR used for dosin.3 (02/04/2024) Assessment & Plan Warfarin Plan As of 02/04/2024 Full warfarin instructions: 2.5 mg every Kirsten; 1.25 mg all other days No change documented: Liz Yusuf RPh Next INR check: 03/03/2024 Repeat PT/INR in 4 week(s) Weekly dose: not changed Additional Dosing Information: Description Patient on Eliquis UPPER TRIMMER - knows she should use warfarin for the next 3 months because of her new mitral valve, then she may switch back. Liz Yusuf RPh Clinical Pharmacist 02/04/2024, 2:49 PM documented in this encounter Plan of Treatment Upcoming Encounters Date Type Department Care Team (Late st Contact Info) Description 02/07/2024 8:30 AM EDT Imaging Radiology [facility] 1st Floor, [address] [place] [address] 03/03/2024 7:50 AM EDT Anticoagulation Pharmacy, [place] [address] [facility], [place] [address] [facility] [address] [facility], [place] [address] 04/03/2024 2:00 PM EDT Telemedicine Nutrition Services [address] [place] [address] Charlotte Javier, RDN [address] [place] [address] 04/27/2024 9:50 AM EDT [facility] [place] [address] [facility] [phone] Anamaria Abad, DO [address] [facility], [place] [address] 07/10/2024 9:50 AM EST Office Visit [facility] [address] [facility], [place] [phone] Anamaria Abad, DO [address] [facility] [address] Scheduled Procedures Name Priority Associated Diagnoses Date/Ti me COLONOSCOPY FLEXIBLE PROXIMA L DIAGNOSTIC Recall Screening for malignant neoplasm of colon Health Maintenance Due Date Last Done Comments HIV Screening 1975 Hepatitis C Screening 1978 HPV/Co-Test 1990 Cologuard 2005 Fecal Occult Blood Test 2005 10/19/2000 Sigmoidoscopy 2005 DTaP,Tdap,and Td Vaccines (2 - Td or Tdap) 06/05/2019 06/05/2009 Mammogram 09/02/2021 09/02/2020, 09/06, 08/29/2019, Additional history exists Cervical Cancer Screening 06/12/2022 Pap Smear 06/12/2022 06/12/2019, 12/06, 12/29/2013, Additional history exists Influenza Vaccine (FLU shot) (Season Ended) 2024 09/10/2022, 06/26/2020, 08/21/2019 Lipid Panel 09/21/2027 09/21/2022, [...] this encounter Medical Devices Implanted Type Area Thread Roller Device Identifier Shelf Expiration Date Model / Serial / Lot [id number] 17.5 Implanted:Qty: 1 on 11/23/2016 by Cory Cyr MD at OR [facility] Right: Eye 10/09/2020 [id number] / [id number] / Tecnis Toric Aspheric Intraocular Lens Implanted:Qty: 1 on 11/30/2016 by Cory Cyr MD at OR [facility] Left: Eye [employer] : MEDICAL OPTICS 08/05/2020 [id number] Cement Antibiotic Bone - [id number] Implanted:Qty: 2 on 08/26/2017 by Jorge Sanabria MD at OR [facility] Right: Hip [employer] : ORTHOPAEDICS 03/05/2019 6197-9-0 10 / / [id number] Stem Mold Reinf Hip 9x200 - [id number] Implanted:Qty: 1 on 08/26/2017 by Jorge Sanabria MD at OR [facility] Right: Hip [employer] 05/05/2021 [id number] / / [id number] Screw Periarticular 6.5mm X 50 - [id number] Implanted:Qty: 1 on 08/26/2017 by Jorge Sanabria MD at OR [facility] [employer] 00-2347- 025-50 / / Screw Bone 6.5x35 - [id number] Implanted:Qty: 1 on 11/11/2017 by Jorge Saanbria MD at OR [facility] Right: Hip [employer] 09/05/2027-6250- 065-35 / / Screw Bone 6.5x20 - [id number] Implanted:Qty: 1 on 11/11/2017 by Jorge Sanabria MD at OR [facility] Right: Hip [employer] 07/06/2026-6250- 065-20 / / [id number] Hip Hd Nk Alumina Mod D 36/ 5 - [id number] Implanted:Qty: 1 on 11/11/2017 by Jorge Sanabria MD at OR [facility] Right: Hip [employer] : ORTHOPAEDICS 06/08/2022 6570-0-0 36 / / [id number] Hip Hd Nk Alumina Mod D 36/+5 - [id number] Implanted:Qty: 1 on 11/11/2017 by Jorge Sanabria MD at OR [facility] Right: Hip [employer] : ORTHOPAEDICS 02/26/2022 6570-0-2 36 / / [id number] Hip S Mod Conical Dis 09a753 - [id number] Implanted:Qty: 1 on 11/11/2017 by Jorge Sanabria MD at OR [facility] Right: Hip [employer] : ORTHOPAEDICS 03/15/2021 6276-7-0 15 / / [id number] Shell Multihole Contin 62nn - [id number] Implanted:Qty: 1 on 11/11/2017 by Jorge Sanabria MD at OR [facility] Right: Hip [employer] 10/06/2027 00-8757- 062-02 / / [id number] Continuum Trilogy It Allofit It Acetabular Systems Longevity Highly Crosslinked Polyethylene Oblique Liner 36mm Id Implanted:Qty: 1 on 11/11/2017 by Jorge Sanabria MD at OR [facility] Right: Hip [employer] 04/05/2022 00-8755- 015-36 / / [id number] Screw Bone 6.5x40 - [id number] Implanted:Qty: 1 on 11/11/2017 by Jorge Sanabria MD at OR [facility] Right: Hip [employer] 10/06/2027 00-6250- 065-40 / / Suture Steel 6 B&S19 M654g - [id number] Implanted:Qty: 4 on 12/13/2023 by Saji Mendiola MD at OR [facility] N/A: Sternum JNJ : [employer] 07/06/2028 M654G / / TMMESU Suture Steel 6 B&S19 M654g - [id number] Implanted:Qty: 4 on 12/13/2023 by Saji Mendiola MD at OR [facility] N/A: Sternum JNJ : [employer] 08/05/2028 M654G / / [id number] Clip Occl Atri Flex V 50mm - [id number] Implanted:Qty: 1 on 12/13/2023 by Saji Mendiola MD at OR [facility] Left: Heart ATRICURE [id number] 08/06/2026 ACHV50 / / [id number] Valve Heart Mitral Epic 33mm - [id number] - [id number] Implanted:Qty: 1 on 12/13/2023 by Saji Mendiola MD at OR [facility] Left: Heart [facility] : CARDIOVASCULAR [id number] 11/10/2025 L661-43W - [id number] documented as of this encounter Procedures Procedure Name Priority Date/Time Associated Diagnosis Comments INR FINGERSTICK, POINT OF CARE Routine 02/04/2024 2:51 PM EDT Valvular heart disease S/P MVR (mitral valve replacement) Anticoagulation management encounter Atrial fibrillation, unspecified type (HCC) Nonrheumatic mitral valve regurgitation documented in this encounter Results * INR FINGERSTICK, POINT OF CARE (02/04/2024 2:51 PM EDT) Fingerstick INR 2.3 INR 2:53 PM EDT [facility] Blood 02/04/2024 2:51 PM EDT 02/04/2024 2:53 PM EDT Narrative [facility] - 02/04/2024 2:53 PM EDT Therapeutic ranges for non-operative patients: Prophylaxsis/treatment of DVT: (Range:2.0-3.0) Treatment of pulmonary embolism:(Range:2.0-3.0) Prevention of systemic embolism from: -tissue heart valves -acute myocardial infarction -valvular heart disease -atrial fibrillation (Range: 2.0-3.0) Mechanical prosthetic valves: (Range: 2.5-3.5) Liz Yusuf [facility] POINT OF CARE TEST DOCKED DEVICE UNSOLICITED RESULTS [place] [address] [address] [place] [address] documented in this encounter Visit Diagnoses Diagnosis Anticoagulation management [...] and were consensually agreed upon. Care Teams Director Of Counseling Relationship Specialty Start Date End Date Anamaria Abad DO [address] [place] [address] PCP - General Family Medicine 09/17/16 documented as of this encounter"
--- OUTSIDE RECORDS SUMMARY | 2024-03-19 16:03 | External Medical Summary | Summary of Care ---
Author Name Unknown Organization [facility] Address [address] [place] [address] Phone [phone] Care Team Providers Care Rv Servicer Name Role Phone Anamaria Abad DO Primary Care Provider Reason for Visit * Reason Onset Date Comments Health Maintenance 02/01/2024 Encounter Details Date Type Department Care Team (Late st Contact Info) Description 02/01/2024 Telephone [facility] [address] [place] [address] Anamaria Abad DO [address] [place], [place] [phone] Health Maintenance Allergies Active Allergy Reactions Criticality Noted Date Comments Vancomycin Hcl In Nacl Rash 10/13/2017 Red painful rash itching documented as of this encounter (statuses as of 02/01/2024) Medications Medication Sig Dispensed Refills Start Date [...] as of this encounter (statuses as of 02/01/2024) Active Problems Problem Noted Date Diagnosed Date [...] as of this encounter (statuses as of 02/01/2024) Resolved Problems Problem Noted Date Diagnosed Date Resolved Date 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 Sepsis 08/26/2017 08/21/2019 Septic hip 08/23/2017 08/21/2019 Mitral valve prolapse 05/01/20132013 Overview: Sees [facility] Cards Routine general medical exam ination at a health care facility 12/26/2012 08/21/2019 Overview: NEED CPE, prioritize prob Urinary frequency 03/31/2006 12/26/2012 Sebaceous cyst 12/10/2003 12/26/2012 documented as of this encounter (statuses as of 02/01/2024) Immunizations Name Administration Dates Next Due Seasonal [...] encounter Miscellaneous Notes * Telephone Encounter - Annie Freeman LPN - 02/01/2024 1:33 PM EDT Care Gaps Comprehensive Care Outreach Last Office/Telemedicine Visit: 12/31/2023 (in office), 07/10/2021 (telemedicine) Next Office Visit: 04/27/2024 Hemoglobin AIC Results: Lab Results Component Value Date/Time HEMOGLOBIN A1C - [facility] 5.4 11/29/2023 11:26 AM HEMOGLOBIN A1C - [facility] 4.8 10/13/2017 04:04 PM BP Readings from Last 1 Encounters: 01/26/24 110/88 Reviewed Health Maintenance below: Health Maintenance Topic Date Due HIV Screening Never done Hepatitis C Screening Never done DTaP,Tdap,and Td Vaccines (2 - Td or Tdap) 06/05/2019 Mammogram 09/02/2021 Cervical Cancer Screening 06/12/2022 Mamm scheduled pap Care Gap Outreach Action Taken: Spoke to patient documented in this encounter Plan of Treatment Upcoming Encounters Date Type Department Care Team (Late st Contact Info) Description 02/04/2024 2:50 PM EDT [facility], [place] [address] [facility] [address] [place] [facility] [address] [facility] [address] 02/07/2024 8:30 AM EDT Imaging Radiology [facility] [address] [facility] [place] [address] [facility] [place] [address] 04/03/2024 2:00 PM EDT Telemedicine Nutrition Services [address] [place] [address] Charlotte Javier, RDN [address] [place] [address] 04/27/2024 9:50 AM EDT Office Visit [facility] [address] [facility], [place] [phone] Anamaria Abad, DO [address] [facility], [place] [phone] 07/10/2024 9:50 AM EST Office Visit [facility] [address] [facility], [place] [address] Anamaria Abad, DO [address] [facility], [place] [phone] Scheduled Orders Name Type Priority Associated Diagnoses Orde r Schedule MAMMOGRAM SCREENING RADHA BILATERAL Medical Imaging Routine Encounter for screening mammogram for malignant neoplasm of breast Expected: 02/01/2024, Expires: 03/03/2025 Scheduled Procedures Name Priority Associated Diagnoses Date/Ti [...] this encounter Medical Devices Implanted Type Area Gasoline Pump Installer Device Identifier Shelf Expiration Date Model / Serial / Lot [id number] 17.5 Implanted:Qty: 1 on 11/23/2016 by Cory Cyr MD at OR [facility] Right: Eye 10/09/2020 [id number] / [id number] / Tecnis Toric Aspheric Intraocular Lens Implanted:Qty: 1 on 11/30/2016 by Cory Cyr MD at OR [facility] Left: Eye [employer] : MEDICAL OPTICS 08/05/2020 [id number] / [id number] / [id number] Cement Antibiotic Bone - [id number] Implanted:Qty: 2 on 08/26/2017 by Jorge Sanabria MD [place] [facility] [place]: Hip [employer] : ORTHOPAEDICS 03/05/2019 6197-9-0 10 / / [id number] Stem Mold Reinf Hip 9x200 - [id number] Implanted:Qty: 1 on 08/26/2017 by Jorge Sanabria MD [place] [facility] Right: Hip [employer] 05/05/2021 [id number] / / [id number] Screw Periarticular 6.5mm X 50 - [id number] Implanted:Qty: 1 on 08/26/2017 by Jorge Sanabria MD [place] [facility] [employer] 00-2347- 025-50 / / Screw Bone 6.5x35 - [id number] Implanted:Qty: 1 on 11/11/2017 by Jorge Sanabria MD [place] [facility] Right: Hip [employer] 09/05/2027-6250- 065-35 / / Screw Bone 6.5x20 - [id number] Implanted:Qty: 1 on 11/11/2017 by Jorge Sanabria MD [place] [facility] Right: Hip [employer] 07/06/20266250- 065-20 / / [id number] Hip Hd Nk Alumina Mod D 36/ 5 - [id number] Implanted:Qty: 1 on 11/11/2017 by Jorge Sanabria MD [place] [facility] Right: Hip [employer] : ORTHOPAEDICS 06/08/2022 6570-0-0 36 / / [id number] Hip Hd Nk Alumina Mod D 36/+5 - [id number] Implanted:Qty: 1 on 11/11/2017 by Jorge Sanabria MD at [place] [facility] Right: Hip [employer] : ORTHOPAEDICS 02/26/2022 6570-0-2 36 / / [id number] Hip S Mod Conical Dis 78l637 - [id number] Implanted:Qty: 1 on 11/11/2017 by Jorge Sanabria MD [place] [facility] Right: Hip [employer] : ORTHOPAEDICS 03/15/2021 6276-7-0 15 / / [id number] Shell Multihole Contin 62nn - [id number] Implanted:Qty: 1 on 11/11/2017 by Jorge Sanabria MD [place] [facility] Right: Hip [employer] 10/06/2027-8757- 062-02 / / [id number] Continuum Trilogy It Allofit It Acetabular Systems Longevity Highly Crosslinked Polyethylene Oblique Liner 36mm Id Implanted:Qty: 1 on 11/11/2017 by Jorge Sanabria MD at [place] [facility] Right: Hip [employer] 04/05/2022-8755- 015-36 / / [id number] Screw Bone 6.5x40 - [id number] Implanted:Qty: 1 on 11/11/2017 by Jorge Sanabria MD [place] [facility] Right: Hip [employer] 10/06/2027 00-6250- 065-40 / / Suture Steel 6 B&S19 M654g - [id number] Implanted:Qty: 4 on 12/13/2023 by Saji Mendiola MD [place] [facility] N/A: Sternum JNJ : [employer] 07/06/2028 M654G / / TMMESU Suture Steel 6 B&S19 M654g - [id number] Implanted:Qty: 4 on 12/13/2023 by Saji Mendiola MD at [place] [facility] N/A: Sternum [employer]NJ : [employer] 08/05/2028 M654G / / [id number] Clip Occl Atri Flex V 50mm - [id number] Implanted:Qty: 1 on 12/13/2023 by Saji Mendiola MD at [place] [facility] Left: Heart ATRICURE [id number] 08/06/2026 ACHV50 / / [id number] Valve Heart Mitral Epic 33mm - [id number] - [id number] Implanted:Qty: 1 on 12/13/2023 by Saji Mendiola MD [place] [facility] Left: Heart [facility] : CARDIOVASCULAR [id number] 11/10/2025 I482-76E -00 / [id number] / [id number] documented as of this encounter Visit Diagnoses Diagnosis Encounter for screening mammogram for malignant neoplasm of breast- Primary Other screening mammogram documented in this encounter Advance Directives * [...] and were consensually agreed upon. Care Teams Rv Servicer Relationship Specialty Start Date End Date Anamaria Abad DO [address] [place] [address] PCP - General Family Medicine 09/17/16 documented as of this encounter
--- OUTSIDE RECORDS SUMMARY | 2024-03-19 16:03 | External Medical Summary | Summary of Care ---
Author Name Unknown Organization [facility] Address [address] [facility] [place] [address] Phone [phone] Care Team Providers Care Stone Decorator Name Role Phone Mingo Butt Primary Care Provider [phone] Encounter Details Date Type Department Care Team (Latest Contact Info) Description 01/12/2012 4:30 PM EDT - 01/12/2012 11:59 PM EDT Hospital Encounter Radiology Film File [address], [place] [id number] Discharge Disposition: Home - Self Care Allergies Active Allergy Reactions Criticality Noted Date Comments Vancomycin Hcl In Nacl Rash 10/13/2017 Red painful rash itching documented as of this encounter (statuses as of 02/11/2024) Medications No known medicationsdocumented as of this encounter (statuses as of 02/11/2024) Active Problems Problem Noted Date Diagnosed Date [...] as of this encounter (statuses as of 02/11/2024) Resolved Problems Problem Noted Date Diagnosed Date Resolved Date 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 Sepsis 08/26/2017 08/21/2019 Septic hip 08/23/2017 08/21/2019 Mitral valve prolapse 05/01/20132013 Overview: Sees [facility] Cards Routine general medical exam ination at a health care facility 12/26/2012 08/21/2019 Overview: NEED CPE, prioritize prob Urinary frequency 03/31/2006 12/26/2012 Sebaceous cyst 12/10/2003 12/26/2012 documented as of this encounter (statuses as of 02/11/2024) Immunizations Name Administration Dates Next Due TDAP, Age 7 and older, IM (Adacel) 06/05/2009 documented as of this encounter Social History Tobacco Use Types Packs/Day Years Used Date Smoking Tobacco: Former Smokeless Tobacco: Never Comments:quit early 80's Alcohol [...] on file documented as of this encounter Plan of Treatment Upcoming Encounters Date Type Department Care Team (Late st Contact Info) Description 03/03/2024 7:50 AM EDT Anticoagulation Pharmacy, [place] [address] [facility] [place] [address] [facility] [address] [facility] [place] [address] 04/03/2024 2:00 PM EDT Telemedicine Nutrition Services [address] [facility][1] [place] [address] Charlotte Javier, RDN [address] [place] [address] 04/27/2024 9:50 AM EDT Office Visit [place] [address] [facility] [place] [phone] Anamaria Abad, DO [address] [facility] [place] [address] 07/10/2024 9:50 AM EST Office [facility] [address] [facility] [phone] Anamaria Abad, DO [address] [facility], [place] [address] Scheduled Procedures Name Priority Associated Diagnoses Date/Ti me COLONOSCOPY FLEXIBLE PROXIMA L DIAGNOSTIC Recall Screening for malignant neoplasm of colon Health Maintenance Due Date Last Done Comments HIV Screening 1975 Hepatitis C Screening 1978 HPV/Co-Test 1990 Cologuard 2005 Fecal Occult Blood Test 2005 10/19/2000 Sigmoidoscopy 2005 DTaP,Tdap,and Td Vaccines (2 - Td or Tdap) 06/05/2019 06/05/2009 Cervical Cancer Screening 06/12/2022 Pap Smear 06/12/2022 [...] this encounter Medical Devices Implanted Type Area Terrazzo Layer Device Identifier Shelf Expiration Date Model / Serial / Lot [id number] Implanted:Qty: 1 on 11/23/2016 by Cory Cyr MD at OR [facility] Right: Eye 10/09/2020 [id number] / [id number] / Tecnis Toric Aspheric Intraocular Lens Implanted:Qty: 1 on 11/30/2016 by Cory Cyr MD at OR [facility] Left: Eye [employer] : MEDICAL OPTICS 08/05/2020 [id number] Cement Antibiotic Bone - [id number] Implanted:Qty: 2 on 08/26/2017 by Jorge Sanabria MD at OR [facility] Right: Hip [employer] : ORTHOPAEDICS 03/05/2019 6197-9-0 10 / / [id number] Stem Mold Reinf Hip 9x200 - [id number] Implanted:Qty: 1 on 08/26/2017 by Jorge Sanabria MD at OR [facility] Right: Hip [employer] 05/05/2021 [id number] / / [id number] Screw Periarticular 6.5mm X 50 - [id number] Implanted:Qty: 1 on 08/26/2017 by Jorge Sanabria MD at OR [facility] [employer] 00-2347- 025-50 / / Screw Bone 6.5x35 - [id number] Implanted:Qty: 1 on 11/11/2017 by Jorge Sanabria MD at OR [facility] Right: Hip [employer] 09/05/2027-6250- 065-35 / / Screw Bone 6.5x20 - [id number] Implanted:Qty: 1 on 11/11/2017 by Jorge Sanabria MD at OR [facility] Right: Hip [employer] 07/06/2026-6250- 065-20 / / [id number] Hip Hd Nk Alumina Mod D 36/ 5 - [id number] Implanted:Qty: 1 on 11/11/2017 by Jorge Sanabria MD at OR [facility] Right: Hip [employer] : ORTHOPAEDICS 06/08/2022 6570-0-0 36 / / [id number] Hip Hd Nk Alumina Mod D 36/+5 - [id number] Implanted:Qty: 1 on 11/11/2017 by Jorge Sanabria MD at OR [facility] Right: Hip [employer] : ORTHOPAEDICS 02/26/2022 6570-0-2 36 / / [id number] Hip S Mod Conical Dis 82r128 - [id number] Implanted:Qty: 1 on 11/11/2017 by Jorge Sanabria MD at OR [facility] Right: Hip [employer] : ORTHOPAEDICS 03/15/2021 6276-7-0 15 / / [id number] Shell Multihole Contin 62nn - [id number] Implanted:Qty: 1 on 11/11/2017 by Jorge Sanabria MD at OR [facility] Right: Hip [employer] 10/06/2027 00-8757- 062-02 / / [id number] Continuum Trilogy It Allofit It Acetabular Systems Longevity Highly Crosslinked Polyethylene Oblique Liner 36mm Id Implanted:Qty: 1 on 11/11/2017 by Jorge Sanabria MD at OR [facility] Right: Hip [employer] 04/05/2022 00-8755- 015-36 / / [id number] Screw Bone 6.5x40 - [id number] Implanted:Qty: 1 on 11/11/2017 by Jorge Sanabria MD at OR [facility] Right: Hip [employer] 10/06/2027 00-6250- 065-40 / / Suture Steel 6 B&S19 M654g - [id number] Implanted:Qty: 4 on 12/13/2023 by Sjai Mendiola MD at OR [facility] N/A: Sternum JNJ : [employer] 07/06/2028 M654G / / [id number] Suture Steel 6 B&S19 M654g - [id number] Implanted:Qty: 4 on 12/13/2023 by Saji Mendiola MD at OR [facility] N/A: Sternum JNJ : [employer] 08/05/2028 M654G / / [id number] Clip Occl Atri Flex V 50mm - [id number] Implanted:Qty: 1 on 12/13/2023 by Saji Mendiola MD at OR [facility] Left: Heart ATRICURE [id number] 08/06/2026 ACHV50 / / [id number] Valve Heart Mitral Epic 33mm - [id number] - [id number] Implanted:Qty: 1 on 12/13/2023 by Saji Mendiola MD at OR [facility] Left: Heart [employer] : CARDIOVASCULAR [id number] 11/10/2025 H884-08M -00 / [id number] documented as of this encounter Procedures Procedure Name Priority Date/Time Associated Diagnosis Comments RADIOLOGY EXAM - MAMMOGRAPHY (IMAGES ONLY, NO REPORT) Routine 01/12/2012 4:30 PM EDT documented in this encounter Results * RADIOLOGY EXAM - MAMMOGRAPHY (IMAGES ONLY, NO REPORT) (01/12/2012 4:30 PM EDT) 01/12/2012 4:28 PM EDT Narrative Scheduling, Silent - 02/10/2024 11:10 AM EDT This is an imaging study not interpreted or resulted by a [facility] or [employer] contracted radiologist. Anamaria Abad DO RAD MAMMOGRAPHY documented in this encounter Advance Directives * [...] and were consensually agreed upon. Care Teams Stone Decorator Relationship Specialty Start Date End Date Mingo Butt DO PCP - General 01/27/08 02/28/12 documented as of this encounter
--- OUTSIDE RECORDS SUMMARY | 2024-03-19 16:03 | External Medical Summary | Summary of Care ---
Author Name Unknown Organization [facility] Address [address] [place] [address] Phone [phone] Care Team Providers Care Hoe Runner Name Role Phone Doretha Quiñones DO Primary Care Provider [phone] Reason for Visit * Reason Onset Date Comments Medication Refill 02/20/2024 Encounter Details Date Type Department Care Team (Late st Contact Info) Description 02/20/2024 Refill [facility] [address] [place] [address] Doretha Quiñones [address] [place], [place] [phone] Anxiety Allergies Active Allergy Reactions Criticality Noted Date Comments Vancomycin Hcl In Nacl Rash 10/13/2017 Red painful rash itching documented as of this encounter (statuses as of 02/21/2024) Medications Medication Sig Dispensed Refills Start Date End Date Status Cholecalciferol (VITAMIN D) 1000 units Tablet Take 1 Tablet by mouth in the morning. Active Amoxicillin 500 MG Oral Capsule (AMOXIL) TAKE FOUR CAPSULES BY MOUTH ONE HOUR BEFORE APPOINTMENT 04/11/2020 Active Fluorouracil 5 % External Cream (Efudex)Indicati ons:AK (actinic keratosis) apply to rough patches on the forehead and cheeks nightly x 2 weeks. 40 g 05/27/2020 Active Potassium Chloride ER 20 MEQ Oral Tablet Extended Release Take 1 Tablet by mouth in the morning. Active Triamcinolone Acetonide 0.1 % External Cream (Aristocort)Kalyn cations:Rash and nonspecific skin eruption Apply topically to affected area 2 times a day. To affected area. 60 g 5 09/10/2022 Active Raza-Phos 250 Neutral 155-852-130 MG Oral TabletIndication s:Acute gastritis without hemorrhage, unspecified gastritis type Take [...] Sodium 40 MG Oral Tablet Delayed Release (Protonix)Indica tions:Acute gastritis without hemorrhage, unspecified gastritis type Take [...] 30 MG Oral Capsule Delayed Release Particles (Cymbalta)Indica tions:Chronic pain syndrome Take 1 Capsule by mouth in the morning. Do not cut, crush or chew. 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 Sepsis 08/26/2017 08/21/2019 Septic hip 08/23/2017 08/21/2019 Mitral valve prolapse 05/01/20132013 Overview: Sees [facility] Cards Routine general medical exam ination at a health care facility 12/26/2012 08/21/2019 Overview: NEED CPE, prioritize prob Urinary frequency 03/31/2006 12/26/2012 Sebaceous cyst 12/10/2003 12/26/2012 documented as of this encounter (statuses as of 02/21/2024) Immunizations Name Administration Dates Next Due Seasonal Influenza, PF, 6 M & above, IM , (FluLaval or Fluzone) 09/10/2022,06/26/2020,08/21/2019 TDAP, Age 7 and older, IM (Adacel) 06/05/2009 Zoster Vaccine Recombinant (Shingrix) 09/02/2020 03/03/2021 documented as of this encounter Social History Tobacco Use Types Packs/Day Years Used Date Smoking Tobacco: Former Cigarettes 0.5 10 1 167 - 1411 Passive Smoke Exposure: Past Smokeless Tobacco: Never [...] Telephone Encounter - Doretha Quiñones DO - 02/21/2024 12:07 PM EDTSigned Prescriptions: Disp Refills LORazepam 0.5 MG Oral Tablet (Ativan) 30 Tab*0 Sig: TAKE 1 TABLET BY MOUTH ONCE DAILY NEEDED FOR ANXIETY Authorizing Provider: DORETHA QUIÑONES * Telephone Encounter - Raffaele Burris [facility] - 02/21/2024 11:59 AM EDT Pending Prescriptions: Disp Refills LORazepam 0.5 MG Oral Tablet (Ativan) 30 Tab*0 Sig: TAKE 1 TABLET BY MOUTH ONCE DAILY NEEDED FOR ANXIETY * Telephone Encounter - Raffaele Burris [facility] - 02/21/2024 11:56 AM EDT I have reviewed the patients controlled substance dispensing history in the Prescription Drug Monitoring Program in compliance with the [facility] regulations before prescribing a controlled substance. PDMP checked on 02/21/2024. Pending Prescriptions: Disp Refills LORazepam 0.5 MG Oral Tablet (Ativan) 30 Tab*0 Sig: TAKE 1 TABLET BY MOUTH ONCE DAILY NEEDED FOR ANXIETY Last Visit: 12/31/2023 (in office), 07/10/2021 (telemedicine) Next Visit: 04/27/2024 Date medication was last filled: 01/19 Date medication is due for refill: 02/19 Pharmacy: [facility] [address] [place] [address] ELIANA YANCEY Is this request for a controlled substance? Yes and Urine Drug Screen Not completed Toxicology results: No results found for this or any previous visit. Please approve if appropriate. Thanks, Raffaele Burris, PharmD Clinical Pharmacist [facility] ([facility]) [phone] 02/21/2024,11:57 AM documented in this encounter Plan of Treatment Upcoming Encounters Date Type Department Care Team (Late st Contact Info) Description 03/03/2024 7:50 AM EDT [address] [address] [facility] [address] [place] [address] 04/27/2024 9:50 AM EDT [address] [phone] Doretha Quiñones, DO [address] [facility] [address] 07/10/2024 9:50 AM EST [address] [phone] Doretha Quiñones DO [address] [facility] [address] Scheduled Procedures Name Priority Associated Diagnoses Date/Ti [...] this encounter Medical Devices Implanted Type Area Yoga Coordinator Device Identifier Shelf Expiration Date Model / Serial / Lot [id number] 17.5 Implanted:Qty: 1 on 11/23/2016 by Cory Cyr MD at OR [facility] Right: Eye 10/09/2020 [id number] / [id number] / Tecnis Toric Aspheric Intraocular Lens Implanted:Qty: 1 on 11/30/2016 by Cory Cyr MD at OR [facility] Left: Eye [employer] : MEDICAL OPTICS 08/05/2020 [id number] 5 / [id number] / [id number] Cement Antibiotic Bone - [id number] Implanted:Qty: 2 on 08/26/2017 by [place] Sanabria [place] [facility] [place]: Hip [employer] : ORTHOPAEDICS 03/05/2019 6197-9-0 10 / / [id number] Stem Mold Reinf Hip 9x200 - [id number] Implanted:Qty: 1 on 08/26/2017 by Jorge Sanabria MD [place] [facility] Right: Hip [employer] 05/05/2021 [id number] / / [id number] Screw Periarticular 6.5mm X 50 - [id number] Implanted:Qty: 1 on 08/26/2017 by Jorge Sanabria MD [place] [facility] [employer] 00-2347- 025-50 / / Screw Bone 6.5x35 - [id number] Implanted:Qty: 1 on 11/11/2017 by Jorge Sanabria MD [place] [facility] Right: Hip [employer] 09/05/2027-6250- 065-35 / / Screw Bone 6.5x20 - [id number] Implanted:Qty: 1 on 11/11/2017 by Jorge Sanabria MD [place] [facility] Right: Hip [employer] 07/06/2026-6250- 065-20 / / [id number] Hip Hd Nk Alumina Mod D 36/ 5 - [id number] Implanted:Qty: 1 on 11/11/2017 by Jorge Sanabria MD [place] [facility] Right: Hip [employer] : ORTHOPAEDICS 06/08/2022 6570-0-0 36 / / [id number] Hip Hd Nk Alumina Mod D 36/+5 - [id number] Implanted:Qty: 1 on 11/11/2017 by Jorge Sanabria MD [place] [facility] Right: Hip [employer] : ORTHOPAEDICS 02/26/2022 6570-0-2 36 / / [id number] Hip S Mod Conical Dis 35s726 - [id number] Implanted:Qty: 1 on 11/11/2017 by Jorge Sanabria MD [place] [facility] Right: Hip [employer] : ORTHOPAEDICS 03/15/2021 6276-7-0 15 / / [id number] Shell Multihole Contin 62nn - [id number] Implanted:Qty: 1 on 11/11/2017 by Jorge Sanabria MD [place] [facility] Right: Hip [employer] 10/06/2027 00-8757- 062-02 / / [id number] Continuum Trilogy It Allofit It Acetabular Systems Longevity Highly Crosslinked Polyethylene Oblique Liner 36mm Id Implanted:Qty: 1 on 11/11/2017 by Jorge Sanabria MD [place] [facility] Right: Hip [employer] 04/05/2022 00-8755- 015-36 / / [id number] Screw Bone 6.5x40 - [id number] Implanted:Qty: 1 on 11/11/2017 by Jorge Sanabria MD [place] [facility] Right: Hip [employer] 10/06/2027-6250- 065-40 / / Suture Steel 6 B&S19 M654g - [id number] Implanted:Qty: 4 on 12/13/2023 by Saji Mendiola MD [place] [facility] N/A: Sternum JNJ : [employer] 07/06/2028 M654G / / TMMESU Suture Steel 6 B&S19 M654g - [id number] Implanted:Qty: 4 on 12/13/2023 by Saji Mendiola MD [place] [facility] N/A: Sternum JNJ : [employer] 08/05/2028 M654G / / [id number] Clip Occl Atri Flex V 50mm - [id number] Implanted:Qty: 1 on 12/13/2023 by Saji Mendiola MD [place] [facility] Left: Heart ATRICURE [id number] 08/06/2026 ACHV50 / / [id number] Valve Heart Mitral Epic 33mm - [id number] - [id number] Implanted:Qty: 1 on 12/13/2023 by Saji Mendiola MD at [facility] Left: Heart [employer] : CARDIOVASCULAR [id number] 11/10/2025 D434-44W -00 / [id number] / [id number] documented as of this encounter Visit Diagnoses Diagnosis Anxiety Anxiety state, unspecified documented in this encounter Advance Directives * [...] and were consensually agreed upon. Care Teams Hoe Runner Relationship Specialty Start Date End Date Doretha Quiñones DO [address] [facility] [place] [address] PCP - General Family Medicine 09/17/16 documented as of this encounter
[2024-03-19] MEDS: SODIUM CHLORIDE 0.9% 1,000 ML IV STA (16:15)
--- NOTE | 2024-03-19 16:18 | Emergency Department Note ---
Impression & Plan Atrial fibrillation with rapid ventricular response, Chest pain, Acute hypokalemia, Elevated brain natriuretic peptide (BNP) level, Nausea, Shortness of breath, Non-ST elevation DC (NSTEMI), Elevated lactic acid level, CHF (congestive heart failure) ED Provider Note HISTORY OF PRESENT ILLNESS: Patient is a 63-year-old female presenting with multiple complaints. Patient reports that she was in [place] over the weekend on holiday and was admitted Wednesday night into Wednesday for A-fib with RVR. She was hypotensive with her A- fib with RVR and was cardioverted at their facility. She is on Coumadin. She brings the documents from [facility] with her. States that she was discharged last night and the got home today and she started having left- sided chest pain under her left breast, shortness of breath, nausea and vomiting. Reports feeling lightheaded and dizzy and having numbness in her legs. She reports that she was started on amiodarone during her previous hospitalization. She had previously been on metoprolol 12.5 mg twice daily, but they changed her to metoprolol 25 mg twice daily and amiodarone. Patient denies any history of cardiac stents. She has a history of a mitral valve replacement. ROS: as above PHYSICAL EXAM: Constitutional: Patient appears in no acute distress. HENT: Head: Normocephalic and atraumatic. Eyes: EOMI, PERRL Mouth/Throat: Mucous membranes moist. Neck: Trachea midline. Neck supple. Cardiovascular: Tachycardic with irregularly irregular rhythm. No murmurs, rubs or gallops. Intact distal pulses. Pulmonary/Chest: No respiratory distress. Breath sounds clear and equal bilaterally. No wheezes or rales. Abdominal: Abdomen soft, no tenderness, rebound or guarding. Musculoskeletal: No edema, tenderness or deformity noted. Skin: Warm and dry. No rash, erythema, pallor or cyanosis Psychiatric: Appropriate mood and affect for situation. Neurological: Alert and keenly responsive. CN II-XII grossly intact, moving all extremities equally and fully. MDM: - Vitals signs showed tachycardia. - History obtained via patient. History as above. - Chronic conditions affecting care: Afib (on coumadin); GERD; mitral valve prolapse (s/p mitral valve replacement in December 2023) - Differential diagnoses include, but are not limited to: Acute coronary syndrome; pulmonary embolism; dissection; tension pneumothorax; esophageal rupture; pneumonia; dysrhythmia; electrolyte abnormality - Order placed for continuous cardiac monitoring. At this time, monitor showed rate of 107 bpm with irregular rhythm, per my interpretation. - External medical records reviewed. Discharge summary from [facility] dated 09/18/2023 was reviewed. Patient was admitted for A-fib with RVR and hypotension. She had a troponin of 90 on their scale. She had a proBNP of 7827. She converted to normal sinus rhythm and completed an amiodarone infusion. Echocardiogram showed an EF of 24%. - EKG interpreted by myself showed atrial fibrillation. Rate tachycardic at 128 bpm. Noted to have PVCs. QT 348. No acute ischemic changes. - Laboratory workup interpreted by myself showed leukocytosis (WBC 11.86); normal dimer; elevated BNP (1600); hypokalemia (K 3.1); elevated anion gap (15); hyperglycemia (glucose 150); elevated AST (42); elevated troponin (31.7); normal lipase; normal procalcitonin; negative Lyme; elevated lactate (3.3) - CXR negative for pneumonia or pulmonary edema, per my interpretation - Viral respiratory panel negative - Patient given 1L NS. No further fluid resuscitation was performed, given patient's stable blood pressure and her history of significantly decreased ejection fraction. - Discussed case with patient's cabinet abrasive sandblaster, Dr. Suarez, at 16:45. He was in agreement with amiodarone bolus and drip. - Amiodarone bolus and drip initiated. 20 mEq IV potassium ordered for electrolyte replacement. - Discussion was had with caser in about patient's case and need for admission - Hospitalist, Dr. Foster, consulted for admission - Patient admitted to [facility] service for further evaluation and management. I have personally spent 46 minutes of critical care time in the direct management of this patient. This includes bedside care, interpretation of diagnostic studies, and testing, discussion with consultants, patient, and family members, and other required patient management activities. This 46 minutes is in excess of all separately billable procedures. ASSESSMENT AND PLAN: Diagnosis: Atrial fibrillation with rapid ventricular rate; acute hypokalemia; nausea; chest pain; elevated BNP; shortness of breath; NSTEMI; elevated lactic acid level; CHF Plan: admit Past Med/Surg History Problem List (Updated 03/19/24 @ 17:33 by Diann Carrion MD) CHF (congestive heart failure) (Acute) Elevated lactic acid level (Acute) Non-ST elevation DC (NSTEMI) (Acute) Shortness of breath (Acute) Nausea (Acute) Elevated brain natriuretic peptide (BNP) level (Acute) Acute hypokalemia (Acute) Chest pain (Acute) Atrial fibrillation with rapid ventricular response (Acute) History of mitral valve replacement with bioprosthetic valve Preop cardiovascular exam Costochondritis, acute Atrial fibrillation, permanent Depression Panic attacks Chest pain (Acute) Atrial flutter with rapid ventricular response (Acute) Diarrhea Cholelithiasis Epigastric pain Chest pain (Acute) ST elevation (STEMI) myocardial infarction (Acute) Paroxysmal SVT (supraventricular tachycardia) LVH (left ventricular hypertrophy) Palpitations Mitral regurgitation MVP (mitral valve prolapse) Kidney stone (Acute) Cat scratch of multiple sites (Acute) Cat scratch of multiple sites (Acute) Cellulitis (Acute) Medical History MVP (mitral valve prolapse) per cardio record-"noted on echo" 08/2023 Hx of renal calculi passed on own Hx of migraines History of COVID-19 2021, home test, not hosp; moderate symptoms>still has memory trouble and brain fog Atrial fibrillation currently on eliquis; f/u dr. suarez, [facility] GERD (gastroesophageal reflux disease) Anxiety Encounter for pre-operative examination Surgical History History of total right hip arthroplasty History of total left hip arthroplasty Hx of colonoscopy Hx of bilateral cataract extraction Social History Smoking Status: Former smoker Tobacco Type: Cigarettes Second Hand Exposure: No; Do You Dip or Chew Tobacco: No; Hx Alcohol Use: Yes Alcohol type: beer Hx Substance Use: No Preferred Language: Korean Communication Ability: Effective Percussion Instrument Repairer Required: No Beliefs That Will Affect Care: None marital status: Current Living Situation: Spouse Feels Safe at Home: Yes Assistive Devices: Cane and Glasses Allergies Allergies Allergy/AdvReac Type Severity Reaction Status Date / Time vancomycin Allergy rash Verified 03/19/24 17:14 Home Meds Home Medications Medication Instructions Recorded Confirmed lorazepam 0.5 mg tablet 0.5 mg PO HS SLEEP 08/02/22 03/19/24 aspirin 81 mg tablet,delayed 81 mg PO DAILY 01/20/24 03/19/24 release magnesium 250 mg tablet 250 mg PO 3XWK 01/20/24 03/19/24 metoprolol tartrate 25 mg tablet 12.5 mg PO BID 01/20/24 03/19/24 warfarin 2.5 mg tablet See Rx Instructions .Route .COMPLEX 01/20/24 03/19/24 amiodarone 200 mg tablet 200 mg PO QAM 03/19/24 03/19/24 calcium carbonate 500 mg PO DAILY 03/19/24 03/19/24 Previous Rx's Medication Instructions Recorded pantoprazole 40 mg tablet,delayed 40 mg PO BID #60 tabs 08/07/22 release Results & Data (ED) Vital Signs Vital Signs - 24 hr 03/19/24 15:56 03/19/24 15:56 03/19/24 16:09 Temperature 36.6 C Temperature Source Temporal Artery Scan Pulse Rate 91 H 110 H Pulse Rate from SpO2 Sensor Respiratory Rate 18 22 Blood Pressure 120/82 Blood Pressure Mean 94 Pulse Oximetry 95 Oxygen Delivery Method Room Air Sepsis Recent Fever Within 48 Hours No Sepsis New/Unexplained Change in Mental Status N/A Sepsis Action Taken by Nursing No Action Required 03/19/24 16:15 03/19/24 16:25 Temperature Temperature Source Pulse Rate 102 H 101 H Pulse Rate from SpO2 Sensor 84 Respiratory Rate 18 Blood Pressure 120/82 Blood Pressure Mean 94 Pulse Oximetry 100 Oxygen Delivery Method Room Air Sepsis Recent Fever Within 48 Hours Sepsis New/Unexplained Change in Mental Status Sepsis Action Taken by Nursing Laboratory Data 03/19/24 16:15 03/19/24 16:15 Lab Results 03/19/24 03/19/24 03/19/24 Range/Units 16:15 16:25 16:26 WBC 11.86 H (4.8-10.8) K/ul RBC 4.72 (4.20-5.40) M/uL Hgb 14.2 (12.0-16.0) g/dl Hct 43.0 (37.0-47.0) % MCV 91.1 (80.0-100.0) fL MCH 30.1 (25.0-34.0) pg MCHC 33.0 (32.0-36.0) g/dL RDW Std Deviation 43.8 (36.4-46.3) fL RDW Coeff of Angela 13.2 (11.5-14.5) % Plt Count 326 (130-400) K/uL MPV 10.7 (9.4-12.4) fL Immature Gran % (Auto) 0.5 % Neut % (Auto) 76.8 % Lymph % (Auto) 16.5 % [place] % (Auto) 5.8 % Eos % (Auto) 0.2 % Baso % (Auto) 0.2 % Neut # (Auto) 9.11 H (1.40-6.50) K/uL Lymph # (Auto) 1.96 (1.20-3.40) K/uL [place] # (Auto) 0.69 H (0.11-0.59) K/uL Eos # (Auto) 0.02 (0.00-0.50) K/uL Baso # (Auto) 0.02 (0.00-0.20) K/uL Immature Gran # (Auto) 0.06 (0.01-0.20) K/uL PT 30.6 H (9.0-12.0) Seconds INR 3.1 H (0.9-1.1) D-Dimer 380 (0-500) ug/L FEU Sodium 136 (136-145) mmol/L Potassium 3.1 L (3.5-5.1) mmol/L Chloride 98 (98-107) mmol/L Carbon Dioxide 23 (21-32) mmol/L Anion Gap 15 H (3-11) BUN 18 (6-23) mg/dl Creatinine 0.85 (0.6-1.2) mg/dl Est Cr Clr Drug Dosing Not Reportable Est GFR ( Amer) 84.5 ml/min Est GFR (Non-Af Amer) 72.9 ml/min BUN/Creatinine Ratio 21.2 H (10-20) Glucose 150 H (70-99(Fasting)) mg/dl Lactate 3.3 H* (0.4-2.0) mmol/L Calcium 9.7 (8.6-10.3) mg/dl Magnesium 1.9 (1.7-2.4) mg/dl Total Bilirubin 0.9 (0.2-1.0) mg/dl AST 42 H (13-39) U/L ALT 46 (7-52) U/L Alkaline Phosphatase 100 (34-104) U/L Troponin I High Sens 31.7 H (0-14) pg/ml B-Natriuretic Peptide 1600 H (0-100) pg/ml Total Protein 7.4 (6.0-8.3) gm/dl Albumin 4.5 (3.4-5.0) gm/dl Globulin 2.9 (2.5-4.0) gm/dl Albumin/Globulin Ratio 1.6 (0.9-2) Lipase 26 (11-82) U/L Procalcitonin 0.05 (0-0.5) ng/ml Adenovirus (PCR) Not Detected (NotDetected) B. pertussis DNA (PCR) Not Detected (NotDetected) B.parapertussis DNA PCR Not Detected (NotDetected) Lyme Disease Screen Negative (Negative) C. pneumoniae DNA (PCR) Not Detected (NotDetected) Coronavirus OC43 (PCR) Not Detected (NotDetected) Coronavirus HKU1 (PCR) Not Detected (NotDetected) Coronavirus 229E (PCR) Not Detected (NotDetected) SARS-CoV-2 (PCR) Not Detected (NotDetected) Coronavirus NL63 (PCR) Not Detected (NotDetected) Human Metapneumovir PCR Not Detected (NotDetected) Influenza Type A (PCR) Not Detected (NotDetected) Influenza Type B (PCR) Not Detected (NotDetected) M. pneumoniae (PCR) Not Detected (NotDetected) Parainfluenza 1 (PCR) Not Detected (NotDetected) Parainfluenza 2 (PCR) Not Detected (NotDetected) Parainfluenza 3 (PCR) Not Detected (NotDetected) Parainfluenza 4 (PCR) Not Detected (NotDetected) RSV (PCR) Not Detected (NotDetected) Entero/Rhino (PCR) Not Detected (NotDetected) Administered Medications Amiodarone HCl/Dextrose (Nexterone / D5w) 360 mg in 200 mls @ 33.333 mls/hr IV ONE ONE Stop: 03/19/24 22:57 Last Admin: 03/19/24 17:23 Dose: 1 mg/min, 33.3 mls/hr Documented By: KAYY Co-signed By: RADHA Discontinued Medications Sodium Chloride (Nss) 1,000 mls @ 999 mls/hr IV .Q1H1M STA Stop: 03/19/24 17:06 Last Infusion: 03/19/24 17:19 Dose: Infused Documented By: Admin: 03/19/24 16:15 Dose: 999 mls/hr Documented By: RADHA Amiodarone HCl/Dextrose (Nexterone / D5w) 150 mg in 100 mls @ 600 mls/hr IV NOW STA Stop: 03/19/24 16:57 Last Admin: 03/19/24 17:06 Dose: 600 mls/hr Documented By: RADHA Co-signed By: KAYY Ondansetron HCl (Ondansetron Inj 2 Mg/Ml 2 Ml Vial) 4 mg IV NOW STA Stop: 03/19/24 16:32 Last Admin: 03/19/24 16:35 Dose: 4 mg Documented By: RADHA Imaging Data Radiologist's Impression: Chest X-Ray 03/19/24 16:06 XR chest 1V portable HISTORY: Chest pain, nonspecific COMPARISON: Chest 10/17/2023. FINDINGS: No pneumothorax. No pleural effusions. The cardiac silhouette remains enlarged. There are poststernotomy changes and postoperative changes at the mitral valve. A small electronic device within the left mid chest. No evidence for pulmonary edema. No focal lung consolidations to suggest pneumonia. IMPRESSION: Mild cardiomegaly. Otherwise, no acute process within the chest. ACT 112: Negative or not required by law. Electronically signed by: Carter Meza M.D. 03/19/2024 4:42 PM Discharge Plan Visit Data Chief Complaint: Arrhythmia/Palpitations Stated Complaint: A FIB ED Provider: Diann Carrion Discharge Problem: Atrial fibrillation with rapid ventricular response, Chest pain, Acute hypokalemia, Elevated brain natriuretic peptide (BNP) level, Nausea, Shortness of breath, Non-ST elevation DC (NSTEMI), Elevated lactic acid level, CHF (congestive heart failure) Forms Stand Alone Forms: [facility] Prescriptions Prescriptions: No Action metoprolol tartrate 25 mg tablet 12.5 mg PO BID aspirin 81 mg tablet,delayed release (DR/EC) 81 mg PO DAILY warfarin 2.5 mg tablet See Rx Instructions .ROUTE .COMPLEX Rx Instructions: 2.5 mg orally as directed by [facility]; Take 2.5mg by mouth on and 1.25mg by mouth all other days in the evening/dinner time. magnesium 250 mg tablet 250 mg PO 3XWK Rx Instructions: Wed/Wed/Wed lorazepam 0.5 mg Tablet 0.5 mg PO HS pantoprazole 40 mg Tablet,Delayed Release (Dr/Ec) 40 mg PO BID Qty: 60 1RF amiodarone 200 mg tablet 200 mg PO QAM calcium carbonate [Calcium 500] 500 mg calcium (1,250 mg) Tablet 500 mg PO DAILY Referrals Referrals: Anamaria Abad DO [Primary Care Provider] -
[2024-03-19] MEDS: ONDANSETRON INJ 2 MG/ML 2 ML VIAL IV STA (16:35)
--- NOTE | 2024-03-19 16:43 | XRay Report ---
XR chest 1V portable HISTORY: Chest pain, nonspecific COMPARISON: Chest 10/17/2023. FINDINGS: No pneumothorax. No pleural effusions. The cardiac silhouette remains enlarged. There are p oststernotomy changes and postoperative changes at the mitral valve. A small electronic device within the left mid chest. No evidence for pulmonary edema. No focal lung consolidations to suggest pneumon ia. IMPRESSION: Mild cardiomegaly. Otherwise, no acute process within the chest. ACT 112: Negative or not required by law. Electronically signed by: Carter Meza M.D. 03/19/2024 4:42 PM
[2024-03-19 16:46] LABS: Basophils # (auto) 0.02 K/uL (0.00-0.20); Basophils % (auto) 0.2 %; Eosinophils # (auto) 0.02 K/uL (0.00-0.50); Eosinophils % (auto) 0.2 %; Hemoglobin 14.2 g/dl (12.0-16.0); Immature Granulocytes # (auto) 0.06 K/uL (0.01-0.20); Immature Granulocytes % (auto) 0.5 %; Lymphocytes # (auto) 1.96 K/uL (1.20-3.40); Lymphocytes % (auto) 16.5 %; Mean Corpuscular Hemoglobin 30.1 pg (25.0-34.0); Mean Corpuscular Volume 91.1 fL (80.0-100.0); Mean Platelet Volume 10.7 fL (9.4-12.4); Monocytes # (auto) 0.69 K/uL (0.11-0.59); Monocytes % (auto) 5.8 %; Neutrophils # (auto) 9.11 K/uL (1.40-6.50); Neutrophils % (auto) 76.8 %; Platelet Count 326 K/uL (130-400); RDW Coefficient of Variation 13.2 % (11.5-14.5); RDW Standard Deviation 43.8 fL (36.4-46.3); Red Blood Count 4.72 M/uL (4.20-5.40); White Blood Count 11.86 K/ul (4.8-10.8)
[2024-03-19] MEDS ORDERED: 0.2 MICRON FILTER SET 1 EACH IV STA (16:48)
[2024-03-19 16:59] LABS: Alanine Aminotransferase 46 U/L (7-52); Albumin Globulin Ratio 1.6 (0.9-2); Albumin Level 4.5 gm/dl (3.4-5.0); Alkaline Phosphatase 100 U/L (34-104); Anion Gap 15 (3-11); Aspartate Aminotransferase 42 U/L (13-39); BUN Creatinine Ratio 21.2 (10-20); Bilirubin,Total 0.9 mg/dl (0.2-1.0); Blood Urea Nitrogen 18 mg/dl (6-23); Calcium 9.7 mg/dl (8.6-10.3); Carbon Dioxide 23 mmol/L (21-32); Chloride 98 mmol/L (98-107); Est GFR (African American) 84.5 ml/min; Est GFR (Non-African American) 72.9 ml/min; Globulin 2.9 gm/dl (2.5-4.0); Glucose 150 mg/dl (70-99(Fasting)); Lipase 26 U/L (11-82); Magnesium 1.9 mg/dl (1.7-2.4); Potassium 3.1 mmol/L (3.5-5.1); Sodium 136 mmol/L (136-145); Total Protein 7.4 gm/dl (6.0-8.3)
[2024-03-19 17:06] LABS: Troponin I High Sensitivity 31.7 pg/ml (0-14)
[2024-03-19] MEDS: AMIODARONE / D5W 150 MG/100 ML BAG IV STA (17:06)
[2024-03-19 17:09] LABS: D Dimer 380 ug/L FEU (0-500); INR 3.1 (0.9-1.1); Prothrombin Time 30.6 Seconds (9.0-12.0)
[2024-03-19] MEDS: AMIODARONE / D5W 360 MG/200 ML BAG IV ONE (17:23)
[2024-03-19 17:25] LABS: Adenovirus PCR Not Detected (NotDetected); Bordetella parapertussis PCR Not Detected (NotDetected); Bordetella pertussis PCR Not Detected (NotDetected); Chlamydia pneumoniae PCR Not Detected (NotDetected); Coronavirus 229E PCR Not Detected (NotDetected); Coronavirus CoV-2 (COVID19)PCR Not Detected (NotDetected); Coronavirus HKU1 PCR Not Detected (NotDetected); Coronavirus NL63 PCR Not Detected (NotDetected); Coronavirus OC43PCR Not Detected (NotDetected); Human Metapneumovirus PCR Not Detected (NotDetected); Influenza A PCR Not Detected (NotDetected); Influenza B PCR Not Detected (NotDetected); Mycoplasma pneumoniae PCR Not Detected (NotDetected); Parainfluenza Virus 1 PCR Not Detected (NotDetected); Parainfluenza Virus 2 PCR Not Detected (NotDetected); Parainfluenza Virus 3 PCR Not Detected (NotDetected); Parainfluenza Virus 4 PCR Not Detected (NotDetected); Respiratory Syncytial VirusPCR Not Detected (NotDetected); Rhinovirus/Enterovirus PCR Not Detected (NotDetected)
[2024-03-19] MEDS: POTASSIUM CHLORIDE / WTR 10 MEQ/100 ML PLCT IV SCH ×2 (17:46→21:32)
[2024-03-19] MEDS: STAT IV Infusion **Titration per Protocol STA (17:53)
[2024-03-19] MEDS: AMIODARONE IV BOLUS & DRIP IV STA (17:53)
--- NOTE | 2024-03-19 18:35 | History & Physical Report ---
Date of Service March 19, 2024 Assessment & Plan (1) Atrial fibrillation with rapid ventricular response: Plan: 63-year-old female with history of atrial fibrillation on Coumadin, history of mitral valve repair, and other problems noted below presenting with palpitations and nausea this afternoon. Atrial fibrillation, rapid ventricular response History of chronic atrial fibrillation on Coumadin Heart rate controlled since amiodarone bolus and infusion started ER physician discussed with Dr. Suarez Continue amiodarone infusion Continue usual metoprolol 12.5 mg p.o. twice daily INR 3.1, on Coumadin Replace potassium Echocardiogram ordered Cardiology service consult N.p.o. postmidnight Congestive heart failure, systolic type History of mitral valve replacement Currently patient is euvolemic Monitor closely Echo done at [facility] over the weekend showed EF of 24 Will repeat echocardiogram here [facility] Hypokalemia Potassium 3.1 Total of 6K riders ordered as patient cannot tolerate p.o. meds at this point Nausea Abdominal exam essentially normal Likely secondary to A-fib in RVR Phenergan ordered as well as Protonix IV twice daily had 2 episodes of diarrhea at home check stool PCR, C cidff DVT prophylaxis INR 3.1 on coumadin Full Code Disposition admit to PCU lives at home with family History of Present Illness Chief Complaint: Palpitations, nausea which started this afternoon Primary Care Provider: Anamaria Abad DO 63-year-old female with history of atrial fibrillation on Coumadin, history of mitral valve repair, and other problems noted below presenting with palpitations and nausea this afternoon. Patient was in [place] on a vacation last Wednesday but unfortunately developed palpitations and subsequently admitted to the hospital for atrial fibrillation, complicated by hypotension. She required amiodarone infusion, and ultimately underwent cardioversion with successful conversion to sinus rhythm. Her echocardiogram revealed an EF of 24%. She was discharged yesterday with increased dose of metoprolol to 25 mg p.o. twice daily Patient return home to [place] this afternoon but again had palpitations, and nausea. She was then brought to the ER for evaluation. At the ED, patient was in A-fib RVR, heart rate 120s, blood pressure stable. Upon discussion with her wirer Dr. Suarez, amiodarone bolus and continuous infusion recommended. After initiation of amiodarone, patient's heart rate improved to the 90s. Potassium level found to be 3.1, 2 bags of K riders ordered. On exam, patient seen with her and daughter at the bedside visiting. Appears weak, Still having nausea but no abdominal pain. (+) diarrhea x 2 at home no active chest pain, dyspnea, palpitations, dizziness Allergies Allergy/AdvReac Type Severity Reaction Status Date / Time vancomycin Allergy rash Verified 03/19/24 17:14 Home Medications Medication Instructions Recorded Confirmed Type lorazepam 0.5 mg tablet 0.5 mg PO HS SLEEP 08/02/22 03/19/24 History pantoprazole 40 mg tablet,delayed 40 mg PO BID #60 tabs 08/07/22 03/19/24 Rx release aspirin 81 mg tablet,delayed 81 mg PO DAILY 01/20/24 03/19/24 History release magnesium 250 mg tablet 250 mg PO 3XWK 01/20/24 03/19/24 History metoprolol tartrate 25 mg tablet 12.5 mg PO BID 01/20/24 03/19/24 History warfarin 2.5 mg tablet See Rx Instructions .Route .COMPLEX 01/20/24 03/19/24 History amiodarone 200 mg tablet 200 mg PO QAM 03/19/24 03/19/24 History calcium carbonate 500 mg PO DAILY 03/19/24 03/19/24 History Past Med/Surg History Problem List (Updated 03/19/24 @ 17:33 by Diann Carrion MD) CHF (congestive heart failure) (Acute) Elevated lactic acid level (Acute) Non-ST elevation GA (NSTEMI) (Acute) Shortness of breath (Acute) Nausea (Acute) Elevated brain natriuretic peptide (BNP) level (Acute) Acute hypokalemia (Acute) Chest pain (Acute) Atrial fibrillation with rapid ventricular response (Acute) History of mitral valve replacement with bioprosthetic valve Preop cardiovascular exam Costochondritis, acute Atrial fibrillation, permanent Depression Panic attacks Chest pain (Acute) Atrial flutter with rapid ventricular response (Acute) Diarrhea Cholelithiasis Epigastric pain Chest pain (Acute) ST elevation (STEMI) myocardial infarction (Acute) Paroxysmal SVT (supraventricular tachycardia) LVH (left ventricular hypertrophy) Palpitations Mitral regurgitation MVP (mitral valve prolapse) Kidney stone (Acute) Cat scratch of multiple sites (Acute) Cat scratch of multiple sites (Acute) Cellulitis (Acute) Medical History MVP (mitral valve prolapse) per cardio record-"noted on echo" 08/2023 Hx of renal calculi passed on own Hx of migraines History of COVID-2021, home test, not hosp; moderate symptoms>still has memory trouble and brain fog Atrial fibrillation currently on eliquis; f/u dr. suarez, [facility] GERD (gastroesophageal reflux disease) Anxiety Encounter for pre-operative examination Surgical History History of total right hip arthroplasty History of total left hip arthroplasty Hx of colonoscopy Hx of bilateral cataract extraction Social History Smoking Status: Former smoker Tobacco Type: Cigarettes Second Hand Exposure: No; Do You Dip or Chew Tobacco: No; Hx Alcohol Use: No Hx Substance Use: No Preferred Language: Wallisian Communication Ability: Effective Shop Coordinator Required: No Beliefs That Will Affect Care: None marital status: Current Living Situation: Spouse Feels Safe at Home: Yes Safety Concerns: Feels Safe At This Time Assistive Devices: Glasses Assistive Devices Comment: reading glasses Review of Systems Review of Systems: all noted and negative except for above Physical Exam Physical Exam: General- oriented x 3, not in distress, speaks in sentences with no effort or accessory muscle use Head- atraumatic Eyes- PERRL, EOMI, anicteric ENT- oropharynx clear Neck- supple, no JVD, no adenopathy, no thyromegaly; carotids +2/2, no bruits appreciated Lungs- clear to auscultation bilaterally, no rales/wheezes Heart- normal rate, irregularly irregular rhythm; no murmur, no gallop, no rub appreciated Abdomen- normal bowel sounds, nondistended, soft, nontender, no masses or hepatosplenomegaly Extremities- no pretibial edema, no calf tenderness; peripheral pulses intact Neuro- alert, oriented x 3; CN 2-12 grossly intact; motor 5/5 bilaterally;sensation 100% on all extremities; no other gross focal neurologic deficits Skin- warm & dry Results & Data Results & Data Vital Signs (Past 12 Hours) Vital Signs Temp Pulse Resp BP Pulse Ox O2 Del Method 03/19/24 18:30 Room Air 03/19/24 18:15 129/101 H 03/19/24 17:54 90 28 H 100 Room Air 03/19/24 17:50 141/95 H 03/19/24 17:39 99 H 25 H 98 Room Air 03/19/24 17:30 113/91 03/19/24 17:16 124/92 03/19/24 17:00 106 H 24 135/102 H 93 Room Air 03/19/24 16:25 101 H 03/19/24 16:15 102 H 18 120/82 100 Room Air 03/19/24 16:09 110 H 22 03/19/24 15:56 Room Air 03/19/24 15:56 36.6 C 91 H 18 120/82 95 all noted and reviewed including below Code Status & VTE Plan VTE Prophylaxis Plan VTE Prophylaxis will be ordered: Yes
[2024-03-19] MEDS ORDERED: ACETAMINOPHEN 325 MG TAB PO PRN (19:06)
[2024-03-19] MEDS: SODIUM CHLORIDE 0.9% 500 ML IV SCH (20:21)
[2024-03-19] MEDS: PANTOprazole 40 MG in SYRINGE 0 ML IV SCH (20:23)
[2024-03-19] MEDS: PROMETHAZINE HCL 25 MG in SODIUM CHLORIDE 0.9% 50 ML IV STA (20:24)
[2024-03-19] MEDS: METOPROLOL TARTRATE 25 MG TAB PO SCH (20:45)
[2024-03-19] MEDS: POTASSIUM CHLORIDE CRTAB 20 MEQ TABCR PO STA (20:46)
[2024-03-19] MEDS ORDERED: LORazepam 0.5 MG TAB PO SCH (21:00)
[2024-03-19] MEDS ORDERED: PANTOprazole 40 MG TAB PO SCH (21:00)
[2024-03-19] MEDS: PROMETHAZINE HCL 12.5 MG in SODIUM CHLORIDE 0.9% 50 ML IV PRN (22:47)
[2024-03-19] MEDS: LORazepam 0.5 MG TAB PO PRN (22:49)
[2024-03-19] MEDS: AMIODARONE / D5W 360 MG/200 ML BAG IV SCH (22:51)
[2024-03-20 07:42] LABS: Basophils # (auto) 0.02 K/uL (0.00-0.20); Basophils % (auto) 0.3 %; Eosinophils # (auto) 0.04 K/uL (0.00-0.50); Eosinophils % (auto) 0.6 %; Hematocrit (blood only) 35.4 % (37.0-47.0); Hemoglobin 11.5 g/dl (12.0-16.0); Immature Granulocytes # (auto) 0.01 K/uL (0.01-0.20); Immature Granulocytes % (auto) 0.1 %; Lymphocytes # (auto) 3.23 K/uL (1.20-3.40); Lymphocytes % (auto) 46.4 %; Mean Corpuscular Hemoglobin 29.6 pg (25.0-34.0); Mean Corpuscular Hgb Conc 32.5 g/dL (32.0-36.0); Mean Corpuscular Volume 91.2 fL (80.0-100.0); Mean Platelet Volume 10.6 fL (9.4-12.4); Monocytes # (auto) 0.52 K/uL (0.11-0.59); Monocytes % (auto) 7.5 %; Neutrophils # (auto) 3.14 K/uL (1.40-6.50); Neutrophils % (auto) 45.1 %; Platelet Count 249 K/uL (130-400); RDW Coefficient of Variation 13.5 % (11.5-14.5); Red Blood Count 3.88 M/uL (4.20-5.40); White Blood Count 6.96 K/ul (4.8-10.8)
[2024-03-20 08:01] LABS: Albumin Globulin Ratio 1.6 (0.9-2); Albumin Level 3.4 gm/dl (3.4-5.0); BUN Creatinine Ratio 13.5 (10-20); Bilirubin,Total 0.6 mg/dl (0.2-1.0); Calcium 8.9 mg/dl (8.6-10.3); Creatinine Clr Calc Pharmacy 61.5 ml/min; Est GFR (African American) 99.9 ml/min; Est GFR (Non-African American) 86.2 ml/min; Globulin 2.1 gm/dl (2.5-4.0); Magnesium 1.8 mg/dl (1.7-2.4); Phosphorus 2.7 mg/dl (2.5-4.9); Potassium 3.8 mmol/L (3.5-5.1); Total Protein 5.5 gm/dl (6.0-8.3)
[2024-03-20 08:02] LABS: INR 2.6 (0.9-1.1); Prothrombin Time 25.8 Seconds (9.0-12.0)
[2024-03-20] MEDS: CALCIUM CARBONATE 500 MG CHEWABLE TAB PO SCH (10:38)
[2024-03-20] MEDS: MAGNESIUM OXIDE 400 MG TAB PO SCH (10:38)
[2024-03-20] MEDS: ASPIRIN 81 MG ECTAB PO SCH (10:39)
--- NOTE | 2024-03-20 11:50 | Cardiology Consultation ---
Date of Consultation March 20, 2024 Assessment & Plan (1) Atrial fibrillation with rapid ventricular response: - continue loading amiodarone per current protocol - keep patient at [facility] for another 24 hours to continue monitoring rhythm - discharge on amiodarone 200mg BID for 2 weeks, then 200mg QD (2) Heart failure with reduced ejection fraction (HFrEF, <= 40%): - switch to metoprolol succinate (from tartrate) 25mg Daily - consider low-dose ACEi or ARB Plan Nausea/vomiting: - continue on promethazine and Protonix for symptom relief - begin PO meals as tolerated Supervising Physician Co-Signing Physician Notes Patient seen and examined with Dr. Alvarez. Agree with his assessment and plan. Impression: 1. Refractory, symptomatic, paroxysmal atrial fibrillation. 2. Failed MAZE procedure. 3. Left atrial appendage clip in place. 4. Left ventricular dysfunction. 5. 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 6. Properly functioning bioprosthetic mitral valve. 7. Normal coronary arteriesApril 2023. Suggest: 1. Continue intravenous amiodarone x 24 hours. 2. Discharge on amiodarone 200 mg twice daily x 2 weeks, then 200 mg daily. 2. Convert metoprolol to tartrate to metoprolol succinate 25 mg daily. 3. Consider addition of ACEI/ARB if blood pressure allows. 4. Follow-up echocardiogram as an outpatient. 5. EKG tomorrow AM. History of Present Illness Reason for Consultation: afib with rapid ventricular response, reduced ejection fraction Attending Physician: Brenton Ramirez MD History of Present Illness Patient is a 63 year old female with history of atrial fibrillation on Coumadin with left atrial appendange closure and maze procedure, mitral valve replacement due to mitral valve prolapse, GERD, kidney stones, anxiety, and migraines who presented to [facility] on Wednesday03/19/24 after feeling left chest pain, nausea with vomiting, and numbness in her extremities. Previously she was admitted to hospital in [place] on Wednesday03/17/24 for afib complicated with hypotension which patient attributes to being dehydrated and not being able to eat much in the preceding days. Patient had to be cardioverted which returned her to sinus rhythm and was discharged the next day, Wednesday03/18/24 on 25mg metoprolol tartrate BID and 200mg amiodarone qAM. During the current admission, patient converted back to normal sinus rhythm during amiodarone bolus and infusion yesterday evening and has been in normal sinus rhythm since. She was also discovered to have potassium of 3.1, which has since been normalized to 3.8 after receiving 6 K riders. She denies any chest pain or numbness in her extremities this morning. Endorses she vomited once last night but was mostly water, has been not feeling as nauseated this morning and has not vomited since. Patient has not been able to eat due to having nausea but is now feeling ready to eat something small. Patient endorses she has been urinating, denies any diarrhea or solid bowel movements since yesterday. Allergies Allergy/AdvReac Type Severity Reaction Status Date / Time vancomycin Allergy rash Verified 03/19/24 17:14 Home Medications Medication Instructions Recorded Confirmed Type lorazepam 0.5 mg tablet 0.5 mg PO HS SLEEP 08/02/22 03/19/24 History pantoprazole 40 mg tablet,delayed 40 mg PO BID #60 tabs 08/07/22 03/19/24 Rx release aspirin 81 mg tablet,delayed 81 mg PO DAILY 01/20/24 03/19/24 History release magnesium 250 mg tablet 250 mg PO [id number] 01/20/24 03/19/24 History metoprolol tartrate 25 mg tablet 12.5 mg PO BID 01/20/24 03/19/24 History warfarin 2.5 mg tablet See Rx Instructions .Route .COMPLEX 01/20/24 03/19/24 History amiodarone 200 mg tablet 200 mg PO QAM 03/19/24 03/19/24 History calcium carbonate 500 mg PO DAILY 03/19/24 03/19/24 History Patient History Medical History MVP (mitral valve prolapse) per cardio record-"noted on echo" 08/2023 Hx of renal calculi passed on own Hx of migraines History of COVID-19 2021, home test, not hosp; moderate symptoms>still has memory trouble and brain fog Atrial fibrillation currently on eliquis; f/u dr. [place], [facility] GERD (gastroesophageal reflux disease) Anxiety Encounter for pre-operative examination Surgical History History of total right hip arthroplasty History of total left hip arthroplasty Hx of colonoscopy Hx of bilateral cataract extraction Social History Smoking Status: Former smoker Tobacco Type: Cigarettes Second Hand Exposure: No; Do You Dip or Chew Tobacco: No; Hx Alcohol Use: No Hx Substance Use: No Preferred Language: Mongolian Communication Ability: Effective Grinding Room Inspector Required: No Beliefs That Will Affect Care: None marital status: Current Living Situation: Spouse Feels Safe at Home: Yes Safety Concerns: Feels Safe At This Time Assistive Devices: Cane and Walker Assistive Devices Comment: reading glasses Review of Systems Review of Systems: See HPI. Physical Exam Constitutional: lying comfortably in bed, not in acute distress, A&Ox3 Eyes: EOM intact ENMT: external ear and nose normal, oropharynx normal Neck: mild jugular vein distension on visual examination on R side with backrest at 45 degrees, otherwise unremarkable Respiratory: lungs clear to auscultation b/l anterior and posterior Cardiovascular: regular rate and rhythm, discrete mid-diastolic murmur in mitral valve area, otherwise no murmurs auscultated in all 4 valve areas pulses 2+ in b/l carotid arteries, 2+ in b/l radial arteries, 2+ in right posterior tibial artery, 1+ in left posterior tibial artery Gastrointestinal (Abdomen): normal bowel sounds, nontender to palpation Skin: normal turgor, no peripheral edema in all 4 extremities Neurologic: speech normal, spontaneously moves all extremities Psychiatric: Has appropriate conversation, good eye contact, pleasant mood Results & Data Vital Signs (Past 12 Hours) Vital Signs Temp Pulse Pulse Resp BP BP Pulse Ox 03/20/24 11:50 36.5 C 75 20 91/58 L 96 03/20/24 07:30 03/20/24 07:14 36.7 C 78 18 99/66 L 94 03/20/24 03:29 36.6 C 80 20 120/82 97 03/19/24 22:13 36.6 C 85 20 100/66 98 03/19/24 20:43 95/64 L 03/19/24 19:25 03/19/24 18:46 36.6 C 92 H 20 94/63 L 99 03/19/24 18:30 03/19/24 18:15 129/101 H 03/19/24 17:54 90 28 H 100 03/19/24 17:50 141/95 H 03/19/24 17:39 99 H 25 H 98 03/19/24 17:30 113/91 03/19/24 17:16 124/92 03/19/24 17:00 106 H 24 135/102 H 93 03/19/24 16:25 101 H 03/19/24 16:15 102 H 18 120/82 100 03/19/24 16:09 110 H 22 03/19/24 15:56 03/19/24 15:56 36.6 C 91 H 18 120/82 95 O2 Del Method 03/20/24 11:50 Room Air 03/20/24 07:30 Room Air 03/20/24 07:14 Room Air 03/20/24 03:29 Room Air 03/19/24 22:13 Room Air 03/19/24 20:43 03/19/24 19:25 Room Air 03/19/24 18:46 Room Air 03/19/24 18:30 Room Air 03/19/24 18:15 03/19/24 17:54 Room Air 03/19/24 17:50 03/19/24 17:39 Room Air 03/19/24 17:30 03/19/24 17:16 03/19/24 17:00 Room Air 03/19/24 16:25 03/19/24 16:15 Room Air 03/19/24 16:09 03/19/24 15:56 Room Air 03/19/24 15:56 Intake and Output 03/19/24 03/20/24 03/20/24 22:59 06:59 14:59 Intake Total 1530 / 2580.5 1050.5 / 2580.5 196.782 / 196.782 Balance 1530 / 2580.5 1050.5 / 2580.5 196.782 / 196.782 Intake: IV 1400 / 2450.5 1050.5 / 2450.5 196.782 / 196.782 Amiodarone / D5w 150 mg In 100 100 / 100 ml @ 600 mls/hr IV NOW STA Rx#: [id number] Amiodarone / D5w 360 mg In 200 200 / 200 196.782 / 196.782 ml @ 0.5 MG/MIN 16.667 mls/hr IV .Q12H OSM[facility] Rx#:[id number] Potassium Chloride / Wtr 10 meq 300 / 600 300 / 600 In 100 ml @ 100 mls/hr IV Q1H OSM[facility] Rx#:[id number] Promethazine HCl 12.5 mg In 50.5 / 50.5 Sodium Chloride 0.9% 50 ml @ 202 mls/hr IV Q6H PRN Rx#: [id number] Sodium Chloride 0.9% 1,000 ml @ 1000 / 1000 999 mls/hr IV .Q1H1M STA Rx#: [id number] Sodium Chloride 0.9% 500 ml @ 500 / 500 60 mls/hr IV .Q8H20M OSM[facility] Rx#: [id number] Oral 130 / 130 Other: Other Intake Source Patient is NPO # Unmeasured Voids 1 1 Weight 57.1 kg 57.2 kg Weight Measurement Method [facility] Laboratory Results 03/20/24 03/19/24 03/19/24 Range/Units 07:25 19:20 16:26 WBC 6.96 (4.8-10.8) K/ul RBC 3.88 L (4.20-5.40) M/uL Hgb 11.5 L (12.0-16.0) g/dl Hct 35.4 L (37.0-47.0) % MCV 91.2 (80.0-100.0) fL MCH 29.6 (25.0-34.0) pg MCHC 32.5 (32.0-36.0) g/dL RDW Std Deviation 45.0 (36.4-46.3) fL RDW Coeff of Angela 13.5 (11.5-14.5) % Plt Count 249 (130-400) K/uL MPV 10.6 (9.4-12.4) fL Immature Gran % (Auto) 0.1 % Neut % (Auto) 45.1 % Lymph % (Auto) 46.4 % [place] % (Auto) 7.5 % Eos % (Auto) 0.6 % Baso % (Auto) 0.3 % Neut # (Auto) 3.14 (1.40-6.50) K/uL Lymph # (Auto) 3.23 (1.20-3.40) K/uL [place] # (Auto) 0.52 (0.11-0.59) K/uL Eos # (Auto) 0.04 (0.00-0.50) K/uL Baso # (Auto) 0.02 (0.00-0.20) K/uL Immature Gran # (Auto) 0.01 (0.01-0.20) K/uL PT 25.8 H (9.0-12.0) Seconds INR 2.6 H (0.9-1.1) D-Dimer (0-500) ug/L FEU Sodium 140 (136-145) mmol/L Potassium 3.8 D (3.5-5.1) mmol/L Chloride 107 (98-107) mmol/L Carbon Dioxide 28 (21-32) mmol/L Anion Gap 5 (3-11) BUN 10 (6-23) mg/dl Creatinine 0.74 (0.6-1.2) mg/dl Est Cr Clr Drug Dosing 61.5 Est GFR ( Amer) 99.9 ml/min Est GFR (Non-Af Amer) 86.2 ml/min BUN/Creatinine Ratio 13.5 (10-20) Glucose 88 (70-99(Fasting)) mg/dl Lactate 1.3 3.3 H* (0.4-2.0) mmol/L Calcium 8.9 (8.6-10.3) mg/dl Phosphorus 2.7 (2.5-4.9) mg/dl Magnesium 1.8 (1.7-2.4) mg/dl Total Bilirubin 0.6 (0.2-1.0) mg/dl AST 26 (13-39) U/L ALT 33 (7-52) U/L Alkaline Phosphatase 71 (34-104) U/L Troponin I High Sens 26.0 H (0-14) pg/ml B-Natriuretic Peptide (0-100) pg/ml Total Protein 5.5 L D (6.0-8.3) gm/dl Albumin 3.4 (3.4-5.0) gm/dl Globulin 2.1 L (2.5-4.0) gm/dl Albumin/Globulin Ratio 1.6 (0.9-2) Lipase (11-82) U/L Procalcitonin (0-0.5) ng/ml Adenovirus (PCR) Not Detected (NotDetected) B. pertussis DNA (PCR) Not Detected (NotDetected) B.parapertussis DNA PCR Not Detected (NotDetected) Lyme Disease Screen (Negative) C. pneumoniae DNA (PCR) Not Detected (NotDetected) Coronavirus OC43 (PCR) Not Detected (NotDetected) Coronavirus HKU1 (PCR) Not Detected (NotDetected) Coronavirus 229E (PCR) Not Detected (NotDetected) SARS-CoV-2 (PCR) Not Detected (NotDetected) Coronavirus NL63 (PCR) Not Detected (NotDetected) Human Metapneumovir PCR Not Detected (NotDetected) Influenza Type A (PCR) Not Detected (NotDetected) Influenza Type B (PCR) Not Detected (NotDetected) M. pneumoniae (PCR) Not Detected (NotDetected) Parainfluenza 1 (PCR) Not Detected (NotDetected) Parainfluenza 2 (PCR) Not Detected (NotDetected) Parainfluenza 3 (PCR) Not Detected (NotDetected) Parainfluenza 4 (PCR) Not Detected (NotDetected) RSV (PCR) Not Detected (NotDetected) Entero/Rhino (PCR) Not Detected (NotDetected) 03/19/24 03/19/24 Range/Units 16:25 16:15 WBC 11.86 H (4.8-10.8) K/ul RBC 4.72 (4.20-5.40) M/uL Hgb 14.2 (12.0-16.0) g/dl Hct 43.0 (37.0-47.0) % MCV 91.1 (80.0-100.0) fL MCH 30.1 (25.0-34.0) pg MCHC 33.0 (32.0-36.0) g/dL RDW Std Deviation 43.8 (36.4-46.3) fL RDW Coeff of Angela 13.2 (11.5-14.5) % Plt Count 326 (130-400) K/uL MPV 10.7 (9.4-12.4) fL Immature Gran % (Auto) 0.5 % Neut % (Auto) 76.8 % Lymph % (Auto) 16.5 % [place] % (Auto) 5.8 % Eos % (Auto) 0.2 % Baso % (Auto) 0.2 % Neut # (Auto) 9.11 H (1.40-6.50) K/uL Lymph # (Auto) 1.96 (1.20-3.40) K/uL [place] # (Auto) 0.69 H (0.11-0.59) K/uL Eos # (Auto) 0.02 (0.00-0.50) K/uL Baso # (Auto) 0.02 (0.00-0.20) K/uL Immature Gran # (Auto) 0.06 (0.01-0.20) K/uL PT 30.6 H (9.0-12.0) Seconds INR 3.1 H (0.9-1.1) D-Dimer 380 (0-500) ug/L FEU Sodium 136 (136-145) mmol/L Potassium 3.1 L (3.5-5.1) mmol/L Chloride 98 (98-107) mmol/L Carbon Dioxide 23 (21-32) mmol/L Anion Gap 15 H (3-11) BUN 18 (6-23) mg/dl Creatinine 0.85 (0.6-1.2) mg/dl Est Cr Clr Drug Dosing Not Reportable Est GFR ( Amer) 84.5 ml/min Est GFR (Non-Af Amer) 72.9 ml/min BUN/Creatinine Ratio 21.2 H (10-20) Glucose 150 H (70-99(Fasting)) mg/dl Lactate 3.3 H* (0.4-2.0) mmol/L Calcium 9.7 (8.6-10.3) mg/dl Phosphorus (2.5-4.9) mg/dl Magnesium 1.9 (1.7-2.4) mg/dl Total Bilirubin 0.9 (0.2-1.0) mg/dl AST 42 H (13-39) U/L ALT 46 (7-52) U/L Alkaline Phosphatase 100 (34-104) U/L Troponin I High Sens 31.7 H (0-14) pg/ml B-Natriuretic Peptide 1600 H (0-100) pg/ml Total Protein 7.4 (6.0-8.3) gm/dl Albumin 4.5 (3.4-5.0) gm/dl Globulin 2.9 (2.5-4.0) gm/dl Albumin/Globulin Ratio 1.6 (0.9-2) Lipase 26 (11-82) U/L Procalcitonin 0.05 (0-0.5) ng/ml Adenovirus (PCR) (NotDetected) B. pertussis DNA (PCR) (NotDetected) B.parapertussis DNA PCR (NotDetected) Lyme Disease Screen Negative (Negative) C. pneumoniae DNA (PCR) (NotDetected) Coronavirus OC43 (PCR) (NotDetected) Coronavirus HKU1 (PCR) (NotDetected) Coronavirus 229E (PCR) (NotDetected) SARS-CoV-2 (PCR) (NotDetected) Coronavirus NL63 (PCR) (NotDetected) Human Metapneumovir PCR (NotDetected) Influenza Type A (PCR) (NotDetected) Influenza Type B (PCR) (NotDetected) M. pneumoniae (PCR) (NotDetected) Parainfluenza 1 (PCR) (NotDetected) Parainfluenza 2 (PCR) (NotDetected) Parainfluenza 3 (PCR) (NotDetected) Parainfluenza 4 (PCR) (NotDetected) RSV (PCR) (NotDetected) Entero/Rhino (PCR) (NotDetected) Diagnostic Findings Echocardiogram from on 03/20/24 at 6:30am : - moderate to significant reduction of left ventricular systolic function (LVEF 25-30%) compared to previous echo in January 2024 (~50%) - severe global hypokinesia with normally functioning basal segments of left ventricle - prosthetic mitral valve is well-seated, peak and/or mean gradients normal Chest X-ray from 03/19/24 at 4:26pm: - enlarged cardiac silhouette, approximately 2/3 of chest diameter - no pleural effusions or pneumothoraces, minimal pulmonary vascular congestion seen - left atrial appendage clip visualized - sternal wires in place from thoracic procedure Medications Administered Aspirin (Aspirin 81 Mg Ectab) 81 mg PO DAILY OSM[facility] Stop: 04/19/24 08:59 Last Admin: 03/20/24 10:39 Dose: 81 mg Documented By: GUANACO Calcium Carbonate (Calcium Carbonate 500 Mg Chewable Tab) 500 mg PO DAILY [facility] Stop: 04/19/24 08:59 Last Admin: 03/20/24 10:38 Dose: 500 mg Documented By: MTP Amiodarone HCl/Dextrose (Nexterone / D5w) 360 mg in 200 mls @ 16.667 mls/hr IV .Q12H [facility] Stop: 04/18/24 22:59 Last Admin: 03/20/24 10:38 Dose: 0.5 mg/min, 16.7 mls/hr Documented By: GUANACO Co-signed By: BERNARDO Infusion: 03/20/24 10:38 Dose: Infused Documented By: GUANACO Co-signed By: BERNARDO Admin: 03/19/24 22:51 Dose: 0.5 mg/min, 16.7 mls/hr Documented By: LACY Co-signed By: SARAH Pantoprazole Sodium 40 mg/ (Syringe) 10 mls @ 5 mls/min IV BID OSMIN Stop: 04/18/24 18:19 Last Admin: 03/20/24 11:31 Dose: 5 mls/min Documented By: Admin: 03/19/24 20:23 Dose: 5 mls/min Documented By: LACY Promethazine HCl 12.5 mg/ (Sodium Chloride) 50.5 mls @ 202 mls/hr IV Q6H PRN PRN Reason: Nausea And Vomiting Stop: 04/18/24 18:15 Last Infusion: 03/19/24 23:04 Dose: Infused Documented By: Admin: 03/19/24 22:47 Dose: 202 mls/hr Documented By: LACY Lorazepam (Lorazepam 0.5 Mg Tab) 0.5 mg PO DAILY PRN PRN Reason: anxiety Stop: 04/18/24 19:44 Last Admin: 03/19/24 22:49 Dose: 0.5 mg Documented By: LACY Magnesium Oxide (Magnesium Oxide 400 Mg Tab) 400 mg PO MoWeFr@0900 OSMIN Stop: 04/19/24 08:59 Last Admin: 03/20/24 10:38 Dose: 400 mg Documented By: GUANACO Metoprolol Tartrate (Metoprolol Tartrate 25 Mg Tab) 12.5 mg PO BID OSMIN Stop: 04/18/24 20:59 Last Admin: 03/20/24 10:36 Dose: 12.5 mg Documented By: Admin: 03/19/24 20:45 Dose: Not Given Documented By: LACY ECG Additional Comments: From 03/19/24 at 4:07pm: Ventricular rate: 128 BPM MS interval P-waves not seen QRS duration 106 ms QT/QTc 348/508 ms P-R-T axes * 112 269 Impression: - Atrial fibrillation with rapid ventricular response with premature ventricular or aberrantly conducted complexes - Septal infarct (cited on or before 05-JUL-2023) - Lateral infarct (cited on or before 05-JUL-2023) - ST & T wave abnormality, consider inferior ischemia Abnormal ECG - When compared with ECG of 20-JAN-2024 10:15, (unconfirmed) - Questionable change in initial forces of Anterior leads ST now depressed in Inferior leads - T wave inversion now evident in Inferior leads - T wave inversion now evident in Anterolateral leads PG Care Time/CCT Total # of Minutes Spent Total Time Spent with Patient: Total time spent is greater than 50% in coordination of care (as documented) at patient's floor/unit and/or counseling patient: Coding Level of Care Code 84231 IN/OBS CONSULT LVL 4,60M Diagnoses Atrial fibrillation with rapid ventricular response I48.91 Heart failure with reduced ejection fraction (HFrEF, <= 40%) I50.20 Resident Activity Tracking Resident Involvement: Resident Care Provided Care Provided: Adult Hospital Medicine
--- NOTE | 2024-03-20 12:00 | XCELERA ---
[id number]
--- NOTE | 2024-03-20 12:39 | Electrocardiogram Report ---
Test Reason : Blood Pressure : / mmHG Vent. Rate : 128 BPM Atrial Rate : 000 BPM P-R Int : 000 ms QRS Dur : 106 ms QT Int : 348 ms P-R-T Axes : 000 112 269 degrees QTc Int : 508 ms Atrial fibrillation with rapid ventricular response with premature ventricular or aberrantly conducte d complexes Septal infarct (cited on or before 05-JUL-2023) Lateral infarct (cited on or before 05-JUL-2023) Abnormal ECG When compared with ECG of 20-JAN-2024 10:15, (unconfirmed) Questionable change in initial forces of Anterior leads ST now depressed in Inferior leads T wave inversion now evident in Inferior leads T wave inversion now evident in Anterolateral leads Confirmed by Cheikh Suarez ([id number]) on 03/20/2024 12:39:30 PM Referred By: REFERRED SELF Confirmed By:Cheikh Suarez
--- NOTE | 2024-03-20 12:54 | Hospitalist Progress Note ---
Date of Service March 20, 2024 Assessment & Plan (1) Atrial fibrillation with rapid ventricular response: Plan: 63-year-old female with history of atrial fibrillation on Coumadin, history of mitral valve repair, and other problems noted below presenting with palpitations and nausea and found to be in Afib rvr. She is being managed for the following: Atrial fibrillation, rapid ventricular response History of chronic atrial fibrillation on Coumadin Noted to be in A-fib RVR at ED, EKG noted. Troponin minimally elevated/flat trend. Started on amnio drip. Patient currently in sinus rhythm Discussed with cardiology, plan to monitor 24 hours, possible discharge tomorrow on a p.o. amiodarone. Patient in sinus rhythm, reports feeling better. Denies chest pain or shortness of breath. Cardiology on board, optimizing cardiac medications. Monitor replete electrolytes. HO Congestive heart failure, systolic type History of mitral valve replacement Currently patient is euvolemic, CXR w/ no congestion, no pitting edema or crackles on exam. Echo done at [facility] over the weekend showed EF of 24 ECHO this admission - EF of 25-30%. Severe global hypokinesis. The Prosthetic mitral valve is well seated. Cardio on board, optimizing meds. f/u w/ cardio on dc. Nausea: Abdominal exam essentially normal. Likely secondary to A-fib in RVR. Phenergan ordered as well as Protonix IV twice daily Increase blood lactic acid level: Status post IV fluid at presentation. Lactic acid resolved. No signs of infection. DVT prophylaxis: On Coumadin, monitor PT/INR. Full code Disposition: Likely DC tomorrow. Admission and Anticipated Discharge Date Admission Date: March 19, 2024 Subjective Patient was seen and examined at bedside. Patient was lying in bed, on room air, resting comfortably, NAD. Patient's at bedside who was also updated on plan of care. Patient reports feeling better, is in sinus rhythm, denies chest pain or shortness of breath. Reports eating okay and moving bowels okay. Reports ambulating around okay. Physical Exam Physical Exam: General- oriented x 3, not in distress, speaks in sentences with no effort or accessory muscle use Head- atraumatic Eyes- PERRL, EOMI, anicteric ENT- oropharynx clear Neck- supple, no JVD, no adenopathy, no thyromegaly; carotids +2/2, no bruits appreciated Lungs- clear to auscultation bilaterally, no rales/wheezes Heart- normal rate, regular rhythm; no murmur, no gallop, no rub appreciated Abdomen- normal bowel sounds, nondistended, soft, nontender, no masses or hepatosplenomegaly Extremities- no pretibial edema, no calf tenderness; peripheral pulses intact Neuro- alert, oriented x 3; CN 2-12 grossly intact; motor 5/5 bilaterally;sensation 100% on all extremities; no other gross focal neurologic deficits Skin- warm & dry Results & Data Results & Data Vital Signs (Past 12 Hours) Vital Signs Temp Pulse Resp BP Pulse Ox O2 Del Method 03/20/24 11:50 36.5 C 75 20 91/58 L 96 Room Air 03/20/24 07:30 Room Air 03/20/24 07:14 36.7 C 78 18 99/66 L 94 Room Air 03/20/24 03:29 36.6 C 80 20 120/82 97 Room Air
[2024-03-20] MEDS: POTASSIUM CHLORIDE CRTAB 20 MEQ TABCR PO STA (18:36)
[2024-03-20] MEDS: WARFARIN SOD 1.25 MG TAB PO SCH (18:36)
[2024-03-20] MEDS: ACETAMINOPHEN 1,000 MG/100 ML VIAL IV STA (20:00)
[2024-03-20] MEDS: NSS + 20MEQ KCL 20 MEQ/1,000 ML BAG IV ONE (20:01)
[2024-03-20] MEDS: METOCLOPRAMIDE HCL INJ 5 MG/ML 2 ML VIAL IV ONE (20:30)
[2024-03-20] MEDS: MAGNESIUM SULFATE / D5W 1 GM/100 ML BAG IV ONE (20:50)
[2024-03-20] MEDS: OPTIRAY 320 100ml IV ONE (21:14)
[2024-03-21 00:06] LABS: Appearance Urine Clear (Clear); Bacteria Urine Automated None Seen (None Seen); Bilirubin Urine Negative (Negative); Blood Urine 1+ (Negative); Cast Urine Automated 0-2 /lpf (0-2); Color Urine Yellow; Epithelial Cell Urine Auto 0-2 /hpf (0-2); Glucose Urine UA Negative (Negative); Ketones Urine Negative (Negative); Leukocyte Esterase Urine Trace (Negative); Nitrite Urine Negative (Negative); Protein Urine Negative (Negative); RBC Urine Automated 0-2 /hpf (0-2); Specific Gravity Urine 1.039 (1.000-1.030); Urobilinogen Urine Negative (Negative); WBC Urine Automated 0-5 /hpf (0-5)
--- NOTE | 2024-03-21 01:00 | CT Scan Report ---
Exam(s): CT ABDOMEN + PELVIS With Contrast IV Amt: 91 ml opti 320 EXAM: CT Abdomen and Pelvis With Intravenous Contrast CLINICAL HISTORY: Reason for exam: abd pain. TECHNIQUE: Axial computed tomography images of the abdomen and pelvis with intravenous contrast. CTDI is 14 mGy and DLP is 599 mGy-cm. Automated exposure control was utilized for the study. A dose lowering technique was utilized adhering to the principles of ALARA. CONTRAST: Patient received 91 ml opti 320 of IV contrast COMPARISON: No relevant prior studies available. FINDINGS: Lung bases: Unremarkable. No mass. No consolidation. ABDOMEN: Liver: Unremarkable. No mass. Gallbladder and bile ducts: Minimal gallbladder sludge. No calcified stones. No ductal dilation. Pancreas: Unremarkable. No mass. No ductal dilation. Spleen: Unremarkable. No splenomegaly. Adrenals: Unremarkable. No mass. Kidneys and ureters: Unremarkable. No solid mass. No hydronephrosis. Stomach and bowel: Diverticulosis, without acute diverticulitis. No small bowel obstruction. No free intraperitoneal air. PELVIS: Appendix: No findings to suggest acute appendicitis. Bladder: Unremarkable. No mass. Reproductive: Unremarkable as visualized. ABDOMEN and PELVIS: Intraperitoneal space: Unremarkable. No free air. No significant fluid collection. Bones/joints: Degenerative changes of the spine. RIGHT hip arthroplasty. No acute fracture. No dislocation. Soft tissues: Unremarkable. Vasculature: Atherosclerotic changes of the aorta. No abdominal aortic aneurysm. Lymph nodes: Unremarkable. No enlarged lymph nodes. IMPRESSION: Diverticulosis, without acute diverticulitis. No small bowel obstruction. No free intraperitoneal air. Electronically signed by: Rancho Lloyd MD 03/21/24 00:59 AM
[2024-03-21 06:35] LABS: Basophils # (auto) 0.02 K/uL (0.00-0.20); Basophils % (auto) 0.2 %; Eosinophils # (auto) 0.11 K/uL (0.00-0.50); Eosinophils % (auto) 1.4 %; Immature Granulocytes # (auto) 0.02 K/uL (0.01-0.20); Immature Granulocytes % (auto) 0.2 %; Lymphocytes # (auto) 2.95 K/uL (1.20-3.40); Lymphocytes % (auto) 36.6 %; Mean Corpuscular Hemoglobin 29.7 pg (25.0-34.0); Mean Corpuscular Hgb Conc 32.4 g/dL (32.0-36.0); Mean Corpuscular Volume 91.6 fL (80.0-100.0); Mean Platelet Volume 10.9 fL (9.4-12.4); Monocytes # (auto) 0.51 K/uL (0.11-0.59); Monocytes % (auto) 6.3 %; Neutrophils # (auto) 4.45 K/uL (1.40-6.50); Neutrophils % (auto) 55.3 %; Platelet Count 254 K/uL (130-400); RDW Coefficient of Variation 13.6 % (11.5-14.5); RDW Standard Deviation 45.6 fL (36.4-46.3); Red Blood Count 4.04 M/uL (4.20-5.40); White Blood Count 8.06 K/ul (4.8-10.8)
[2024-03-21 06:47] LABS: Albumin Globulin Ratio 1.6 (0.9-2); Albumin Level 3.3 gm/dl (3.4-5.0); BUN Creatinine Ratio 14.3 (10-20); Bilirubin,Total 0.5 mg/dl (0.2-1.0); Calcium 8.5 mg/dl (8.6-10.3); Creatinine Clr Calc Pharmacy 65.1 ml/min; Est GFR (African American) 106.9 ml/min; Est GFR (Non-African American) 92.2 ml/min; Globulin 2.1 gm/dl (2.5-4.0); Magnesium 2.1 mg/dl (1.7-2.4); Phosphorus 3.1 mg/dl (2.5-4.9); Potassium 3.9 mmol/L (3.5-5.1); Total Protein 5.4 gm/dl (6.0-8.3)
[2024-03-21 07:01] LABS: INR 2.1 (0.9-1.1); Prothrombin Time 21.4 Seconds (9.0-12.0)
--- NOTE | 2024-03-21 07:34 | Cardiology Progress Note ---
Date of Service March 21, 2024 Assessment & Plan (1) Atrial fibrillation with rapid ventricular response: Plan: - continue loading amiodarone per current protocol to reach target concentration - continue monitoring rhythm through discharge - discharge on amiodarone 200mg BID for 2 weeks, then 200mg QD (2) Heart failure with reduced ejection fraction (HFrEF, <= 40%): Plan: - switch to metoprolol succinate (from tartrate) 25mg PO QD - consider low-dose ACEi or ARB as an outpatient - follow up with outpatient cardiology Plan Nausea/vomiting: - continue on promethazine and Protonix for symptom relief - continue PO meals as tolerated Admission and Anticipated Discharge Date Admission Date: March 19, 2024 Supervising Physician Co-Signing Physician Notes Patient seen and examined. Agree with his assessment and plan. Her joined our visit via telephone this morning. Impression: 1. Refractory, symptomatic, paroxysmal atrial fibrillation. 2. Failed MAZE procedure. 3. Left atrial appendage clip in place. 4. Left ventricular dysfunction. 5. 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 6. Properly functioning bioprosthetic mitral valve. 7. Normal coronary arteriesApril 2023. Suggest: 1. Discharge on amiodarone 200 mg twice daily x 2 weeks, then 200 mg daily. 2. Convert metoprolol tartrate to metoprolol succinate 25 mg daily. 3. Consider addition of ACEI/ARB as an outpatient. 4. Follow-up echocardiogram as an outpatient. Subjective Patient was seen and examined at bedside. Patient was lying in bed, on room air, resting comfortably, NAD. Patient reports feeling good in the past 24 hours except for one episode of feeling nauseated with sweating and mild chest discomfort after yesterday's lunch (chicken and broccoli), but notes the symptoms resolved within an hour. Denies any vomiting, diarrhea, or any bowel movements in the past 24 hours, but has been getting up about 2x during the day and 2x at night to urinate, which she endorses is normal for her. Patient reports feeling better, has been in sinus rhythm for the past 24hrs per telemetry (70-90s, sinus), denies chest pain or shortness of breath. Reports eating a small amount due to lack of appetite but without difficulty. Reports ambulating around okay. Social: - diet - generally things like cereal, variety of fruits and vegetables but av oids "greens" since she heard they interfere with her warfarin. Endorses good fiber intake. Eats protein including chicken often, but denies that it has previously caused the symptoms she experienced after eating it yesterday. does much of the cooking so pt doesn't eat out often. Rarely eats junk food. - exercise - takes walks around the block a few times a week for up to 30min at a time. Review of Systems Review of Systems: See HPI. Constitutional: no fever, body aches, or chills Eyes: no eye pain, no double-vision Ear, Nose, Mouth, Throat: no nasal or sinus congestion, no sore throat Respiratory: no SOB, no cough Cardiovascular: Additional Comments: no palpitations, no chest pain Gastrointestinal: +mild nausea yesterday late afternoon, n o vomiting or diarrhea Physical Exam Constitutional: general appearance: in no acute distress, good eye contact, A&Ox3 Eyes: EOM intact ENMT: patent airways, hearing intact Neck: trachea midline, no significant JVD on gross examination Respiratory: clear to auscultation b/l, anterior and posterior. No wheezes, rales, or rhonchi. Cardiovascular: chest auscultation: regular rate and rhythm; soft, short, discrete mid diastolic murmur on auscultation of the Mitral valve area, but otherwise no murmurs, rubs, or gallops. pulses: 2+ radial b/l; 2+ carotid b/l; 2+ right posterior tibial, 1+ left posterior tibial Gastrointestinal (Abdomen): normal bowel sounds, no tenderness to palpation in all 4 quadrants Skin: appears well-perfused Grade 1 edema of fingers b/l, otherwise no significant edema of extremities mild tenting of skin, otherwise good turgor Neurologic: can spontaneously move all extremities and position body properly for exam speaks clearly and converses appropriately cranial nerves grossly intact Results & Data Vital Signs (Past 12 Hours) Vital Signs Temp Pulse Pulse Resp BP Pulse Ox O2 Del Method 03/21/24 07:32 36.3 C L 71 16 95/63 L 99 Room Air 03/21/24 02:38 36.7 C 86 18 93/63 L 95 Room Air 03/20/24 23:37 101 H 03/20/24 23:00 36.7 C 89 16 84/49 L 94 Room Air 03/20/24 21:33 114 H 119/85 03/20/24 20:00 Room Air 03/20/24 19:22 36.6 C 103 H 22 119/86 99 Room Air 03/20/24 16:19 36.3 C L 74 18 96/59 L 97 Room Air 03/20/24 11:50 36.5 C 75 20 91/58 L 96 Room Air Intake and Output 03/20/24 03/21/24 03/21/24 22:59 06:59 14:59 Intake Total 1014.478 / 1511.260 300 / 1511.260 Output Total 700 / 700 Balance 314.478 / 811.260 300 / 811.260 Intake: IV 334.478 / 631.260 100 / 631.260 Acetaminophen 1,000 mg In 100 100 / 100 ml @ 400 mls/hr IV NOW STA Rx#: [id number] Amiodarone / D5w 360 mg In 200 183.978 / 380.760 ml @ 0.5 MG/MIN 16.667 mls/hr IV .Q12H OSMIN Rx#:[id number] Magnesium Sulfate / D5w 1 gm In 100 / 100 100 ml @ 50 mls/hr IV ONE ONE Rx#:[id number] Promethazine HCl 12.5 mg In 50.5 / 50.5 Sodium Chloride 0.9% 50 ml @ 202 mls/hr IV Q6H PRN Rx#: [id number] Oral 680 / 880 200 / 880 Output: Urine 700 / 700 Other: # Unmeasured Voids 1 Weight 56.5 kg Weight Measurement Method Built in [facility] Laboratory Results 03/21/24 03/21/24 03/20/24 Range/Units 06:11 06:10 Unknown WBC 8.06 (4.8-10.8) K/ul RBC 4.04 L (4.20-5.40) M/uL Hgb 12.0 (12.0-16.0) g/dl Hct 37.0 (37.0-47.0) % MCV 91.6 (80.0-100.0) fL MCH 29.7 (25.0-34.0) pg MCHC 32.4 (32.0-36.0) g/dL RDW Std Deviation 45.6 (36.4-46.3) fL RDW Coeff of Angela 13.6 (11.5-14.5) % Plt Count 254 (130-400) K/uL MPV 10.9 (9.4-12.4) fL Immature Gran % (Auto) 0.2 % Neut % (Auto) 55.3 % Lymph % (Auto) 36.6 % [place] % (Auto) 6.3 % Eos % (Auto) 1.4 % Baso % (Auto) 0.2 % Neut # (Auto) 4.45 (1.40-6.50) K/uL Lymph # (Auto) 2.95 (1.20-3.40) K/uL [place] # (Auto) 0.51 (0.11-0.59) K/uL Eos # (Auto) 0.11 (0.00-0.50) K/uL Baso # (Auto) 0.02 (0.00-0.20) K/uL Immature Gran # (Auto) 0.02 (0.01-0.20) K/uL PT 21.4 H (9.0-12.0) Seconds INR 2.1 H (0.9-1.1) Sodium 140 (136-145) mmol/L Potassium 3.9 (3.5-5.1) mmol/L Chloride 107 (98-107) mmol/L Carbon Dioxide 28 (21-32) mmol/L Anion Gap 5 (3-11) BUN 10 (6-23) mg/dl Creatinine 0.70 (0.6-1.2) mg/dl Est Cr Clr Drug Dosing 65.1 ml/min Est GFR ( Amer) 106.9 ml/min Est GFR (Non-Af Amer) 92.2 ml/min BUN/Creatinine Ratio 14.3 (10-20) Glucose 92 (70-99(Fasting)) mg/dl Calcium 8.5 L (8.6-10.3) mg/dl Phosphorus 3.1 (2.5-4.9) mg/dl Magnesium 2.1 (1.7-2.4) mg/dl Total Bilirubin 0.5 (0.2-1.0) mg/dl AST 20 (13-39) U/L ALT 28 (7-52) U/L Alkaline Phosphatase 68 (34-104) U/L Troponin I High Sens (0-14) pg/ml Total Protein 5.4 L (6.0-8.3) gm/dl Albumin 3.3 L (3.4-5.0) gm/dl Globulin 2.1 L (2.5-4.0) gm/dl Albumin/Globulin Ratio 1.6 (0.9-2) Urine Color Yellow Urine Appearance Clear (Clear) Urine pH 5.0 (4.5-7.5) Ur Specific [place] 1.039 H (1.000-1.030) Urine Protein Negative (Negative) Urine Glucose (UA) Negative (Negative) Urine Ketones Negative (Negative) Urine Blood 1+ H (Negative) Urine Nitrite Negative (Negative) Urine Bilirubin Negative (Negative) Urine Urobilinogen Negative (Negative) Ur Leukocyte Esterase Trace H (Negative) Urine WBC (Auto) 0-5 (0-5) /hpf Urine RBC (Auto) 0-2 (0-2) /hpf U Hyaline Cast (Auto) 0-2 (0-2) /lpf U Epithel Cells (Auto) 0-2 (0-2) /hpf Urine Bacteria (Auto) None Seen (None Seen) 03/20/24 Range/Units 19:51 WBC (4.8-10.8) K/ul RBC (4.20-5.40) M/uL Hgb (12.0-16.0) g/dl Hct (37.0-47.0) % MCV (80.0-100.0) fL MCH (25.0-34.0) pg MCHC (32.0-36.0) g/dL RDW Std Deviation (36.4-46.3) fL RDW Coeff of Angela (11.5-14.5) % Plt Count (130-400) K/uL MPV (9.4-12.4) fL Immature Gran % (Auto) % Neut % (Auto) % Lymph % (Auto) % [place] % (Auto) % Eos % (Auto) % Baso % (Auto) % Neut # (Auto) (1.40-6.50) K/uL Lymph # (Auto) (1.20-3.40) K/uL [place] # (Auto) (0.11-0.59) K/uL Eos # (Auto) (0.00-0.50) K/uL Baso # (Auto) (0.00-0.20) K/uL Immature Gran # (Auto) (0.01-0.20) K/uL PT (9.0-12.0) Seconds INR (0.9-1.1) Sodium (136-145) mmol/L Potassium (3.5-5.1) mmol/L Chloride (98-107) mmol/L Carbon Dioxide (21-32) mmol/L Anion Gap (3-11) BUN (6-23) mg/dl Creatinine (0.6-1.2) mg/dl Est Cr Clr Drug Dosing ml/min Est GFR ( Amer) ml/min Est GFR (Non-Af Amer) ml/min BUN/Creatinine Ratio (10-20) Glucose (70-99(Fasting)) mg/dl Calcium (8.6-10.3) mg/dl Phosphorus (2.5-4.9) mg/dl Magnesium (1.7-2.4) mg/dl Total Bilirubin (0.2-1.0) mg/dl AST (13-39) U/L ALT (7-52) U/L Alkaline Phosphatase (34-104) U/L Troponin I High Sens 20.3 H (0-14) pg/ml Total Protein (6.0-8.3) gm/dl Albumin (3.4-5.0) gm/dl Globulin (2.5-4.0) gm/dl Albumin/Globulin Ratio (0.9-2) Urine Color Urine Appearance (Clear) Urine pH (4.5-7.5) Ur Specific [place] (1.000-1.030) Urine Protein (Negative) Urine Glucose (UA) (Negative) Urine Ketones (Negative) Urine Blood (Negative) Urine Nitrite (Negative) Urine Bilirubin (Negative) Urine Urobilinogen (Negative) Ur Leukocyte Esterase (Negative) Urine WBC (Auto) (0-5) /hpf Urine RBC (Auto) (0-2) /hpf U Hyaline Cast (Auto) (0-2) /lpf U Epithel Cells (Auto) (0-2) /hpf Urine Bacteria (Auto) (None Seen) Diagnostic Findings CT scan of abdomen & pelvis 03/20/24 at 7:45pm: IMPRESSION: Diverticulosis, without acute diverticulitis. No small bowel obstruction. No free intraperitoneal air. Medications Administered Aspirin (Aspirin 81 Mg Ectab) 81 mg PO DAILY [facility] Stop: 04/19/24 08:59 Last Admin: 03/20/24 10:39 Dose: 81 mg Documented By: GUANACO Calcium Carbonate (Calcium Carbonate 500 Mg Chewable Tab) 500 mg PO DAILY OSMIN Stop: 04/19/24 08:59 Last Admin: 03/20/24 10:38 Dose: 500 mg Documented By: GUANACO Amiodarone HCl/Dextrose (Nexterone / D5w) 360 mg in 200 mls @ 16.667 mls/hr IV .Q12H [facility] Stop: 04/18/24 22:59 Last Admin: 03/20/24 21:39 Dose: 0.5 mg/min, 16.7 mls/hr Documented By: NILTON Co-signed By: ABEL Infusion: 03/20/24 21:39 Dose: Infused Documented By: NILTON Co-signed By: ABEL Admin: 03/20/24 10:38 Dose: 0.5 mg/min, 16.7 mls/hr Documented By: GUANACO Co-signed By: BERNARDO Infusion: 03/20/24 10:38 Dose: Infused Documented By: GUANACO Co-signed By: BERNARDO Admin: 03/19/24 22:51 Dose: 0.5 mg/min, 16.7 mls/hr Documented By: LACY Co-signed By: SARAH Pantoprazole Sodium 40 mg/ (Syringe) 10 mls @ 5 mls/min IV BID [facility] Stop: 04/18/24 18:19 Last Admin: 03/20/24 21:33 Dose: 5 mls/min Documented By: Admin: 03/20/24 11:31 Dose: 5 mls/min Documented By: Admin: 03/19/24 20:23 Dose: 5 mls/min Documented By: LACY Promethazine HCl 12.5 mg/ (Sodium Chloride) 50.5 mls @ 202 mls/hr IV Q6H PRN PRN Reason: Nausea And Vomiting Stop: 04/18/24 18:15 Last Infusion: 03/20/24 19:46 Dose: Infused Documented By: Admin: 03/20/24 18:40 Dose: 202 mls/hr Documented By: Infusion: 03/19/24 23:04 Dose: Infused Documented By: Admin: 03/19/24 22:47 Dose: 202 mls/hr Documented By: LACY Potassium Chloride/Sodium Chloride (Normal Saline W/20 Meq Kcl) 20 meq in 1,000 mls @ 60 mls/hr IV .[id number] ONE; Protocol Stop: 03/21/24 12:39 Last Admin: 03/20/24 20:01 Dose: 60 mls/hr Documented By: NILTON Lorazepam (Lorazepam 0.5 Mg Tab) 0.5 mg PO DAILY PRN PRN Reason: anxiety Stop: 04/18/24 19:44 Last Admin: 03/19/24 22:49 Dose: 0.5 mg Documented By: LACY Magnesium Oxide (Magnesium Oxide 400 Mg Tab) 400 mg PO [id number] [facility] Stop: 04/19/24 08:59 Last Admin: 03/20/24 10:38 Dose: 400 mg Documented By: GUANACO Metoprolol Tartrate (Metoprolol Tartrate 25 Mg Tab) 12.5 mg PO BID [facility] Stop: 04/18/24 20:59 Last Admin: 03/20/24 21:33 Dose: 12.5 mg Documented By: Admin: 03/20/24 10:36 Dose: 12.5 mg Documented By: Admin: 03/19/24 20:45 Dose: Not Given Documented By: LACY Warfarin Sodium (Warfarin Sod 1.25 Mg Tab) 1.25 mg PO [id number] [facility] Stop: 04/19/24 15:59 Last Admin: 03/20/24 18:36 Dose: 1.25 mg Documented By: GUANACO ECG Additional Comments: EK03/20/24 at 7:29pm: - Ventricular rate 93 BPM - ND interval 184 ms - QRS duration 94 ms - QT/QTc 394/489 ms - P-R-T axes 67 106 167 Impression: Normal sinus rhythm - Low voltage QRS Anterolateral infarct (cited on or before 05-JUL-2023) - Abnormal ECG When compared with ECG of 19-MAR-2024 16:07 - Sinus rhythm has replaced Atrial fibrillation - Questionable change in initial forces of Anterior leads - ST no longer depressed in Inferior leads - Nonspecific T wave abnormality has replaced inverted T waves in Inferior leads Resident Activity Tracking Resident Involvement: Resident Care Provided Care Provided: Adult Hospital Medicine
--- NOTE | 2024-03-21 11:07 | Electrocardiogram Report ---
Test Reason : Blood Pressure : / mmHG Vent. Rate : 093 BPM Atrial Rate : 093 BPM P-R Int : 184 ms QRS Dur : 094 ms QT Int : 394 ms P-R-T Axes : 067 106 167 degrees QTc Int : 489 ms Normal sinus rhythm Low voltage QRS Anteroseptal infarct (cited on or before 05-JUL-2023) T wave abnormality, consider anterolateral ischemia Abnormal ECG When compared with ECG of 19-MAR-2024 16:07, Sinus rhythm has replaced Atrial fibrillation Questionable change in initial forces of Anterior leads ST no longer depressed in Inferior leads Nonspecific T wave abnormality has replaced inverted T waves in Inferior leads Confirmed by Cheikh Suarez ([id number]) on 03/21/2024 11:07:01 AM Referred By: REFERRED SELF Confirmed By:Cheikh Suarez
--- NOTE | 2024-03-21 12:32 | Discharge Summary ---
Date of Service March 21, 2024 Admission HPI Per Admitting Provider 63-year-old female with history of atrial fibrillation on Coumadin, history of mitral valve repair, and other problems noted below presenting with palpitations and nausea this afternoon. Patient was in [place] on a vacation last Wednesday but unfortunately developed palpitations and subsequently admitted to the hospital for atrial fibrillation, complicated by hypotension. She required amiodarone infusion, and ultimately underwent cardioversion with successful conversion to sinus rhythm. Her echocardiogram revealed an EF of 24%. She was discharged yesterday with increased dose of metoprolol to 25 mg p.o. twice daily Patient return home to [place] this afternoon but again had palpitations, and nausea. She was then brought to the ER for evaluation. At the ED, patient was in A-fib RVR, heart rate 120s, blood pressure stable. Upon discussion with her cytogenetics laboratory manager Dr. Suarez, amiodarone bolus and continuous infusion recommended. After initiation of amiodarone, patient's heart rate improved to the 90s. Potassium level found to be 3.1, 2 bags of K riders ordered. On exam, patient seen with her and daughter at the bedside visiting. Appears weak, Still having nausea but no abdominal pain. (+) diarrhea x 2 at home no active chest pain, dyspnea, palpitations, dizziness Admission Exam Per Admitting Provider General- oriented x 3, not in distress, speaks in sentences with no effort or accessory muscle use Head- atraumatic Eyes- PERRL, EOMI, anicteric ENT- oropharynx clear Neck- supple, no JVD, no adenopathy, no thyromegaly; carotids +2/2, no bruits appreciated Lungs- clear to auscultation bilaterally, no rales/wheezes Heart- normal rate, irregularly irregular rhythm; no murmur, no gallop, no rub appreciated Abdomen- normal bowel sounds, nondistended, soft, nontender, no masses or hepatosplenomegaly Extremities- no pretibial edema, no calf tenderness; peripheral pulses intact Neuro- alert, oriented x 3; CN 2-12 grossly intact; motor 5/5 bilaterally;sensation 100% on all extremities; no other gross focal neurologic deficits Skin- warm & dry Principal Diagnosis A-fib RVR Nausea Discharge Exam General- oriented x 3, not in distress, speaks in sentences with no effort or accessory muscle use Head- atraumatic Eyes- PERRL, EOMI, anicteric ENT- oropharynx clear Neck- supple, no JVD, no adenopathy, no thyromegaly; carotids +2/2, no bruits appreciated Lungs- clear to auscultation bilaterally, no rales/wheezes Heart- normal rate, regular rhythm; no murmur, no gallop, no rub appreciated Abdomen- normal bowel sounds, nondistended, soft, nontender, no masses or hepatosplenomegaly Extremities- no pretibial edema, no calf tenderness; peripheral pulses intact Neuro- alert, oriented x 3; CN 2-12 grossly intact; motor 5/5 bilaterally;sensation 100% on all extremities; no other gross focal neurologic deficits Skin- warm & dry Discharge Data Allergies Allergy/AdvReac Type Severity Reaction Status Date / Time vancomycin Allergy rash Verified 03/19/24 17:14 Consultations 03/19/24 17:27 Consult Cardiology Routine 03/19/24 17:28 ED Decision to Admit Stat 03/19/24 19:06 Consult Cardiology Routine Ordered Studies 03/20/24 19:45 CT Abd and Pelvis [CT abd pelvis IV con only] Stat Hospital Course (1) Atrial fibrillation with rapid ventricular response: 63-year-old female with history of atrial fibrillation on Coumadin, history of mitral valve repair, and other problems noted below presenting with palpitations and nausea and found to be in Afib rvr. She was managed for the following: Atrial fibrillation, rapid ventricular response History of chronic atrial fibrillation on Coumadin Noted to be in A-fib RVR at ED, EKG noted. Troponin minimally elevated/flat trend. Started on amnio drip. Patient currently in sinus rhythm Cardiology evaluated, amiodarone twice a day and metoprolol succinate daily. Follow-up with cardiology in 2 weeks time upon discharge. Patient voiced understanding and is agreeable to plan of care. Patient denies any chest pain or shortness of breath, reports Feeling significantly better. HO Congestive heart failure, systolic type History of mitral valve replacement Currently patient is euvolemic, CXR w/ no congestion, no pitting edema or crackles on exam. Echo done at [facility] over the weekend showed EF of 24 ECHO this admission - EF of 25-30%. Severe global hypokinesis. The Prosthetic mitral valve is well seated. Cardiology evaluated. Patient to follow-up with cardiology upon discharge. Nausea: Abdominal exam essentially normal. CTAP and lipase WNL. Likely secondary to A-fib in RVR. Patient made aware to follow-up with GI if persisting nausea. Patient reports feeling better today, no vomiting or nausea. Increase blood lactic acid level: Status post IV fluid at presentation. Lactic acid resolved. No signs of infection. DVT prophylaxis: On Coumadin, monitor PT/INR. Full code Patient is being discharged to home with following instruction at the point of discharge: Follow-up with your primary care physician within a week time and likely you will need labs CBC/CMP/magnesium/phosphorus. You were diagnosed and managed for atrial fibrillation with rapid ventricular response while in the hospital. Cardiology also evaluated you. Your cardiology medications has been optimized. For your nausea, you will be discharged on as needed promethazine, if with continued nausea, you might benefit from GI evaluation as an outpatient. Coordinate with your PCP office to set up the referral. Follow-up with cardiology in 2 weeks time upon discharge. Take your medications as prescribed. Please make sure that you are able to get your medications today by calling your pharmacy before you leave the hospital so that your treatment continuity is not broken. Home Health Attestation I certify that this patient is under my care and that I, or a physicians claims assistant working with me, had a face to-face encounter that meets the home health [id number] encounter requirements with this patient. The encounter with the patient was in whole, or in part, for the following medical condition, which is the primary reason for home health care (list medical condition): I certify that, based on my findings, the following services are medically necessary home health services: My clinical findings support the need for the above services because: Further, I certify that my clinical findings support that this patient is homebound (i.e. absences from home require considerable and taxing effort and ar e for medical reasons or sabianism services or infrequently or of short duration when for other reasons) because: Certification for Home Health Services: Based on the above findings, I certify that this patient is confined to the home and needs intermittent prison care, physical therapy and/or speech therapy or continues to need occupational therapy. The patient is under my care, and I have initiated the establishment of the plan of care. This patient will be followed by a physician who will periodically review the plan of care. Total Time Total Time Spent Total Time Spent (In Minutes): 45 Discharge Plan Discharge Items Patient Disposition: Home - Self-Care Reason For Visit: A FIB RVR Discharge Diagnosis: A-fib RVR Nausea Activity: Resume your previous activity Non-emergency contact: Primary Care Provider Call non-emergency contact if: you have any medication questions and your symptoms worsen Follow-up/Referrals: Anamaria Abad DO [Primary Care Provider] - Diet: Heart Healthy Diet Texture: Easy to Chew Addtl Attending Provider Instructions: Follow-up with your primary care physician within a week time and likely you will need labs CBC/CMP/magnesium/phosphorus. You were diagnosed and managed for atrial fibrillation with rapid ventricular response while in the hospital. Cardiology also evaluated you. Your cardiology medications has been optimized. For your nausea, you will be discharged on as needed promethazine, if with continued nausea, you might benefit from GI evaluation as an outpatient. Coordinate with your PCP office to set up the referral. Follow-up with cardiology in 2 weeks time upon discharge. Take your medications as prescribed. Please make sure that you are able to get your medications today by calling your pharmacy before you leave the hospital so that your treatment continuity is not broken. Pending Studies at Discharge: Yes Stand-Alone Forms: My [facility] [employer], Smoking Cessation Medications and DC Order Prescriptions: New metoprolol succinate 25 mg Tablet Extended Release 24 Hr 25 mg PO QAM Qty: 30 0RF promethazine 12.5 mg tablet 12.5 mg PO TID PRN (Reason: nausea and vomiting) Qty: 30 0RF Continued aspirin 81 mg tablet,delayed release (DR/EC) 81 mg PO DAILY warfarin 2.5 mg tablet See Rx Instructions .ROUTE .COMPLEX Rx Instructions: 2.5 mg orally as directed by [facility]; Take 2.5mg by mouth on and 1.25mg by mouth all other days in the evening/dinner time. magnesium 250 mg tablet 250 mg PO [id number] Rx Instructions: Mon/Wed/Fri lorazepam 0.5 mg Tablet 0.5 mg PO HS calcium carbonate [Calcium 500] 500 mg calcium (1,250 mg) Tablet 500 mg PO DAILY pantoprazole 40 mg Tablet,Delayed Release (Dr/Ec) 40 mg PO BID Qty: 60 1RF Changed amiodarone 200 mg tablet 200 mg PO UD Qty: 44 0RF Rx Instructions: Twice a day for 2 weeks, then once a day. Discontinued metoprolol tartrate 25 mg tablet 12.5 mg PO BID Discharge Orders: Discharge Order (Routine); Ordered 03/21/24 Ordered By: Brenton Ramirez Admission Data Admit Date/Time: 03/19/24 17:52 Attending Provider: Brenton Ramirez Admit Provider: Josh Foster Primary Care Provider: Anamaria Abad Other Providers: Cheikh Suarez; Josh Foster; Eliu Harman; Dieudonne Burden; Otis Franz; Hema Morales; Jake Xiong Jr; Larry Todd; Carmen Johnson; Kindra Munroe; Primitivo Baldwin; Primitivo Swanson; Murray Negro; Silvia Cabral; Sergio Aldrich; Eryn Luther; Dave James; Michele Lechuga; Mike Leal; Tayo Robison
[2024-03-21] MEDS: METOPROLOL SUCC 50MG EXT REL TAB PO STA (12:49)
[2024-03-21] MEDS: AMIODARONE 200 MG TAB PO SCH (12:50)
[2024-03-21] MEDS: PNEUMOCOCCAL VACCINE (PCV20) 20-VAL CONJ-DIP CRM/PF 0.5 ML SYR IM ONE (14:54)
[2024-03-22] MEDS ORDERED: METOPROLOL SUCC 25MG EXT REL TAB PO SCH (09:00)
[2024-03-23] MEDS ORDERED: WARFARIN SOD 2.5 MG TAB PO SCH (16:00)
== END 2024-03-21 16:54 | disposition home or self-care (01) | DRG 309 ==
LOC: ED 15:55 → 4W 17:52 → SUATTDRO 17:52 → 4W 18:30

== ENCOUNTER 2024-12-08 21:48 | Inpatient (IN) ==
--- NOTE | 2024-12-08 22:28 | Emergency Department Note ---
Impression & Plan Severe sepsis, Pneumonia due to respiratory syncytial virus (RSV), Acute hypoxic respiratory failure ED Provider Note CHIEF COMPLAINT: Tachycardia HISTORY OF PRESENTING ILLNESS: The patient is a 64-year-old female who arrives to the emergency department for evaluation of diffuse sweating, tachycardia, shortness of breath, and fever. She reports symptoms began a few days ago, however worsened this evening. She reports persistent cough, and flulike symptoms. Patient does states she has nausea, with vomiting however denies abdominal pain. Patient reports a history of atrial fibrillation, CHF, and previous STEMI. She is currently requiring 4 L nasal cannula, which she does not wear at home. REVIEW OF SYSTEMS: See HPI for pertinent positives and pertinent negatives. ALLERGIES: See below MEDICATIONS: See below PAST MEDICAL HISTORY: See below PHYSICAL EXAM: VITALS: Vitals are noted on the nurse's note and reviewed by myself. Tachycardia, tachypnea, hypoxia. GENERAL: 64-year-old female, in mild distress, diaphoretic, ill-appearing. SKIN: The skin was without rashes, erythema, edema, or bruising. HEAD: Normocephalic atraumatic. NECK: Supple without nuchal rigidity. No lymphadenopathy. No JVD. HEART: Tachycardia with regular rhythm without murmurs gallops or rubs. LUNGS: Coarse lung sounds, bilateral bases. ABDOMEN: Positive bowel sounds x 4. Soft, nontender, without masses or organomegaly. No guarding or rebound tenderness. MUSCULOSKELETAL: No muscle atrophy, erythema, or edema noted. Normal gait. Strength 5/5 throughout. NEURO: Patient was alert and oriented to person place and time. No focal neurological deficits. DIFFERENTIAL DIAGNOSIS: Viral syndrome, strep pharyngitis, tonsillitis, mononucleosis, retropharyngeal abscess, peritonsillar abscess, otitis media, sinusitis, bronchitis, pneumonia, as well as other pathologies. ED COURSE AND MEDICAL DECISION MAKING: HISTORY FROM INDEPENDENT HISTORIAN: at bedside a secondary historian. MEDICATIONS GIVEN: 500 cc bolus NSS, 4 mg IV Zofran, 2 g IV cefepime. MONITOR: Continuous cardiac technologist: Order was placed for continuous cardiac technologist. Patient was placed on the cardiac technologist and continuous pulse ox. Patient was noted to be in normal sinus rhythm at an initial rate of 103 bpm per my interpretation. EKG: EKG was interpreted by myself as sinus tachycardia at a rate of 102, ST elevation, or depression. Previous for comparison from June 2024 shows no concerning change other than increased rate. INTERPRETATION OF LABS: I interpreted the labs with full lab results as below in the lab section of this note. Pertinent lab results discussed in the MDM section below. INTERPRETATION OF IMAGING: Imaging studies were interpreted by myself and read by radiology as per the imaging section of this note. MDM SUMMARY: Patient is a 64-year-old female who arrives to the emergency department for evaluation of the above-stated complaint. A saline lock was established, CBC, CMP, lipase, troponin, PT/INR, PTT upper respiratory viral panel, blood cultures, lactate, urinalysis were obtained. CBC shows leukocytosis 19.71, CMP shows elevated anion gap, glucose 219, lactate 2.8, troponin 3.8, lipase negative, urinalysis shows 4+ ketones, 3+ glucose. Upper respiratory viral panel positive for RSV. Chest x-ray per my interpretation shows no acute findings. EKG interpreted as above. Patient is also requiring 4 L nasal cannula. She does not wear oxygen at baseline. Patient is likely septic, she was provided 500 cc bolus of IV fluids, due to history of CHF, I was unable to administer the entire sepsis bolus. Patient was provided IV cefepime for likely respiratory cause of infection. The patient will be admitted to the hospital for IV antibiotics, and fluid resuscitation. She was admitted to the [facility] hospitalist service. Please refer to Dr. Cline's documentation for further patient workup and care. DIAGNOSIS: Sepsis, RSV, hypoxia The chart was completed utilizing [employer] Speech voice recognition software. Grammatical errors, random word insertions, pronoun errors, and incomplete sentences are an occasional consequence of this system due to software limitations, ambient noise, and hardware issues. Any formal questions or concerns about the content, text, or information contained within the body of this dictation should be directly addressed to the provider for clarification. TREATMENT PLAN/DISCHARGE INSTRUCTIONS: Admit to hospitalist service Past Med/Surg History Problem List (Updated 12/10/24 @ 02:19 by PORFIRIO Delgadillo) Paroxysmal atrial fibrillation Chronic heart failure with reduced ejection fraction (HFrEF, <= 40%) Acute hypoxic respiratory failure (Acute) Pneumonia due to respiratory syncytial virus (RSV) (Acute) Severe sepsis (Acute) Lumbar radiculopathy Scoliosis of lumbar region due to degenerative disease of spine in adult Acquired leg length discrepancy Heart failure with reduced ejection fraction (HFrEF, <= 40%) CHF (congestive heart failure) (Acute) Elevated lactic acid level (Acute) Non-ST elevation MS (NSTEMI) (Acute) Shortness of breath (Acute) Nausea (Acute) Elevated brain natriuretic peptide (BNP) level (Acute) Acute hypokalemia (Acute) Chest pain (Acute) Atrial fibrillation with rapid ventricular response (Acute) History of mitral valve replacement with bioprosthetic valve Preop cardiovascular exam Costochondritis, acute Atrial fibrillation, permanent Depression Panic attacks Chest pain (Acute) Atrial flutter with rapid ventricular response (Acute) Diarrhea Cholelithiasis Epigastric pain Chest pain (Acute) ST elevation (STEMI) myocardial infarction (Acute) Paroxysmal SVT (supraventricular tachycardia) LVH (left ventricular hypertrophy) Palpitations Mitral regurgitation MVP (mitral valve prolapse) Kidney stone (Acute) Cat scratch of multiple sites (Acute) Cat scratch of multiple sites (Acute) Cellulitis (Acute) Medical History MVP (mitral valve prolapse) per cardio record-"noted on echo" 08/2023 Hx of renal calculi passed on own Hx of migraines History of COVID-19 2021, home test, not hosp; moderate symptoms>still has memory trouble and brain fog Atrial fibrillation currently on eliquis; f/u dr. [place], [facility] GERD (gastroesophageal reflux disease) Anxiety Encounter for pre-operative examination Surgical History History of total right hip arthroplasty History of total left hip arthroplasty Hx of colonoscopy Hx of bilateral cataract extraction Social History Smoking Status: Never smoker Tobacco Type: Cigarettes Second Hand Exposure: No; Do You Dip or Chew Tobacco: No; Tobacco Cessation Education Requested by Patient: No Hx Alcohol Use: No Hx Substance Use: Yes Last Used Substance: Unknown Last Used Substance Other:: "uses off and on" Substance Use Type Other:: medicinal marijuana Preferred Language: Sinhala Communication Ability: Effective Estimator Jewelry Required: No Beliefs That Will Affect Care: None marital status: Current Living Situation: Spouse current occupation: Retired Other Information That Helps Us Care for You: No Feels Safe at Home: Yes Safety Concerns: Feels Safe At This Time Assistive Devices: None Allergies Allergies Allergy/AdvReac Type Severity Reaction Status Date / Time vancomycin Allergy Intermediate Rash Verified 12/09/24 00:06 Home Meds Home Medications Medication Instructions Recorded Confirmed lorazepam 0.5 mg tablet 0.5 mg PO DAILY PRN SLEEP 08/02/22 12/09/24 aspirin 81 mg tablet,delayed 81 mg PO DAILY 01/20/24 12/09/24 release magnesium 250 mg tablet 250 mg PO [id number] 01/20/24 12/09/24 calcium carbonate 500 mg PO DAILY 03/19/24 12/09/24 [id number] 250 1 tab PO Q6H PRN PAIN/HEADACHE 10/20/24 12/09/24 mg-250 mg-65 mg tablet (Excedrin Extra Strength) medical marijuana 1 dose inhalation DAILY PRN 10/20/24 12/09/24 NEEDED apixaban 5 mg tablet (Eliquis) 5 mg PO BID 12/09/24 12/09/24 cholecalciferol (vitamin D3) 25 25 mcg PO DAILY 12/09/24 12/09/24 mcg (1,000 unit) capsule (Vitamin D3) duloxetine 30 mg capsule,delayed 30 mg PO QAM 12/09/24 12/09/24 release oxycodone 5 mg tablet 5 mg PO Q8H PRN Pain, Severe 12/09/24 12/09/24 Previous Rx's Medication Instructions Recorded metoprolol succinate 25 mg 25 mg PO QAM #30 tabs 03/21/24 tablet,extended release 24 hr pantoprazole 40 mg tablet,delayed 40 mg PO BID #60 tabs 03/21/24 release promethazine 12.5 mg tablet 12.5 mg PO TID PRN nausea and 03/21/24 vomiting #30 tabs amiodarone 200 mg tablet 200 mg PO DAILY #90 tabs 07/17/24 Results & Data (ED) Vital Signs Vital Signs - 24 hr 12/08/24 21:50 12/08/24 22:00 12/08/24 22:00 Temperature 36.4 C L 36.8 C Temperature Source Oral Oral Pulse Rate 103 H 89 Respiratory Rate 26 H 24 Respiratory Effort / Characteristics Non-Labored Spontaneous Respiratory Depth Normal Respiratory Pattern Regular Blood Pressure 116/73 129/87 Blood Pressure Mean 87 114 Pulse Oximetry 93 94 Oxygen Delivery Method Room Air Oxygen Flow Rate Sepsis Recent Fever Within 48 Hours No Sepsis New/Unexplained Change in Mental Status No Sepsis Action Taken by Nursing No Action Required 12/08/24 22:01 12/08/24 22:20 12/08/24 22:28 Temperature Temperature Source Pulse Rate 87 Respiratory Rate Respiratory Effort / Characteristics Respiratory Depth Respiratory Pattern Blood Pressure Blood Pressure Mean Pulse Oximetry 86 L 96 Oxygen Delivery Method Room Air Nasal Cannula Oxygen Flow Rate 4 Sepsis Recent Fever Within 48 Hours Sepsis New/Unexplained Change in Mental Status Sepsis Action Taken by Nursing 12/08/24 22:31 12/08/24 23:00 12/08/24 23:00 Temperature Temperature Source Pulse Rate 104 H 78 79 Respiratory Rate 17 16 18 Respiratory Effort / Characteristics Respiratory Depth Respiratory Pattern Blood Pressure 133/86 115/91 115/91 Blood Pressure Mean 90 105 105 Pulse Oximetry 92 93 96 Oxygen Delivery Method Oxygen Flow Rate Sepsis Recent Fever Within 48 Hours Sepsis New/Unexplained Change in Mental Status Sepsis Action Taken by Nursing 12/08/24 23:30 12/09/24 00:02 12/09/24 00:30 Temperature Temperature Source Pulse Rate 80 101 H 98 H Respiratory Rate 24 21 16 Respiratory Effort / Characteristics Respiratory Depth Respiratory Pattern Blood Pressure 120/98 136/107 H 138/98 Blood Pressure Mean 106 110 106 Pulse Oximetry 94 94 97 Oxygen Delivery Method Oxygen Flow Rate Sepsis Recent Fever Within 48 Hours Sepsis New/Unexplained Change in Mental Status Sepsis Action Taken by [facility] Medications Current Medication List: was personally reviewed by me Laboratory Data Attestation: I reviewed the patient's lab results. 12/09/24 06:56 12/09/24 06:56 Lab Results 12/08/24 12/08/24 12/08/24 Range/Units 22:00 22:01 22:36 WBC 19.71 H (4.8-10.8) K/ul RBC 4.71 (4.20-5.40) M/uL Hgb 14.6 (12.0-16.0) g/dl Hct 45.7 (37.0-47.0) % MCV 97.0 (80.0-100.0) fL MCH 31.0 (25.0-34.0) pg MCHC 31.9 L (32.0-36.0) g/dL RDW Std Deviation 45.5 (36.4-46.3) fL RDW Coeff of Angela 12.7 (11.5-14.5) % Plt Count 278 (130-400) K/uL MPV 10.3 (9.4-12.4) fL Immature Gran % (Auto) 0.5 % Neut % (Auto) 75.6 % Lymph % (Auto) 11.5 % [place] % (Auto) 11.8 % Eos % (Auto) 0.3 % Baso % (Auto) 0.3 % Neut # (Auto) 14.92 H (1.40-6.50) K/uL Lymph # (Auto) 2.26 (1.20-3.40) K/uL [place] # (Auto) 2.32 H (0.11-0.59) K/uL Eos # (Auto) 0.06 (0.00-0.50) K/uL Baso # (Auto) 0.06 (0.00-0.20) K/uL Immature Gran # (Auto) 0.09 (0.01-0.20) K/uL APTT 28 (21-31) Seconds PTT Ratio 1.0 VBG pH (7.36-7.41) VBG pCO2 (38-50) mmHg VBG pO2 mmHg VBG HCO3 mmol/L VBG O2 Saturation % VBG Base Excess mEq/L Sodium 137 (136-145) mmol/L Potassium 3.7 (3.5-5.1) mmol/L Chloride 98 (98-107) mmol/L Carbon Dioxide 24 (21-32) mmol/L Anion Gap 15 H (3-11) BUN 18 (6-23) mg/dl Creatinine 0.83 (0.6-1.2) mg/dl Est Cr Clr Drug Dosing Not Reportable eGFR 78.67 BUN/Creatinine Ratio 21.7 H (10-20) Glucose 219 H (70-99(Fasting)) mg/dl Estimat Average Glucose 111 mg/dl Hemoglobin A1c 5.5 (4.5-5.6) % Lactate 2.8 H* (0.4-2.0) mmol/L Calcium 10.6 H (8.6-10.3) mg/dl Phosphorus 3.4 (2.5-4.9) mg/dl Magnesium (1.7-2.4) mg/dl Total Bilirubin 0.8 (0.2-1.0) mg/dl AST 24 (13-39) U/L ALT 23 (7-52) U/L Alkaline Phosphatase 92 (34-104) U/L Troponin I High Sens 3.8 (0-14) pg/ml Total Protein 8.2 (6.0-8.3) gm/dl Albumin 4.9 (3.4-5.0) gm/dl Globulin 3.3 (2.5-4.0) gm/dl Albumin/Globulin Ratio 1.5 (0.9-2) Lipase 17 (11-82) U/L PTH Intact (12.0-88.0) pg/ml Adenovirus (PCR) Not Detected (NotDetected) B. pertussis DNA (PCR) Not Detected (NotDetected) B.parapertussis DNA PCR Not Detected (NotDetected) C. pneumoniae DNA (PCR) Not Detected (NotDetected) Coronavirus OC43 (PCR) Not Detected (NotDetected) Coronavirus HKU1 (PCR) Not Detected (NotDetected) Coronavirus 229E (PCR) Not Detected (NotDetected) SARS-CoV-2 (PCR) Not Detected (NotDetected) Coronavirus NL63 (PCR) Not Detected (NotDetected) Human Metapneumovir PCR Not Detected (NotDetected) Influenza Type A (PCR) Not Detected (NotDetected) Influenza Type B (PCR) Not Detected (NotDetected) M. pneumoniae (PCR) Not Detected (NotDetected) Parainfluenza 1 (PCR) Not Detected (NotDetected) Parainfluenza 2 (PCR) Not Detected (NotDetected) Parainfluenza 3 (PCR) Not Detected (NotDetected) Parainfluenza 4 (PCR) Not Detected (NotDetected) RSV (PCR) DETECTED A (NotDetected) Entero/Rhino (PCR) Not Detected (NotDetected) 12/09/24 Range/Units 00:33 WBC (4.8-10.8) K/ul RBC (4.20-5.40) M/uL Hgb (12.0-16.0) g/dl Hct (37.0-47.0) % MCV (80.0-100.0) fL MCH (25.0-34.0) pg MCHC (32.0-36.0) g/dL RDW Std Deviation (36.4-46.3) fL RDW Coeff of Angela (11.5-14.5) % Plt Count (130-400) K/uL MPV (9.4-12.4) fL Immature Gran % (Auto) % Neut % (Auto) % Lymph % (Auto) % [place] % (Auto) % Eos % (Auto) % Baso % (Auto) % Neut # (Auto) (1.40-6.50) K/uL Lymph # (Auto) (1.20-3.40) K/uL [place] # (Auto) (0.11-0.59) K/uL Eos # (Auto) (0.00-0.50) K/uL Baso # (Auto) (0.00-0.20) K/uL Immature Gran # (Auto) (0.01-0.20) K/uL APTT (21-31) Seconds PTT Ratio VBG pH 7.38 (7.36-7.41) VBG pCO2 46 (38-50) mmHg VBG pO2 28 mmHg VBG HCO3 27 mmol/L VBG O2 Saturation < 60.0 % VBG Base Excess 1.5 mEq/L Sodium (136-145) mmol/L Potassium (3.5-5.1) mmol/L Chloride (98-107) mmol/L Carbon Dioxide (21-32) mmol/L Anion Gap (3-11) BUN (6-23) mg/dl Creatinine (0.6-1.2) mg/dl Est Cr Clr Drug Dosing eGFR BUN/Creatinine Ratio (10-20) Glucose (70-99(Fasting)) mg/dl Estimat Average Glucose mg/dl Hemoglobin A1c (4.5-5.6) % Lactate 1.8 (0.4-2.0) mmol/L Calcium 9.6 (8.6-10.3) mg/dl Phosphorus (2.5-4.9) mg/dl Magnesium 1.7 (1.7-2.4) mg/dl Total Bilirubin (0.2-1.0) mg/dl AST (13-39) U/L ALT (7-52) U/L Alkaline Phosphatase (34-104) U/L Troponin I High Sens (0-14) pg/ml Total Protein (6.0-8.3) gm/dl Albumin (3.4-5.0) gm/dl Globulin (2.5-4.0) gm/dl Albumin/Globulin Ratio (0.9-2) Lipase (11-82) U/L PTH Intact 71.2 (12.0-88.0) pg/ml Adenovirus (PCR) (NotDetected) B. pertussis DNA (PCR) (NotDetected) B.parapertussis DNA PCR (NotDetected) C. pneumoniae DNA (PCR) (NotDetected) Coronavirus OC43 (PCR) (NotDetected) Coronavirus HKU1 (PCR) (NotDetected) Coronavirus 229E (PCR) (NotDetected) SARS-CoV-2 (PCR) (NotDetected) Coronavirus NL63 (PCR) (NotDetected) Human Metapneumovir PCR (NotDetected) Influenza Type A (PCR) (NotDetected) Influenza Type B (PCR) (NotDetected) M. pneumoniae (PCR) (NotDetected) Parainfluenza 1 (PCR) (NotDetected) Parainfluenza 2 (PCR) (NotDetected) Parainfluenza 3 (PCR) (NotDetected) Parainfluenza 4 (PCR) (NotDetected) RSV (PCR) (NotDetected) Entero/Rhino (PCR) (NotDetected) Administered Medications Amiodarone HCl (Amiodarone 200 Mg Tab) 200 mg PO DAILY [facility] Stop: 01/08/25 08:59 Last Admin: 12/09/24 08:28 Dose: 200 mg Documented By: VINCENT Amoxicillin/Clavulanate Potassium (Amoxicillin/Clavulanate 875 Mg Tab) [facility] [place] [place] Stop: 12/14/24 16:59 Last Admin: 12/09/24 16:59 Dose: 1 tab Documented By: VINCENT Apixaban (Apixaban 5 Mg Tablet) 5 mg PO BID [facility] Stop: 01/08/25 08:59 Last Admin: 12/09/24 20:59 Dose: 5 mg Documented By: Admin: 12/09/24 08:29 Dose: 5 mg Documented By: VINCENT Aspirin (Aspirin 81 Mg Ectab) 81 mg PO DAILY O[facility] Stop: 01/08/25 08:59 Last Admin: 12/09/24 08:28 Dose: 81 mg Documented By: VINCENT Benzonatate (Benzonatate 100 Mg Capsule) 200 mg PO TID PRN PRN Reason: cough Stop: 01/08/25 08:59 Last Admin: 12/09/24 20:59 Dose: 200 mg Documented By: Admin: 12/09/24 09:55 Dose: 200 mg Documented By: VINCENT Duloxetine HCl (Duloxetine Hcl 30 Mg Cap) 30 [facility] [place] [facility] [place]: 01/08/25 08:59 Last Admin: 12/09/24 08:29 Dose: 30 mg Documented By: VINCENT Guaifenesin (Guaifenesin 600 Mg Tabcr) 1,200 mg PO Q12 OSM[facility] Stop: 01/08/25 08:59 Last Admin: 12/09/24 20:59 Dose: 1,200 mg Documented By: Admin: 12/09/24 09:55 Dose: 1,200 mg Documented By: VINCENT Hydrocodone Bit/Homatropine Methylb (Hydrocodone/Homatropine Syrup 5mg/1.5mg 5ml Udp) 5 ml PO Q6H PRN PRN Reason: Cough Stop: 12/23/24 08:35 Last Admin: 12/09/24 20:59 Dose: 5 ml Documented By: Admin: 12/09/24 14:20 Dose: 5 ml Documented By: VINCENT Lorazepam (Lorazepam 0.5 Mg Tab) 0.5 mg PO DAILY PRN PRN Reason: Sleep Stop: 01/08/25 00:44 Last Admin: 12/09/24 20:59 Dose: 0.5 mg Documented By: Admin: 12/09/24 03:06 Dose: 0.5 mg Documented By: PAYAM Metoprolol Succinate (Metoprolol Succ 25mg Ext Rel Tab) 25 mg PO QAM [facility] Stop: 01/08/25 08:59 Last Admin: 12/09/24 08:29 Dose: 25 mg Documented By: VINCENT Ondansetron HCl (Ondansetron Inj 2 Mg/Ml 2 Ml Vial) 4 mg IV Q6H PRN PRN Reason: Nausea And Vomiting Stop: 01/08/25 08:36 Last Admin: 12/09/24 11:49 Dose: 4 mg Documented By: VINCENT Oxycodone HCl (Oxycodone Hcl Ir 5 Mg Tab (Immediate Release)) 5 mg PO Q4H PRN PRN Reason: Pain Stop: 12/23/24 00:45 Last Admin: 12/09/24 11:51 Dose: 5 mg Documented By: VINCENT Pantoprazole Sodium (Pantoprazole 40 Mg Tab) 40 mg PO BID OSM[facility] Stop: 01/08/25 08:59 Last Admin: 12/09/24 20:59 Dose: 40 mg Documented By: Admin: 12/09/24 08:29 Dose: 40 mg Documented By: VINCENT Discontinued Medications Sodium Chloride (Nss) 500 mls @ 999 mls/hr IV .Q31M ONE Stop: 12/08/24 22:55 Last Infusion: 12/08/24 23:57 Dose: Infused Documented By: Admin: 12/08/24 22:32 Dose: 999 mls/hr Documented By: JENIFFER Cefepime HCl (Maxipime 2000mg) 2,000 mg in 20 mls @ 5 mls/min IV ONE STA Stop: 12/08/24 23:40 Last Admin: 12/08/24 23:54 Dose: 5 mls/min Documented By: KACEY Ampicillin Sodium/Sulbactam Sodium (Unasyn) 3,000 mg in 100 mls @ 200 mls/hr IV NOW STA Stop: 12/09/24 00:38 Last Infusion: 12/09/24 02:29 Dose: Infused Documented By: Admin: 12/09/24 00:26 Dose: 200 mls/hr Documented By: KACEY Sodium Chloride (Nss) 1,000 mls @ 200 mls/hr IV .Q5H STA Stop: 12/09/24 05:12 Last Infusion: 12/09/24 02:29 Dose: Infused Documented By: Admin: 12/09/24 00:26 Dose: 999 mls/hr Documented By: KACEY Magnesium Sulfate/Dextrose (Magnesium Sulfate / D5w) 1 gm in 100 mls @ 50 mls/hr IV ONE STA Stop: 12/09/24 04:16 Last Infusion: 12/09/24 05:09 Dose: Infused Documented By: Admin: 12/09/24 03:09 Dose: 50 mls/hr Documented By: PAYAM Ampicillin Sodium/Sulbactam Sodium (Unasyn) 3,000 mg in 100 mls @ 200 mls/hr IV Q6H OSMIN Stop: 12/14/24 05:59 Last Infusion: 12/09/24 05:47 Dose: Infused Documented By: Admin: 12/09/24 05:17 Dose: 200 mls/hr Documented By: PAYAM Sodium Chloride (Nss) 500 mls @ 999 mls/hr IV .Q31M ONE Stop: 12/09/24 12:03 Last Infusion: 12/09/24 12:20 Dose: Infused Documented By: Admin: 12/09/24 11:42 Dose: 999 mls/hr Documented By: VINCENT Ioversol (Optiray 320 100ml) 94 ml IV ONCE ONE Stop: 12/09/24 01:22 Last Admin: 12/09/24 01:21 Dose: 94 ml Documented By: KELLY Ipratropium Gail (Ipratropium Gail Neb Soln 0.02% 0.5mg/2.5ml Vial) 0.5 mg INH NOW STA Stop: 12/09/24 00:45 Last Admin: 12/09/24 01:34 Dose: 0.5 mg Documented By: KACEY Levalbuterol HCl (Levalbuterol 1.25 Mg/3 Ml Neb) 1.25 mg NEB NOW STA Stop: 12/09/24 00:45 Last Admin: 12/09/24 01:34 Dose: 1.25 mg Documented By: KACEY Ondansetron HCl (Ondansetron Inj 2 Mg/Ml 2 Ml Vial) 4 mg IV NOW STA Stop: 12/08/24 23:10 Last Admin: 12/08/24 23:13 Dose: 4 mg Documented By: KACEY Imaging Data Attestation: I personally reviewed and interpreted this imaging study as follows: Radiologist's Impression: Chest X-Ray 12/08/24 22:25 Exam(s): XR CXR 1 VIEW EXAM: XR Chest, 1 View CLINICAL HISTORY: Reason for exam: Chest pain, nonspecific. TECHNIQUE: Frontal view of the chest. COMPARISON: No relevant prior studies available. FINDINGS: Lungs: No airspace consolidation. Pleural space: No pleural effusion or pneumothorax. Heart: Prior sternotomy. Left atrial appendage clip. No cardiomegaly or vascular congestion. Bones/joints: No acute osseous findings. IMPRESSION: No acute findings in the chest. Electronically signed by: Giovanni Chan M.D. 12/09/24 01:15 AM Discharge Plan Visit Data Chief Complaint: Tachycardia Stated Complaint: EXCESSIVE SWEATING,TACHY,PMHx VFIB ED Provider: Shital Rogel ED Midlevel Provider: Gloria Hurt Discharge Problem: Severe sepsis, Pneumonia due to respiratory syncytial virus (RSV), Acute hypoxic respiratory failure Patient Disposition: Admitted As Inpatient Discharge Instructions Interventions: ED Discharge Assessment Last Done: 12/09/24 02:23
[2024-12-08] MEDS: SODIUM CHLORIDE 0.9% 500 ML IV ONE (22:32)
[2024-12-08 22:41] LABS: Basophils # (auto) 0.06 K/uL (0.00-0.20); Basophils % (auto) 0.3 %; Eosinophils # (auto) 0.06 K/uL (0.00-0.50); Eosinophils % (auto) 0.3 %; Hematocrit (blood only) 45.7 % (37.0-47.0); Hemoglobin 14.6 g/dl (12.0-16.0); Immature Granulocytes # (auto) 0.09 K/uL (0.01-0.20); Immature Granulocytes % (auto) 0.5 %; Lymphocytes # (auto) 2.26 K/uL (1.20-3.40); Lymphocytes % (auto) 11.5 %; Mean Corpuscular Hgb Conc 31.9 g/dL (32.0-36.0); Mean Platelet Volume 10.3 fL (9.4-12.4); Monocytes # (auto) 2.32 K/uL (0.11-0.59); Monocytes % (auto) 11.8 %; Neutrophils # (auto) 14.92 K/uL (1.40-6.50); Neutrophils % (auto) 75.6 %; Platelet Count 278 K/uL (130-400); RDW Coefficient of Variation 12.7 % (11.5-14.5); RDW Standard Deviation 45.5 fL (36.4-46.3); Red Blood Count 4.71 M/uL (4.20-5.40); White Blood Count 19.71 K/ul (4.8-10.8)
[2024-12-08 22:59] LABS: Alanine Aminotransferase 23 U/L (7-52); Albumin Globulin Ratio 1.5 (0.9-2); Albumin Level 4.9 gm/dl (3.4-5.0); Alkaline Phosphatase 92 U/L (34-104); Anion Gap 15 (3-11); Aspartate Aminotransferase 24 U/L (13-39); BUN Creatinine Ratio 21.7 (10-20); Bilirubin,Total 0.8 mg/dl (0.2-1.0); Blood Urea Nitrogen 18 mg/dl (6-23); Calcium 10.6 mg/dl (8.6-10.3); Carbon Dioxide 24 mmol/L (21-32); Chloride 98 mmol/L (98-107); Globulin 3.3 gm/dl (2.5-4.0); Glucose 219 mg/dl (70-99(Fasting)); Lipase 17 U/L (11-82); Potassium 3.7 mmol/L (3.5-5.1); Sodium 137 mmol/L (136-145); Total Protein 8.2 gm/dl (6.0-8.3)
[2024-12-08 23:06] LABS: Troponin I High Sensitivity 3.8 pg/ml (0-14)
[2024-12-08] MEDS: ONDANSETRON INJ 2 MG/ML 2 ML VIAL IV STA (23:13)
[2024-12-08] MEDS ORDERED: CEFEPIME 2 GM VIAL IV STA (23:21)
[2024-12-08 23:30] LABS: Adenovirus PCR Not Detected (NotDetected); Bordetella parapertussis PCR Not Detected (NotDetected); Bordetella pertussis PCR Not Detected (NotDetected); Chlamydia pneumoniae PCR Not Detected (NotDetected); Coronavirus 229E PCR Not Detected (NotDetected); Coronavirus CoV-2 (COVID19)PCR Not Detected (NotDetected); Coronavirus HKU1 PCR Not Detected (NotDetected); Coronavirus NL63 PCR Not Detected (NotDetected); Coronavirus OC43PCR Not Detected (NotDetected); Human Metapneumovirus PCR Not Detected (NotDetected); Influenza A PCR Not Detected (NotDetected); Influenza B PCR Not Detected (NotDetected); Mycoplasma pneumoniae PCR Not Detected (NotDetected); Parainfluenza Virus 1 PCR Not Detected (NotDetected); Parainfluenza Virus 2 PCR Not Detected (NotDetected); Parainfluenza Virus 3 PCR Not Detected (NotDetected); Parainfluenza Virus 4 PCR Not Detected (NotDetected); Respiratory Syncytial VirusPCR DETECTED (NotDetected); Rhinovirus/Enterovirus PCR Not Detected (NotDetected)
[2024-12-08] MEDS: CEFEPIME 2000MG 2,000 MG/20 ML SYR IV STA (23:54)
[2024-12-08 23:56] LABS: Partial Thromboplastin Time 28 Seconds (21-31)
[2024-12-09] MEDS ORDERED: LACTATED RINGER'S 1,000 ML IV STA (00:12)
--- NOTE | 2024-12-09 00:23 | History & Physical Report ---
Date of Service December 09, 2024 Assessment & Plan (1) Severe sepsis: Plan: Severe sepsis SIRS plus lactic acidosis plus hypoxemic respiratory failure Secondary to aspiration pneumonia Illness preceded by RSV infection chronic diastolic heart failure (EF 55 to 60%, TTE 2023), patient clinically dry A-fib status post cardioversion status post Maze procedure status post SENA clip on Eliquis, patient NSR mitral valve disease status post bioprosthetic MVR hypertension, BP stable hyperlipidemia, on statin Rx Hyperglycemia rule out DM Admit to med/tele CS, Unasyn Aspiration precautions Monitor lactic acid response to IVF Baseline VBG, stat nebs given expiratory wheezes on exam resulting in hypoxemia Check hemoglobin A1c DVT prophylaxis. Eliquis Full code Patient requesting updates from providers. Mr. Saji Borges, contact #[phone]. Total critical care time was 40 minutes. Text document was generated using [employer] voice recognition software. It may contain grammatical or spelling errors. Kindly contact undersigned for clarification of any documentation item in question. History of Present Illness Chief Complaint: Cough, weakness Primary Care Provider: Anamaria Abad, History obtained from patient, family, and records. Medical history significant for chronic diastolic heart failure (EF 55 to 60%, TTE 2023), A-fib status post cardioversions status post maze procedure status post SENA clip on Eliquis, PSVT, mitral valve disease status post bioprosthetic MVR, hypertension, hyperlipidemia, migraine, mood disorder, urolithiasis, chronic scoliosi, past tobacco abuse Last confinement March 2024 for A-fib with RVR. Patient not well since last week. Junky cough symptoms associated with vomiting. Possible sick contacts at home. Denies headache symptoms. Denies chest pain. Worsening SOB. Fever chills, with lower abdominal pain. Denies diarrhea, black bloody stools. Lowest O2 sats of 80s documented at the ER. Cefepime administered at the ER. Medical History as above Surgical History : Hip surgeries, colpopexy, bone debridement, BTL, cataract surgeries, anterior colporrhaphy/cystocele repair, bioprosthetic MVR Family History : Breast cancer, heart disease Personal/Social history : Past tobacco abuse, rare EtOH intake, retired from [employer] work Allergies Allergy/AdvReac Type Severity Reaction Status Date / Time vancomycin Allergy Intermediate Rash Verified 12/09/24 00:06 Home Medications Medication Instructions Recorded Confirmed Type lorazepam 0.5 mg tablet 0.5 mg PO DAILY PRN SLEEP 08/02/22 12/09/24 History aspirin 81 mg tablet,delayed 81 mg PO DAILY 01/20/24 12/09/24 History release magnesium 250 mg tablet 250 mg PO 3XWK 01/20/24 12/09/24 History calcium carbonate 500 mg PO DAILY 03/19/24 12/09/24 History metoprolol succinate 25 mg 25 mg PO QAM #30 tabs 03/21/24 12/09/24 Rx tablet,extended release 24 hr pantoprazole 40 mg tablet,delayed 40 mg PO BID #60 tabs 03/21/24 12/09/24 Rx release promethazine 12.5 mg tablet 12.5 mg PO TID PRN nausea and 03/21/24 12/09/24 Rx vomiting #30 tabs amiodarone 200 mg tablet 200 mg PO DAILY #90 tabs 07/17/24 12/09/24 Rx cqoepjq-fudeuilpsxihj-txhiofsi 250 1 tab PO Q6H PRN PAIN/HEADACHE 10/20/24 12/09/24 History mg-250 mg-65 mg tablet (Excedrin Extra Strength) medical marijuana 1 dose inhalation DAILY PRN 10/20/24 12/09/24 History NEEDED apixaban 5 mg tablet (Eliquis) 5 mg PO BID 12/09/24 12/09/24 History cholecalciferol (vitamin D3) 25 25 mcg PO DAILY 12/09/24 12/09/24 History mcg (1,000 unit) capsule (Vitamin D3) duloxetine 30 mg capsule,delayed 30 mg PO QAM 12/09/24 12/09/24 History release oxycodone 5 mg tablet 5 mg PO Q8H PRN Pain, Severe 12/09/24 12/09/24 History Past Med/Surg History Problem List (Updated 12/09/24 @ 09:29 by Jaret Hargrove MD) Severe sepsis Lumbar radiculopathy Scoliosis of lumbar region due to degenerative disease of spine in adult Acquired leg length discrepancy Heart failure with reduced ejection fraction (HFrEF, <= 40%) CHF (congestive heart failure) (Acute) Elevated lactic acid level (Acute) Non-ST elevation [place] (NSTEMI) (Acute) Shortness of breath (Acute) Nausea (Acute) Elevated brain natriuretic peptide (BNP) level (Acute) Acute hypokalemia (Acute) Chest pain (Acute) Atrial fibrillation with rapid ventricular response (Acute) History of mitral valve replacement with bioprosthetic valve Preop cardiovascular exam Costochondritis, acute Atrial fibrillation, permanent Depression Panic attacks Chest pain (Acute) Atrial flutter with rapid ventricular response (Acute) Diarrhea Cholelithiasis Epigastric pain Chest pain (Acute) ST elevation (STEMI) myocardial infarction (Acute) Paroxysmal SVT (supraventricular tachycardia) LVH (left ventricular hypertrophy) Palpitations Mitral regurgitation MVP (mitral valve prolapse) Kidney stone (Acute) Cat scratch of multiple sites (Acute) Cat scratch of multiple sites (Acute) Cellulitis (Acute) Medical History MVP (mitral valve prolapse) per cardio record-"noted on echo" 08/2023 Hx of renal calculi passed on own Hx of migraines History of COVID-2021, home test, not hosp; moderate symptoms>still has memory trouble and brain fog Atrial fibrillation currently on eliquis; f/u dr. [place], [facility] GERD (gastroesophageal reflux disease) Anxiety Encounter for pre-operative examination Surgical History History of total right hip arthroplasty History of total left hip arthroplasty Hx of colonoscopy Hx of bilateral cataract extraction Social History Smoking Status: Never smoker Tobacco Type: Cigarettes Second Hand Exposure: No; Do You Dip or Chew Tobacco: No; Tobacco Cessation Education Requested by Patient: No Hx Alcohol Use: No Hx Substance Use: Yes Last Used Substance: Unknown Last Used Substance Other:: "uses off and on" Substance Use Type Other:: medicinal marijuana Preferred Language: [place] Communication Ability: Effective Lead Teller Required: No Beliefs That Will Affect Care: None marital status: Current Living Situation: Spouse current occupation: Retired Other Information That Helps Us Care for You: No Feels Safe at Home: Yes Safety Concerns: Feels Safe At This Time Assistive Devices: None Review of Systems Review of Systems: As per HPI, all other systems reviewed and negative Physical Exam Physical Exam: GENERAL: uncomfortable, ill-appearing, no respiratory distress SKIN: Normal color, warm HEENT: [place] palpebral conjunctivae, no ptosis, dry buccal mucosa, nasal cannula in place NECK : Supple, no tenderness CHEST : Decreased breath sounds, occasional expiratory wheezes, no tenderness HEART : Tachycardic, no obvious murmurs ABDOMEN: Some distention, minimal hypogastric tenderness EXTREMITIES : No LE swelling/tenderness, palpable pulses, no other conspicuous deformities noted NEUROLOGIC : Coherent, no facial asymmetry, no other gross focality Results & Data Results & Data Vital Signs (Past 12 Hours) Vital Signs Temp Pulse Resp BP Pulse Ox O2 Del Method O2 Flow Rate 12/09/24 00:02 101 H 21 136/107 H 94 12/08/24 23:30 80 24 120/98 94 12/08/24 23:00 79 18 115/91 96 12/08/24 23:00 78 16 115/91 93 12/08/24 22:31 104 H 17 133/86 92 12/08/24 22:28 96 Nasal Cannula 4 12/08/24 22:20 86 L Room Air 12/08/24 22:01 87 12/08/24 22:00 89 24 129/87 94 12/08/24 22:00 36.8 C 12/08/24 21:50 36.4 C L 103 H 26 H 116/73 93 Room Air Laboratory Results Laboratory Results WBC 19.71 K/ul (4.8-10.8) H 12/08/24 22:00 RBC 4.71 M/uL (4.20-5.40) 12/08/24 22:00 Hgb 14.6 g/dl (12.0-16.0) 12/08/24 22:00 Hct 45.7 % (37.0-47.0) 12/08/24 22:00 MCV 97.0 fL (80.0-100.0) 12/08/24 22:00 MCH 31.0 pg (25.0-34.0) 12/08/24 22:00 MCHC 31.9 g/dL (32.0-36.0) L 12/08/24 22:00 RDW Std Deviation 45.5 fL (36.4-46.3) 12/08/24 22:00 RDW Coeff of Angela 12.7 % (11.5-14.5) 12/08/24 22:00 Plt Count 278 K/uL (130-400) 12/08/24 22:00 MPV 10.3 fL (9.4-12.4) 12/08/24 22:00 Immature Gran % (Auto) 0.5 % 12/08/24 22:00 Neut % (Auto) 75.6 % 12/08/24 22:00 Lymph % (Auto) 11.5 % 12/08/24 22:00 [place] % (Auto) 11.8 % 12/08/24 22:00 Eos % (Auto) 0.3 % 12/08/24 22:00 Baso % (Auto) 0.3 % 12/08/24 22:00 Neut # (Auto) 14.92 K/uL (1.40-6.50) H 12/08/24 22:00 Lymph # (Auto) 2.26 K/uL (1.20-3.40) 12/08/24 22:00 [place] # (Auto) 2.32 K/uL (0.11-0.59) H 12/08/24 22:00 Eos # (Auto) 0.06 K/uL (0.00-0.50) 12/08/24 22:00 Baso # (Auto) 0.06 K/uL (0.00-0.20) 12/08/24 22:00 Immature Gran # (Auto) 0.09 K/uL (0.01-0.20) 12/08/24 22:00 APTT 28 Seconds (21-31) 12/08/24 22:00 PTT Ratio 1.0 12/08/24 22:00 Sodium 137 mmol/L (136-145) 12/08/24 22:00 Potassium 3.7 mmol/L (3.5-5.1) 12/08/24 22:00 Chloride 98 mmol/L (98-107) 12/08/24 22:00 Carbon Dioxide 24 mmol/L (21-32) 12/08/24 22:00 Anion Gap 15 (3-11) H 12/08/24 22:00 BUN 18 mg/dl (6-23) 12/08/24 22:00 Creatinine 0.83 mg/dl (0.6-1.2) 12/08/24 22:00 Est Cr Clr Drug Dosing Not Reportable 12/08/24 22:00 eGFR 78.67 12/08/24 22:00 BUN/Creatinine Ratio 21.7 (10-20) H 12/08/24 22:00 Glucose 219 mg/dl (70-99(Fasting)) H 12/08/24 22:00 Lactate 2.8 mmol/L (0.4-2.0) H* 12/08/24 22:36 Calcium 10.6 mg/dl (8.6-10.3) H 12/08/24 22:00 Total Bilirubin 0.8 mg/dl (0.2-1.0) 12/08/24 22:00 AST 24 U/L (13-39) 12/08/24 22:00 ALT 23 U/L (7-52) 12/08/24 22:00 Alkaline Phosphatase 92 U/L (34-104) 12/08/24 22:00 Troponin I High Sens 3.8 pg/ml (0-14) 12/08/24 22:00 Total Protein 8.2 gm/dl (6.0-8.3) 12/08/24 22:00 Albumin 4.9 gm/dl (3.4-5.0) 12/08/24 22:00 Globulin 3.3 gm/dl (2.5-4.0) 12/08/24 22:00 Albumin/Globulin Ratio 1.5 (0.9-2) 12/08/24 22:00 Lipase 17 U/L (11-82) 12/08/24 22:00 Adenovirus (PCR) Not Detected (NotDetected) 12/08/24 22:01 B. pertussis DNA (PCR) Not Detected (NotDetected) 12/08/24 22:01 B.parapertussis DNA PCR Not Detected (NotDetected) 12/08/24 22:01 C. pneumoniae DNA (PCR) Not Detected (NotDetected) 12/08/24 22:01 Coronavirus OC43 (PCR) Not Detected (NotDetected) 12/08/24 22:01 Coronavirus HKU1 (PCR) Not Detected (NotDetected) 12/08/24 22:01 Coronavirus 229E (PCR) Not Detected (NotDetected) 12/08/24 22:01 SARS-CoV-2 (PCR) Not Detected (NotDetected) 12/08/24 22:01 Coronavirus NL63 (PCR) Not Detected (NotDetected) 12/08/24 22:01 Human Metapneumovir PCR Not Detected (NotDetected) 12/08/24 22:01 Influenza Type A (PCR) Not Detected (NotDetected) 12/08/24 22:01 Influenza Type B (PCR) Not Detected (NotDetected) 12/08/24 22:01 M. pneumoniae (PCR) Not Detected (NotDetected) 12/08/24 22:01 Parainfluenza 1 (PCR) Not Detected (NotDetected) 12/08/24 22:01 Parainfluenza 2 (PCR) Not Detected (NotDetected) 12/08/24 22:01 Parainfluenza 3 (PCR) Not Detected (NotDetected) 12/08/24 22:01 Parainfluenza 4 (PCR) Not Detected (NotDetected) 12/08/24 22:01 RSV (PCR) DETECTED (NotDetected) A 12/08/24 22:01 Entero/Rhino (PCR) Not Detected (NotDetected) 12/08/24 22:01 CT chest: 1. No evidence of pulmonary embolism. 2. Patchy areas of ground glass densities are seen in bilateral upper lobes, more on right side. Possibility of infective etiology. Suggested clinical / lab correlation. 3. Stable dilated left and right atria. Suggested echocardiographic correlation. 4. Subpleural subsegmental atelectasis in left lower lobe. CT abdomen pelvis: 1 Cholelithiasis: stable 2 Suboptimally evaluated pelvis due to marked streak artefacts from right hip implant: advise USG pelvis Diagnostic Findings EKG as per my interpretation :Rate 105, sinus tachycardia, RAD, anteroseptal infarct, T wave abnormalities inferior leads, low voltage
[2024-12-09] MEDS: SODIUM CHLORIDE 0.9% 1,000 ML IV STA (00:26)
[2024-12-09] MEDS: AMPICILLIN/SULBACTAM SOD 3,000 MG/100 ML BAG IV STA (00:26)
[2024-12-09 00:29] LABS: Phosphorus 3.4 mg/dl (2.5-4.9)
[2024-12-09] MEDS ORDERED: PROMETHAZINE 6.25 MG/50.25 ML BAG IV PRN (00:44)
--- NOTE | 2024-12-09 01:16 | XRay Report ---
Exam(s): XR CXR 1 VIEW EXAM: XR Chest, 1 View CLINICAL HISTORY: Reason for exam: Chest pain, nonspecific. TECHNIQUE: Frontal view of the chest. COMPARISON: No relevant prior studies available. FINDINGS: Lungs: No airspace consolidation. Pleural space: No pleural effusion or pneumothorax. Heart: Prior sternotomy. Left atrial appendage clip. No cardiomegaly or vascular congestion. Bones/joints: No acute osseous findings. IMPRESSION: No acute findings in the chest. Electronically signed by: Giovanni Chan M.D. 12/09/24 01:15 AM
[2024-12-09 01:18] LABS: Base Excess VBG 1.5 mEq/L; HCO3 VBG 27 mmol/L; Oxygen Saturation VBG < 60.0 %; PCO2 VBG 46 mmHg (38-50); PO2 VBG 28 mmHg; pH VBG 7.38 (7.36-7.41)
[2024-12-09 01:19] LABS: Calcium 9.6 mg/dl (8.6-10.3); Magnesium 1.7 mg/dl (1.7-2.4)
[2024-12-09] MEDS: OPTIRAY 320 100ml IV ONE (01:21)
[2024-12-09 01:23] LABS: Appearance Urine Clear (Clear); Bacteria Urine Automated None Seen (None Seen); Bilirubin Urine Negative (Negative); Blood Urine Trace (Negative); Cast Urine Automated 0-2 /lpf (0-2); Color Urine Yellow; Epithelial Cell Urine Auto 0-2 /hpf (0-2); Glucose Urine UA 3+ (Negative); Ketones Urine 4+ (Negative); Leukocyte Esterase Urine Negative (Negative); Nitrite Urine Negative (Negative); Protein Urine Trace (Negative); Specific Gravity Urine 1.029 (1.000-1.030); Urobilinogen Urine Negative (Negative); WBC Urine Automated 0-5 /hpf (0-5)
[2024-12-09] MEDS: LEVALBUTEROL 1.25 MG/3 ML NEB NEB STA (01:34)
[2024-12-09] MEDS: IPRATROPIUM BROMIDE NEB SOLN 0.02% 0.5MG/2.5ML VIAL INH STA (01:34)
--- NOTE | 2024-12-09 02:26 | CT Scan Report ---
EXAM: CT abd pelvis IV con only CLINICAL HISTORY: abd pain noac TECHNIQUE: Multiple contiguous axial images were obtained from the level of diaphragm to the pubis symphysis. This study was acquired after the IV administration of iodinated contrast material, given the patients indications for the examination. If IV contrast material had not been administered, the likelihood of detecting abnormalities relevant to the patients condition would have been substantially decreased. Coronal and sagittal reformatted images were generated and reviewed to improve anatomic localization and optimize lesion detection. CT scan was performed according to ALARA (as low as reasonable achievable). COMPARISON: 03/20/2024 20:07:19 FIXED INCOME DIRECTOR FINDINGS: The visualized lung bases show bronchial wall thickening with subsegmental fibroatelactaic bands in lateral basal segment of left lower lobe ABDOMEN/PELVIS: The liver is normal in size and attenuation. No focal liver lesions are seen. There is no intra or extrahepatic biliary ductal dilatation. Hepatic vasculature is patent. The gallbladder shows cholelithiasis. The spleen, pancreas, and adrenal glands are unremarkable. The kidneys are normal in size and attenuation. There is no hydronephrosis or perinephric fat stranding. No renal calculi or renal masses are identified. The ureters are normal in caliber and no ureteral calculi are seen. The bladder is normal in contour. Few hyperdensities noted in left kidney: because of the morphology they likely represent early contrast excretion, and not renal stones: advise USG No evidence of focal or diffuse bowel wall thickening or evidence of bowel obstruction is seen. The appendix is not visualized distinctly, however, no evidence of acute appendicitis seen. No adenopathy or fluid collections are seen. The aorta is normal in caliber. No aggressive appearing osseous lesions are identified. Degenerative changes in spine RIght hip implant IMPRESSION: 1 Cholelithiasis: stable 2 Suboptimally evaluated pelvis due to marked streak artefacts from right hip implant: advise USG pelvis Electronically signed by Jose Carbajal 12-09-2024 02:23 AM
--- NOTE | 2024-12-09 02:30 | CT Scan Report ---
EXAM: CT chest diagnostic w con CLINICAL HISTORY: low o2,cough TECHNIQUE: Contiguous axial images were obtained from the neck base through the upper abdomen following intravenous administration of iodinated contrast material. Angiographic images were processed, 3D MIP images were acquired for interpretation. If IV contrast material had not been administered, the likelihood of detecting abnormalities relevant to the patient's condition would have been substantially decreased. Coronal and sagittal 3-D MIPs were likewise performed and indicated to increase the sensitivity of detectin diffuse clinically relevant pathology. CT scan was performed according to ALARA (as low as reasonably achievable). COMPARISON: 08/02/2022 19:34:12 SENIOR VICE PRESIDENT FINDINGS: Adequate contrast bolus without evidence of pulmonary embolism. The central airways are patent. Patchy hyperattneutaion in bilateral upper lobes. Rest lungs are clear. No pleural effusion. Dilated left and right atrium. Mitral valve calcifications are seen. The aorta, and pulmonary arteries are of normal size and configuration. There are no appreciable coronary artery and aortic atherosclerotic calcifications. No pericardial effusion is identified. The thyroid is unremarkable. No mediastinal, hilar, or axillary lymphadenopathy is noted. No suspicious lytic or sclerotic osseous lesions are identified. Rest of the findings are unchanged. IMPRESSION: 1. No evidence of pulmonary embolism. 2. Patchy areas of ground glass densities are seen in bilateral upper lobes, more on right side. Possibility of infective etiology. Suggested clinical / lab correlation. 3. Stable dilated left and right atria. Suggested echocardiographic correlation. 4. Subpleural subsegmental atelectasis in left lower lobe. 5. Previous study showed changes of interstitial edema, these are not seen in the current. Electronically signed by Jose Carbajal 12-09-2024 02:28 AM
[2024-12-09] MEDS: LORazepam 0.5 MG TAB PO PRN (03:06)
[2024-12-09] MEDS: MAGNESIUM SULFATE / D5W 1 GM/100 ML BAG IV STA (03:09)
[2024-12-09] MEDS: AMPICILLIN/SULBACTAM SOD 3,000 MG/100 ML BAG IV SCH (05:17)
--- OUTSIDE RECORDS SUMMARY | 2024-12-09 05:49 | External Medical Summary | Summary of Care ---
Author Name Unknown Organization [facility] Address [address] [facility] [place] [address] Phone [phone] Care Team Providers Care Doll Eye Setter Name Role Phone Anamaria Abad DO Primary Care Provider [phone] Encounter Details Date Type Department Care Team (Late st Contact Info) Description 12/01/2024 11:00 AM EDT Imaging Radiology [address] [place] [address] Abnormal mammogram Allergies Active Allergy Reactions Criticality Noted Date Comments Vancomycin Hcl In Nacl Rash 10/13/2017 Red painful rash itching documented as of this encounter (statuses as of 12/04/2024) Medications Cholecalciferol (VITAMIN D) 1000 units Tablet Take 1 Tablet by mouth in the morning. Active Amoxicillin 500 MG Oral Capsule (AMOXIL) TAKE FOUR CAPSULES BY MOUTH ONE HOUR BEFORE APPOINTMENT 0 Active Triamcinolone Acetonide 0.1 % External Cream (Aristocort)Indic ations:Rash and nonspecific skin eruption Apply topically to affected area 2 times a day. To affected area. 60 g 5 3 Active Additional Information Patient not taking.Reported on 10/30/2024 Magnesium 250 MG Oral Tablet Take 1 Tablet by mouth once a day on Wednesday, Wednesday, and Wednesday only. Takes 3 times per week Active Aspirin 81 MG Oral Tablet Chewable Chew & swallow 1 Tablet by mouth every morning. 30 Tablet 11 12/17/2023 1:14 PM EDT 4 Active Promethazine HCl 12.5 MG Oral Tablet (Phenergan) Take 1 Tablet by mouth 3 times a day as needed. 4 Active Amiodarone HCl 200 MG Oral Tablet (Cordarone) Take 1 Tablet by mouth in the morning. 4 Active Fluorouracil 5 % External Cream (Efudex)Indicatio ns:AK (actinic keratosis) Start in fall/winter time: apply thin layer to forehead/cheeks /nose (no chin) 2x daily for 3 weeks then send photos through My Chart at the end of the treatment 40 g 1 4 Active Additional Information Patient not taking.Reported on 10/30/2024 Apixaban 5 MG Oral Tablet (Eliquis)Indicati ons:Valvular heart disease,S/P MVR (mitral valve replacement),Anti coagulation management encounter,Atrial fibrillation, unspecified type (HCC),Nonrheumati c mitral valve regurgitation Take 1 Tablet by mouth in the morning and 1 Tablet before bedtime. STOP Warfarin. 60 Tablet 5 4 Active DULoxetine HCl 30 MG Oral Capsule Delayed Release Particles (Cymbalta)Indicat ions:Chronic pain syndrome TAKE 1 CAPSULE BY MOUTH IN THE MORNING -DO NOT CUT, CRUSH OR CHEW 30 Capsule 5 4 Active Metoprolol Succinate ER 25 MG Oral Tablet Extended Release 24 Hour (toPROL XL) Take 1 Tablet by mouth in the morning. 90 Tablet 3 4 Active Pantoprazole Sodium 40 MG Oral Tablet Delayed Release (Protonix)Indicat ions:Acute gastritis without hemorrhage, unspecified gastritis type Take 1 Tablet by mouth in the morning and 1 Tablet before bedtime. 180 Tablet 1 4 Active oxyCODONE HCl 5 MG Oral Tablet (Oxy IR) Take 1 Tablet by mouth every 4 hours as needed for Pain, Severe. 10 Tablet 5 Active oxyCODONE HCl 5 MG Oral Tablet (Oxy IR) Take 1 Tablet by mouth every 8 hours as needed for Pain, Severe. 10 Tablet 5 Active LORazepam 0.5 MG Oral Tablet (Ativan)Indicatio ns:Anxiety TAKE 1 TABLET as needed for anxiety, no more than 1 pill per day. 30 Tablet Active documented as of this encounter (statuses as of 12/04/2024) Active Problems Problem Noted Date Diagnosed Date Uterovaginal prolapse, incomplete 09/27/2024 Anticoagulation management encounter 01/03/2024 Atrial fibrillation, unspecified type 01/03/2024 Heart failure 12/31/2023 Medical marijuana use 12/13/2023 Valvular heart disease 12/13/2023 S/P MVR (mitral valve replacement) 12/13/2023 Nonrheumatic mitral valve regurgitation 11/17/19 24 Atrial fibrillation 10/22/2023 Current mild episode of valeriy r depressive disorder without prior episode 08/12/2022 Advanced directives, counseling/discussion 11/22 Overview (02/13/2013): No, Advance Directive brochure offered, patient declined. Cystocele, lateral 09/27/2020 Major depressive disorder, recurrent, unspecifie d 08/21/2019 Thrush 09/18/2017 Acute blood loss anemia 08/26/2017 Screen for colon cancer 06/01/2016 History of nonmelanoma skin cancer 04/09/2014 Overview (05/11/2024): BCC on the right upper arm 11/22, BCC right thigh 11/22, Keratoacanthoma on the left anterior lower leg 09/24, Keratoacanthoma on the left upper posterior arm 02/21, BCC on the right posterior shoulder 10/21, SCC right anterior shoulder 10/21, BCC left posterior shoulder 04/19, BCC right shoulder, BCC nasal tip 02/16 and BCC left upper posterior arm 02/20. Depression 10/27/2013 Fatigue 10/27/2013 Insomnia 10/27/2013 Lumbago 10/27/2013 Vaginal atrophy 02/16/2013 Incomplete uterovaginal prolapse 02/16/2013 Overview (02/16/2013): Mild. 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 Menorrhagia 12/26/2012 Multiple nevi 12/26/2012 CLASSICAL MIGRAINE WITH INTRACTABLE MIGRAINE, SO STATED 11/20/2002 CARDIAC MURMURS NEC Panic attacks documented as of this encounter (statuses as of 12/04/2024) Resolved Problems Problem Noted Date Diagnosed Date Resolved Date 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 Sepsis 08/26/2017 08/21/2019 Septic hip 08/23/2017 08/21/2019 Basal cell carcinoma of skin of upper limb, including shoulder 04/16/2014 05/11/2024 Overview (04/16/2014): left posterior shoulder 04/16/14 Mitral valve prolapse 05/01/20132013 Overview (05/01/2013): Sees [facility] Cards Routine general medical exam ination at a health care facility 12/26/2012 08/21/2019 Overview (12/26/2012): NEED CPE, prioritize prob Urinary frequency 03/31/2006 12/26/2012 Sebaceous cyst 12/10/2003 12/26/2012 documented as of this encounter (statuses as of 12/04/2024) Immunizations Name Administration Dates Next Due Covid-19, Mrna, Lnp-s, Pf, B ivalent, 50 Mcg, IM, 12 yrs and above (Moderna) 06/19/2024 Pneumococcal Conjugate Vacci ne, 20-valent ([id number]) 07/10/2024 Seasonal Influenza, PF, 6 M & above, IM , (FluLaval or Fluzone) 06/19/2024,09/10/2022,06/26/2020,08/21 TDAP, Age 7 and older, IM (Adacel) 06/19/2024, Zoster Vaccine Recombinant (Shingrix) 09/02/2020 03/03/2021 documented as of this encounter Social History Tobacco Use Types Packs/Day Years Used Date Smoking Tobacco: Former Cigarettes 0.5 10 1 977 - 1986 Passive Smoke Exposure: Past Smokeless Tobacco: Never Comments:quit early 80's Alcohol Use Standard Drinks/Week Comments Yes 0 (1 standard drink = 0.6 oz pur e alcohol) Rarely PHQ-2 Answer Date Recorded PHQ Adult Total Score 0 04/27/2024 Hunger Vital Sign Answer Date Recorded Within the past 12 months, y ou worried that your food would run out before you got the money to buy more. Never true 07/10/20 24 Within the past 12 months, t he food you bought just didn't last and you didn't have money to get more. Never true 07/10/2024 Childcare Answer Date Recorded Do you feel overwhelmed with taking care of a child, family member or friend? No 07/10/2024 Does your family need help f inding childcare? (Household - for ages 0-17 years) Not on file 07/10/2024 Clothing Answer Date Recorded Have you been unable to get clothing when it was really needed? No 07/10/2024 Is your family able to get c lothes or diapers when needed? (Household - for ages 0-17 years) Not on file 07/10/2024 Personal Safety Answer Date Recorded Do you feel unsafe or have concerns for your saf ety? No 07/10/2024 Do you have concerns for you r family's safety? (Household - for ages 0-17 years) Not on file 07/10/2024 Utilities Answer Date Recorded Do you have trouble paying y our heating, water, or electric bill? No 07/10/2024 Is your family able to pay t he heat, water, or electric bill? (Household - for ages 0-17 years) Not on file 07/10/2024 Does your family have access to good internet? (Household - for ages 0-17 years) Not on file 07/10/2024 Employment Status Answer Date Recorded Are you unemployed or without regular income? No 07/10/2024 Does the household have a re gular source of income? (Household - for ages 0-17 years) Not on file 07/10/2024 Social Connections Answer Date Recorded How often do you feel lonely or isolated from th ose around you? Never 07/10/2024 Financial Resource Strain Answer Date R ecorded Do you have any trouble payi ng for your medications, or do you think you might in the future? No 07/10/2024 Does your family have troubl e paying for medicine? (Household - for ages 0-17 years) Not on file 07/10/2024 Transportation Needs Answer Date Record ed Do you have trouble getting a ride to medical visits or work? (Adult - for ages 18 years and over) Not on file 07/10/2024 Does your family have a hard time getting a ride to doctors visits? (Household - for ages 0-17 years) Not on file 07/10/2024 Has lack of transportation k ept you from medical appointments, meetings, work, or from getting things needed for daily living? Check all that apply. No 07/10/2024 Do you (or your family) have trouble finding or paying for a ride (transportation)? (Household - for ages 0-17 years) Not on file 07/10/2024 Housing Stability Answer Date Recorded Do you currently live in a s helter or have no steady place to sleep at night? No 07/10/2024 Do you think you are at risk of becoming homeless? (Adult - for ages 18 years and over) Not on file 07/10/2024 Does your family worry about paying for your home or becoming homeless? (Household - for ages 0-17 years) Not on file 1 09/09/2023 Are you homeless or worried that you might be in the future? No 07/10/2024 Are you (or your family) tami eless or worried that you might be in the future? (Household - for ages 0-17 years) Not on file Food Insecurity Answer Date Recorded Do you need food for this week? No 07/10/2024 Are you able to get enough f ood for your family? (Household - for ages 0-17 years) Not on file 07/10/2024 Does your family need food t his week? (Household - for ages 0-17 years) Not on file 07/10/2024 Do you always have enough fo od for your family? (Household - for ages 0-17 years) Not on file 07/10/2024 Food Insecurity Answer Date Recorded Within the past 12 months, y ou worried that your food would run out before you got the money to buy more. Never true 07/10/20 24 Within the past 12 months, t he food you bought just didn't last and you didn't have money to get more. Never true 07/10/2024 Do you need food for this week? 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 Answer Date of Assessment Author No 12/13/2023 8:18 PM EDT Susan Arango RN * Are you blind or do you have serious difficulty seeing, even when wearing glasses? Answer Date of Assessment Author No 12/13/2023 8:18 PM EDT Susan Arango RN * Do you have serious difficulty walking or climbing stairs? (5 years old or older) Answer Date of Assessment Author Yes 12/13/2023 8:18 PM EDT Susan Arango RN * Do you have difficulty dressing or bathing? (5 years old or older) Answer Date of Assessment Author No 12/13/2023 8:18 PM EDT Susan Arango RN * Because of a physical, mental, or emotional condition, do you have difficulty doing errands alone such as visiting a doctor’s office or shopping? (15 years old or older) Answer Date of Assessment Author No 12/13/2023 8:18 PM EDT Susan Arango RN documented as of this encounter Mental Status * Because of a physical, mental, or emotional condition, do you have serious difficulty concentrating, remembering, or making decisions? (5 years old or older) Answer Entry Date Author No 12/13/2023 8:18 PM EDT Susan Arango RN documented in this encounter Progress Notes * Carmita Steinberg LPN - 12/04/2024 1:03 PM EDT Mammo normal, result letter sent to patient. documented in this encounter Plan of Treatment Upcoming Encounters Date Type Department Care Team (Late st Contact Info) Description 12/12/2024 10:00 AM EDT Office Visit Urogynecology [facility] [address] [place] [address] Joe Deshpande MD [address] [place] [address] 01/17/2025 9:50 AM EDT Office Visit Family [facility], [place] [phone] Anamaria Abad, DO [address] [place] [address] 05/03/2025 8:10 AM EDT Office Visit Family [facility], [address] [place] [phone] Anamaria Abad, DO [address] [place] [address] 06/05/2025 8:20 AM EDT Office Visit Dermatology, [place], [place] [phone] Annamaria Lemos PA-C [address] [place] [address] [place] [address] 11/16/2025 10:15 AM EDT Imaging Radiology [facility] [address] [facility] [address] [place] [id number] Scheduled Procedures Name Priority Associated Diagnoses Date/Ti me COLONOSCOPY FLEXIBLE PROXIMA L DIAGNOSTIC Recall Screening for malignant neoplasm of colon Health Maintenance Due Date Last Done Comments HIV Screening 1975 Hepatitis C Screening 1978 HPV/Co-Test 1990 Cologuard 2005 Fecal Occult Blood Test 2005 10/19/2000 Sigmoidoscopy 2005 Cervical Cancer Screening 06/12/2022 Pap Smear 06/12/2022 06/12/2019, 12/06, 12/29/2013, Additional history exists COVID-19 Vaccine ( season) 2024 06/19/2024, 06/19/2023, 11/29/2020, Additional history exists Depression Monitoring 04/27/2025 04/27/2024 Mammogram 12/01/2025 12/01/2024, 11/04, 02/07/2024, Additional history exists Lipid Panel 09/21/2027 09/21/2022, 11/04, 03/31/2006 Colonoscopy 12/23/2028 12/23/2018, 12/23/2018 Colorectal Cancer Screening 12/23/2028 DTap/Tdap Vaccines (3 - Td or Tdap) 06/19/2034 06/19/2024, 06/05/2009 Zoster Vaccines Completed 04/11/2023, 12/07, 09/02/2020 Influenza Vaccine (FLU shot) Completed , 09/10/2022, 06/26/2020, Additional history exists Pneumococcal Vaccine: 50+ Years Completed 07/10/2024 HPV (Gardasil) Vaccine Aged Out No lo nger eligible based on patient's age to complete this topic Hepatitis B Vaccine Aged Out No longe r eligible based on patient's age to complete this topic MENINGOCOCCAL (MENACTRA/MENVEO) Aged Out No longer eligible based on patient's age to complete this topic Meningitis B Vaccine (Bexsero/Trumemba) Aged Out No longer eligible based on patient's age to complete this topic documented as of this encounter Medical Devices Implanted Type Area Ticker Maintainer Device Identifier Shelf Expiration Date Model / Serial / Lot [id number] Implanted:Qty: 1 on 11/23/2016 by Cory Cyr MD at OR [facility] Right: Eye 10/09/2020 [id number] / [id number] / Tecnis Toric Aspheric Intraocular Lens Implanted:Qty: 1 on 11/30/2016 by Cory Cyr MD at OR [facility] Left: Eye [employer] : [employer] 08/05/2020 [id number] Cement Antibiotic Bone - [id number] Implanted:Qty: 2 on 08/26/2017 by Jorge Sanabria MD at OR [facility] [place] Right: Hip [employer] : ORTH[employer] 03/05/2019 6197-9-0 10 / / [id number] Stem Mold Reinf Hip 9x200 - [id number] Implanted:Qty: 1 on 08/26/2017 by Jorge Sanabria MD at OR [facility] [place] Right: Hip [employer] 05/05/2021 [id number] / / [id number] Screw Periarticular 6.5mm X 50 - [id number] Implanted:Qty: 1 on 08/26/2017 by Jorge Sanabria MD at OR [facility] [place] [employer] 00-2347- 025-50 / / Screw Bone 6.5x35 - [id number] Implanted:Qty: 1 on 11/11/2017 by Jorge Sanabria MD at OR [facility] [place] Right: Hip [employer] 09/05/2027-6250- 065-35 / / Screw Bone 6.5x20 - [id number] Implanted:Qty: 1 on 11/11/2017 by Jorge Sanabria MD at OR [facility] [place] Right: Hip [employer] 07/06/2026-6250- 065-20 / / [id number] Hip Hd Nk Alumina Mod D 36/ 5 - [id number] Implanted:Qty: 1 on 11/11/2017 by Jorge Sanabria MD at OR [facility] [place] Right: Hip [employer] 06/08/2022 6570-0-0 36 / / [id number] Hip Hd Nk Alumina Mod D 36/+5 - [id number] Implanted:Qty: 1 on 11/11/2017 by Jorge Sanabria MD at OR [facility] [place] Right: Hip [employer] : ORTH[employer] 02/26/2022 6570-0-2 36 / / [id number] Hip S Mod Conical Dis 08x003 - [id number] Implanted:Qty: 1 on 11/11/2017 by Jorge Sanabria MD at OR [facility] [place] Right: Hip [employer] 03/15/2021 6276-7-0 15 / / [id number] Shell Multihole Contin 62nn - [id number] Implanted:Qty: 1 on 11/11/2017 by Jorge Sanabria MD at OR [facility] [place] Right: Hip [employer] 10/06/2027 00-8757- 062-02 / / [id number] Continuum Trilogy It Allofit It Acetabular Systems Longevity Highly Crosslinked Polyethylene Oblique Liner 36mm Id Implanted:Qty: 1 on 11/11/2017 by Jorge Sanabria MD at OR [facility] [place] Right: Hip [employer] 04/05/2022 00-8755- 015-36 / / [id number] Screw Bone 6.5x40 - [id number] Implanted:Qty: 1 on 11/11/2017 by Jorge Sanabria MD at OR [facility] [place] Right: Hip [employer] 10/06/2027 00-6250- 065-40 / / Suture Steel 6 B&S19 M654g - [id number] Implanted:Qty: 4 on 12/13/2023 by Saij Mendiola MD at OR [facility] [place] N/A: Sternum JNJ : [employer] 07/06/2028 M654G / / [id number] Suture Steel 6 B&S19 M654g - [id number] Implanted:Qty: 4 on 12/13/2023 by Saji Mendiola MD at OR [facility] [place] N/A: Sternum [employer]NJ : [employer] 08/05/2028 M654G / / [id number] Clip Occl Atri Flex V 50mm - [id number] Implanted:Qty: 1 on 12/13/2023 by Saji Mendiola MD at OR [facility] [place] Left: Heart [employer] [id number] 08/06/2026 ACHV50 / / [id number] Valve Heart Mitral Epic 33mm - [id number] - [id number] Implanted:Qty: 1 on 12/13/2023 by Saji Mendiola MD at OR [facility] [place] Left: Heart [facility] : CARDIOVASCULAR [id number] 11/10/2025 [id number] -00 [id number] documented as of this encounter Procedures Procedure Name Priority Date/Time Associated Diagnosis Comments MAMMOGRAM DIAGNOSTIC RADHA RIGHT Routine 12/01/2024 10:39 AM EDT Abnormal mammogram documented in this encounter Results * US BREAST LIMITED RIGHT (12/01/2024 11:27 AM EDT) Anatomical Region Laterality Modality Breast Right Ultrasound Narrative 12/01/2024 11:32 AM EDT Result MAMMOGRAM DIAGNOSTIC RADHA RIGHT US BREAST LIMITED RIGHT History Abnormal mammogram Family medical history includes breast cancer in 2 relatives (aunt (unspecified), grandmother (maternal)). Films Compared 11/15/2024 MAMMOGRAM SCREENING RADHA BILATERAL, 02/07/2024 MAMMOGRAM SCREENING RADHA BILATERAL, 09/02/2020 MAMMOGRAM SCREENING RADHA BILATERAL, 09/22/2019 MAMMOGRAM DIAGNOSTIC RADHA LEFT, and 08/29/2019 MAMMOGRAM SCREENING RADHA BILATERAL Findings Right MAMMOGRAM DIAGNOSTIC RADHA RIGHT The breasts are heterogeneously dense, which may obscure small masses. The previously suspected retroareolar asymmetry on screening mammogram 11/15/2024 is thought to represent overlapping fibroglandular elements on additional views obtained today. No new dominant mass or clustered microcalcifications suspicious for malignancy are identified. US BREAST LIMITED RIGHT The breast tissue has a homogeneous background echotexture - fibroglandular. There is no evidence of suspicious masses or other abnormal findings in the right breast. Impression MAMMOGRAM DIAGNOSTIC RADHA RIGHT No mammographic evidence of malignancy. US BREAST LIMITED RIGHT No sonographic evidence of malignancy. BI-RADS® Category: 2 - Benign. Recommendation Resume annual screening mammography is recommended for both breasts. Patient was informed of the above at the time of her visit on 12/01/2024. Digital breast tomosynthesis was performed. This digital mammogram has been analyzed with the computer aided detection system. Breast tissue can be either dense or not dense. Dense tissue makes it harder to find breast cancer on a mammogram and also raises the risk of developing breast cancer. Your breast tissue is dense. In some people with dense tissue, other imaging tests in addition to a mammogram may help find cancers. Talk to your healthcare provider about breast density, risks for breast cancer, and your individual situation. This examination was performed at Radiology [facility] 1st Floor, [place], [address] [place] [address]. [phone] Anamaria Charles Jenniffer DO RAD ULTRASOUND Final Result * MAMMOGRAM DIAGNOSTIC RADHA RIGHT (12/01/2024 10:39 AM EDT) Anatomical Region Laterality Modality Breast Right Mammography Narrative 12/01/2024 11:32 AM EDT Result MAMMOGRAM DIAGNOSTIC RADHA RIGHT US BREAST LIMITED RIGHT History Abnormal mammogram Family medical history includes breast cancer in 2 relatives (aunt (unspecified), grandmother (maternal)). Films Compared 11/15/2024 MAMMOGRAM SCREENING RADHA BILATERAL, 02/07/2024 MAMMOGRAM SCREENING RADHA BILATERAL, 09/02/2020 MAMMOGRAM SCREENING RADHA BILATERAL, 09/22/2019 MAMMOGRAM DIAGNOSTIC RADHA LEFT, and 08/29/2019 MAMMOGRAM SCREENING RADHA BILATERAL Findings Right MAMMOGRAM DIAGNOSTIC RADHA RIGHT The breasts are heterogeneously dense, which may obscure small masses. The previously suspected retroareolar asymmetry on screening mammogram 11/15/2024 is thought to represent overlapping fibroglandular elements on additional views obtained today. No new dominant mass or clustered microcalcifications suspicious for malignancy are identified. US BREAST LIMITED RIGHT The breast tissue has a homogeneous background echotexture - fibroglandular. There is no evidence of suspicious masses or other abnormal findings in the right breast. Impression MAMMOGRAM DIAGNOSTIC RADHA RIGHT No mammographic evidence of malignancy. US BREAST LIMITED RIGHT No sonographic evidence of malignancy. BI-RADS® Category: 2 - Benign. Recommendation Resume annual screening mammography is recommended for both breasts. Patient was informed of the above at the time of her visit on 12/01/2024. Digital breast tomosynthesis was performed. This digital mammogram has been analyzed with the computer aided detection system. Breast tissue can be either dense or not dense. Dense tissue makes it harder to find breast cancer on a mammogram and also raises the risk of developing breast cancer. Your breast tissue is dense. In some people with dense tissue, other imaging tests in addition to a mammogram may help find cancers. Talk to your healthcare provider about breast density, risks for breast cancer, and your individual situation. This examination was performed at Radiology [facility] 1st [facility], [place], [address] [place] [address]. [phone] Anamaria Abad DO RAD MAMMOGRAPHY Final Result documented in this encounter Visit Diagnoses Diagnosis Abnormal mammogram Abnormal mammogram, unspecified Abnormal mammogram Abnormal mammogram, unspecified Screening mammogram for breast cancer documented in this encounter Advance Directives * Full Code (Latest Code Status on File) Date Activated Date Inactivated Comments 11/03/2024 2:22 PM 11/03/2024 7:52 PM This order r eflects the patients wishes and were consensually agreed upon. Question Answer Comments Discussion of Advance Direct dom occurred with: Not Discussed due to patient's condition * Full Code Date Activated Date Inactivated Comments 12/13/2023 12:27 [...] and were consensually agreed upon. Care Teams Doll Eye Setter Relationship Specialty Start Date End Date Anamaria Abad DO [address] [place] [address] PCP - General Family Medicine 10/12/24 documented as of this encounter
[2024-12-09 07:34] LABS: Basophils # (auto) 0.02 K/uL (0.00-0.20); Basophils % (auto) 0.1 %; Hematocrit (blood only) 39.7 % (37.0-47.0); Hemoglobin 13.2 g/dl (12.0-16.0); Immature Granulocytes # (auto) 0.07 K/uL (0.01-0.20); Immature Granulocytes % (auto) 0.5 %; Lymphocytes # (auto) 1.07 K/uL (1.20-3.40); Mean Corpuscular Hemoglobin 31.7 pg (25.0-34.0); Mean Corpuscular Hgb Conc 33.2 g/dL (32.0-36.0); Mean Corpuscular Volume 95.2 fL (80.0-100.0); Monocytes # (auto) 1.09 K/uL (0.11-0.59); Monocytes % (auto) 7.1 %; Neutrophils % (auto) 85.3 %; Platelet Count 230 K/uL (130-400); RDW Coefficient of Variation 12.6 % (11.5-14.5); Red Blood Count 4.17 M/uL (4.20-5.40); White Blood Count 15.25 K/ul (4.8-10.8)
[2024-12-09 07:42] LABS: Estimated Average Glucose 111 mg/dl; Hemoglobin A1C 5.5 % (4.5-5.6)
[2024-12-09 08:00] LABS: Calcium 9.1 mg/dl (8.6-10.3); Creatinine Clr Calc Pharmacy 85.5 ml/min; Potassium 3.7 mmol/L (3.5-5.1)
[2024-12-09] MEDS: ASPIRIN 81 MG ECTAB PO SCH (08:28)
[2024-12-09] MEDS: AMIODARONE 200 MG TAB PO SCH (08:28)
[2024-12-09] MEDS: METOPROLOL SUCC 25MG EXT REL TAB PO SCH (08:29)
[2024-12-09] MEDS: DULoxetine HCL 30 MG CAP PO SCH (08:29)
[2024-12-09] MEDS: APIXABAN 5 MG TABLET PO SCH (08:29)
[2024-12-09] MEDS: PANTOprazole 40 MG TAB PO SCH (08:29)
[2024-12-09] MEDS: BENZONATATE 100 MG CAPSULE PO PRN (09:55)
[2024-12-09] MEDS: guaiFENesin 600 MG TABCR PO SCH (09:55)
[2024-12-09] MEDS: SODIUM CHLORIDE 0.9% 500 ML IV ONE (11:42)
[2024-12-09] MEDS: ONDANSETRON INJ 2 MG/ML 2 ML VIAL IV PRN (11:49)
[2024-12-09] MEDS: oxyCODONE HCL IR 5 MG TAB (IMMEDIATE RELEASE) PO PRN (11:51)
--- NOTE | 2024-12-09 13:49 | Hospitalist Progress Note ---
Date of Service December 09, 2024 Assessment & Plan (1) Severe sepsis: (2) Pneumonia due to respiratory syncytial virus (RSV): (3) Acute hypoxic respiratory failure: (4) Chronic heart failure with reduced ejection fraction (HFrEF, <= 40%): (5) Paroxysmal atrial fibrillation: Plan Patient presents with acute sepsis as evidenced by hypotension and respiratory failure due to RSV pneumonia Patient also had emesis, suspect this was posttussive emesis, no evidence of aspiration. No evidence of bacterial infection at this time Discontinue antibiotics Can continue supportive care for RSV pneumonia Mucolytic and antitussives Patient does have a history of heart failure, however, she examines dry with low blood pressure and increased heart rate, give fluid bolus and continue to monitor Titrate oxygen to off as able Encourage incentive spirometry and flutter valve treatments Admission and Anticipated Discharge Date Admission Date: December 09, 2024 Subjective Patient still with severe cough. No chest pain. Extremely fatigued. Physical Exam Physical Exam: Constitutional: Alert, moderately ill in appearance HEENT: Mucous membranes moist. Lungs: Decreased breath sounds throughout, coarse rhonchi throughout, few scattered wheezes CV: S1-S2, regular, tachycardic Abdomen: Soft, nontender, nondistended Extremities: No significant edema Neuro: No focal deficits Psych: Cooperative, normal mood Results & Data Results & Data Vital Signs (Past 12 Hours) Vital Signs Temp Pulse Pulse Resp BP BP Pulse Ox 12/09/24 12:23 136/86 12/09/24 11:08 18 92/62 L 96 12/09/24 10:50 37.1 C 102 H 19 94/59 L 98 12/09/24 09:58 12/09/24 07:09 36.6 C 103 H 19 113/73 96 12/09/24 06:49 93 H 12/09/24 03:00 12/09/24 03:00 36.5 C 19 124/85 95 12/09/24 02:00 92 H 24 131/92 98 O2 Del Method O2 Flow Rate 12/09/24 12:23 12/09/24 11:08 Nasal Cannula 2 12/09/24 10:50 Nasal Cannula 12/09/24 09:58 Nasal Cannula 3 12/09/24 07:09 Nasal Cannula 4 12/09/24 06:49 12/09/24 03:00 Nasal Cannula 4 12/09/24 03:00 Nasal Cannula 4 12/09/24 02:00 Diagnostic Findings Reviewed imaging, laboratory and diagnostic studies. Pertinent findings as below.
[2024-12-09] MEDS: HYDROcodone/HOMATROPINE SYRUP 5MG/1.5MG 5ML UDP PO PRN (14:20)
[2024-12-09] MEDS: AMOXICILLIN/CLAVULANATE 875 MG TAB PO SCH (16:59)
[2024-12-10 07:52] LABS: Basophils # (auto) 0.01 K/uL (0.00-0.20); Basophils % (auto) 0.1 %; Eosinophils # (auto) 0.02 K/uL (0.00-0.50); Eosinophils % (auto) 0.2 %; Hematocrit (blood only) 37.5 % (37.0-47.0); Hemoglobin 12.1 g/dl (12.0-16.0); Immature Granulocytes # (auto) 0.03 K/uL (0.01-0.20); Immature Granulocytes % (auto) 0.3 %; Lymphocytes # (auto) 2.37 K/uL (1.20-3.40); Lymphocytes % (auto) 22.8 %; Mean Corpuscular Hemoglobin 31.2 pg (25.0-34.0); Mean Corpuscular Hgb Conc 32.3 g/dL (32.0-36.0); Mean Corpuscular Volume 96.6 fL (80.0-100.0); Mean Platelet Volume 10.1 fL (9.4-12.4); Monocytes # (auto) 0.81 K/uL (0.11-0.59); Monocytes % (auto) 7.8 %; Neutrophils # (auto) 7.17 K/uL (1.40-6.50); Neutrophils % (auto) 68.8 %; Platelet Count 239 K/uL (130-400); RDW Coefficient of Variation 12.9 % (11.5-14.5); Red Blood Count 3.88 M/uL (4.20-5.40); White Blood Count 10.41 K/ul (4.8-10.8)
[2024-12-10] MEDS: ACETAMINOPHEN 325 MG TAB PO PRN (07:55)
[2024-12-10 08:19] LABS: Potassium 4.6 mmol/L (3.5-5.1)
[2024-12-10 08:20] LABS: BUN Creatinine Ratio 26.2 (10-20); Calcium 9.5 mg/dl (8.6-10.3); Creatinine Clr Calc Pharmacy 83.4 ml/min
--- NOTE | 2024-12-10 12:49 | Hospitalist Progress Note ---
Date of Service December 10, 2024 Assessment & Plan (1) Severe sepsis: (2) Pneumonia due to respiratory syncytial virus (RSV): (3) Acute hypoxic respiratory failure: (4) Secondary bacterial pneumonia: Plan: Suspected (5) Chronic heart failure with reduced ejection fraction (HFrEF, <= 40%): (6) Paroxysmal atrial fibrillation: Plan Patient with acute hypoxic respiratory failure due to RSV pneumonia and suspect ed secondary bacterial pneumonia with elevated procalcitonin. Severe sepsis has resolved Continue supportive care, titrate oxygen to off Continue oral antibiotics Patient's blood pressure most likely at baseline, MAP is in the 70s and adequate. Will hold metoprolol today well patient continues to recover from infectious process Continue antitussives mucolytic's Anticipate possible discharge tomorrow if patient continues to improve and is off oxygen. Admission and Anticipated Discharge Date Admission Date: December 09, 2024 Subjective Patient is feeling improved. Was found to have oxygen off at the time my evaluation she did not feel short of breath. She reports that her systolic blood pressure often in the 90s/low 100s. She denies any lightheadedness or dizziness. Physical Exam Physical Exam: Constitutional: Alert HEENT: Mucous membranes moist. Lungs: Decreased breath sounds, coarse rhonchi, improved over yesterday CV: S1-S2, regular Abdomen: Soft, nontender, nondistended Extremities: No significant edema Neuro: No focal deficits Psych: Cooperative, normal mood Results & Data Results & Data Vital Signs (Past 12 Hours) Vital Signs Temp Pulse Resp BP BP Pulse Ox Pulse Ox 12/10/24 11:40 37.1 C 73 18 91/63 L 93 12/10/24 07:59 36.9 C 88 17 99/64 L 97 12/10/24 07:50 12/10/24 03:53 36.6 C 90 18 99/62 L 95 12/10/24 02:59 95 O2 Del Method O2 Del Method O2 Flow Rate O2 Flow Rate 12/10/24 11:40 Room Air 12/10/24 07:59 Nasal Cannula 2 12/10/24 07:50 Nasal Cannula 2 12/10/24 03:53 Nasal Cannula 2 12/10/24 02:59 Nasal Cannula 1 Diagnostic Findings Reviewed imaging, laboratory and diagnostic studies. Pertinent findings as below. WBCs 10.4 Hemoglobin 12.1 Electrolytes stable Creatinine 0.61 Procalcitonin 1.78
--- NOTE | 2024-12-10 17:30 | Electrocardiogram Report ---
Test Reason : Blood Pressure : */* mmHG Vent. Rate : 102 BPM Atrial Rate : 102 BPM P-R Int : 170 ms QRS Dur : 104 ms QT Int : 388 ms P-R-T Axes : 79 93 56 degrees QTcB Int : 505 ms Sinus tachycardia Rightward axis Low voltage QRS Anteroseptal infarct Prolonged QT Abnormal ECG When compared with ECG of 03-Jul-2024 16:21, Premature atrial complexes are no longer Present Confirmed by Larry Todd ([id number]) on 12/10/2024 5:30:08 PM Referred By: REFERRED SELF Confirmed By: Larry Todd
--- NOTE | 2024-12-11 10:38 | Discharge Summary ---
Discharge Summary Date of Service December 11, 2024 Principal Dx & Hospital Course #1 = Principal Diagnosis (1) Severe sepsis: (2) Pneumonia due to respiratory syncytial virus (RSV): (3) Acute hypoxic respiratory failure: (4) Secondary bacterial pneumonia: Suspected (5) Chronic heart failure with reduced ejection fraction (HFrEF, <= 40%): (6) Paroxysmal atrial fibrillation: Plan Patient is a 64-year-old female presented to the emergency room room with cough, generalized malaise and shortness of breath. In the emergency room noted to be positive for RSV x-ray findings consistent with pneumonia. Patient was admitted to the hospital. She was supported with oxygen. She was given antitussives and mucolytics. Her procalcitonin was somewhat elevated and there was question that she may have had a secondary bacterial pneumonia on top of her RSV pneumonia. She was treated with oral Augmentin. With these interventions her symptoms rapidly improved. She is able to titrated off oxygen. Her sepsis resolved. On the morning of discharge her vital signs are stable. She was up and ambulating and showering on room air. Still had a significant cough but was manageable at the point where she can be discharged home and follow-up with her outpatient provider. Notes For Next Care Provider Medication Changes From Visit Augmentin for suspected secondary bacterial pneumonia Metoprolol dose decreased in half Mucinex and Tessalon for your cough Admission HPI Per Admitting Provider History obtained from patient, family, and records. Medical history significant for chronic diastolic heart failure (EF 55 to 60%, TTE 2023), A-fib status post cardioversions status post maze procedure status post SENA clip on Eliquis, PSVT, mitral valve disease status post bioprosthetic MVR, hypertension, hyperlipidemia, migraine, mood disorder, urolithiasis, chronic scoliosi, past tobacco abuse Last confinement March 2024 for A-fib with RVR. Patient not well since last week. Junky cough symptoms associated with vomiting. Possible sick contacts at home. Denies headache symptoms. Denies chest pain. Worsening SOB. Fever chills, with lower abdominal pain. Denies diarrhea, black bloody stools. Lowest O2 sats of 80s documented at the ER. Cefepime administered at the ER. 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 Lungs: Decreased breath sounds, coarse rhonchi that partially clear with cough CV: S1-S2, regular Abdomen: Soft, nontender, nondistended Extremities: No significant edema Neuro: No focal deficits Psych: Cooperative, normal mood Updated Medication List Medication Instructions Recorded Confirmed Type lorazepam 0.5 mg tablet 0.5 mg PO DAILY PRN SLEEP 08/02/22 12/09/24 History aspirin 81 mg tablet,delayed 81 mg PO DAILY 01/20/24 12/09/24 History release magnesium 250 mg tablet 250 mg PO 3XWK 01/20/24 12/09/24 History calcium carbonate 500 mg PO DAILY 03/19/24 12/09/24 History metoprolol succinate 25 mg 25 mg PO QAM #30 tabs 03/21/24 12/09/24 Rx tablet,extended release 24 hr pantoprazole 40 mg tablet,delayed 40 mg PO BID #60 tabs 03/21/24 12/09/24 Rx release promethazine 12.5 mg tablet 12.5 mg PO TID PRN nausea and 03/21/24 12/09/24 Rx vomiting #30 tabs amiodarone 200 mg tablet 200 mg PO DAILY #90 tabs 07/17/24 12/09/24 Rx [id number]-[id number]-wcsnzogs 250 1 tab PO Q6H PRN PAIN/HEADACHE 10/20/24 12/09/24 History mg-250 mg-65 mg tablet (Excedrin Extra Strength) medical marijuana 1 dose inhalation DAILY PRN 10/20/24 12/09/24 History NEEDED apixaban 5 mg tablet (Eliquis) 5 mg PO BID 12/09/24 12/09/24 History cholecalciferol (vitamin D3) 25 25 mcg PO DAILY 12/09/24 12/09/24 History mcg (1,000 unit) capsule (Vitamin D3) duloxetine 30 mg capsule,delayed 30 mg PO QAM 12/09/24 12/09/24 History release oxycodone 5 mg tablet 5 mg PO Q8H PRN Pain, Severe 12/09/24 12/09/24 History amoxicillin 875 mg-potassium 1 tab PO BIDM 2 days #4 tabs 12/11/24 Rx clavulanate 125 mg tablet benzonatate 100 mg capsule 200 mg (2 x 100 mg) PO TID PRN 12/11/24 Rx cough #30 caps guaifenesin 600 mg tablet, 1,200 mg (2 x 600 mg) PO Q12 #30 12/11/24 Rx extended release 12 hr (Mucinex) tabs Hospital Stay Data Consultations 12/09/24 00:07 ED Decision to Admit Stat Diagnostic Imagining Performed 12/09/24 00:43 CT Abd and Pelvis [CT abd pelvis IV con only] Stat 12/09/24 00:44 CT chest diagnostic w con Stat Reviewed imaging, laboratory and diagnostic studies. Pertinent findings as below. CT of the chest showed no evidence of PE, bilateral groundglass densities consistent with an infection WBCs 10.4, improved Hemoglobin 12.1, stable Electrolytes within normal ranges Procalcitonin initially 1.78 Blood cultures no growth Pending Results Patient Have Any Pending Studies at Discharge: No Discharge Instructions Given to Patient (Per Discharging Provider) With RSV, often people have a persistent cough for 4 to 6 weeks. You are through the infectious period of the illness. There was a concern that you may have had a secondary bacterial pneumonia, he will complete a short course of oral antibiotics. Your blood pressure has been running on the low side, we decreased your metoprolol to half a tablet daily. Total Time Total Time Spent Total Time Spent (In Minutes): 24
[2024-12-11 11:34] VITALS: BP 101/68; PULSE 74; RESP 16; TEMP 98.1; O2SAT 95
== END 2024-12-11 13:41 | disposition home or self-care (01) | DRG 871 ==
LOC: ED 21:48 → 2W 12-09 00:43 → 3E 12-10 23:25

== ENCOUNTER 2025-08-15 09:28 | Inpatient (IN) ==
--- NOTE | 2025-08-15 09:47 | Emergency Department Note ---
Impression & Plan Atrial fibrillation with rapid ventricular response, Nausea, Elevated lactic acid level, Hypothermia, Abdominal pain ED Provider Note HISTORY OF PRESENT ILLNESS: Patient is a 64-year-old female presenting with "shaking and feeling cold." helps provide history and reports the patient suddenly started having tremors and complaining of feeling cold between 8 and 8:30 AM. He states that "she gets like this when she has A-fib." Patient is complaining of dizziness and nausea. Reports he had not taken any of her home medications today because she was so nauseous and attempting to vomit. Denies any chest pain or shortness of breath. She was previously on amiodarone and states that she was told to stop taking it about 2 to 3 weeks ago. She is on Eliquis for her history of A- fib. Denies any recent fevers or chills. Denies any dysuria or hematuria. Denies any recent sick contact exposures. Denies any cough. Complaining of diffuse abdominal pain. Also states she feels very nauseous. ROS: as above PHYSICAL EXAM: Constitutional: Patient appears in no acute distress. HENT: Head: Normocephalic and atraumatic. Eyes: EOMI, PERRL Mouth/Throat: Mucous membranes moist. Neck: Trachea midline. Neck supple. Cardiovascular: Tachycardic with irregularly irregular rhythm. No murmurs, rubs or gallops. Intact distal pulses. Pulmonary/Chest: No respiratory distress. Breath sounds clear and equal bilaterally. No wheezes or rales. No chest wall tenderness to palpation. Abdominal: Abdomen soft, no rebound or guarding. Diffuse tenderness to palpation. Musculoskeletal: No edema, tenderness or deformity noted. Skin: Warm and dry. No rash, erythema, pallor or cyanosis Psychiatric: Appropriate mood and affect for situation. Neurological: Alert and keenly responsive. CN II-XII grossly intact, moving all extremities equally and fully. MDM: - Vitals signs showed hypothermic and tachycardic. Patient noted to be hypothermic with rectal temperature. Warming blanket ordered. Sepsis protocols initiated. - History obtained via patient and patient's . History as above. - Chronic conditions affecting care: Paroxysmal A-fib; anxiety; GERD; CHF - Differential diagnoses include, but are not limited to: UTI; pneumonia; ischemic colitis; bowel obstruction; diverticulitis; pneumonia; ACS; electrolyte abnormality; dehydration - Order placed for continuous cardiac monitoring. At this time, monitor showed rate of 103 bpm with irregular rhythm, per my interpretation. - External medical records reviewed. Discharge summary dated 12/11/2024 was reviewed. Patient was admitted that time due to severe sepsis secondary to RSV pneumonia. - EKG image interpreted by myself showed atrial fibrillation. Rate tachycardic at 125 bpm. QT 346. No acute ischemic changes. - Laboratory workup interpreted by myself showed normal WBC; normal PT/INR; hypokalemia (K 3.4); evaded anion gap (20); elevated lactic acid (8.9); hypercalcemia (10.6); normal troponin; normal AST/ALT; normal lipase; normal procalcitonin - Blood cultures obtained - Empirically given IV zosyn for antibiotic coverage. - CT abdomen/pelvis with IV contrast negative for acute pathology. - VBG shows slight acidosis (pH 7.33) - Patient given 2L NS in ER with improvement and tachycardia. Patient sepsis fluid volume calculation based on actual body weight is 1959.00 mL - UA negative for pneumonia - Repeat lactic acid after 2L elevated but down to 3.1 - Viral respiratory panel negative - Patient was initially given 4 mg IV zofran and 50 mcg IV fentanyl in ER for her abdominal pain and nausea complaints. However, she still complaining of nausea on reassessment. Given 5 mg IV Compazine and 25 mg of IV Benadryl. - Discussion was had with housing case manager about patient's case and need for admission - Hospitalist consulted for admission - Patient admitted to [facility] for further evaluation and management. 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 Secondary bacterial pneumonia Paroxysmal atrial fibrillation Chronic heart failure with reduced ejection fraction (HFrEF, <= 40%) Acute hypoxic respiratory failure (Acute) Pneumonia due to respiratory syncytial virus (RSV) (Acute) Severe sepsis (Acute) Lumbar radiculopathy Scoliosis of lumbar region due to degenerative disease of spine in adult Acquired leg length discrepancy Heart failure with reduced ejection fraction (HFrEF, <= 40%) CHF (congestive heart failure) (Acute) Elevated lactic acid level (Acute) Non-ST elevation [place] (NSTEMI) (Acute) Shortness of breath (Acute) Nausea (Acute) Elevated brain natriuretic peptide (BNP) level (Acute) Acute hypokalemia (Acute) Chest pain (Acute) Atrial fibrillation with rapid ventricular response (Acute) History of mitral valve replacement with bioprosthetic valve Preop cardiovascular exam Costochondritis, acute Atrial fibrillation, permanent Depression Panic attacks Chest pain (Acute) Atrial flutter with rapid ventricular response (Acute) Diarrhea Cholelithiasis Epigastric pain Chest pain (Acute) ST elevation (STEMI) myocardial infarction (Acute) Paroxysmal SVT (supraventricular tachycardia) LVH (left ventricular hypertrophy) Palpitations Mitral regurgitation MVP (mitral valve prolapse) Kidney stone (Acute) Cat scratch of multiple sites (Acute) Cat scratch of multiple sites (Acute) Cellulitis (Acute) Medical History MVP (mitral valve prolapse) per cardio record-"noted on echo" 08/2023 Hx of renal calculi passed on own Hx of migraines History of COVID-19 2021, home test, not hosp; moderate symptoms>still has memory trouble and brain fog Atrial fibrillation currently on eliquis; f/u dr. [place], [facility] GERD (gastroesophageal reflux disease) Anxiety Encounter for pre-operative examination Surgical History History of total right hip arthroplasty History of total left hip arthroplasty Hx of colonoscopy Hx of bilateral cataract extraction Social History Smoking Status: Unknown if ever smoked Tobacco Type: Cigarettes Second Hand Exposure: No; Do You Dip or Chew Tobacco: No; Hx Alcohol Use: No Hx Substance Use: No Preferred Language: Frisian Communication Ability: Effective Drilling Engineering Manager Required: No Beliefs That Will Affect Care: None marital status: Current Living Situation: Spouse current occupation: Retired Feels Safe at Home: Yes Assistive Devices: None Allergies Allergies Allergy/AdvReac Type Severity Reaction Status Date / Time vancomycin Allergy Intermediate Rash Verified 07/11/25 14:59 Home Meds Home Medications Medication Instructions Recorded Confirmed lorazepam 0.5 mg tablet 0.5 mg PO DAILY PRN SLEEP 08/02/22 08/15/25 magnesium 250 mg tablet 250 mg PO [id number] 01/20/24 08/15/25 medical marijuana 1 dose inhalation DAILY PRN 10/20/24 08/15/25 NEEDED cholecalciferol (vitamin D3) 25 25 mcg PO DAILY 12/09/24 08/15/25 mcg (1,000 unit) capsule (Vitamin D3) apixaban 5 mg tablet (Eliquis) 5 mg PO AMHS 02/21/25 08/15/25 aspirin 81 mg chewable tablet 81 mg PO QAM 02/21/25 08/15/25 (Aspirin Childrens) duloxetine 60 mg capsule,delayed 60 mg PO QAM 02/21/25 08/15/25 release metoprolol succinate 25 mg 25 mg PO QAM 02/21/25 08/15/25 tablet,extended release 24 hr pantoprazole 40 mg tablet,delayed 40 mg PO AMHS 02/21/25 08/15/25 release Previous Rx's Medication Instructions Recorded promethazine 12.5 mg tablet 12.5 mg PO TID PRN nausea and 03/21/24 vomiting #30 tabs methocarbamol 750 mg tablet 750 mg PO HS #30 tabs 01/11/25 Results & Data (ED) Vital Signs Vital Signs - 24 hr 08/15/25 09:38 08/15/25 09:40 08/15/25 09:44 Temperature 34.5 C L Temperature Source Rectal Pulse Rate 109 H 120 H Pulse Rate [Apical] Pulse Rate from SpO2 Sensor Respiratory Rate 24 20 Blood Pressure 137/95 133/111 H Blood Pressure [Right Arm] Blood Pressure Mean 109 116 Blood Pressure Mean [Right Arm] Blood Pressure Position Lying Pulse Oximetry 100 98 Oxygen Delivery Method Room Air Sepsis Recent Fever Within 48 Hours No Sepsis New/Unexplained Change in Mental Status No Sepsis Action Taken by Nursing Physician Notified 08/15/25 09:44 08/15/25 09:44 08/15/25 09:51 Temperature Temperature Source Pulse Rate 84 106 H Pulse Rate [Apical] 84 Pulse Rate from SpO2 Sensor 116 H Respiratory Rate 18 19 Blood Pressure 130/106 H Blood Pressure [Right Arm] 133/111 H Blood Pressure Mean 114 Blood Pressure Mean [Right Arm] 118 Blood Pressure Position Pulse Oximetry 100 100 100 Oxygen Delivery Method Room Air Room Air Room Air Sepsis Recent Fever Within 48 Hours Sepsis New/Unexplained Change in Mental Status Sepsis Action Taken by Nursing 08/15/25 10:00 08/15/25 10:09 08/15/25 10:18 Temperature Temperature Source Pulse Rate 115 H 84 116 H Pulse Rate [Apical] Pulse Rate from SpO2 Sensor 110 H 95 H Respiratory Rate 20 22 Blood Pressure 152/104 H 117/86 Blood Pressure [Right Arm] Blood Pressure Mean 120 96 Blood Pressure Mean [Right Arm] Blood Pressure Position Pulse Oximetry 100 98 Oxygen Delivery Method Room Air Sepsis Recent Fever Within 48 Hours Sepsis New/Unexplained Change in Mental Status Sepsis Action Taken by Nursing 08/15/25 10:20 08/15/25 10:20 08/15/25 10:36 Temperature Temperature Source Pulse Rate 112 H 117 H 80 Pulse Rate [Apical] Pulse Rate from SpO2 Sensor 98 H Respiratory Rate 23 23 28 H Blood Pressure 120/96 120/96 130/104 H Blood Pressure [Right Arm] Blood Pressure Mean 114 114 112 Blood Pressure Mean [Right Arm] Blood Pressure Position Pulse Oximetry 100 99 100 Oxygen Delivery Method Room Air Sepsis Recent Fever Within 48 Hours Sepsis New/Unexplained Change in Mental Status Sepsis Action Taken by Nursing 08/15/25 10:40 08/15/25 10:42 08/15/25 10:47 Temperature 35.0 C L Temperature Source Jimenez Cath ( Temp Sensing) Pulse Rate 120 H 120 H Pulse Rate [Apical] Pulse Rate from SpO2 Sensor 108 H Respiratory Rate 28 H 28 H Blood Pressure 138/89 Blood Pressure [Right Arm] Blood Pressure Mean 95 Blood Pressure Mean [Right Arm] Blood Pressure Position Pulse Oximetry 100 100 Oxygen Delivery Method Room Air Sepsis Recent Fever Within 48 Hours Sepsis New/Unexplained Change in Mental Status Sepsis Action Taken by Nursing 08/15/25 10:51 08/15/25 10:51 08/15/25 10:51 Temperature Temperature Source Pulse Rate Pulse Rate [Apical] Pulse Rate from SpO2 Sensor Respiratory Rate Blood Pressure 122/92 122/92 122/92 Blood Pressure [Right Arm] Blood Pressure Mean 98 98 98 Blood Pressure Mean [Right Arm] Blood Pressure Position Pulse Oximetry Oxygen Delivery Method Sepsis Recent Fever Within 48 Hours Sepsis New/Unexplained Change in Mental Status Sepsis Action Taken by Nursing 08/15/25 10:51 08/15/25 11:15 08/15/25 11:15 Temperature 35.2 C L Temperature Source Jimenez Cath ( Temp Sensing) Pulse Rate 102 H Pulse Rate [Apical] Pulse Rate from SpO2 Sensor 97 H Respiratory Rate 20 Blood Pressure 132/99 Blood Pressure [Right Arm] Blood Pressure Mean 104 Blood Pressure Mean [Right Arm] Blood Pressure Position Pulse Oximetry 100 Oxygen Delivery Method Sepsis Recent Fever Within 48 Hours Sepsis New/Unexplained Change in Mental Status Sepsis Action Taken by Nursing 08/15/25 11:15 08/15/25 11:15 08/15/25 11:15 Temperature Temperature Source Pulse Rate Pulse Rate [Apical] Pulse Rate from SpO2 Sensor Respiratory Rate Blood Pressure 132/99 132/99 132/99 Blood Pressure [Right Arm] Blood Pressure Mean 104 104 104 Blood Pressure Mean [Right Arm] Blood Pressure Position Pulse Oximetry Oxygen Delivery Method Sepsis Recent Fever Within 48 Hours Sepsis New/Unexplained Change in Mental Status Sepsis Action Taken by Nursing 08/15/25 11:15 08/15/25 11:15 08/15/25 11:18 Temperature Temperature Source Pulse Rate 108 H 98 H Pulse Rate [Apical] Pulse Rate from SpO2 Sensor 100 H 105 H Respiratory Rate 15 19 Blood Pressure 132/99 Blood Pressure [Right Arm] Blood Pressure Mean 104 Blood Pressure Mean [Right Arm] Blood Pressure Position Pulse Oximetry 99 100 Oxygen Delivery Method Sepsis Recent Fever Within 48 Hours Sepsis New/Unexplained Change in Mental Status Sepsis Action Taken by Nursing 08/15/25 11:20 08/15/25 11:20 08/15/25 11:21 Temperature Temperature Source Pulse Rate 108 H Pulse Rate [Apical] Pulse Rate from SpO2 Sensor Respiratory Rate 21 Blood Pressure 133/75 133/75 Blood Pressure [Right Arm] Blood Pressure Mean 103 103 Blood Pressure Mean [Right Arm] Blood Pressure Position Pulse Oximetry 99 99 Oxygen Delivery Method Room Air Room Air Sepsis Recent Fever Within 48 Hours Sepsis New/Unexplained Change in Mental Status Sepsis Action Taken by Nursing 08/15/25 11:30 08/15/25 11:30 08/15/25 11:40 Temperature 35.3 C L Temperature Source Jimenez Cath ( Temp Sensing) Pulse Rate 105 H Pulse Rate [Apical] Pulse Rate from SpO2 Sensor 106 H 78 Respiratory Rate 18 20 Blood Pressure 114/86 116/73 Blood Pressure [Right Arm] Blood Pressure Mean 95 78 Blood Pressure Mean [Right Arm] Blood Pressure Position Pulse Oximetry 95 96 Oxygen Delivery Method Room Air Room Air Sepsis Recent Fever Within 48 Hours Sepsis New/Unexplained Change in Mental Status Sepsis Action Taken by Nursing 08/15/25 11:45 08/15/25 11:50 08/15/25 12:00 Temperature 35.4 C L 35.6 C L Temperature Source Jimenez Cath ( Temp Sensing) Jimenez Cath ( Temp Sensing) Pulse Rate Pulse Rate [Apical] Pulse Rate from SpO2 Sensor 71 Respiratory Rate 23 Blood Pressure 120/85 Blood Pressure [Right Arm] Blood Pressure Mean 102 Blood Pressure Mean [Right Arm] Blood Pressure Position Pulse Oximetry 93 Oxygen Delivery Method Room Air Sepsis Recent Fever Within 48 Hours Sepsis New/Unexplained Change in Mental Status Sepsis Action Taken by Nursing 08/15/25 12:00 08/15/25 12:10 08/15/25 12:15 Temperature 35.6 C L Temperature Source Jimenez Cath ( Temp Sensing) Pulse Rate 95 H 100 H Pulse Rate [Apical] Pulse Rate from SpO2 Sensor 97 H Respiratory Rate 15 16 Blood Pressure 126/87 128/90 Blood Pressure [Right Arm] Blood Pressure Mean 100 102 Blood Pressure Mean [Right Arm] Blood Pressure Position Pulse Oximetry 95 94 Oxygen Delivery Method Room Air Room Air Sepsis Recent Fever Within 48 Hours Sepsis New/Unexplained Change in Mental Status Sepsis Action Taken by Nursing 08/15/25 12:20 08/15/25 12:30 08/15/25 12:30 Temperature 35.7 C L Temperature Source Jimenez Cath ( Temp Sensing) Pulse Rate 101 H 78 Pulse Rate [Apical] Pulse Rate from SpO2 Sensor 85 Respiratory Rate 17 17 Blood Pressure 122/83 128/80 Blood Pressure [Right Arm] Blood Pressure Mean 96 96 Blood Pressure Mean [Right Arm] Blood Pressure Position Pulse Oximetry 98 93 Oxygen Delivery Method Room Air Room Air Sepsis Recent Fever Within 48 Hours Sepsis New/Unexplained Change in Mental Status Sepsis Action Taken by Nursing 08/15/25 12:45 08/15/25 12:45 08/15/25 13:00 Temperature 35.7 C L 35.8 C L Temperature Source Jimenez Cath ( Temp Sensing) Jimenez Cath ( Temp Sensing) Pulse Rate 98 H Pulse Rate [Apical] Pulse Rate from SpO2 Sensor 96 H Respiratory Rate 18 Blood Pressure 134/93 Blood Pressure [Right Arm] Blood Pressure Mean 106 Blood Pressure Mean [Right Arm] Blood Pressure Position Pulse Oximetry 97 Oxygen Delivery Method Room Air Sepsis Recent Fever Within 48 Hours Sepsis New/Unexplained Change in Mental Status Sepsis Action Taken by Nursing 08/15/25 13:00 08/15/25 13:15 Temperature 35.9 C L Temperature Source Jimenez Cath ( Temp Sensing) Pulse Rate 103 H Pulse Rate [Apical] Pulse Rate from SpO2 Sensor 103 H Respiratory Rate 18 Blood Pressure 126/94 Blood Pressure [Right Arm] Blood Pressure Mean 104 Blood Pressure Mean [Right Arm] Blood Pressure Position Pulse Oximetry 93 Oxygen Delivery Method Room Air Sepsis Recent Fever Within 48 Hours Sepsis New/Unexplained Change in Mental Status Sepsis Action Taken by Nursing Laboratory Data 08/15/25 09:34 08/15/25 09:34 Lab Results 08/15/25 08/15/25 08/15/25 Range/Units 09:34 09:50 10:45 WBC 7.19 (4.8-10.8) K/ul RBC 4.77 (4.20-5.40) M/uL Hgb 14.3 (12.0-16.0) g/dL Hct 45.3 (37.0-47.0) % MCV 95.0 (80.0-100.0) fL MCH 30.0 (25.0-34.0) pg MCHC 31.6 L (32.0-36.0) g/dL RDW Std Deviation 45.4 (36.4-46.3) fL RDW Coeff of Angela 12.9 (11.5-14.5) % Plt Count 302 (130-400) K/uL MPV 9.9 (9.4-12.4) fL Immature Gran % (Auto) 0.3 % Neut % (Auto) 35.4 % Lymph % (Auto) 49.0 % Elmore % (Auto) 12.5 % Eos % (Auto) 2.1 % Baso % (Auto) 0.7 % Neut # (Auto) 2.55 (1.40-6.50) K/uL Lymph # (Auto) 3.52 H (1.20-3.40) K/uL Elmore # (Auto) 0.90 H (0.11-0.59) K/uL Eos # (Auto) 0.15 (0.00-0.50) K/uL Baso # (Auto) 0.05 (0.00-0.20) K/uL Immature Gran # (Auto) 0.02 (0.01-0.20) K/uL PT 10.1 (9.0-12.0) Seconds INR 1.0 (0.9-1.1) VBG pH 7.33 L (7.36-7.41) VBG pCO2 37 L (38-50) mmHg VBG pO2 45 mmHg VBG HCO3 20 mmol/L VBG O2 Saturation 75.8 % VBG Base Excess -5.8 mEq/L Sodium 142 (136-145) mmol/L Potassium 3.4 L (3.5-5.1) mmol/L Chloride 103 (98-107) mmol/L Carbon Dioxide 19 L (21-32) mmol/L Anion Gap 20 H (3-11) BUN 31 H (6-23) mg/dl Creatinine 0.92 (0.6-1.2) mg/dl Est Cr Clr Drug Dosing 56.1 ml/min eGFR 69.53 BUN/Creatinine Ratio 33.7 H (10-20) Glucose 185 H (70-99(Fasting)) mg/dl Lactate 8.9 H* (0.4-2.0) mmol/L Calcium 10.6 H (8.6-10.3) mg/dl Magnesium 2.2 (1.7-2.4) mg/dl Total Bilirubin 0.5 (0.2-1.0) mg/dl Direct Bilirubin 0.1 (0-0.2) mg/dl AST 25 (13-39) U/L ALT 21 (7-52) U/L Alkaline Phosphatase 100 (34-104) U/L Troponin I High Sens 3.5 (0-14) pg/ml Total Protein 8.2 (6.0-8.3) gm/dl Albumin 5.0 (3.4-5.0) gm/dl Procalcitonin 0.05 (0-0.5) ng/ml Urine Color Yellow Urine Appearance Clear (Clear) Urine pH 5.5 (4.5-7.5) Ur Specific Jensen 1.028 (1.000-1.030) Urine Protein 1+ H (Negative) Urine Glucose (UA) Trace H (Negative) Urine Ketones 1+ H (Negative) Urine Blood Negative (Negative) Urine Nitrite Negative (Negative) Urine Bilirubin Negative (Negative) Urine Urobilinogen Negative (Negative) Ur Leukocyte Esterase Negative (Negative) Urine WBC (Auto) 0-5 (0-5) /hpf Urine RBC (Auto) 0-2 (0-2) /hpf U Hyaline Cast (Auto) 3-5 H (0-2) /lpf U Epithel Cells (Auto) 0-2 (0-2) /hpf Urine Bacteria (Auto) None Seen (None Seen) Urine Comment Adenovirus (PCR) (NotDetected) B. pertussis DNA (PCR) (NotDetected) B.parapertussis DNA PCR (NotDetected) C. pneumoniae DNA (PCR) (NotDetected) Coronavirus OC43 (PCR) (NotDetected) Coronavirus HKU1 (PCR) (NotDetected) Coronavirus 229E (PCR) (NotDetected) SARS-CoV-2 (PCR) (Negative) Coronavirus NL63 (PCR) (NotDetected) Human Metapneumovir PCR (NotDetected) Influenza Type A (PCR) (Neg) Influenza Type B (PCR) (Neg) M. pneumoniae (PCR) (NotDetected) Parainfluenza 1 (PCR) (NotDetected) Parainfluenza 2 (PCR) (NotDetected) Parainfluenza 3 (PCR) (NotDetected) Parainfluenza 4 (PCR) (NotDetected) RSV (RT-PCR) (Neg) RSV (PCR) (NotDetected) Entero/Rhino (PCR) (NotDetected) 08/15/25 08/15/25 08/15/25 Range/Units 11:42 11:57 11:57 WBC (4.8-10.8) K/ul RBC (4.20-5.40) M/uL Hgb (12.0-16.0) g/dL Hct (37.0-47.0) % MCV (80.0-100.0) fL MCH (25.0-34.0) pg MCHC (32.0-36.0) g/dL RDW Std Deviation (36.4-46.3) fL RDW Coeff of Angela (11.5-14.5) % Plt Count (130-400) K/uL MPV (9.4-12.4) fL Immature Gran % (Auto) % Neut % (Auto) % Lymph % (Auto) % Elmore % (Auto) % Eos % (Auto) % Baso % (Auto) % Neut # (Auto) (1.40-6.50) K/uL Lymph # (Auto) (1.20-3.40) K/uL Elmore # (Auto) (0.11-0.59) K/uL Eos # (Auto) (0.00-0.50) K/uL Baso # (Auto) (0.00-0.20) K/uL Immature Gran # (Auto) (0.01-0.20) K/uL PT (9.0-12.0) Seconds INR (0.9-1.1) VBG pH (7.36-7.41) VBG pCO2 (38-50) mmHg VBG pO2 mmHg VBG HCO3 mmol/L VBG O2 Saturation % VBG Base Excess mEq/L Sodium (136-145) mmol/L Potassium (3.5-5.1) mmol/L Chloride (98-107) mmol/L Carbon Dioxide (21-32) mmol/L Anion Gap (3-11) BUN (6-23) mg/dl Creatinine (0.6-1.2) mg/dl Est Cr Clr Drug Dosing ml/min eGFR BUN/Creatinine Ratio (10-20) Glucose (70-99(Fasting)) mg/dl Lactate 3.1 H* (0.4-2.0) mmol/L Calcium (8.6-10.3) mg/dl Magnesium (1.7-2.4) mg/dl Total Bilirubin (0.2-1.0) mg/dl Direct Bilirubin (0-0.2) mg/dl AST (13-39) U/L ALT (7-52) U/L Alkaline Phosphatase (34-104) U/L Troponin I High Sens (0-14) pg/ml Total Protein (6.0-8.3) gm/dl Albumin (3.4-5.0) gm/dl Procalcitonin (0-0.5) ng/ml Urine Color Urine Appearance (Clear) Urine pH (4.5-7.5) Ur Specific Jensen (1.000-1.030) Urine Protein (Negative) Urine Glucose (UA) (Negative) Urine Ketones (Negative) Urine Blood (Negative) Urine Nitrite (Negative) Urine Bilirubin (Negative) Urine Urobilinogen (Negative) Ur Leukocyte Esterase (Negative) Urine WBC (Auto) (0-5) /hpf Urine RBC (Auto) (0-2) /hpf U Hyaline Cast (Auto) (0-2) /lpf U Epithel Cells (Auto) (0-2) /hpf Urine Bacteria (Auto) (None Seen) Urine Comment Adenovirus (PCR) Not Detected (NotDetected) B. pertussis DNA (PCR) Not Detected (NotDetected) B.parapertussis DNA PCR Not Detected (NotDetected) C. pneumoniae DNA (PCR) Not Detected (NotDetected) Coronavirus OC43 (PCR) Not Detected (NotDetected) Coronavirus HKU1 (PCR) Not Detected (NotDetected) Coronavirus 229E (PCR) Not Detected (NotDetected) SARS-CoV-2 (PCR) NEGATIVE Not Detected (Negative) Coronavirus NL63 (PCR) Not Detected (NotDetected) Human Metapneumovir PCR Not Detected (NotDetected) Influenza Type A (PCR) Negative (Neg) Influenza Type B (PCR) (Neg) M. pneumoniae (PCR) (NotDetected) Parainfluenza 1 (PCR) (NotDetected) Parainfluenza 2 (PCR) (NotDetected) Parainfluenza 3 (PCR) (NotDetected) Parainfluenza 4 (PCR) (NotDetected) RSV (RT-PCR) (Neg) RSV (PCR) (NotDetected) Entero/Rhino (PCR) (NotDetected) 08/15/25 08/15/25 Range/Units 11:57 11:57 WBC (4.8-10.8) K/ul RBC (4.20-5.40) M/uL Hgb (12.0-16.0) g/dL Hct (37.0-47.0) % MCV (80.0-100.0) fL MCH (25.0-34.0) pg MCHC (32.0-36.0) g/dL RDW Std Deviation (36.4-46.3) fL RDW Coeff of Angela (11.5-14.5) % Plt Count (130-400) K/uL MPV (9.4-12.4) fL Immature Gran % (Auto) % Neut % (Auto) % Lymph % (Auto) % Elmore % (Auto) % Eos % (Auto) % Baso % (Auto) % Neut # (Auto) (1.40-6.50) K/uL Lymph # (Auto) (1.20-3.40) K/uL Elmore # (Auto) (0.11-0.59) K/uL Eos # (Auto) (0.00-0.50) K/uL Baso # (Auto) (0.00-0.20) K/uL Immature Gran # (Auto) (0.01-0.20) K/uL PT (9.0-12.0) Seconds INR (0.9-1.1) VBG pH (7.36-7.41) VBG pCO2 (38-50) mmHg VBG pO2 mmHg VBG HCO3 mmol/L VBG O2 Saturation % VBG Base Excess mEq/L Sodium (136-145) mmol/L Potassium (3.5-5.1) mmol/L Chloride (98-107) mmol/L Carbon Dioxide (21-32) mmol/L Anion Gap (3-11) BUN (6-23) mg/dl Creatinine (0.6-1.2) mg/dl Est Cr Clr Drug Dosing ml/min eGFR BUN/Creatinine Ratio (10-20) Glucose (70-99(Fasting)) mg/dl Lactate (0.4-2.0) mmol/L Calcium (8.6-10.3) mg/dl Magnesium (1.7-2.4) mg/dl Total Bilirubin (0.2-1.0) mg/dl Direct Bilirubin (0-0.2) mg/dl AST (13-39) U/L ALT (7-52) U/L Alkaline Phosphatase (34-104) U/L Troponin I High Sens (0-14) pg/ml Total Protein (6.0-8.3) gm/dl Albumin (3.4-5.0) gm/dl Procalcitonin (0-0.5) ng/ml Urine Color Urine Appearance (Clear) Urine pH (4.5-7.5) Ur Specific Jensen (1.000-1.030) Urine Protein (Negative) Urine Glucose (UA) (Negative) Urine Ketones (Negative) Urine Blood (Negative) Urine Nitrite (Negative) Urine Bilirubin (Negative) Urine Urobilinogen (Negative) Ur Leukocyte Esterase (Negative) Urine WBC (Auto) (0-5) /hpf Urine RBC (Auto) (0-2) /hpf U Hyaline Cast (Auto) (0-2) /lpf U Epithel Cells (Auto) (0-2) /hpf Urine Bacteria (Auto) (None Seen) Urine Comment Adenovirus (PCR) (NotDetected) B. pertussis DNA (PCR) (NotDetected) B.parapertussis DNA PCR (NotDetected) C. pneumoniae DNA (PCR) (NotDetected) Coronavirus OC43 (PCR) (NotDetected) Coronavirus HKU1 (PCR) (NotDetected) Coronavirus 229E (PCR) (NotDetected) SARS-CoV-2 (PCR) (Negative) Coronavirus NL63 (PCR) (NotDetected) Human Metapneumovir PCR (NotDetected) Influenza Type A (PCR) Not Detected (Neg) Influenza Type B (PCR) Negative Not Detected (Neg) M. pneumoniae (PCR) Not Detected (NotDetected) Parainfluenza 1 (PCR) Not Detected (NotDetected) Parainfluenza 2 (PCR) Not Detected (NotDetected) Parainfluenza 3 (PCR) Not Detected (NotDetected) Parainfluenza 4 (PCR) Not Detected (NotDetected) RSV (RT-PCR) Negative (Neg) RSV (PCR) Not Detected (NotDetected) Entero/Rhino (PCR) Not Detected (NotDetected) Administered Medications Discontinued Medications Diphenhydramine HCl (Diphenhydramine 50 Mg/Ml Vial) 25 mg IV NOW STA Stop: 08/15/25 11:24 Last Admin: 08/15/25 11:26 Dose: 25 mg Documented By: CHARLY Fentanyl Citrate (Fentanyl Citrate Pf 100 Mcg/2 Ml Vial) 50 mcg IV NOW STA Stop: 08/15/25 10:29 Last Admin: 08/15/25 10:42 Dose: 50 mcg Documented By: GROVER Sodium Chloride (Nss) 2,000 mls @ 999 mls/hr IV .Q2H1M ONE Stop: 08/15/25 12:06 Last Infusion: 08/15/25 12:25 Dose: Infused Documented By: Admin: 08/15/25 10:11 Dose: 999 mls/hr Documented By: GROVER Prochlorperazine (Compazine) 1 mls @ 1 mls/min IV ONE ONE Stop: 08/15/25 11:24 Last Admin: 08/15/25 11:26 Dose: 1 mls/min Documented By: CHARLY Piperacillin Sod/Tazobactam Sod (Zosyn) 4.5 gm in 100 mls @ 200 mls/hr IV NOW ONE; Protocol Stop: 08/15/25 12:02 Last Infusion: 08/15/25 12:25 Dose: Infused Documented By: Admin: 08/15/25 11:41 Dose: 200 mls/hr Documented By: CHARLY Ioversol (Optiray 320 100ml) 94 ml IV ONCE ONE Stop: 08/15/25 11:11 Last Admin: 08/15/25 11:11 Dose: 94 ml Documented By: SUSIE Ondansetron HCl (Ondansetron Inj 2 Mg/Ml 2 Ml Vial) 4 mg IV NOW STA Stop: 08/15/25 10:29 Last Admin: 08/15/25 10:42 Dose: 4 mg Documented By: GROVER Imaging Data Radiologist's Impression: Chest X-Ray 08/15/25 09:44 XR chest 1V portable HISTORY: 64 years-old Female Sepsis COMPARISON: December 08, 2024 TECHNIQUE: AP view the chest FINDINGS: Cardiac silhouette is mildly enlarged. Median sternotomy. Left atrial exclusion device again noted. Nipple shadow projects over the right lung base. No pneumothorax, pleural effusion, airspace consolidation or pulmonary edema. Bones of the chest appear grossly intact. IMPRESSION: No acute process of the chest ACT 112: Negative or not required by law. The above report was generated using voice recognition software. It may contain grammatical, syntax or spelling errors. Electronically signed by: Leopoldo Fang M.D. 08/15/2025 10:01 AM Abdomen/Pelvis CT 08/15/25 10:28 CT SCAN OF THE ABDOMEN AND PELVIS WITH IV CONTRAST CLINICAL HISTORY: Generalized abdominal pain. Vomiting. COMPARISON STUDY: Abdominal CT dated 12/09/2024. TECHNIQUE: Following the IV administration of 94 cc of Optiray 320, CT scan of the abdomen and pelvis is performed from the lung bases to the proximal femora. Images are reviewed in the axial, sagittal, and coronal planes. IV contrast was administered without complication. A dose lowering technique was utilized adhering to the principles of ALARA. CT DOSE: 754.06 mGy.cm FINDINGS: Lung bases: The patient is status post midline sternotomy. The heart is enlarged and without pericardial effusion. There is evidence of previous mitral valve surgery. There are calcified granulomas seen in the left lower lobe. The lung bases are otherwise clear noting mild bibasilar scarring/atelectasis. A fat- containing Bochdalek hernia is noted on the right. Liver: The contrast-enhanced liver is normal in size, contour, and attenuation. There is no intrahepatic biliary ductal dilatation. The hepatic veins and portal veins are patent. Gallbladder: There are layering calcified gallstones with no CT evidence of acute cholecystitis. Spleen: Normal in size and attenuation. Pancreas: Unremarkable. Adrenal glands: Unremarkable. Kidneys: The contrast enhanced kidneys are normal in size and without hydronephrosis. The kidneys enhance symmetrically. Scattered subcentimeter cortical hypodensities likely represent cysts but are too small for definitive characterization. Abdominal vasculature: The abdominal aorta is normal in course and caliber noting mild atherosclerotic calcification. Bowel: There is rectosigmoid fecal retention and moderate constipation. No bowel obstruction is seen. The appendix is not visualized. Peritoneum: There is no intraperitoneal free air or abdominal ascites. There is a fat-containing umbilical hernia. Lymphadenopathy: None. Pelvic viscera: Evaluation of the pelvis is degraded by streak artifact from a right hip arthroplasty. The the bladder is mildly distended with a catheter in place. The uterus and adnexa are normal as visualized. Skeletal structures: The skeletal structures are osteopenic. No lytic or blastic lesions are seen. There is moderate lumbosacral spondylosis as well as mild scoliosis. A right hip arthroplasty is in place. IMPRESSION: 1. No acute infectious or inflammatory findings are identified in the abdomen or pelvis. 2. Constipation. 3. Cardiomegaly. 4. Cholelithiasis. 5. Additional findings as above. ACT 112: Negative or not required by law. Electronically signed by: Bernardino Layton M.D. 08/15/2025 11:38 AM Discharge Plan Visit Data Chief Complaint: Cardiac Assessment Stated Complaint: POSSIBLE AFIB ED Provider: Diann Carrion Discharge Problem: Atrial fibrillation with rapid ventricular response, Nausea, Elevated lactic acid level, Hypothermia, Abdominal pain Patient Disposition: Admitted As Inpatient Condition: Fair Forms Stand Alone Forms: [facility] Prescriptions Prescriptions: No Action medical marijuana josr 1 dose inhalation DAILY PRN (Reason: NEEDED) methocarbamol 750 mg tablet 750 mg PO HS Qty: 30 0RF magnesium 250 mg tablet 250 mg PO [id number] Rx Instructions: Mon/Wed/Fri lorazepam 0.5 mg Tablet 0.5 mg PO DAILY MDD ONE PILL DAILY PRN (Reason: SLEEP) cholecalciferol (vitamin D3) [Vitamin D3] 25 mcg (1,000 unit) Capsule 25 mcg PO DAILY duloxetine 60 mg capsule,delayed release(DR/EC) 60 mg PO QAM metoprolol succinate 25 mg tablet extended release 24 hr 25 mg PO QAM pantoprazole 40 mg tablet,delayed release (DR/EC) 40 mg PO [facility]HS Eliquis 5 mg tablet 5 mg PO [facility]HS aspirin [Aspirin Childrens] 81 mg Tablet,Chewable 81 mg PO QAM promethazine 12.5 mg tablet 12.5 mg PO TID PRN (Reason: nausea and vomiting) Qty: 30 0RF Referrals Referrals: Anamaria Abad DO [Primary Care Provider] -
[2025-08-15 09:59] LABS: Hematocrit (blood only) 45.3 % (37.0-47.0); Hemoglobin 14.3 g/dL (12.0-16.0); Immature Granulocytes # (auto) 0.02 K/uL (0.01-0.20); Immature Granulocytes % (auto) 0.3 %; Mean Corpuscular Hemoglobin 30.0 pg (25.0-34.0); Mean Corpuscular Volume 95.0 fL (80.0-100.0); Platelet Count 302 K/uL (130-400); RDW Standard Deviation 45.4 fL (36.4-46.3); Red Blood Count 4.77 M/uL (4.20-5.40); White Blood Count 7.19 K/ul (4.8-10.8)
--- NOTE | 2025-08-15 10:02 | XRay Report ---
XR chest 1V portable HISTORY: 64 years-old Female Sepsis COMPARISON: December 08, 2024 TECHNIQUE: AP view the chest FINDINGS: Cardiac silhouette is mildly enlarged. Median sternotomy. Left atrial exclusion device again noted. N ipple shadow projects over the right lung base. No pneumothorax, pleural effusion, airspace consolida tion or pulmonary edema. Bones of the chest appear grossly intact. IMPRESSION: No acute process of the chest ACT 112: Negative or not required by law. The above report was generated using voice recognition software. It may contain grammatical, syntax o r spelling errors. Electronically signed by: Leopoldo Fang M.D. 08/15/2025 10:01 AM
[2025-08-15 10:03] LABS: Base Excess VBG -5.8 mEq/L; HCO3 VBG 20 mmol/L; Oxygen Saturation VBG 75.8 %; PCO2 VBG 37 mmHg (38-50); PO2 VBG 45 mmHg; pH VBG 7.33 (7.36-7.41)
[2025-08-15] MEDS: SODIUM CHLORIDE 0.9% 2,000 ML IV ONE (10:11)
[2025-08-15 10:23] LABS: Alanine Aminotransferase 21.0 U/L (7-52); Albumin Level 5.0 gm/dl (3.4-5.0); Alkaline Phosphatase 100.0 U/L (34-104); Anion Gap 20.0 (3-11); Bilirubin,Total 0.5 mg/dl (0.2-1.0); Blood Urea Nitrogen 31.0 mg/dl (6-23); Calcium 10.6 mg/dl (8.6-10.3); Carbon Dioxide 19.0 mmol/L (21-32); Chloride 103.0 mmol/L (98-107); Creatinine Clr Calc Pharmacy 56.1 ml/min; Glucose 185.0 mg/dl (70-99(Fasting)); Magnesium 2.2 mg/dl (1.7-2.4); Potassium 3.4 mmol/L (3.5-5.1); Sodium 142.0 mmol/L (136-145); Total Protein 8.2 gm/dl (6.0-8.3)
[2025-08-15 10:25] LABS: INR 1.0 (0.9-1.1); Prothrombin Time 10.1 Seconds (9.0-12.0)
[2025-08-15] MEDS: ONDANSETRON INJ 2 MG/ML 2 ML VIAL IV STA (10:42)
[2025-08-15 10:59] LABS: Appearance Urine Clear (Clear); Bacteria Urine Automated None Seen (None Seen); Epithelial Cell Urine Auto 0-2 /hpf (0-2); Glucose Urine UA Trace (Negative); RBC Urine Automated 0-2 /hpf (0-2); WBC Urine Automated 0-5 /hpf (0-5)
[2025-08-15] MEDS: OPTIRAY 320 100ml IV ONE (11:11)
[2025-08-15] MEDS: PROCHLORPERAZINE 1 ML IV ONE (11:26)
[2025-08-15] MEDS: diphenhydrAMINE 50 MG/ML VIAL IV STA (11:26)
--- NOTE | 2025-08-15 11:40 | CT Scan Report ---
CT SCAN OF THE ABDOMEN AND PELVIS WITH IV CONTRAST CLINICAL HISTORY: Generalized abdominal pain. Vomiting. COMPARISON STUDY: Abdominal CT dated 12/09/2024. TECHNIQUE: Following the IV administration of 94 cc of Optiray 320, CT scan of the abdomen and pelvi s is performed from the lung bases to the proximal femora. Images are reviewed in the axial, sagittal , and coronal planes. IV contrast was administered without complication. A dose lowering technique wa s utilized adhering to the principles of ALARA. CT DOSE: 754.06 mGy.cm FINDINGS: Lung bases: The patient is status post midline sternotomy. The heart is enlarged and without pericard ial effusion. There is evidence of previous mitral valve surgery. There are calcified granulomas seen in the left lower lobe. The lung bases are otherwise clear noting mild bibasilar scarring/atelectasi s. A fat-containing Bochdalek hernia is noted on the right. Liver: The contrast-enhanced liver is normal in size, contour, and attenuation. There is no intrahepa tic biliary ductal dilatation. The hepatic veins and portal veins are patent. Gallbladder: There are layering calcified gallstones with no CT evidence of acute cholecystitis. Spleen: Normal in size and attenuation. Pancreas: Unremarkable. Adrenal glands: Unremarkable. Kidneys: The contrast enhanced kidneys are normal in size and without hydronephrosis. The kidneys enh ance symmetrically. Scattered subcentimeter cortical hypodensities likely represent cysts but are too small for definitive characterization. Abdominal vasculature: The abdominal aorta is normal in course and caliber noting mild atheroscleroti c calcification. Bowel: There is rectosigmoid fecal retention and moderate constipation. No bowel obstruction is seen. The appendix is not visualized. Peritoneum: There is no intraperitoneal free air or abdominal ascites. There is a fat-containing umbi lical hernia. Lymphadenopathy: None. Pelvic viscera: Evaluation of the pelvis is degraded by streak artifact from a right hip arthroplasty . The the bladder is mildly distended with a catheter in place. The uterus and adnexa are normal as v isualized. Skeletal structures: The skeletal structures are osteopenic. No lytic or blastic lesions are seen. Th ere is moderate lumbosacral spondylosis as well as mild scoliosis. A right hip arthroplasty is in yon ce. IMPRESSION: 1. No acute infectious or inflammatory findings are identified in the abdomen or pelvis. 2. Constipation. 3. Cardiomegaly. 4. Cholelithiasis. 5. Additional findings as above. ACT 112: Negative or not required by law. Electronically signed by: Bernardino Layton M.D. 08/15/2025 11:38 AM
[2025-08-15] MEDS: PIPERACILLIN/TAZOBACTAM 4.5 GM/100 ML BAG IV ONE (11:41)
--- NOTE | 2025-08-15 12:18 | History & Physical Report ---
Date of Service August 15, 2025 Assessment & Plan (1) Atrial fibrillation with rapid ventricular response: (2) History of mitral valve replacement with bioprosthetic valve: (3) CHF (congestive heart failure): (4) Lactic acidosis: (5) Hypothermia: Plan This is a 64 yo F with PMhx of Atrial fibrillation, anticoagulated on Eliquis, history of mitral valve regurgitation (nonrheumatic) status post mitral valve replacement, history of maze procedure and left atrial appendage clip at time of her valve surgery in December 2023, chronic systolic CHF, EF of 45 to 49% previously now improved to 55% as of Jun 2024, diffuse hypokinesis. Presenting to the ER in acute A-fib RVR, heart rate 120s, recently taken off amiodarone about 1 month ago. Follows with [facility] cardiology. Afib RVR CHF systolic dysfunction Cardiomyopathy Possible Sepsis Hypothermia Hypokalemia - Admit to PCU - Hold home beta-blockade metoprolol succinate 25 daily, transition to metoprolol tartrate 12.5 PO Q6 scheduled, Lopressor 5mg IV as needed tachycardia greater than 130 ordered - Obtain echo today-- Last echo from 06/29 showing an EF of 55 to 60% looks like this has improved compared to previous. - Cardiology consulted, Dr. Morales called and will see pt this afternoon. Likely requires new antiarrhythmic med - Continue Eliquis 5 mg BID for MV replacement and Afib - Blood cultures pending, continue on Zosyn IV empirically until negative unless other source of infection is found - Lactic acid initially 8.9, improved to 3.2 after 2 L NS administered No leukocytosis or fever. - CXR negative. CT abd/pelvis reviewed personally showing constipation and mo derate fecal retention. Bowel regimen ordered for such. - Resp biofire in process - Hypothermia of 34.0 on admission improved now with rewarming, monitor - Replace K 40 meq now, goal maintain K+ > 4, Mag > 2 - Hold home meds of methocarbamol, ativan for now. DVT ppx: teds, scds, eliquis Lines: PIV x 2 FEN/GI: NPO for now, allow HH diet later if clinically improves CODE: Full code discussed with pt and at bedside. Dispo: From home, likely to remain in the hospital x 1-2 days I spent a total of 75 minutes with greater than 50% of that time face to face with the patient, personally reviewing all current laboratories, imaging studies, past medication reconciliation, outpatient chart review, and discussion with specialists to collaborate care for the patient excluding time spent in the performance of separately billed services or time spent by another provider/QHP. Please see attending documentation for corrections and/or additions. History of Present Illness Chief Complaint: Shaking, chills, nausea and dry heaves Primary Care Provider: Anamaria Abad DO This is a 64 yo F with PMhx of Atrial fibrillation, anticoagulated on Eliquis, history of mitral valve regurgitation (nonrheumatic) status post mitral valve replacement, history of maze procedure and left atrial appendage clip at time of her valve surgery in December 2023, chronic systolic CHF, EF of 45 to 49% previously now improved to 55% as of Jun 2024, diffuse hypokinesis anterior colporrhaphy and uterosacral hysteropexy in October 2024 and chronic constipation. per patient reports she was instructed to stop amiodarone approximately 2 to 3 weeks ago per [place] cardiology whom she follows with regularly. her Saji is present with her at bedside and supports the history. He states that cardiology also informed them that it was due to her LV function that they did not want her on long-term amiodarone. She reports feeling intermittently nauseous during exam, no vomiting but does feel soreness in her abdomen status post dry heaving throughout the morning today. Saji reports that she has the same presentation with chills, sweats, not feeling well with nausea every time she goes into a bout of atrial fibrillation with RVR and that this is the fourth time that it has occurred. Denies any recent medication changes other than DC of amiodarone. She has been taking beta-blockade of metoprolol succinate 25 mg daily as instructed. Upon presentation with she was found to be hypothermic with a Tmax of 34.5, heart rate initially in the 120s to 130s, A-fib RVR seen on EKG, initially lactic acid is 8.9, improved to 3.1 after receiving 2 L normal saline in the ER. Blood cultures were obtained, she is empirically started on Zosyn for possible underlying septic source however it has not been identified at this time. CXR is negative, CT abdomen pelvis is negative other than moderate fecal retention and constipation. Respiratory bio fire is pending. Allergies Allergy/AdvReac Type Severity Reaction Status Date / Time vancomycin Allergy Intermediate Rash Verified 07/11/25 14:59 Home Medications Medication Instructions Recorded Confirmed Type lorazepam 0.5 mg tablet 0.5 mg PO DAILY PRN SLEEP 08/02/22 08/15/25 History magnesium 250 mg tablet 250 mg PO [id number] 01/20/24 08/15/25 History promethazine 12.5 mg tablet 12.5 mg PO TID PRN nausea and 03/21/24 08/15/25 Rx vomiting #30 tabs medical marijuana 1 dose inhalation DAILY PRN 10/20/24 08/15/25 History NEEDED cholecalciferol (vitamin D3) 25 25 mcg PO DAILY 12/09/24 08/15/25 History mcg (1,000 unit) capsule (Vitamin D3) methocarbamol 750 mg tablet 750 mg PO HS #30 tabs 01/11/25 08/15/25 Rx apixaban 5 mg tablet (Eliquis) 5 mg PO AMHS 02/21/25 08/15/25 History aspirin 81 mg chewable tablet 81 mg PO QAM 02/21/25 08/15/25 History (Aspirin Childrens) duloxetine 60 mg capsule,delayed 60 mg PO QAM 02/21/25 08/15/25 History release metoprolol succinate 25 mg 25 mg PO QAM 02/21/25 08/15/25 History tablet,extended release 24 hr pantoprazole 40 mg tablet,delayed 40 mg PO AMHS 02/21/25 08/15/25 History release Past Med/Surg History Problem List (Updated 08/15/25 @ 14:07 by Diann Carrion MD) Abdominal pain (Acute) Hypothermia (Acute) Elevated lactic acid level (Acute) Nausea (Acute) Atrial fibrillation with rapid ventricular response (Acute) Hypothermia Lactic acidosis 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 Secondary bacterial pneumonia Paroxysmal atrial fibrillation Chronic heart failure with reduced ejection fraction (HFrEF, <= 40%) Acute hypoxic respiratory failure (Acute) Pneumonia due to respiratory syncytial virus (RSV) (Acute) Severe sepsis (Acute) Lumbar radiculopathy Scoliosis of lumbar region due to degenerative disease of spine in adult Acquired leg length discrepancy Heart failure with reduced ejection fraction (HFrEF, <= 40%) CHF (congestive heart failure) (Acute) Elevated lactic acid level (Acute) Non-ST elevation NV (NSTEMI) (Acute) Shortness of breath (Acute) Nausea (Acute) Elevated brain natriuretic peptide (BNP) level (Acute) Acute hypokalemia (Acute) Chest pain (Acute) Atrial fibrillation with rapid ventricular response (Acute) History of mitral valve replacement with bioprosthetic valve Preop cardiovascular exam Costochondritis, acute Atrial fibrillation, permanent Depression Panic attacks Chest pain (Acute) Atrial flutter with rapid ventricular response (Acute) Diarrhea Cholelithiasis Epigastric pain Chest pain (Acute) ST elevation (STEMI) myocardial infarction (Acute) Paroxysmal SVT (supraventricular tachycardia) LVH (left ventricular hypertrophy) Palpitations Mitral regurgitation MVP (mitral valve prolapse) Kidney stone (Acute) Cat scratch of multiple sites (Acute) Cat scratch of multiple sites (Acute) Cellulitis (Acute) Medical History MVP (mitral valve prolapse) per cardio record-"noted on echo" 08/2023 Hx of renal calculi passed on own Hx of migraines History of COVID-19 2021, home test, not hosp; moderate symptoms>still has memory trouble and brain fog Atrial fibrillation currently on eliquis; f/u dr. 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 Hand Required: No Beliefs That Will Affect Care: None marital status: Current Living Situation: Spouse current occupation: Retired Feels Safe at Home: Yes Assistive Devices: None Review of Systems Review of Systems: Constitutional: + fever, +sweats + chills Eyes: No diplopia, no worsening or blurred vision ENT: normal hearing, no trouble swallowing Respiratory: No cough, sputum, dyspnea at rest or on exertion Cardiovascular: No chest pain, tightness or palpitations Abdomen: No pain, + nausea, + dry heaves, no vomiting, diarrhea, + issues with chronic constipation Musculoskeletal: No joint pain, calf pain, swelling Neurologic: + generalized weakness, no numbness/tingling, or balance problems Psychiatric: No anxiety or depression Skin: No rash or itch Physical Exam Physical Exam: General: awake, alert, acute distress, diaphoretic white female, has difficulty keeping eyes open, answers question with one word Head: Normocephalic, atraumatic ENT: PERRL, EOMI, no pharyngeal exudate, mucous membranes moist Chest: Clear to auscultation, on room air, no adventitious breath sounds Cardiac: Irregularly irregular with HR of 100s at bedside, no murmur, no JVD, normal peripheral pulses, good capillary refill Abdominal: NABS x 4 quadrants, soft, nondistended, nontender to palpation, no rebound or guarding Extremities: Normal inspection, no peripheral edema or erythema, calfs nontender to palpation Skin: Small areas of ecchymosis over the left wrist and bilateral lower extremities developing, ~ 1 cm diameter x 1 on each extremity Psych: Normal mood and affect Neuro: AAO to self, place, answers questions although is slow to respond at times, strength intact bilaterally and rated 5/5, no motor deficits, speech is clear, no peripheral sensory deficits Results & Data Results & Data Vital Signs (Past 12 Hours) Vital Signs Temp Pulse Pulse Resp BP BP Pulse Ox 08/15/25 12:00 95 H 15 126/87 95 08/15/25 12:00 35.6 C L 08/15/25 11:50 23 120/85 93 08/15/25 11:45 35.4 C L 08/15/25 11:40 20 116/73 96 08/15/25 11:30 105 H 18 114/86 95 08/15/25 11:30 35.3 C L 08/15/25 11:21 99 08/15/25 11:20 108 H 21 133/75 99 08/15/25 11:20 133/75 08/15/25 11:18 98 H 19 100 08/15/25 11:15 108 H 15 99 08/15/25 11:15 132/99 08/15/25 11:15 132/99 08/15/25 11:15 132/99 08/15/25 11:15 132/99 08/15/25 11:15 132/99 08/15/25 11:15 35.2 C L 08/15/25 10:51 102 H 20 100 08/15/25 10:51 122/92 08/15/25 10:51 122/92 08/15/25 10:51 122/92 08/15/25 10:47 35.0 C L 08/15/25 10:42 120 H 28 H 100 08/15/25 10:40 120 H 28 H 138/89 100 08/15/25 10:36 80 28 H 130/104 H 100 08/15/25 10:20 117 H 23 120/96 99 08/15/25 10:20 112 H 23 120/96 100 08/15/25 10:18 116 H 08/15/25 10:09 84 22 117/86 98 08/15/25 10:00 115 H 20 152/104 H 100 08/15/25 09:51 106 H 19 130/106 H 100 08/15/25 09:44 84 18 133/111 H 100 08/15/25 09:44 84 100 08/15/25 09:44 34.5 C L 08/15/25 09:40 120 H 20 133/111 H 98 08/15/25 09:38 109 H 24 137/95 100 O2 Del Method 08/15/25 12:00 Room Air 08/15/25 12:00 08/15/25 11:50 Room Air 08/15/25 11:45 08/15/25 11:40 Room Air 08/15/25 11:30 Room Air 08/15/25 11:30 08/15/25 11:21 Room Air 08/15/25 11:20 Room Air 08/15/25 11:20 08/15/25 11:18 08/15/25 11:15 08/15/25 11:15 08/15/25 11:15 08/15/25 11:15 08/15/25 11:15 08/15/25 11:15 08/15/25 11:15 08/15/25 10:51 08/15/25 10:51 08/15/25 10:51 08/15/25 10:51 08/15/25 10:47 08/15/25 10:42 08/15/25 10:40 Room Air 08/15/25 10:36 Room Air 08/15/25 10:20 08/15/25 10:20 08/15/25 10:18 08/15/25 10:09 Room Air 08/15/25 10:00 08/15/25 09:51 Room Air 08/15/25 09:44 Room Air 08/15/25 09:44 Room Air 08/15/25 09:44 08/15/25 09:40 08/15/25 09:38 Room Air Laboratory Results 08/15/25 10:05 Aerobic Blood Culture - Pending Blood Anaerobic Blood Culture - Pending 08/15/25 09:50 Aerobic Blood Culture - Pending Blood Anaerobic Blood Culture - Pending 08/15/25 08/15/25 08/15/25 11:42 10:45 09:50 WBC RBC Hgb Hct MCV MCH MCHC RDW Std Deviation RDW Coeff of Angela Plt Count MPV Immature Gran % (Auto) Neut % (Auto) Lymph % (Auto) [place] % (Auto) Eos % (Auto) Baso % (Auto) Neut # (Auto) Lymph # (Auto) [place] # (Auto) Eos # (Auto) Baso # (Auto) Immature Gran # (Auto) PT INR VBG pH 7.33 L VBG pCO2 37 L VBG pO2 45 VBG HCO3 20 VBG O2 Saturation 75.8 VBG Base Excess -5.8 Sodium Potassium Chloride Carbon Dioxide Anion Gap BUN Creatinine Est Cr Clr Drug Dosing eGFR BUN/Creatinine Ratio Glucose Lactate 3.1 H* 8.9 H* Calcium Magnesium Total Bilirubin Direct Bilirubin AST ALT Alkaline Phosphatase Troponin I High Sens Total Protein Albumin Procalcitonin Urine Color Yellow Urine Appearance Clear Urine pH 5.5 Ur Specific [place] 1.028 Urine Protein 1+ H Urine Glucose (UA) Trace H Urine Ketones 1+ H Urine Blood Negative Urine Nitrite Negative Urine Bilirubin Negative Urine Urobilinogen Negative Ur Leukocyte Esterase Negative Urine WBC (Auto) 0-5 Urine RBC (Auto) 0-2 U Hyaline Cast (Auto) 3-5 H U Epithel Cells (Auto) 0-2 Urine Bacteria (Auto) None Seen Urine Comment 08/15/25 09:34 WBC 7.19 RBC 4.77 Hgb 14.3 Hct 45.3 MCV 95.0 MCH 30.0 MCHC 31.6 L RDW Std Deviation 45.4 RDW Coeff of Angela 12.9 Plt Count 302 MPV 9.9 Immature Gran % (Auto) 0.3 Neut % (Auto) 35.4 Lymph % (Auto) 49.0 [place] % (Auto) 12.5 Eos % (Auto) 2.1 Baso % (Auto) 0.7 Neut # (Auto) 2.55 Lymph # (Auto) 3.52 H [place] # (Auto) 0.90 H Eos # (Auto) 0.15 Baso # (Auto) 0.05 Immature Gran # (Auto) 0.02 PT 10.1 INR 1.0 VBG pH VBG pCO2 VBG pO2 VBG HCO3 VBG O2 Saturation VBG Base Excess Sodium 142 Potassium 3.4 L Chloride 103 Carbon Dioxide 19 L Anion Gap 20 H BUN 31 H Creatinine 0.92 Est Cr Clr Drug Dosing 56.1 eGFR 69.53 BUN/Creatinine Ratio 33.7 H Glucose 185 H Lactate Calcium 10.6 H Magnesium 2.2 Total Bilirubin 0.5 Direct Bilirubin 0.1 AST 25 ALT 21 Alkaline Phosphatase 100 Troponin I High Sens 3.5 Total Protein 8.2 Albumin 5.0 Procalcitonin 0.05 Urine Color Urine Appearance Urine pH Ur Specific [place] Urine Protein Urine Glucose (UA) Urine Ketones Urine Blood Urine Nitrite Urine Bilirubin Urine Urobilinogen Ur Leukocyte Esterase Urine WBC (Auto) Urine RBC (Auto) U Hyaline Cast (Auto) U Epithel Cells (Auto) Urine Bacteria (Auto) Urine Comment Diagnostic Findings Chest X-Ray 08/15/25 09:44 XR chest 1V portable HISTORY: 64 years-old Female Sepsis COMPARISON: December 08, 2024 TECHNIQUE: AP view the chest FINDINGS: Cardiac silhouette is mildly enlarged. Median sternotomy. Left atrial exclusion device again noted. Nipple shadow projects over the right lung base. No pneumothorax, pleural effusion, airspace consolidation or pulmonary edema. Bones of the chest appear grossly intact. IMPRESSION: No acute process of the chest ACT 112: Negative or not required by law. The above report was generated using voice recognition software. It may contain grammatical, syntax or spelling errors. Electronically signed by: Leopoldo Fang M.D. 08/15/2025 10:01 AM Abdomen/Pelvis CT 08/15/25 10:28 CT SCAN OF THE ABDOMEN AND PELVIS WITH IV CONTRAST CLINICAL HISTORY: Generalized abdominal pain. Vomiting. COMPARISON STUDY: Abdominal CT dated 12/09/2024. TECHNIQUE: Following the IV administration of 94 cc of Optiray 320, CT scan of the abdomen and pelvis is performed from the lung bases to the proximal femora. Images are reviewed in the axial, sagittal, and coronal planes. IV contrast was administered without complication. A dose lowering technique was utilized adhering to the principles of ALARA. CT DOSE: 754.06 mGy.cm FINDINGS: Lung bases: The patient is status post midline sternotomy. The heart is enlarged and without pericardial effusion. There is evidence of previous mitral valve surgery. There are calcified granulomas seen in the left lower lobe. The lung bases are otherwise clear noting mild bibasilar scarring/atelectasis. A fat- containing Bochdalek hernia is noted on the right. Liver: The contrast-enhanced liver is normal in size, contour, and attenuation. There is no intrahepatic biliary ductal dilatation. The hepatic veins and portal veins are patent. Gallbladder: There are layering calcified gallstones with no CT evidence of acute cholecystitis. Spleen: Normal in size and attenuation. Pancreas: Unremarkable. Adrenal glands: Unremarkable. Kidneys: The contrast enhanced kidneys are normal in size and without hydronephrosis. The kidneys enhance symmetrically. Scattered subcentimeter cortical hypodensities likely represent cysts but are too small for definitive characterization. Abdominal vasculature: The abdominal aorta is normal in course and caliber noting mild atherosclerotic calcification. Bowel: There is rectosigmoid fecal retention and moderate constipation. No bowel obstruction is seen. The appendix is not visualized. Peritoneum: There is no intraperitoneal free air or abdominal ascites. There is a fat-containing umbilical hernia. Lymphadenopathy: None. Pelvic viscera: Evaluation of the pelvis is degraded by streak artifact from a right hip arthroplasty. The the bladder is mildly distended with a catheter in place. The uterus and adnexa are normal as visualized. Skeletal structures: The skeletal structures are osteopenic. No lytic or blastic lesions are seen. There is moderate lumbosacral spondylosis as well as mild scoliosis. A right hip arthroplasty is in place. IMPRESSION: 1. No acute infectious or inflammatory findings are identified in the abdomen or pelvis. 2. Constipation. 3. Cardiomegaly. 4. Cholelithiasis. 5. Additional findings as above. ACT 112: Negative or not required by law. Electronically signed by: Bernardino Layton M.D. 08/15/2025 11:38 AM ECG Rate (beats per minute): 110 Rhythm: atrial fibrillation Additional Comments: Rapid ventricular response Code Status & VTE Plan Code Status Full code - discussed with pt and at bedside. 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 Per patient and her at bedside, whenever she is in A-fib RVR she develops the symptoms. Patient denies any fever/sore throat/cough/pain or burning while passing urine/unusual bowel habits. Patient reports some upper belly discomfort due to dry heaving. They deny any tick bite, no skin rash consistent with tick bite was noted on exam. Labs and imagings reviewed. A-fib RVR: Patient noted to be in A-fib RVR at presentation, heart rate improved to 100s by bedside exam. trop neg. Will continue with the scheduled PO metoprolol tart 12.5 mg every 6 hours with as needed IV metoprolol 5 mg for heart rate greater than 130. Cardio consult, tele monitor, echo. c/w gentle ivf. Monitor replete electrolytes. Increase blood lactic acid level: Likely from hypoperfusion in the setting of A-fib RVR. Patient presented with palpitation/ profuse sweating/nausea/vomiting which she likens to her prior presentation with A-fib RVR. Rule out infection. UA/CXR/CTAP negative for infection. Respiratory pathogen panel negative. Empiric Zosyn for now, await blood culture. gentle nss. Follow-up on echo. Trend LA until trending down or normal. Constipation: Continue with scheduled bowel regimen and as needed bowel regimen. On Exam: GENERAL: Alert and oriented x3. NAD, on RA. diaphoretic (has improved per pt and her at bedside), appears tired, lethargic. HEENT: No pallor, no icterus. Pupils equal, round and reactive to light. Oral mucosa moist. NECK: No JVD, no neck masses. HEART: S1 and S2 heard. irregular rate and rhythm, HR is 100s. No murmur, no gallop. RESPIRATORY SYSTEM: Normal AP diameter. No accessory muscle use. No wheezing, no crackles. ABDOMEN: Soft, bowel sounds present, nontender, no distention. CENTRAL NERVOUS SYSTEM: No facial droop. Speech is clear. Obeys simple commands. Moves extremities. EXTREMITIES: No edema, no erythema seen. I have seen and examined the patient and have discussed the case with the provider above. I agree with the assessment and plan as stated. Time spent independently: 35 min
[2025-08-15 12:54] LABS: Influenza A virus by PCR Negative (Neg); Influenza B virus by PCR Negative (Neg); SARS CoV2 RNA(COVID-19) Ceph NEGATIVE (Negative)
[2025-08-15 13:21] LABS: Chlamydia pneumoniae PCR Not Detected (NotDetected); Coronavirus 229E PCR Not Detected (NotDetected); Coronavirus CoV-2 (COVID19)PCR Not Detected (NotDetected); Coronavirus HKU1 PCR Not Detected (NotDetected); Coronavirus NL63 PCR Not Detected (NotDetected); Coronavirus OC43PCR Not Detected (NotDetected); Human Metapneumovirus PCR Not Detected (NotDetected); Parainfluenza Virus 1 PCR Not Detected (NotDetected); Parainfluenza Virus 2 PCR Not Detected (NotDetected); Parainfluenza Virus 3 PCR Not Detected (NotDetected); Parainfluenza Virus 4 PCR Not Detected (NotDetected); Respiratory Syncytial VirusPCR Not Detected (NotDetected); Rhinovirus/Enterovirus PCR Not Detected (NotDetected)
[2025-08-15] MEDS: METOPROLOL TARTRATE 25 MG TAB PO SCH (15:54)
[2025-08-15] MEDS: SODIUM CHLORIDE 0.9% 1,000 ML IV SCH (15:56)
--- NOTE | 2025-08-15 16:59 | XCELERA ---
[id number]
[2025-08-15] MEDS ORDERED: METOPROLOL TARTRATE 1 MG/ML VIAL IV PRN (18:45)
[2025-08-15] MEDS: PIPERACILLIN/TAZOBACTAM 4.5 GM/100 ML BAG IV SCH (18:54)
[2025-08-15] MEDS: POTASSIUM CHLORIDE CRTAB 20 MEQ TABCR PO STA (18:54)
[2025-08-15] MEDS: POLYETHYLENE (MIRALAX) 17 GM PACK PO SCH (18:54)
[2025-08-15] MEDS: APIXABAN 5 MG TABLET PO SCH (20:23)
[2025-08-15] MEDS: DOCUSATE SODIUM 100 MG CAP PO SCH (20:23)
[2025-08-16 06:24] LABS: Hematocrit (blood only) 36.9 % (37.0-47.0); Hemoglobin 12.2 g/dL (12.0-16.0); Mean Corpuscular Hemoglobin 30.5 pg (25.0-34.0); Mean Corpuscular Volume 92.3 fL (80.0-100.0); Platelet Count 239 K/uL (130-400); RDW Standard Deviation 43.5 fL (36.4-46.3); Red Blood Count 4.00 M/uL (4.20-5.40); White Blood Count 9.03 K/ul (4.8-10.8)
[2025-08-16] MEDS: ACETAMINOPHEN 325 MG TAB PO PRN (06:31)
[2025-08-16 06:47] LABS: Anion Gap 8.0 (3-11); Blood Urea Nitrogen 13.0 mg/dl (6-23); Calcium 9.1 mg/dl (8.6-10.3); Carbon Dioxide 24.0 mmol/L (21-32); Chloride 106.0 mmol/L (98-107); Cholesterol 200.0 mg/dl (0-200); Creatinine Clr Calc Pharmacy 96.9 ml/min; Glucose 117.0 mg/dl (70-99(Fasting)); HDL Cholesterol 85.0 mg/dl; Magnesium 1.9 mg/dl (1.7-2.4); Potassium 3.8 mmol/L (3.5-5.1); Sodium 138.0 mmol/L (136-145); Triglycerides 55.0 mg/dl (0-150)
[2025-08-16 07:39] LABS: Hemoglobin A1C 5.6 % (4.5-5.6)
[2025-08-16] MEDS: POTASSIUM CHLORIDE CRTAB 20 MEQ TABCR PO ONE (08:28)
[2025-08-16] MEDS: MAGNESIUM SULFATE / D5W 1 GM/100 ML BAG IV SCH (08:28)
[2025-08-16] MEDS: ASPIRIN 81 MG ECTAB PO SCH (08:29)
[2025-08-16] MEDS: CHOLECALCIFEROL 25 MCG (1000 UNITS) TAB PO SCH (08:29)
--- NOTE | 2025-08-16 10:05 | Cardiology Consultation ---
Date of Consultation August 16, 2025 Assessment & Plan (1) Paroxysmal atrial fibrillation: Plan 1. Paroxysmal A-fib - [place] [facility] [place] to [place]R yesterday around 1330 with rates ranging from 90s to low 100s. - Discussion of rate vs rhythm control. Patient is opting for rate control at this time. Discontinue metoprolol tartrate q6h. Restart metoprolol succ, but increase this to 50mg daily. May further titrate depending on patient tolerance. - Continue Eliquis 5mg BID - Continue with telemetry monitoring 2. HF with improved EF - 60-65% EF on 08/15/25 - Clear CXR, mild swelling noted to lower extremities. - Suggested compression stockings and that the patient should try to keep her legs elevated when able - Could consider 20mg IV lasix x1. Upon discharge, she should follow up with her primary cardiology team (Dr. Suarez or Kidnra Munroe PA-C) within 1-2 weeks. Supervising Physician Co-Signing Physician Notes Patient interviewed and examined, history reviewed. Discussed assessment and plan with Valerie Schulz. Agree with her assessment. I do not know how much time she spends in atrial fibrillation, she is only aware of it on rare occasions but may be in it more often. The rate is somewhat fast when she presents with it therefore rate control would be in order. If we can control her heart rate and she does not have any further symptoms (even if she goes into atrial fibrillation) that would be acceptable. We may need some kind of monitoring if we want to determine her atrial fibrillation burden. Her blood pressure is currently low although it is not typically low, we may run into difficulty with rate control if she becomes hypotensive. In that case we may need to move up to other options such as antiarrhythmic therapy or conceivably ablation. History of Present Illness Reason for Consultation: afib w/ rvr Attending Physician: Brenton Ramirez MD History of Present Illness Janet is a 64-year-old female with a past medical history significant for MVP with MR s/p bioprosthetic mitral valve replacement, atrial fibrillation s/p cardioversion, maze procedure and left atrial appendage clip, resolved cardiomyopathy, paroxysmal SVT, and chronic atypical chest pain who presented to ER yesterday due to tremors, diaphoresis and chills that began around 0800. These are her typical features when she converts into atrial fibrillation which prompted her hospital visit. She had complained of slight dizziness nausea with 1 small episode of emesis as well. In the ER, her EKG reflected atrial fibrillation with a rate of 125 bpm. Mild hypokalemia was noted on admitting labs at 3.4 in which she received supplementation for. CXR w/o obvious fluid overload. No obvious infectious source on admission. IV fluids were administered. Around 1330 on day of admission, she spontaneously converted into normal sinus rhythm. Since that timeframe, she has remained in normal sinus rhythm with rates ranging from the 90s to low 100s. An echocardiogram was ordered. Echocardiogram 07/16/25: Normal LV systolic function EF 60-65% Moderate concentric LVH Grade 1 diastolic dysfunction Severely dilated left atrium Bioprosthetic mitral valve noted Mild mitral stenosis and regurgitation Normal RVSP. In early July, she was taking off of her amiodarone due to the potential side effects. She had remained on metoprolol succinate 25 mg daily. Her typical A-fib symptoms are as described above. She reports that when she becomes diaphoretic with afib it is quite severe causing her to sweat through multiple layers of clothing and bedsheets. She notices mild dizziness as well during these episodes. She cannot feel any palpitations. She denies any chest discomfort, shortness of breath or GALVAN. On occasion, she does experience mild swelling to her lower extremities. She states she has only had 1 other A-fib episode in the past with the same symptoms which occurred while she was in [place]. We discussed medication options regarding rate control vs antiarrhythmic. In regards to the rate control option, we would increase her metoprolol succinate as she is only on 25 mg daily at home. At this point, we are unsure how often she is going into afib as she may only be symptomatic with elevated rates. As for antiarrhythmic therapy, she has presumably done well on her amiodarone. However, this is not a good option for her given the associated side effects with long-term use. A good option for antiarrhythmic therapy for her would be Multaq. Allergies Allergy/AdvReac Type Severity Reaction Status Date / Time vancomycin Allergy Intermediate Rash Verified 07/11/25 14:59 Home Medications Medication Instructions Recorded Confirmed Type lorazepam 0.5 mg tablet 0.5 mg PO DAILY PRN SLEEP 08/02/22 08/15/25 History magnesium 250 mg tablet 250 mg PO [id number] 01/20/24 08/15/25 History promethazine 12.5 mg tablet 12.5 mg PO TID PRN nausea and 03/21/24 08/15/25 Rx vomiting #30 tabs medical marijuana 1 dose inhalation DAILY PRN 10/20/24 08/15/25 History NEEDED cholecalciferol (vitamin D3) 25 25 mcg PO DAILY 12/09/24 08/15/25 History mcg (1,000 unit) capsule (Vitamin D3) methocarbamol 750 mg tablet 750 mg PO HS #30 tabs 01/11/25 08/15/25 Rx apixaban 5 mg tablet (Eliquis) 5 mg PO AMHS 02/21/25 08/15/25 History aspirin 81 mg chewable tablet 81 mg PO QAM 02/21/25 08/15/25 History (Aspirin Childrens) duloxetine 60 mg capsule,delayed 60 mg PO QAM 02/21/25 08/15/25 History release metoprolol succinate 25 mg 25 mg PO QAM 02/21/25 08/15/25 History tablet,extended release 24 hr pantoprazole 40 mg tablet,delayed 40 mg PO AMHS 02/21/25 08/15/25 History release Patient History Medical History MVP (mitral valve prolapse) per cardio record-"noted on echo" 08/2023 Hx of renal calculi passed on own Hx of migraines History of COVID-2021, home test, not hosp; moderate symptoms>still has memory trouble and brain fog Atrial fibrillation currently on eliquis; f/u dr. suarez, [facility] GERD (gastroesophageal reflux disease) Anxiety Encounter for pre-operative examination Surgical History History of total right hip arthroplasty History of total left hip arthroplasty Hx of colonoscopy Hx of bilateral cataract extraction Social History Smoking Status: Never smoker Tobacco Type: Cigarettes Second Hand Exposure: No; Do You Dip or Chew Tobacco: No; Hx Alcohol Use: Yes Alcohol type: wine Hx Substance Use: No Preferred Language: Ug[place]an Communication Ability: Effective [place] Clerk Required: No Beliefs That Will Affect Care: None marital status: Current Living Situation: Spouse current occupation: Retired Feels Safe at Home: Yes Assistive Devices: Cane and Walker Review of Systems Review of Systems: per hpi Physical Exam Physical Exam: Physical Exam: AOx3. Mood affect appear normal. All questions appropriately. HEENT: Sclerae are anicteric. Pupils are equal and reactive to light and accommodation. Extraocular movements were intact. Neuro: Cranial nerves intact Lungs: Lungs are clear to auscultation bilaterally. There are no rales wheezes or rhonchi. Normal respiratory effort without use of accessory muscles. Cardiac: The rhythm was regular. S1 and S2 were normal. There are no murmurs on examination. The PMI was not markedly displaced on palpation. Extremities: Patient has bilateral radial pulses that are equal in intensity. There is no evidence cyanosis or clubbing. Trace bilateral lower extremity edema present from mid tibial region to ankles. Skin: There are no rashes noted on examination today. Results & Data Vital Signs (Past 12 Hours) Vital Signs Temp Pulse Pulse Resp BP Pulse Ox O2 Del Method 08/16/25 08:00 36.8 C 89 17 128/85 97 Room Air 08/16/25 03:19 37.0 C 98 H 18 134/84 90 Room Air 08/15/25 23:25 90 08/15/25 23:12 36.9 C 93 H 24 124/84 96 Room Air PG Care Time/CCT Total # of Minutes Spent Total Time Spent with Patient: Total time spent is greater than 50% in coordination of care (as documented) at patient's floor/unit and/or counseling patient: Coding [place] [address] IN/OBS CONSULT LVL 4,60M Patient Type Established Diagnoses Paroxysmal atrial fibrillation I48.0
[2025-08-16] MEDS: METOPROLOL SUCC 50MG EXT REL TAB PO STA (10:41)
--- NOTE | 2025-08-16 10:49 | Electrocardiogram Report ---
Test Reason : Blood Pressure : */* mmHG Vent. Rate : 93 BPM Atrial Rate : 93 BPM P-R Int : 200 ms QRS Dur : 96 ms QT Int : 388 ms P-R-T Axes : * 94 69 degrees QTcB Int : 482 ms Sinus rhythm with marked sinus arrhythmia with occasional Premature ventricular complexes Rightward axis Septal infarct (cited on or before 07-Oct-2017) QTcB >= 480 msec Abnormal ECG When compared with ECG of 15-Aug-2025 09:37, (unconfirmed) Sinus rhythm has replaced Atrial fibrillation Questionable change in initial forces of Anteroseptal leads T wave inversion now evident in Anterior leads Confirmed by Hema Morales ([id number]) on 08/16/2025 10:48:48 AM Referred By: REFERRED SELF Confirmed By: Hema Morales
[2025-08-16] MEDS: BUTALBITAL/ACETAMIN/CAFFEINE TAB PO STA (13:12)
--- NOTE | 2025-08-16 14:51 | Hospitalist Progress Note ---
Date of Service August 16, 2025 Assessment & Plan (1) Atrial fibrillation with rapid ventricular response: (2) History of mitral valve replacement with bioprosthetic valve: (3) Lactic acidosis: (4) Constipation: (5) Anxiety: (6) GERD (gastroesophageal reflux disease): Plan 64 year old female with PMH significant for paroxysmal atrial fibrillation, anticoagulated on Eliquis, history of mitral valve prolapse and regurgitation s/p bioprosthetic mitral valve replacement, history of maze procedure and left atrial appendage clip at time of her valve surgery in December 2023, resolved cardiomyopathy, chronic CHF with prior reduced EF and now preserved EF, depression/anxiety, GERD who presented to the ED on 08/15/2025 with diaphoresis, chills, and nausea and was found to be in acute A-fib RVR. Atrial fibrillation with RVR History of cardioversion and maze procedure Patient presented with diaphoresis, chills, nausea consistent with prior episodes of A fib RVR Discontinued amiodarone per Hand Or Machine Paster on 07/11 but compliant with prescribed metoprolol succinate EKG revealed A fib RVR at rate of 125bpm Spontaneous conversion to NSR prior to receiving any medications TTE revealed EF 60-65%, moderate LVH, grade 1 diastolic dysfunction, severe d ilation left atrium, bioprosthetic mitral valve with mild stenosis and regurg Rate controlled initially with scheduled metoprolol tartrate [facility] consulted and recommending daily metoprolol succinate at 50mg (increased from home dose of 25mg) Monitor BP closely Continue Eliquis Possible sepsis Hypothermia Meets criteria with hypothermia, tachycardia, elevated lactate although unknown source at this time Initial lactic acid 8.9 improved after fluids Temperature improved after rewarming measures Infectious work up negative so far No leukocytosis, negative procalcitonin, urine unremarkable, CXR and CTAP negative Blood cultures prelim NGTD in 24 hours Continue Zosyn for 48 hours - likely can discontinue tomorrow Constipation CTAP noted moderate constipation Continue bowel regimen Depression/anxiety Continue duloxetine and ativan PRN GERD Continue PPI DVT Prophylaxis: on Eliquis Code Status: FULL CODE PCP: Anamaria Abad Disposition: anticipate dc to home tomorrow Patient seen in collaboration with Dr. Ramirez. Please see addendum. I spent a total of 60 minutes coordinating, documenting and providing care for this patient excluding time spent in the performance of separately billed services or time spent by another provider/QHP. Admission and Anticipated Discharge Date Admission Date: August 15, 2025 Supervising Physician Co-Signing Physician Notes Patient was seen and examined at bedside. Patient's active problems are: A-fib with RVR, spontaneously converted to NSR. Cardiology on board, metoprolol succinate uptitrated. Follow-up with cardiology upon discharge. Continue with Eliquis. Constipation: Continue with bowel regimen. Concern for underlying infection/hypothermia: Continue with empiric antibiotic, follow-up blood culture. So far infectious workup has been negative. On exam: Patient feels better today, on room air, NAD, NSR. Rest of the examination as above. Total time spent independently: 22 minutes. I have seen and examined the patient and have discussed the case with the provider above. I agree with the assessment and plan as stated. Subjective Patient seen resting in bed Reports extreme sweating and chills with nausea which prompted her to seek evaluation These symptoms have now resolved Denies dizziness, chest pain, SOB, abdominal pain, N/V/D, weakness Review of Systems Review of Systems: All systems reviewed & are unremarkable except as noted in HPI & below Physical Exam Physical Exam: General/Psych: WD/WN, sitting up in bed, NAD, conversing easily Head: normocephalic, atraumatic Eyes: normal inspection, PERRL, conjunctivae pink Neck: normal visual inspection, trachea midline, no thyromegaly Respiratory: normal respiratory effort, lungs clear to auscultation, no wheeze/rales/rhonchi, no accessory muscle use Cardiovascular: regular rate and rhythm, no murmur/rub/gallop Extremities: no cyanosis or clubbing, normal peripheral pulses, no BLE edema Abdomen/GI: normal bowel sounds, soft, nontender Neurologic/MSK: A+Ox3, motor strength 5/5, moves all extremities Skin: no rashes, normal color, warm and dry Results & Data Results & Data Vital Signs (Past 12 Hours) Vital Signs Temp Pulse Pulse Resp BP BP Pulse Ox 08/16/25 13:11 98/59 L 08/16/25 11:36 36.7 C 85 18 96/64 L 95 08/16/25 08:00 36.8 C 89 17 128/85 97 08/16/25 07:00 101 H 08/16/25 03:19 37.0 C 98 H 18 134/84 90 O2 Del Method 08/16/25 13:11 08/16/25 11:36 Room Air 08/16/25 08:00 Room Air 08/16/25 07:00 08/16/25 03:19 Room Air Laboratory Results Short CBC 08/16/25 Range/Units 05:44 WBC 9.03 (4.8-10.8) K/ul Hgb 12.2 (12.0-16.0) g/dL Hct 36.9 L (37.0-47.0) % Plt Count 239 (130-400) K/uL BMP 08/16/25 05:44 Sodium 138 Potassium 3.8 Chloride 106 Carbon Dioxide 24 BUN 13 Creatinine 0.53 L D Glucose 117 H Calcium 9.1 I have independently reviewed and interpreted patient's labs including CBC and BMP. Medications Administered Current Inpatient Medications Acetaminophen (Acetaminophen 325 Mg Tab) 650 mg PO Q4H PRN PRN Reason: Moderate Pain (Scale 4, 5, 6) Stop: 09/14/25 18:44 Last Admin: 08/16/25 11:05 Dose: 650 mg Apixaban (Apixaban 5 Mg Tablet) 5 mg PO [facility] Stop: 09/14/25 20:59 Last Admin: 08/16/25 08:29 Dose: 5 mg Aspirin (Aspirin 81 Mg Ectab) [facility] [place] Stop: 09/15/25 08:59 Last Admin: 08/16/25 08:29 Dose: 81 mg Bisacodyl (Bisacodyl 10 Mg Supp) 10 mg ME DAILY PRN PRN Reason: Constipation Stop: 09/14/25 18:44 Docusate Sodium (Docusate Sodium 100 Mg Cap) 100 mg PO BID [facility] Stop: 09/14/25 20:59 Last Admin: 08/16/25 08:28 Dose: 100 mg Duloxetine HCl (Duloxetine Hcl 60 Mg Cap) 60 mg PO QAM [facility] Stop: 09/15/25 08:59 Last Admin: 08/16/25 08:29 Dose: 60 mg Piperacillin Sod/Tazobactam Sod (Zosyn) 4.5 gm in 100 mls @ 25 mls/hr IV Q8H [facility]; Protocol Stop: 08/17/25 17:59 Last Infusion: 08/16/25 14:21 Dose: Infused Metoprolol Tartrate (Metoprolol Tartrate 1 Mg/Ml Vial) 5 mg IV Q6 PRN PRN Reason: tachycardia Stop: 09/14/25 18:44 Ondansetron HCl (Ondansetron Inj 2 Mg/Ml 2 Ml Vial) 4 mg IV Q4H PRN PRN Reason: Nausea And Vomiting Stop: 09/14/25 18:44 Pantoprazole Sodium (Pantoprazole 40 Mg Tab) 40 mg PO AMHS [facility] Stop: 09/14/25 20:59 Last Admin: 08/16/25 08:29 Dose: 40 mg Polyethylene Glycol (Polyethylene (Miralax) 17 Gm Pack) 17 gm PO DAILY [facility] Stop: 09/14/25 18:44 Last Admin: 08/16/25 08:28 Dose: 17 gm Vitamin D (Cholecalciferol 25 Mcg (1000 Units) Tab) 25 mcg PO DAILY [facility] Stop: 09/15/25 08:59 Last Admin: 08/16/25 08:29 Dose: 25 mcg
[2025-08-16] MEDS: LORazepam 0.5 MG TAB PO PRN (19:31)
[2025-08-16] MEDS: LACTATED RINGER'S 1,000 ML IV ONE (23:41)
[2025-08-17 06:19] LABS: Hematocrit (blood only) 39.2 % (37.0-47.0); Hemoglobin 12.3 g/dL (12.0-16.0); Mean Corpuscular Hemoglobin 29.0 pg (25.0-34.0); Mean Corpuscular Volume 92.5 fL (80.0-100.0); Platelet Count 248 K/uL (130-400); RDW Standard Deviation 43.9 fL (36.4-46.3); Red Blood Count 4.24 M/uL (4.20-5.40); White Blood Count 9.13 K/ul (4.8-10.8)
[2025-08-17 06:36] LABS: Anion Gap 8.0 (3-11); Blood Urea Nitrogen 13.0 mg/dl (6-23); Calcium 9.1 mg/dl (8.6-10.3); Carbon Dioxide 25.0 mmol/L (21-32); Chloride 104.0 mmol/L (98-107); Creatinine Clr Calc Pharmacy 72.4 ml/min; Glucose 132.0 mg/dl (70-99(Fasting)); Magnesium 2.0 mg/dl (1.7-2.4); Potassium 3.8 mmol/L (3.5-5.1); Sodium 137.0 mmol/L (136-145)
[2025-08-17] MEDS: ALBUMIN 25% 25 GM/100 ML VIAL IV ONE (08:56)
[2025-08-17] MEDS: SODIUM CHLORIDE 0.9% 500 ML IV SCH (09:05)
[2025-08-17] MEDS: MIDODRINE HCL 2.5 MG TAB PO ONE (09:06)
[2025-08-17] MEDS: METOPROLOL SUCC 50MG EXT REL TAB PO SCH (09:07)
[2025-08-17] MEDS: MAGNESIUM OXIDE 400 MG TAB PO SCH (09:08)
--- NOTE | 2025-08-17 09:33 | Cardiology Progress Note ---
Date of Service August 17, 2025 Assessment & Plan (1) Paroxysmal atrial fibrillation: Plan Hypotension - Possibly secondary to her receiving Oxycodone IR overnight. She is otherwise asymptomatic at this time. - Initial infectious work up was negative, lactate was elevated on admission though normalized with IV fluids. - Continue to monitor this. Would recommend obtaining manual blood pressures as well. - May need to hold Metoprol succ per parameters - would be cautious with fluid resuscitation given her cardiac history. Paroxysmal A-fib - previously has undergone cardioversion and maze procedure at [facility] [place] - Converted to NSR on day of admission around 1330 with rates ranging from 90s to low 100s. - Discussion of rate vs rhythm control was had yesterday. Patient opted for rate control. Metoprolol succ was restarted at a higher dose of 50mg daily. However, given her PVCs and variable heart rate, I am concerned she may convert back into atrial fibrillation. I brought up the rhythm control option again. Multaq would be a good choice. We may need to head in this direction. - Continue Eliquis 5mg BID - Continue with telemetry monitoring 2. HF with improved EF - 60-65% EF on 08/15/25 - Clear CXR on admission with mild swelling noted to lower extremities. - Suggested compression stockings and that the patient should try to keep her legs elevated when able Upon discharge, she should follow up with her primary cardiology team (Dr. Suarez or Kindra Munroe PA-C) within 1-2 weeks. Admission and Anticipated Discharge Date Admission Date: August 15, 2025 Supervising Physician Co-Signing Physician Notes Patient interviewed and examined, chart reviewed. Reviewed with Valerie Schulz. Agree with her assessment, the patient is hypotensive this morning for unclear reasons. She has had no further atrial fibrillation and is on low-dose metoprolol succinate. It is possible she cannot tolerate even this low dose, which will make it difficult to control heart rate if she has recurrent atrial fibrillation which is likely. Alternatives remain antiarrhythmic therapy or consideration of ablation but she would prefer not to do that at this time. This may need to be addressed as an outpatient. Subjective Patient seen and evaluated at bedside this morning, chart reviewed. She is hypotensive this morning. She received oxycodone IR around 0400 which could be the potential cause. She is asymptomatic with this hypotensive and has been up and moving this morning. Initial work up did not find an infectious etiology. She has not received her metoprolol succ yet today. Overnight, she has remained in NSR with occasional PVCs ranging from 70-80bpm. During my assessment this morning, she offered no complaints. Review of Systems Review of Systems: per hpi Physical Exam Physical Exam: Physical Exam: AOx3. Mood affect appear normal. All questions appropriately. HEENT: Sclerae are anicteric. Pupils are equal and reactive to light and accommodation. Extraocular movements were intact. Neuro: Cranial nerves intact Lungs: Normal respiratory effort without use of accessory muscles. Cardiac: The rhythm was regular. S1 and S2 were normal. There are no murmurs on examination. The PMI was not markedly displaced on palpation. Extremities: Patient has bilateral radial pulses that are equal in intensity. There is no evidence cyanosis or clubbing. Skin: There are no rashes noted on examination today. Results & Data Vital Signs (Past 12 Hours) Vital Signs Temp Pulse Pulse Resp BP BP Pulse Ox 08/17/25 09:07 90/73 L 08/17/25 09:06 90 23 08/17/25 09:00 82 23 08/17/25 08:53 76/55 L 08/17/25 08:51 73 14 08/17/25 08:47 65/52 L 08/17/25 08:47 65/52 L 08/17/25 08:47 65/52 L 08/17/25 08:45 74/51 L 08/17/25 08:45 90 19 08/17/25 08:20 95/65 L 08/17/25 08:20 95/65 L 08/17/25 08:20 95/65 L 08/17/25 08:20 95/65 L 08/17/25 08:20 95/65 L 08/17/25 08:18 83 15 08/17/25 08:03 108 H 17 08/17/25 08:00 36.7 C 105 H 17 95/65 L 98 08/17/25 07:00 69 20 08/17/25 03:16 36.8 C 80 20 105/85 95 08/16/25 23:18 72 08/16/25 23:05 37.7 C H 79 16 91/56 L 95 O2 Del Method 08/17/25 09:07 08/17/25 09:06 08/17/25 09:00 08/17/25 08:53 08/17/25 08:51 08/17/25 08:47 08/17/25 08:47 08/17/25 08:47 08/17/25 08:45 08/17/25 08:45 08/17/25 08:20 08/17/25 08:20 08/17/25 08:20 08/17/25 08:20 08/17/25 08:20 08/17/25 08:18 08/17/25 08:03 08/17/25 08:00 Room Air 08/17/25 07:00 08/17/25 03:16 Room Air 08/16/25 23:18 08/16/25 23:05 Room Air Laboratory Results CBC 08/17/25 Range/Units 06:03 WBC 9.13 (4.8-10.8) K/ul RBC 4.24 (4.20-5.40) M/uL Hgb 12.3 (12.0-16.0) g/dL Hct 39.2 (37.0-47.0) % Plt Count 248 (130-400) K/uL Comprehensive Metabolic Panel 08/17/25 Range/Units 06:03 Sodium 137 (136-145) mmol/L Potassium 3.8 (3.5-5.1) mmol/L Chloride 104 (98-107) mmol/L Carbon Dioxide 25 (21-32) mmol/L BUN 13 (6-23) mg/dl Creatinine 0.71 (0.6-1.2) mg/dl Glucose 132 H (70-99(Fasting)) mg/dl Calcium 9.1 (8.6-10.3) mg/dl Intake and Output 08/17/25 08/17/25 08/17/25 06:59 14:59 22:59 Intake Total 240 / 2216.667 1680 / 2280 600 / 2280 Output Total 150 / 150 Balance 240 / 2066.667 1530 / 2130 600 / 2130 Intake: IV 1200 / 1800 600 / 1800 Albumin 25% 25 gm In 100 ml @ 100 / 100 50 mls/hr IV ONE ONE Rx#: [id number] Lactated Ringer's 1,000 ml @ 1000 / 1000 100 mls/hr IV .Q10H ONE Rx#: [id number] Piperacillin/Tazobactam 4.5 gm 100 / 200 100 / 200 In 100 ml @ 25 mls/hr IV Q8H [facility] Rx#:[id number] Sodium Chloride 0.9% 500 ml @ 500 / 500 100 mls/hr IV .Q5H [facility] Rx#: [id number] Oral 240 / 720 480 / 480 Output: Emesis 150 / 150 Other: # Unmeasured Voids 1 4 # Emeses 2 Weight 64.6 kg Weight Measurement Method Built in [facility] Diagnostic Findings Telemetry: Sinus rhythm with PAT PG Care Time/CCT Total # of Minutes Spent Total Time Spent with Patient: Total time spent is greater than 50% in coordination of care (as documented) at patient's floor/unit and/or counseling patient: Coding [place] [address] SUB INP/OBS CARE 3/50MIN Patient Type Established Diagnoses Paroxysmal atrial fibrillation I48.0
[2025-08-17] MEDS: ONDANSETRON INJ 2 MG/ML 2 ML VIAL IV PRN (09:56)
--- NOTE | 2025-08-17 10:09 | Electrocardiogram Report ---
Test Reason : Blood Pressure : */* mmHG Vent. Rate : 125 BPM Atrial Rate : * BPM P-R Int : * ms QRS Dur : 108 ms QT Int : 346 ms P-R-T Axes : * 103 14 degrees QTcB Int : 499 ms Atrial fibrillation with rapid ventricular response with premature ventricular or aberrantly conducte d complexes Rightward axis Anterior infarct (cited on or before 07-Oct-2017) Abnormal ECG When compared with ECG of 11-Jul-2025 14:53, Atrial fibrillation has replaced Sinus rhythm Nonspecific T wave abnormality no longer evident in Anterior leads Confirmed by Hema Morales ([id number]) on 08/17/2025 10:08:45 AM Referred By: REFERRED SELF Confirmed By: Hema Morales
[2025-08-17] MEDS: CAPSAICIN CR 0.075% 60 GM TUBE EXT ONE (12:56)
[2025-08-17] MEDS: METOPROLOL TARTRATE 25 MG TAB PO SCH (12:57)
--- NOTE | 2025-08-17 14:45 | Hospitalist Progress Note ---
Date of Service August 17, 2025 Assessment & Plan (1) Atrial fibrillation with rapid ventricular response: (2) History of mitral valve replacement with bioprosthetic valve: (3) Lactic acidosis: (4) Constipation: (5) Anxiety: (6) GERD (gastroesophageal reflux disease): Plan 64 year old female with PMH significant for paroxysmal atrial fibrillation, anticoagulated on Eliquis, history of mitral valve prolapse and regurgitation s/p bioprosthetic mitral valve replacement, history of maze procedure and left atrial appendage clip at time of her valve surgery in December 2023, resolved cardiomyopathy, chronic CHF with prior reduced EF and now preserved EF, depression/anxiety, GERD who presented to the ED on 08/15/2025 with diaphoresis, chills, and nausea and was found to be in acute A-fib RVR. Atrial fibrillation with RVR History of cardioversion and maze procedure Patient presented with diaphoresis, chills, nausea consistent with prior episodes of A fib RVR Discontinued amiodarone per [employer] on 07/11 but compliant with prescribed metoprolol succinate EKG revealed A fib RVR at rate of 125bpm Spontaneous conversion to NSR prior to receiving any medications TTE revealed EF 60-65%, moderate LVH, grade 1 diastolic dysfunction, severe d ilation left atrium, bioprosthetic mitral valve with mild stenosis and regurg Rate controlled initially with scheduled metoprolol tartrate [facility] consulted and recommending daily metoprolol succinate at 50mg (increased from home dose of 25mg) 08/17: Metoprolol held this morning due to significant hypotension with BP 60-70/50s although patient asymptomatic Hypotension likely caused by oxycodone use overnight for headache Received 500cc fluids and albumin x1 with temporary improvement in BP HR variable on telemetry ranging from 90s-130s BP hypotensive again this afternoon to 80s/50s Continue metoprolol with hold parameters Continue Eliquis Nausea and vomiting Medical marijuana use Sudden onset of nausea and vomiting this morning after hypotensive episode Patient admits to daily medical marijuana use via vaping multiple times per day with last use 3 days ago Has had multiple episodes of nausea and vomiting in the past few years that she attributes to atrial fibrillation Possible component of hyperemesis cannabinoid syndrome? Capsaicin ointment ordered - patient has tried this in the past without much relief but willing to try again Continue zofran PRN Possible sepsis Hypothermia-> resolved Meets criteria with hypothermia, tachycardia, elevated lactate although unknown source at this time Initial lactic acid 8.9 improved after fluids Temperature improved after rewarming measures Infectious work up negative so far No leukocytosis, negative procalcitonin, urine unremarkable, CXR and CTAP negative Blood cultures prelim NGTD in 48 hours DC Zosyn Constipation-> resolved CTAP noted moderate constipation Patient had BM with bowel regimen Depression/anxiety Continue duloxetine and ativan PRN GERD Continue PPI DVT Prophylaxis: on Eliquis Code Status: FULL CODE PCP: Anamaria Abad Disposition: possible dc to home tomorrow Patient seen in collaboration with Dr. Ramirez. Please see addendum. I spent a total of 60 minutes coordinating, documenting and providing care for this patient excluding time spent in the performance of separately billed services or time spent by another provider/QHP. Admission and Anticipated Discharge Date Admission Date: August 15, 2025 Supervising Physician Co-Signing Physician Notes Patient was seen and examined at bedside. Patient's active problems are: A-fib with RVR, spontaneously converted to NSR. Due to low blood pressure in a.m., a.m. dose was held. If blood pressure supports continue with metoprolol tartrate.Transition to metoprolol succinate at discharge. Continue with IV fluids to support blood pressure. Continue with Eliquis. 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 Patient has been vaping cannabis 10 to 15 puffs almost daily for last several years. patient advised to quit marijuana use. appears pt declined capsaicin cream per RN Constipation: Continue with bowel regimen. Concern for underlying infection/hypothermia: No signs of infection. Blood culture negative for 48 hours. Discontinue antibiotic. On exam: on room air, NAD, irregular HR in 90s. Rest of the examination as above. Total time spent independently: 22 minutes. I have seen and examined the patient and have discussed the case with the provider above. I agree with the assessment and plan as stated. Subjective Patient seen resting in bed Is very hypotensive this morning to 60s/50s Asymptomatic without dizziness, lightheadedness, chest pain, palpitations, SOB, abdominal pain, N/V/D Patient seen again in the afternoon Had one episode of vomiting that came on out of nowhere Took a dose of zofran which helped her nausea No abdominal pain Review of Systems Review of Systems: All systems reviewed & are unremarkable except as noted in HPI & below Physical Exam Physical Exam: General/Psych: WD/WN, sitting up in bed, NAD, conversing easily Head: normocephalic, atraumatic Eyes: normal inspection, PERRL, conjunctivae pink Neck: normal visual inspection, trachea midline, no thyromegaly Respiratory: normal respiratory effort, lungs clear to auscultation, no wheeze/rales/rhonchi, no accessory muscle use Cardiovascular: regular rate and rhythm, no murmur/rub/gallop Extremities: no cyanosis or clubbing, normal peripheral pulses, no BLE edema Abdomen/GI: normal bowel sounds, soft, nontender Neurologic/MSK: A+Ox3, motor strength 5/5, moves all extremities Skin: no rashes, normal color, warm and dry Results & Data Results & Data Vital Signs (Past 12 Hours) Vital Signs Temp Pulse Pulse Resp BP BP Pulse Ox 08/17/25 12:56 85/59 L 08/17/25 11:26 36.7 C 83 18 125/106 H 97 08/17/25 10:52 94 H 134/81 08/17/25 10:01 129/72 08/17/25 09:07 90/73 L 08/17/25 09:06 90 23 08/17/25 09:00 82 23 08/17/25 08:53 76/55 L 08/17/25 08:51 73 14 08/17/25 08:47 65/52 L 08/17/25 08:47 65/52 L 08/17/25 08:47 65/52 L 08/17/25 08:45 74/51 L 08/17/25 08:45 90 19 08/17/25 08:20 95/65 L 08/17/25 08:20 95/65 L 08/17/25 08:20 95/65 L 08/17/25 08:20 95/65 L 08/17/25 08:20 95/65 L 08/17/25 08:18 83 15 08/17/25 08:03 108 H 17 08/17/25 08:00 36.7 C 105 H 17 95/65 L 98 08/17/25 07:00 78 08/17/25 07:00 69 20 08/17/25 03:16 36.8 C 80 20 105/85 95 O2 Del Method 08/17/25 12:56 08/17/25 11:26 Room Air 08/17/25 10:52 08/17/25 10:01 08/17/25 09:07 08/17/25 09:06 08/17/25 09:00 08/17/25 08:53 08/17/25 08:51 08/17/25 08:47 08/17/25 08:47 08/17/25 08:47 08/17/25 08:45 08/17/25 08:45 08/17/25 08:20 08/17/25 08:20 08/17/25 08:20 08/17/25 08:20 08/17/25 08:20 08/17/25 08:18 08/17/25 08:03 08/17/25 08:00 Room Air 08/17/25 07:00 08/17/25 07:00 08/17/25 03:16 Room Air Laboratory Results Short CBC 08/17/25 Range/Units 06:03 WBC 9.13 (4.8-10.8) K/ul Hgb 12.3 (12.0-16.0) g/dL Hct 39.2 (37.0-47.0) % Plt Count 248 (130-400) K/uL BMP 08/17/25 06:03 Sodium 137 Potassium 3.8 Chloride 104 Carbon Dioxide 25 BUN 13 Creatinine 0.71 Glucose 132 H Calcium 9.1 I have independently reviewed and interpreted patient's labs including CBC, BMP, Mag. Medications Administered Current Inpatient Medications Acetaminophen (Acetaminophen 325 Mg Tab) 650 mg PO Q4H PRN PRN Reason: Moderate Pain (Scale 4, 5, 6) Stop: 09/14/25 18:44 Last Admin: 08/16/25 19:30 Dose: 650 mg Apixaban (Apixaban 5 Mg Tablet) 5 mg PO AMHS [facility] Stop: 09/14/25 20:59 Last Admin: 08/17/25 09:07 Dose: 5 mg Aspirin (Aspirin 81 Mg Ectab) 81 mg PO QAM [facility] Stop: 09/15/25 08:59 Last Admin: 08/17/25 09:07 Dose: 81 mg Bisacodyl (Bisacodyl 10 Mg Supp) 10 mg NV DAILY PRN PRN Reason: Constipation Stop: 09/14/25 18:44 Docusate Sodium (Docusate Sodium 100 Mg Cap) 100 mg PO BID [facility] Stop: 09/14/25 20:59 Last Admin: 08/17/25 09:18 Dose: 100 mg Duloxetine HCl (Duloxetine Hcl 60 Mg Cap) 60 mg PO QAM [facility] Stop: 09/15/25 08:59 Last Admin: 08/17/25 09:07 Dose: 60 mg Lorazepam (Lorazepam 0.5 Mg Tab) 0.5 mg PO DAILY PRN PRN Reason: Sleep Stop: 09/15/25 15:05 Last Admin: 08/16/25 19:31 Dose: 0.5 mg Magnesium Oxide (Magnesium Oxide 400 Mg Tab) 400 mg PO [id number] [facility] Stop: 09/16/25 08:59 Last Admin: 08/17/25 09:08 Dose: 400 mg Metoprolol Succinate (Metoprolol Succ 50mg Ext Rel Tab) 50 mg PO QAM [facility] Stop: 09/16/25 08:59 Last Admin: 08/17/25 09:07 Dose: Not Given Ondansetron HCl (Ondansetron Inj 2 Mg/Ml 2 Ml Vial) 4 mg IV Q4H PRN PRN Reason: Nausea And Vomiting Stop: 09/14/25 18:44 Last Admin: 08/17/25 09:56 Dose: 4 mg Pantoprazole Sodium (Pantoprazole 40 Mg Tab) 40 mg PO AMHS [facility] Stop: 09/14/25 20:59 Last Admin: 08/17/25 09:07 Dose: 40 mg Polyethylene Glycol (Polyethylene (Miralax) 17 Gm Pack) 17 gm PO DAILY [facility] Stop: 09/14/25 18:44 Last Admin: 08/17/25 09:18 Dose: 17 gm Vitamin D (Cholecalciferol 25 Mcg (1000 Units) Tab) 25 mcg PO DAILY [facility] Stop: 09/15/25 08:59 Last Admin: 08/17/25 09:08 Dose: 25 mcg
[2025-08-18 06:43] LABS: Hematocrit (blood only) 38.2 % (37.0-47.0); Hemoglobin 12.7 g/dL (12.0-16.0); Mean Corpuscular Hemoglobin 30.5 pg (25.0-34.0); Mean Corpuscular Volume 91.8 fL (80.0-100.0); Platelet Count 260 K/uL (130-400); RDW Standard Deviation 42.9 fL (36.4-46.3); Red Blood Count 4.16 M/uL (4.20-5.40); White Blood Count 6.33 K/ul (4.8-10.8)
[2025-08-18 07:14] LABS: Anion Gap 7.0 (3-11); Blood Urea Nitrogen 14.0 mg/dl (6-23); Calcium 9.7 mg/dl (8.6-10.3); Carbon Dioxide 29.0 mmol/L (21-32); Chloride 105.0 mmol/L (98-107); Creatinine Clr Calc Pharmacy 71.4 ml/min; Glucose 90.0 mg/dl (70-99(Fasting)); Magnesium 2.2 mg/dl (1.7-2.4); Potassium 3.5 mmol/L (3.5-5.1); Sodium 141.0 mmol/L (136-145)
[2025-08-18 11:44] VITALS: TEMP 98.4
--- NOTE | 2025-08-18 12:18 | Discharge Summary ---
Discharge Summary Date of Service August 18, 2025 Principal Dx & Hospital Course #1 = Principal Diagnosis (1) Atrial fibrillation with rapid ventricular response: (2) History of mitral valve replacement with bioprosthetic valve: (3) Lactic acidosis: (4) Constipation: (5) Anxiety: (6) GERD (gastroesophageal reflux disease): Plan 64 year old female with PMH significant for paroxysmal atrial fibrillation, anticoagulated on Eliquis, history of mitral valve prolapse and regurgitation s/p bioprosthetic mitral valve replacement, history of maze procedure and left atrial appendage clip at time of her valve surgery in December 2023, resolved cardiomyopathy, chronic CHF with prior reduced EF and now preserved EF, depression/anxiety, GERD who presented to the ED on 08/15/2025 with diaphoresis, chills, and nausea and was found to be in acute A-fib RVR. Atrial fibrillation with RVR History of cardioversion and maze procedure Patient presented with diaphoresis, chills, nausea consistent with prior e pisodes of A fib RVR Discontinued amiodarone per Database Analyst on 07/11 but compliant with prescribed metoprolol succinate EKG revealed A fib RVR at rate of 125bpm Spontaneous conversion to NSR prior to receiving any medications TTE revealed EF 60-65%, moderate LVH, grade 1 diastolic dysfunction, severe dilation left atrium, bioprosthetic mitral valve with mild stenosis and regurg Rate controlled initially with scheduled metoprolol tartrate [facility] consulted and recommending daily metoprolol succinate at 50mg (increased from 25mg) Continue Eliquis Hypotension On 08/17, patient had significant hypotension with BP 60-70/50s although asymptomatic Hypotension likely caused by oxycodone use overnight for headache Received 500cc fluids and albumin x1 with improvement in BP Metoprolol was held but patient able to tolerate metoprolol 50mg on day of discharge without hypotension Advised to continue this dose with close monitoring of BP at home and follow up with Cardiology in 1-2 weeks Nausea and vomiting Medical marijuana use On 08/17, patient had sudden onset of nausea and vomiting Has had multiple episodes of nausea and vomiting in the past few years that she attributes to atrial fibrillation Admits to daily medical marijuana use via vaping multiple times per day with last use 3 days prior to admission Possible component of hyperemesis cannabinoid syndrome causing atrial fibrillation rather than atrial fibrillation causing nausea and vomiting Encouraged patient to use capsaicin ointment at home and abstain from or at least cut back on medical marijuana use to better assess if it is causing her symptoms/episodes Possible sepsis Hypothermia-> resolved Met sepsis criteria with hypothermia, tachycardia, elevated lactate although no identified source Initial lactic acid 8.9 improved after fluids Temperature improved after rewarming measures Infectious work up negative No leukocytosis, negative procalcitonin, urine unremarkable, CXR and CTAP negative Blood cultures prelim NGTD in 48 hours Depression/anxiety Continue duloxetine and ativan PRN GERD Continue PPI Patient seen in collaboration with Dr. Ramirez. Please see addendum. Notes For Next Care Provider 64 year old with significant PMH who was admitted at [facility] from 08/15-08/18/2025 for A fib RVR. Course complicated by significant hypotension. Metoprolol dosing increased and patient/BP tolerated increased dose on day of discharge. Recommend close follow up of BP monitoring and with Cardiology. Medication Changes From Visit Metoprolol succinate increased from 25mg to 50mg daily Admission HPI Per Admitting Provider This is a 64 yo F with PMhx of Atrial fibrillation, anticoagulated on Eliquis, history of mitral valve regurgitation (nonrheumatic) status post mitral valve replacement, history of maze procedure and left atrial appendage clip at time of her valve surgery in December 2023, chronic systolic CHF, EF of 45 to 49% previously now improved to 55% as of Jun 2024, diffuse hypokinesis anterior colporrhaphy and uterosacral hysteropexy in October 2024 and chronic constipation. per patient reports she was instructed to stop amiodarone approximately 2 to 3 weeks ago per [place] [facility]ology whom she follows with regularly. her Saji is present with her at bedside and supports the history. He states that cardiology also informed them that it was due to her LV function that they did not want her on long-term amiodarone. She reports feeling intermittently nauseous during exam, no vomiting but does feel soreness in her abdomen status post dry heaving throughout the morning today. Saji reports that she has the same presentation with chills, sweats, not feeling well with nausea every time she goes into a bout of atrial fibrillation with RVR and that this is the fourth time that it has occurred. Denies any recent medication changes other than DC of amiodarone. She has been taking beta-blockade of metoprolol succinate 25 mg daily as instructed. Upon presentation with she was found to be hypothermic with a Tmax of 34.5, heart rate initially in the 120s to 130s, A-fib RVR seen on EKG, initially lactic acid is 8.9, improved to 3.1 after receiving 2 L normal saline in the ER. Blood cultures were obtained, she is empirically started on Zosyn for possible underlying septic source however it has not been identified at this time. CXR is negative, CT abdomen pelvis is negative other than moderate fecal retention and constipation. Respiratory bio fire is pending. Admission Exam Per Admitting Provider General: awake, alert, acute distress, diaphoretic white female, has difficulty keeping eyes open, answers question with one word Head: Normocephalic, atraumatic ENT: PERRL, EOMI, no pharyngeal exudate, mucous membranes moist Chest: Clear to auscultation, on room air, no adventitious breath sounds Cardiac: Irregularly irregular with HR of 100s at bedside, no murmur, no JVD, normal peripheral pulses, good capillary refill Abdominal: NABS x 4 quadrants, soft, nondistended, nontender to palpation, no rebound or guarding Extremities: Normal inspection, no peripheral edema or erythema, calfs nontender to palpation Skin: Small areas of ecchymosis over the left wrist and bilateral lower extremities developing, ~ 1 cm diameter x 1 on each extremity Psych: Normal mood and affect Neuro: AAO to self, place, answers questions although is slow to respond at times, strength intact bilaterally and rated 5/5, no motor deficits, speech is clear, no peripheral sensory deficits Discharge Exam General/Psych: WD/WN, sitting up in bed, NAD, conversing easily Head: normocephalic, atraumatic Eyes: normal inspection, PERRL, conjunctivae pink Neck: normal visual inspection, trachea midline, no thyromegaly Respiratory: normal respiratory effort, lungs clear to auscultation, no wheeze/rales/rhonchi, no accessory muscle use Cardiovascular: regular rate and rhythm, no murmur/rub/gallop Extremities: no cyanosis or clubbing, normal peripheral pulses, no BLE edema Abdomen/GI: normal bowel sounds, soft, nontender Neurologic/MSK: A+Ox3, motor strength 5/5, moves all extremities Skin: no rashes, normal color, warm and dry Updated Medication List Medication Instructions Recorded Confirmed Type lorazepam 0.5 mg tablet 0.5 mg PO DAILY PRN SLEEP 08/02/22 08/15/25 History magnesium 250 mg tablet 250 mg PO 3XWK 01/20/24 08/15/25 History promethazine 12.5 mg tablet 12.5 mg PO TID PRN nausea and 03/21/24 08/15/25 Rx vomiting #30 tabs medical marijuana 1 dose inhalation DAILY PRN 10/20/24 08/15/25 History NEEDED cholecalciferol (vitamin D3) 25 25 mcg PO DAILY 12/09/24 08/15/25 History mcg (1,000 unit) capsule (Vitamin D3) methocarbamol 750 mg tablet 750 mg PO HS #30 tabs 01/11/25 08/15/25 Rx apixaban 5 mg tablet (Eliquis) 5 mg PO AMHS 02/21/25 08/15/25 History aspirin 81 mg chewable tablet 81 mg PO QAM 02/21/25 08/15/25 History (Aspirin Childrens) duloxetine 60 mg capsule,delayed 60 mg PO QAM 02/21/25 08/15/25 History release pantoprazole 40 mg tablet,delayed 40 mg PO AMHS 02/21/25 08/15/25 History release metoprolol succinate 25 mg 50 mg (2 x 25 mg) PO QAM #60 tabs 08/18/25 Rx tablet,extended release 24 hr Hospital Stay Data Consultations 08/15/25 12:51 Consult Cardiology Routine Diagnostic Imagining Performed Chest X-Ray 08/15/25 09:44 XR chest 1V portable HISTORY: 64 years-old Female Sepsis COMPARISON: December 08, 2024 TECHNIQUE: AP view the chest FINDINGS: Cardiac silhouette is mildly enlarged. Median sternotomy. Left atrial exclusion device again noted. Nipple shadow projects over the right lung base. No pneumothorax, pleural effusion, airspace consolidation or pulmonary edema. Bones of the chest appear grossly intact. IMPRESSION: No acute process of the chest ACT 112: Negative or not required by law. The above report was generated using voice recognition software. It may contain grammatical, syntax or spelling errors. Electronically signed by: Leopoldo Fang M.D. 08/15/2025 10:01 AM Abdomen/Pelvis CT 12/10/25 10:28 CT SCAN OF THE ABDOMEN AND PELVIS WITH IV CONTRAST CLINICAL HISTORY: Generalized abdominal pain. Vomiting. COMPARISON STUDY: Abdominal CT dated 12/09/2024. TECHNIQUE: Following the IV administration of 94 cc of Optiray 320, CT scan of the abdomen and pelvis is performed from the lung bases to the proximal femora. Images are reviewed in the axial, sagittal, and coronal planes. IV contrast was administered without complication. A dose lowering technique was utilized adhering to the principles of ALARA. CT DOSE: 754.06 mGy.cm FINDINGS: Lung bases: The patient is status post midline sternotomy. The heart is enlarged and without pericardial effusion. There is evidence of previous mitral valve surgery. There are calcified granulomas seen in the left lower lobe. The lung bases are otherwise clear noting mild bibasilar scarring/atelectasis. A fat- containing Bochdalek hernia is noted on the right. Liver: The contrast-enhanced liver is normal in size, contour, and attenuation. There is no intrahepatic biliary ductal dilatation. The hepatic veins and portal veins are patent. Gallbladder: There are layering calcified gallstones with no CT evidence of acute cholecystitis. Spleen: Normal in size and attenuation. Pancreas: Unremarkable. Adrenal glands: Unremarkable. Kidneys: The contrast enhanced kidneys are normal in size and without hydronephrosis. The kidneys enhance symmetrically. Scattered subcentimeter cortical hypodensities likely represent cysts but are too small for definitive characterization. Abdominal vasculature: The abdominal aorta is normal in course and caliber noting mild atherosclerotic calcification. Bowel: There is rectosigmoid fecal retention and moderate constipation. No bowel obstruction is seen. The appendix is not visualized. Peritoneum: There is no intraperitoneal free air or abdominal ascites. There is a fat-containing umbilical hernia. Lymphadenopathy: None. Pelvic viscera: Evaluation of the pelvis is degraded by streak artifact from a right hip arthroplasty. The the bladder is mildly distended with a catheter in place. The uterus and adnexa are normal as visualized. Skeletal structures: The skeletal structures are osteopenic. No lytic or blastic lesions are seen. There is moderate lumbosacral spondylosis as well as mild scoliosis. A right hip arthroplasty is in place. IMPRESSION: 1. No acute infectious or inflammatory findings are identified in the abdomen or pelvis. 2. Constipation. 3. Cardiomegaly. 4. Cholelithiasis. 5. Additional findings as above. ACT 112: Negative or not required by law. Electronically signed by: Bernardino Layton M.D. 08/15/2025 11:38 AM Pending Results Patient Have Any Pending Studies at Discharge: Yes Discharge Instructions Given to Patient (Per Discharging Provider) You presented to the hospital with sweating, chills, nausea and were found to be in atrial fibrillation with rapid heart rate. Your heart rhythm spontaneously converted to normal sinus rhythm and you were given medications to lower your heart rate. Cardiology saw you and increased your metoprolol dose from 25mg to 50mg. You were able to tolerate this increased dose today and should continue taking this while monitoring your blood pressure closely at home. Please follow up with Cardiology in 1-2 weeks. They will contact you with an appointment date and time. We completed an infectious work up to look for a source of your symptoms but everything came back reassuring. Your labs looked good, urine looked clean, imaging of your chest and belly were normal, and your blood cultures have been negative for 48 hours. You were treated with antibiotics while in the hospital but do not need to continue these as we have found no infection. It is possible that your symptoms could be caused by hyperemesis cannabinoid syndrome, which is a side effect of marijuana use where you get nausea and vomiting. You have capsaicin ointment at home that you can use to prevent nausea and vomiting. We recommend you abstain or at least cut back on your marijuana use to better see if these episodes and your symptoms are related to this. MEDICATION CHANGES: CHANGE metoprolol succinate from 25mg to 50mg daily - please check your blood pressure before taking and hold if your top number is less than 90 SUMMARY OF TEST RESULTS: See above PENDING TEST RESULTS: Blood culture final results - preliminary negative so far RECOMMENDATIONS FOR FOLLOW-UP: Please follow up with your PCP as scheduled on 08/23/2025 at 10:10am Please follow up with your Database Analyst - they will contact you with an appointment date and time OTHER INSTRUCTIONS: Seek medical attention if you have: * temperature above 101 * chest pain or trouble breathing * abdominal pain, nausea, vomiting * diarrhea, dark stools or bloody stools * any unanswered questions or concerns Call 911 if symptoms are severe. It has been a pleasure taking care of you. Please take care of yourself. If you have any questions regarding your recent hospitalization please contact [facility] and request Ford Encinas @ [phone]. Total Time Total Time Spent Total Time Spent (In Minutes): I spent a total of 35 minutes coordinating, documenting and providing care for this patient excluding time spent in the performance of separately billed services or time spent by another provider/QHP. Supervising Physician Co-Signing Physician Notes Patient was seen and examined at bedside. Patient's active problems are: A-fib with RVR, cards evaled, rate controlled. Continue with Eliquis. 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 Patient has been vaping cannabis 10 to 15 puffs almost daily for last several years. patient advised to quit marijuana use. appears pt declined capsaicin cream per RN, pt educated on need to quit marijuana. Constipation: Continue with bowel regimen. Concern for underlying infection/hypothermia: No signs of infection. Blood culture negative for 48 hours. Discontinued antibiotic. On exam: on room air, NAD, irregular HR in 80-90s. Rest of the examination as above. Total time spent independently: 22 minutes. I have seen and examined the patient and have discussed the case with the provider above. I agree with the assessment and plan as stated.
[2025-08-18 15:17] VITALS: PULSE 83; RESP 20; O2SAT 97
[2025-08-18 15:52] VITALS: BP 100/66
--- NOTE | 2025-08-20 12:56 | Coding Query ---
CODING QUERY To promote full compliance with coding requirements relating to patient care, provider participation is requested in all cases of overhead cleaner maintainer uncertainty. Please assist us with the question(s) below: Coding Question(s): There is documentation in the record of Possible Sepsis, including the Discharge Summary with, "Possible sepsis Hypothermia-> resolved Met sepsis criteria with hypothermia, tachycardia, elevated lactate although no identified source Initial lactic acid 8.9 improved after fluids Temperature improved after rewarming measures Infectious work up negative No leukocytosis, negative procalcitonin, urine unremarkable, CXR and CTAP negative Blood cultures prelim NGTD in 48 hours". It is not clear if Possible Sepsis due to unidentified infection was still possible, or if it was ruled out completely. Please specify below in your clinical opinion: ( ) Possible Sepsis due to unidentified infection was monitored/treated during this admission ( x ) Possible Sepsis was Ruled-Out Physician's Response(s): Thank you Mindy Choe Principal Diagnosis: "that condition established after study, to be chiefly responsible for occasioning the admission of the patient to the hospital for care." Co-Existing Principal Diagnosis: "when two or more diagnoses equally meet the criteria for principal diagnosis as determined by the circumstances of admission, diagnostic work up, and/or therapy provided, and the Alphabetic Index, Tabular List, or another coding guideline does not provide sequencing direction, any one of the diagnoses may be sequenced first." "When the physician has documented what appears to be a current diagnosis in the body of the record, but has not included the diagnosis in the final diagnostic statement, the physician should be asked whether the diagnosis should be added." (Source Coding [facility] 2 QTR90. p3-4) PAMELA
== END 2025-08-18 16:19 | disposition home or self-care (01) | DRG 309 ==
LOC: ED 09:28 → 2E 12:22